=== PATIENT | male | born 1945 | race Caucasian/White ===

== ENCOUNTER 2016-09-28 06:58 | Day surgery (SDC) | payer OTHER ==
[2016-09-28] MEDS ORDERED: BORTEZOMIB (VELCADE) 2.5 MG/ML SUB-Q INJECTION SQ ONE (08:00)
[2016-09-28] MEDS ORDERED: DEXAMETHASONE 4 MG TABLET (FP) PO ONE (08:00)
[2016-09-28 11:06] LABS: BASOPHIL 0.4 % (0-2.0); EOSINOPHIL 1.8 % (0-4.5); MCH 31.6 pg (25.7-33.7); MCHC 33.6 g/dl (32.0-35.9); MEAN CELL VOLUME 93.8 fl (80-96); MEAN PLT VOLUME 7.8 fl (7.5-11.1); NEUTROPHILS 74.1 % (42.8-82.8); PLATELET COUNT 208 K/MM3 (134-434); RDW 14.3 % (11.9-15.9); WHITE BLOOD COUNT 7.1 K/mm3 (4.0-10.0)
[2016-09-28 11:25] LABS: ALBUMIN 3.8 g/dl (3.4-5.0); BILIRUBIN,TOTAL 0.4 mg/dL (0.2-1.0); CALCIUM 8.9 mg/dL (8.5-10.1); TOT PROT 6.3 g/dl (6.4-8.2)
[2016-09-28 13:12] VITALS: BP 118/74; PULSE 70; TEMP 98.2; BMI 29.2
== END 2016-09-28 14:05 | disposition home or self-care (01) ==
LOC: J7W 06:58 → JONCCHEMO 06:58
PROVIDERS: ATTEND Internal Medicine Hematology & Oncology
DX: Z51.11 Encounter for antineoplastic chemotherapy (principal); C90.00 Multiple myeloma not having achieved remission
CPT/HCPCS: 96401; J9041; 36415; 80053; 85025

== ENCOUNTER 2016-10-05 06:15 | Day surgery (SDC) | payer OTHER ==
[2016-10-05] MEDS ORDERED: DEXAMETHASONE 4 MG TABLET (FP) PO ONE (08:00)
[2016-10-05] MEDS ORDERED: BORTEZOMIB (VELCADE) 2.5 MG/ML SUB-Q INJECTION SQ ONE (08:00)
[2016-10-05 10:32] LABS: BASOPHIL 1.5 % (0-2.0); EOSINOPHIL 1.5 % (0-4.5); MCH 31.8 pg (25.7-33.7); MCHC 33.6 g/dl (32.0-35.9); MEAN CELL VOLUME 94.6 fl (80-96); MEAN PLT VOLUME 8.8 fl (7.5-11.1); NEUTROPHILS 69.6 % (42.8-82.8); PLATELET COUNT 157 K/MM3 (134-434); RDW 13.9 % (11.9-15.9); WHITE BLOOD COUNT 6.9 K/mm3 (4.0-10.0)
[2016-10-05 10:52] LABS: ALBUMIN 3.8 g/dl (3.4-5.0); BILIRUBIN,TOTAL 0.6 mg/dL (0.2-1.0); CALCIUM 8.7 mg/dL (8.5-10.1); TOT PROT 6.3 g/dl (6.4-8.2)
[2016-10-05 13:47] VITALS: BP 110/71; PULSE 81; TEMP 98.4; BMI 29.2
== END 2016-10-05 12:00 | disposition home or self-care (01) ==
LOC: JONCCHEMO 06:15 → J7W 11:08 → JONCCHEMO 12:00
PROVIDERS: ATTEND Internal Medicine Hematology & Oncology
DX: Z51.11 Encounter for antineoplastic chemotherapy (principal); C90.00 Multiple myeloma not having achieved remission
CPT/HCPCS: 96401; J9041; 36415; 80053; 85025

== ENCOUNTER 2016-10-19 07:01 | Day surgery (SDC) | payer OTHER ==
[2016-10-19] MEDS ORDERED: DEXAMETHASONE 4 MG TABLET (FP) PO ONE (08:00)
[2016-10-19] MEDS ORDERED: BORTEZOMIB (VELCADE) 2.5 MG/ML SUB-Q INJECTION SQ ONE (08:30)
[2016-10-19 10:23] LABS: MCH 31.9 pg (25.7-33.7); MCHC 33.5 g/dl (32.0-35.9); MEAN CELL VOLUME 95.2 fl (80-96); MEAN PLT VOLUME 8.7 fl (7.5-11.1); PLATELET COUNT 142 K/MM3 (134-434); RDW 14.3 % (11.9-15.9); WHITE BLOOD COUNT 7.2 K/mm3 (4.0-10.0)
[2016-10-19 10:32] LABS: ALBUMIN 3.7 g/dl (3.4-5.0); BILIRUBIN,TOTAL 0.7 mg/dL (0.2-1.0); CALCIUM 8.7 mg/dL (8.5-10.1); CREATININE 2.3 mg/dL (0.7-1.3); MAGNESIUM 1.8 mg/dL (1.8-2.4); TOT PROT 6.2 g/dl (6.4-8.2)
[2016-10-19 12:48] VITALS: BP 124/78; PULSE 68; TEMP 98.1
[2016-10-19 15:15] LABS: METAMYELOCYTE 1 % (0-2)
[2016-10-19 15:16] LABS: PLATELET ESTIMATE SLT DECREASED (NORMAL)
== END 2016-10-19 14:44 | disposition home or self-care (01) ==
LOC: JONCCHEMO 07:01 → J7W 10:53 → JONCCHEMO 14:44
PROVIDERS: ATTEND Internal Medicine Hematology & Oncology
DX: Z51.11 Encounter for antineoplastic chemotherapy (principal); C90.00 Multiple myeloma not having achieved remission
CPT/HCPCS: 96401; J9041; 36415; 80053; 83735; 85025

== ENCOUNTER 2016-11-02 06:59 | Day surgery (SDC) | payer OTHER ==
[2016-11-02] MEDS ORDERED: DEXAMETHASONE 4 MG TABLET (FP) PO ONE (08:00)
[2016-11-02] MEDS ORDERED: BORTEZOMIB (VELCADE) 2.5 MG/ML SUB-Q INJECTION SQ ONE (08:00)
[2016-11-02 10:18] LABS: MCH 32.2 pg (25.7-33.7); MCHC 33.9 g/dl (32.0-35.9); MEAN PLT VOLUME 7.9 fl (7.5-11.1); PLATELET COUNT 212 K/MM3 (134-434); RDW 14.3 % (11.9-15.9); WHITE BLOOD COUNT 7.4 K/mm3 (4.0-10.0)
[2016-11-02 10:50] LABS: ALBUMIN 3.6 g/dl (3.4-5.0); ANION GAP 11 (8-16); BILIRUBIN,TOTAL 0.4 mg/dL (0.2-1.0); CALCIUM 8.9 mg/dL (8.5-10.1); CO2 24 mmol/L (21-32); CREATININE 2.4 mg/dL (0.7-1.3); GLUCOSE,RANDOM 99 mg/dL (74-106); MAGNESIUM 1.9 mg/dL (1.8-2.4); SGOT/AST 18 U/L (15-37); SGPT/ALT 20 U/L (12-78); TOT PROT 5.9 g/dl (6.4-8.2)
[2016-11-02 10:51] LABS: ALK PHOS 97 U/L (45-117)
[2016-11-02 10:55] LABS: BILIRUBIN,DIRECT < 0.1 mg/dL (0.0-0.2)
[2016-11-02 11:56] LABS: PLATELET ESTIMATE ADEQUATE (NORMAL)
[2016-11-02 14:31] VITALS: BP 132/72; PULSE 78; TEMP 98.7
== END 2016-11-02 11:06 | disposition home or self-care (01) ==
LOC: JONCCHEMO 06:59 → J7W 10:54 → JONCCHEMO 11:06
PROVIDERS: ATTEND Internal Medicine Hematology & Oncology
DX: Z51.11 Encounter for antineoplastic chemotherapy (principal); C90.00 Multiple myeloma not having achieved remission; D64.81 Anemia due to antineoplastic chemotherapy
CPT/HCPCS: 36415; 80053; 80076; 83735; 85025; 96401; J9041

== ENCOUNTER 2016-11-09 07:03 | Day surgery (SDC) | payer OTHER ==
[2016-11-09] MEDS ORDERED: BORTEZOMIB (VELCADE) 2.5 MG/ML SUB-Q INJECTION SQ ONE (08:00)
[2016-11-09] MEDS ORDERED: DEXAMETHASONE 4 MG TABLET (FP) PO ONE (08:00)
[2016-11-09 10:39] LABS: ALBUMIN 3.5 g/dl (3.4-5.0); ALK PHOS 103 U/L (45-117); ANION GAP 12 (8-16); BILIRUBIN,TOTAL 0.3 mg/dL (0.2-1.0); CALCIUM 8.3 mg/dL (8.5-10.1); CO2 22 mmol/L (21-32); CREATININE 2.3 mg/dL (0.7-1.3); GLUCOSE,RANDOM 86 mg/dL (74-106); MAGNESIUM 2.1 mg/dL (1.8-2.4); SGOT/AST 17 U/L (15-37); SGPT/ALT 20 U/L (12-78); TOT PROT 5.9 g/dl (6.4-8.2)
[2016-11-09 10:40] LABS: BILIRUBIN,DIRECT < 0.1 mg/dL (0.0-0.2)
[2016-11-09 11:38] LABS: MCH 32.3 pg (25.7-33.7); MCHC 34.2 g/dl (32.0-35.9); MEAN CELL VOLUME 94.5 fl (80-96); MEAN PLT VOLUME 8.6 fl (7.5-11.1); PLATELET COUNT 129 K/MM3 (134-434); RDW 13.9 % (11.9-15.9); WHITE BLOOD COUNT 7.9 K/mm3 (4.0-10.0)
[2016-11-09 12:12] LABS: PLATELET ESTIMATE DECREASED (NORMAL)
[2016-11-09 14:47] VITALS: BP 106/73; PULSE 68; TEMP 97.5
[2016-11-11 00:06] LABS: A/G RATIO 1.5 (0.7-1.7); ALBUMIN 3.4 g/dL (2.9-4.4); ALPHA-1-GLOBULIN 0.2 g/dL (0.0-0.4); BETA GLOBULIN 0.8 g/dL (0.7-1.3); GAMMA GLOBULIN 0.5 g/dL (0.4-1.8); GLOBULIN, TOTAL 2.4 g/dL (2.2-3.9); M-SPIKE 0.4 g/dL (Not Observed); TOTAL PROTEIN 5.8 g/dL (6.0-8.5)
== END 2016-11-09 11:55 | disposition home or self-care (01) ==
LOC: JONCCHEMO 07:03 → J7W 11:15 → JONCCHEMO 11:55
PROVIDERS: ATTEND Internal Medicine Hematology & Oncology
DX: Z51.11 Encounter for antineoplastic chemotherapy (principal); C90.00 Multiple myeloma not having achieved remission; D64.81 Anemia due to antineoplastic chemotherapy
CPT/HCPCS: 36415; 80053; 80076; 82784; 83735; 83883; 84155; 84165; 85025; 86334; 96401; J9041

== ENCOUNTER 2016-11-16 06:55 | Day surgery (SDC) | payer OTHER ==
[2016-11-16] MEDS ORDERED: DEXAMETHASONE 4 MG TABLET (FP) PO ONE (08:00)
[2016-11-16] MEDS ORDERED: BORTEZOMIB (VELCADE) 2.5 MG/ML SUB-Q INJECTION SQ ONE (08:30)
[2016-11-16 10:10] LABS: EOSINOPHIL 4.5 % (0-4.5); MCHC 33.4 g/dl (32.0-35.9); MEAN CELL VOLUME 95.9 fl (80-96); MEAN PLT VOLUME 8.7 fl (7.5-11.1); PLATELET COUNT 126 K/MM3 (134-434)
[2016-11-16 10:34] LABS: ALBUMIN 3.7 g/dl (3.4-5.0); BILIRUBIN,TOTAL 0.4 mg/dL (0.2-1.0); CALCIUM 8.5 mg/dL (8.5-10.1); CREATININE 2.9 mg/dL (0.7-1.3); MAGNESIUM 2.1 mg/dL (1.8-2.4); TOT PROT 6.2 g/dl (6.4-8.2)
[2016-11-16 10:56] VITALS: BP 129/74; PULSE 79; TEMP 98.2
== END 2016-11-16 10:30 | disposition home or self-care (01) ==
LOC: JONCCHEMO 06:55 → J7W 10:52
PROVIDERS: ATTEND Internal Medicine Hematology & Oncology
DX: Z51.11 Encounter for antineoplastic chemotherapy (principal); C90.00 Multiple myeloma not having achieved remission
CPT/HCPCS: 96401; J9041; 36415; 80053; 83735; 85025

== ENCOUNTER 2016-11-30 07:12 | Day surgery (SDC) | payer OTHER ==
[2016-11-30] MEDS ORDERED: DEXAMETHASONE 4 MG TABLET (FP) PO ONE (08:00)
[2016-11-30] MEDS ORDERED: BORTEZOMIB (VELCADE) 2.5 MG/ML SUB-Q INJECTION SQ ONE (08:30)
[2016-11-30 10:22] LABS: EOSINOPHIL 3.8 % (0-4.5); MCH 32.4 pg (25.7-33.7); MCHC 33.8 g/dl (32.0-35.9); MEAN CELL VOLUME 95.7 fl (80-96); MEAN PLT VOLUME 6.9 fl (7.5-11.1); NEUTROPHILS 75.4 % (42.8-82.8); PLATELET COUNT 207 K/MM3 (134-434); RDW 14.3 % (11.9-15.9); WHITE BLOOD COUNT 8.9 K/mm3 (4.0-10.0)
[2016-11-30 10:53] LABS: ALBUMIN 3.5 g/dl (3.4-5.0); BILIRUBIN,TOTAL 0.3 mg/dL (0.2-1.0); CALCIUM 8.5 mg/dL (8.5-10.1); CREATININE 2.4 mg/dL (0.7-1.3); MAGNESIUM 1.9 mg/dL (1.8-2.4); TOT PROT 5.9 g/dl (6.4-8.2)
--- NOTE | 2016-11-30 12:42 | PN ---
Progress Note, Physician - Objective Vital Signs: Vital Signs Temperature 99.4 F 11/30/16 09:52 Pulse Rate 73 11/30/16 09:52 Respiratory Rate 22 11/30/16 09:52 Blood Pressure 128/70 11/30/16 09:52 O2 Sat by Pulse Oximetry (%) Labs: CBC, BMP 11/30/16 10:13 11/30/16 10:13 Assessment/Plan 1. Acute kidney injury related to Multiple Myeloma post renal biopsy 2. Paroxysmal atrial fibrillation [id number] score of 3 3. HTN 4. Anemia post transfusion 5. Hyponatremia,improved 6. History of noncompliance with medical F/U 7. Enterococcus UTI PLAN: 1. Continue Toprol XL 50 qd and Amlodipine 5 qd 2. Continue Amiodarone 200 qd and Lipitor 10 qd 3. Anticoagulation would be recommended once not planned for further intervention. 4. F/u bone marrow biopsy results, continue dex/velcade course and hydration 5. Abx course
--- NOTE | 2016-11-30 12:44 | CON.CARD ---
Consult Consult Specialty:: Cardiology Referred by:: Heme-Onc Dr. Lira Reason for Consultation:: Anticoagulation recommendations - History of Present Illness Chief Complaint: Multiple Myeloma History of Present Illness: The patient is a 71-year-old male with past medical history of hypertension, paroxysmal atrial fibrillation, multiple myeloma with kidney involvement on coumadin per stable INR presents for Velcade injection. He denies exertional chest tightness, dyspnea, near or true syncope, palpitations, orthopnea, PND, LE edema or change in exercise capacity, planned for stem cell transplant at [facility]. - History Source History Provided By: Patient Limitations to Obtaining History: No Limitations - Past Medical History Cardio/Vascular: Yes: AFIB, HTN Renal/: Yes: Renal Inusuff - Alcohol/Substance Use Hx Alcohol Use: No - Smoking History Smoking history: Never smoked Have you smoked in the past 12 months: No Aproximately how many cigarettes per day: 0 Home Medications - Allergies Allergies/Adverse Reactions: Allergies Allergy/AdvReac Type Severity Reaction Status Date / Time No Known Allergies Allergy Verified 04/13/16 19:21 - Home Medications Home Medications: Ambulatory Orders Amiodarone HCl [Cordarone -] 200 mg PO HS 03/13/16 Metoprolol Succinate [Toprol Xl] 50 mg PO BID 03/13/16 Simvastatin [Zocor -] 20 mg PO HS 03/13/16 Allopurinol [Zyloprim -] 100 mg PO DAILY #30 tablet 03/24/16 Amlodipine Besylate [Norvasc -] 5 mg PO DAILY #30 tablet 03/24/16 Sodium Bicarbonate - 1,300 mg PO BID #28 tablet 03/24/16 Valacyclovir HCl [Valtrex -] 500 mg PO DAILY #30 tablet 03/24/16 Warfarin Sodium [Coumadin] 7.5 mg PO HS 03/30/16 Review of Systems - Review of Systems Cardiovascular: reports: No Symptoms Vital Signs: Vital Signs Temperature 99.4 F 11/30/16 09:52 Pulse Rate 73 11/30/16 09:52 Respiratory Rate 22 11/30/16 09:52 Blood Pressure 128/70 11/30/16 09:52 O2 Sat by Pulse Oximetry (%) Constitutional: Yes: No Distress, Calm Neck: Yes: Supple Respiratory: Yes: Regular, CTA Bilaterally Gastrointestinal: Yes: Normal Bowel Sounds, Soft Cardiovascular: Yes: Regular Rate and Rhythm JVD: No Carotid Bruit: No Heart Sounds: Yes: S1, S2 Murmur: Yes: Systolic Murmur, Grade 1 Edema: No - Other Data Labs, Other Data: CBC, BMP 11/30/16 10:13 11/30/16 10:13 Problem List - Problems (1) Anemia Code(s): D64.9 - ANEMIA, UNSPECIFIED Qualifiers: Anemia type: bone marrow failure Bone marrow failure anemia type: unspecified bone marrow failure Qualified Code(s): D61.9 - Aplastic anemia, unspecified (2) Multiple myeloma Code(s): C90.00 - MULTIPLE MYELOMA NOT HAVING ACHIEVED REMISSION Qualifiers: Multiple myeloma remission status: not in remission Qualified Code(s ): C90.00 - Multiple myeloma not having achieved remission (3) Hyperlipidemia Code(s): E78.5 - HYPERLIPIDEMIA, UNSPECIFIED Qualifiers: Hyperlipidemia type: pure hypercholesterolemia Qualified Code(s): E78.00 - Pure hypercholesterolemia, unspecified; E78.0 - Pure hypercholesterolemia (4) Hypertensive cardiovascular disease Code(s): I11.9 - HYPERTENSIVE HEART DISEASE WITHOUT HEART FAILURE Qualifiers: Heart failure presence: without heart failure Qualified Code(s): I11.9 - Hypertensive heart disease without heart failure (5) Paroxysmal atrial fibrillation Code(s): I48.0 - PAROXYSMAL ATRIAL FIBRILLATION (6) Chronic kidney disease (CKD) Code(s): N18.9 - CHRONIC KIDNEY DISEASE, UNSPECIFIED Qualifiers: Chronic kidney disease stage: stage 3 (moderate) Qualified Code(s): N18.3 - Chronic kidney disease, stage 3 (moderate) Assessment/Plan 1. CKD with Multiple Myeloma 2. Paroxysmal atrial fibrillation [id number] score of 3 3. HTN 4. Anemia 5. Hyperlipidemia PLAN: 1. Continue Toprol XL 50 bid and Amlodipine 5 qd 2. Continue Amiodarone 200 qd and Lipitor 10 qd 3. Continue coumadin per INR with holding marnie-procedure and resume once hemostasis achieved, d/c ASA 4. Continue dex/velcade course and hydration 5. Stem cell transplant eval at [facility], case d/w Drs. Lira and Kathy at [facility] 6. F/u in office with mt for cardiovascular f/u 7. Thank you for consultative opportunity
[2016-11-30 13:51] LABS: INR 1.09 (0.82-1.09)
[2016-11-30 13:54] LABS: ACTIVATED PTT 35.5 SECONDS (26.9-34.4)
[2016-11-30 18:26] VITALS: BP 115/71; PULSE 93; TEMP 99.3
== END 2016-11-30 18:38 | disposition home or self-care (01) ==
LOC: JONCCHEMO 07:12 → J7W 11:32 → JONCCHEMO 18:38
PROVIDERS: ATTEND Internal Medicine Hematology & Oncology
DX: Z51.11 Encounter for antineoplastic chemotherapy (principal); C90.00 Multiple myeloma not having achieved remission
CPT/HCPCS: 36415; 80053; 83735; 85025; 85610; 85730; 96401; J9041

== ENCOUNTER 2016-12-07 07:06 | Day surgery (SDC) | payer OTHER ==
[2016-12-07] MEDS ORDERED: DEXAMETHASONE 4 MG TABLET (FP) PO ONE (08:00)
[2016-12-07] MEDS ORDERED: BORTEZOMIB (VELCADE) 2.5 MG/ML SUB-Q INJECTION SQ ONE (08:30)
[2016-12-07 11:21] LABS: MCH 31.6 pg (25.7-33.7); MCHC 33.6 g/dl (32.0-35.9); MEAN CELL VOLUME 93.9 fl (80-96); PLATELET COUNT 156 K/MM3 (134-434); WHITE BLOOD COUNT 9.2 K/mm3 (4.0-10.0)
[2016-12-07 11:51] LABS: ALBUMIN 3.5 g/dl (3.4-5.0); BILIRUBIN,TOTAL 0.3 mg/dL (0.2-1.0); CALCIUM 8.9 mg/dL (8.5-10.1); CREATININE 2.4 mg/dL (0.7-1.3); TOT PROT 6.1 g/dl (6.4-8.2)
[2016-12-07 12:43] VITALS: BP 104/62; PULSE 79; TEMP 98.3
[2016-12-07 14:14] LABS: INR 1.14 (0.82-1.09); PROTHROMBIN TIME (PATIENT) 12.6 SEC (9.98-11.88)
[2016-12-07 14:21] LABS: PLATELET ESTIMATE ADEQUATE (NORMAL)
== END 2016-12-07 13:06 | disposition home or self-care (01) ==
LOC: JONCCHEMO 07:06 → J7W 11:52 → JONCCHEMO 13:06
PROVIDERS: ATTEND Internal Medicine Hematology & Oncology
DX: Z51.11 Encounter for antineoplastic chemotherapy (principal); C90.00 Multiple myeloma not having achieved remission
CPT/HCPCS: 36415; 80053; 83735; 85025; 85610; 85730; 96401; J9041

== ENCOUNTER 2016-12-14 07:38 | Day surgery (SDC) | payer OTHER ==
[2016-12-14] MEDS ORDERED: DEXAMETHASONE 4 MG TABLET (FP) PO ONE (08:00)
[2016-12-14] MEDS ORDERED: BORTEZOMIB (VELCADE) 2.5 MG/ML SUB-Q INJECTION SQ ONE (08:00)
[2016-12-14 10:23] LABS: MCH 31.9 pg (25.7-33.7); MCHC 34.2 g/dl (32.0-35.9); MEAN CELL VOLUME 93.5 fl (80-96); MEAN PLT VOLUME 8.7 fl (7.5-11.1); PLATELET COUNT 156 K/MM3 (134-434); RDW 14.8 % (11.9-15.9); WHITE BLOOD COUNT 9.2 K/mm3 (4.0-10.0)
[2016-12-14 11:09] LABS: ALBUMIN 3.8 g/dl (3.4-5.0); BILIRUBIN,TOTAL 0.4 mg/dL (0.2-1.0); CALCIUM 8.4 mg/dL (8.5-10.1); CREATININE 2.4 mg/dL (0.7-1.3); MAGNESIUM 2.2 mg/dL (1.8-2.4)
[2016-12-14 11:14] LABS: TOT PROT 6.3 g/dl (6.4-8.2)
[2016-12-14 13:08] LABS: METAMYELOCYTE 1 % (0-2); PLATELET ESTIMATE ADEQUATE (NORMAL)
[2016-12-14 15:53] VITALS: BP 105/72; PULSE 68; TEMP 98.6
--- NOTE | 2016-12-14 17:23 | EKG ---
Test Reason : Blood Pressure : / mmHG Vent. Rate : 065 BPM Atrial Rate : 065 BPM P-R Int : 146 ms QRS Dur : 138 ms QT Int : 468 ms P-R-T Axes : 010 034 041 degrees QTc Int : 486 ms NORMAL SINUS RHYTHM RIGHT BUNDLE BRANCH BLOCK ABNORMAL ECG WHEN COMPARED WITH ECG OF 13-MAR-2016 10:25, T WAVE INVERSION NO LONGER EVIDENT IN INFERIOR LEADS T WAVE INVERSION NO LONGER EVIDENT IN ANTERIOR LEADS Confirmed by CORNELIO LUNA, DEONTE ([id number]) on 12/14/2016 5:22:51 PM Referred By: POONAM PEÑA Confirmed By:DEONTE GRIMES MD
== END 2016-12-14 15:53 | disposition home or self-care (01) ==
LOC: JONCCHEMO 07:38 → J7W 11:24 → JONCCHEMO 15:53
PROVIDERS: ATTEND Internal Medicine Hematology & Oncology
DX: Z51.11 Encounter for antineoplastic chemotherapy (principal); C90.00 Multiple myeloma not having achieved remission; D64.81 Anemia due to antineoplastic chemotherapy
CPT/HCPCS: 96401; J9041; 36415; 71020-TC; 80053; 83735; 85025; 85730; 93005; 93010

== ENCOUNTER 2017-06-14 07:06 | Day surgery (SDC) | payer OTHER ==
[2017-06-14] MEDS ORDERED: BORTEZOMIB (VELCADE) 2.5 MG/ML SUB-Q INJECTION SQ ONE (10:00)
[2017-06-14 11:57] LABS: EOSINOPHIL 2.8 % (0-4.5); MCHC 32.3 g/dl (32.0-35.9); MEAN CELL VOLUME 92.8 fl (80-96); MEAN PLT VOLUME 7.2 fl (7.5-11.1); NEUTROPHILS 70.1 % (42.8-82.8); PLATELET COUNT 174 K/MM3 (134-434); RDW 13.7 % (11.9-15.9); WHITE BLOOD COUNT 8.3 K/mm3 (4.0-10.0)
[2017-06-14 12:19] VITALS: TEMP 97.2
[2017-06-14 12:22] LABS: ALBUMIN 3.9 g/dl (3.4-5.0); ALK PHOS 163 U/L (45-117); ANION GAP 6 (8-16); BILIRUBIN,DIRECT < 0.2 mg/dL (0.0-0.2); BILIRUBIN,TOTAL 0.3 mg/dL (0.2-1.0); CALCIUM 8.5 mg/dL (8.5-10.1); CO2 26 mmol/L (21-32); CREATININE 2.7 mg/dL (0.7-1.3); GLUCOSE,RANDOM 95 mg/dL (74-106); MAGNESIUM 2.3 mg/dL (1.8-2.4); SGOT/AST 11 U/L (15-37); SGPT/ALT 21 U/L (12-78); TOT PROT 6.6 g/dl (6.4-8.2)
[2017-06-14 13:41] VITALS: BP 121/82
[2017-06-14 13:47] VITALS: PULSE 62
== END 2017-06-14 12:50 | disposition home or self-care (01) ==
LOC: JONCCHEMO 07:06 → J7W 12:15 → JONCCHEMO 12:50
PROVIDERS: ATTEND Internal Medicine Hematology & Oncology
DX: Z51.11 Encounter for antineoplastic chemotherapy (principal); C90.00 Multiple myeloma not having achieved remission
CPT/HCPCS: 36415; 80053; 80076; 83735; 85025; 96401; J9041

== ENCOUNTER 2017-06-28 07:17 | Day surgery (SDC) | payer OTHER ==
[2017-06-28] MEDS ORDERED: BORTEZOMIB (VELCADE) 2.5 MG/ML SUB-Q INJECTION SQ ONE (08:00)
[2017-06-28 09:52] LABS: BASOPHIL 1.2 % (0-2.0); EOSINOPHIL 2.3 % (0-4.5); MCHC 32.7 g/dl (32.0-35.9); MEAN CELL VOLUME 91.7 fl (80-96); MEAN PLT VOLUME 7.9 fl (7.5-11.1); NEUTROPHILS 70.5 % (42.8-82.8); PLATELET COUNT 161 K/MM3 (134-434); RDW 13.9 % (11.9-15.9); WHITE BLOOD COUNT 6.9 K/mm3 (4.0-10.0)
[2017-06-28 10:18] LABS: ALBUMIN 3.6 g/dl (3.4-5.0); ANION GAP 6 (8-16); BILIRUBIN,DIRECT < 0.2 mg/dL (0.0-0.2); CALCIUM 8.3 mg/dL (8.5-10.1); CO2 26 mmol/L (21-32); GLUCOSE,RANDOM 114 mg/dL (74-106); MAGNESIUM 2.1 mg/dL (1.8-2.4); SGPT/ALT 21 U/L (12-78)
[2017-06-28 10:21] LABS: ALK PHOS 152 U/L (45-117); BILIRUBIN,TOTAL 0.4 mg/dL (0.2-1.0); CREATININE 2.6 mg/dL (0.7-1.3); SGOT/AST 12 U/L (15-37); TOT PROT 6.2 g/dl (6.4-8.2)
[2017-06-28 16:24] VITALS: BP 114/69; PULSE 72; TEMP 98.1
== END 2017-06-28 10:25 | disposition home or self-care (01) ==
LOC: JONCCHEMO 07:17 → J7W 10:11 → JONCCHEMO 10:25
PROVIDERS: ATTEND Internal Medicine Hematology & Oncology
DX: Z51.11 Encounter for antineoplastic chemotherapy (principal); C90.00 Multiple myeloma not having achieved remission
CPT/HCPCS: 36415; 80053; 80076; 83735; 85025; 96401; J9041

== ENCOUNTER 2017-07-10 07:50 | Day surgery (SDC) | payer OTHER ==
[2017-07-10] MEDS ORDERED: BORTEZOMIB (VELCADE) 2.5 MG/ML SUB-Q INJECTION SQ ONE (08:00)
[2017-07-10 10:29] LABS: BASOPHIL 1.4 % (0-2.0); EOSINOPHIL 2.7 % (0-4.5); MCH 29.7 pg (25.7-33.7); MCHC 32.7 g/dl (32.0-35.9); MEAN CELL VOLUME 90.8 fl (80-96); MEAN PLT VOLUME 8.1 fl (7.5-11.1); NEUTROPHILS 72.2 % (42.8-82.8); PLATELET COUNT 183 K/MM3 (134-434); RDW 13.8 % (11.9-15.9); WHITE BLOOD COUNT 7.7 K/mm3 (4.0-10.0)
[2017-07-10 10:56] LABS: ALBUMIN 3.9 g/dl (3.4-5.0); ANION GAP 5 (8-16); BILIRUBIN,DIRECT < 0.2 mg/dL (0.0-0.2); BILIRUBIN,TOTAL 0.3 mg/dL (0.2-1.0); CALCIUM 8.6 mg/dL (8.5-10.1); CO2 28 mmol/L (21-32); CREATININE 2.6 mg/dL (0.7-1.3); GLUCOSE,RANDOM 79 mg/dL (74-106); MAGNESIUM 2.3 mg/dL (1.8-2.4); SGOT/AST 11 U/L (15-37); SGPT/ALT 21 U/L (12-78); TOT PROT 6.7 g/dl (6.4-8.2)
[2017-07-10 10:57] LABS: ALK PHOS 166 U/L (45-117)
[2017-07-10 15:59] VITALS: BP 120/76; PULSE 62; TEMP 97.8
== END 2017-07-10 11:40 | disposition home or self-care (01) ==
LOC: JONCCHEMO 07:50 → J7W 11:25 → JONCCHEMO 11:40
PROVIDERS: ATTEND Internal Medicine Hematology & Oncology
DX: Z51.11 Encounter for antineoplastic chemotherapy (principal); C90.00 Multiple myeloma not having achieved remission
CPT/HCPCS: 36415; 80053; 80076; 83735; 85025; 96401; J9041

== ENCOUNTER 2017-07-24 07:21 | Day surgery (SDC) | payer OTHER ==
[2017-07-24] MEDS ORDERED: BORTEZOMIB (VELCADE) 2.5 MG/ML SUB-Q INJECTION SQ ONE (08:00)
[2017-07-24 09:06] LABS: BASOPHIL 0.9 % (0-2.0); EOSINOPHIL 2.9 % (0-4.5); MCH 29.1 pg (25.7-33.7); MCHC 31.8 g/dl (32.0-35.9); MEAN CELL VOLUME 91.3 fl (80-96); MEAN PLT VOLUME 7.9 fl (7.5-11.1); NEUTROPHILS 70.2 % (42.8-82.8); PLATELET COUNT 181 K/MM3 (134-434); WHITE BLOOD COUNT 8.2 K/mm3 (4.0-10.0)
[2017-07-24 09:25] LABS: ALBUMIN 3.7 g/dl (3.4-5.0); ALK PHOS 176 U/L (45-117); ANION GAP 6 (8-16); BILIRUBIN,DIRECT < 0.2 mg/dL (0.0-0.2); BILIRUBIN,TOTAL 0.5 mg/dL (0.2-1.0); CALCIUM 8.6 mg/dL (8.5-10.1); CO2 26 mmol/L (21-32); CREATININE 3.2 mg/dL (0.7-1.3); GLUCOSE,RANDOM 103 mg/dL (74-106); MAGNESIUM 2.3 mg/dL (1.8-2.4); SGOT/AST 11 U/L (15-37); SGPT/ALT 22 U/L (12-78); TOT PROT 6.6 g/dl (6.4-8.2)
[2017-07-24 10:44] VITALS: BP 114/68; PULSE 70; TEMP 97.6
== END 2017-07-24 10:30 | disposition home or self-care (01) ==
LOC: JONCCHEMO 07:21 → J7W 10:08 → JONCCHEMO 10:30
PROVIDERS: ATTEND Internal Medicine Hematology & Oncology
DX: Z51.11 Encounter for antineoplastic chemotherapy (principal); C90.00 Multiple myeloma not having achieved remission
CPT/HCPCS: 36415; 80053; 80076; 83735; 85025; 96401; J9041

== ENCOUNTER 2017-08-09 07:32 | Day surgery (SDC) | payer OTHER ==
[2017-08-09 09:04] VITALS: TEMP 98.3
[2017-08-09 09:24] LABS: BASO # 0.1 #; BASO % 0.8 % (0-2.0); EOS # 0.1 #; EOS % 1.6 % (0-4.5); LYMPH # 1.5; MCH 28.9 pg (25.7-33.7); MCHC 31.6 g/dl (32.0-35.9); MEAN CELL VOLUME 91.6 fl (80-96); MEAN PLT VOLUME 7.9 fl (7.5-11.1); MONO # 0.8 #; NEUT # 6.6 #; NEUT % 72.5 % (42.8-82.8); PLATELET COUNT 180 K/MM3 (134-434); RDW 14.3 % (11.9-15.9); WHITE BLOOD COUNT 9.1 K/mm3 (4.0-10.0)
[2017-08-09 09:54] LABS: ALBUMIN 3.9 g/dl (3.4-5.0); ALK PHOS 173 U/L (45-117); ANION GAP 10 (8-16); BILIRUBIN,DIRECT < 0.2 mg/dL (0.0-0.2); BILIRUBIN,TOTAL 0.4 mg/dL (0.2-1.0); CALCIUM 8.4 mg/dL (8.5-10.1); CO2 23 mmol/L (21-32); CREATININE 3.7 mg/dL (0.7-1.3); GLUCOSE,RANDOM 115 mg/dL (74-106); MAGNESIUM 2.2 mg/dL (1.8-2.4); SGOT/AST 21 U/L (15-37); SGPT/ALT 21 U/L (12-78); TOT PROT 6.6 g/dl (6.4-8.2)
[2017-08-09] MEDS ORDERED: BORTEZOMIB (VELCADE) 2.5 MG/ML SUB-Q INJECTION SQ ONE (10:00)
[2017-08-09 10:33] VITALS: BP 114/68; PULSE 69
== END 2017-08-09 10:15 | disposition home or self-care (01) ==
LOC: JONCCHEMO 07:32 → J7W 09:48 → JONCCHEMO 10:15
PROVIDERS: ATTEND Internal Medicine Hematology & Oncology
DX: Z51.11 Encounter for antineoplastic chemotherapy (principal); C90.00 Multiple myeloma not having achieved remission
CPT/HCPCS: 36415; 80053; 80076; 83735; 85025; 96401; J9041

== ENCOUNTER 2017-08-23 07:49 | Day surgery (SDC) | payer OTHER ==
[2017-08-23] MEDS ORDERED: BORTEZOMIB (VELCADE) 2.5 MG/ML SUB-Q INJECTION SQ ONE (10:00)
[2017-08-23 14:42] VITALS: BP 104/58; PULSE 56; TEMP 98.2
[2017-08-23 15:15] LABS: EOS % 2.1 % (0-4.5); HEMATOCRIT 34.4 % (35.4-49); HEMOGLOBIN 11.2 GM/dL (11.7-16.9); LYMPH % 14.9 % (8-40); MCH 29.8 pg (25.7-33.7); MCHC 32.6 g/dl (32.0-35.9); MEAN CELL VOLUME 91.4 fl (80-96); MEAN PLT VOLUME 8.7 fl (7.5-11.1); MONO % 7.7 % (3.8-10.2); NEUT % 74.3 % (42.8-82.8); PLATELET COUNT 167 K/MM3 (134-434); RBC 3.76 M/mm3 (4.00-5.60); RDW 14.7 % (11.9-15.9); WHITE BLOOD COUNT 6.7 K/mm3 (4.0-10.0)
[2017-08-23 16:01] LABS: ALBUMIN 3.7 g/dl (3.4-5.0); ANION GAP 10 (8-16); BILIRUBIN,TOTAL 0.4 mg/dL (0.2-1.0); BLOOD UREA NITROGEN 40 mg/dL (7-18); CALCIUM 8.8 mg/dL (8.5-10.1); CHLORIDE 106 mmol/L (98-107); CO2 27 mmol/L (21-32); GLUCOSE,RANDOM 86 mg/dL (74-106); POTASSIUM 4.4 mmol/L (3.5-5.1); SGOT/AST 18 U/L (15-37); SGPT/ALT 23 U/L (12-78); SODIUM 143 mmol/L (136-145); TOT PROT 6.3 g/dl (6.4-8.2)
[2017-08-23 16:02] LABS: ALK PHOS 173 U/L (45-117)
[2017-08-25 00:06] LABS: FREE KAPPA,SERUM 21.6 mg/L (3.3-19.4)
== END 2017-08-23 14:43 | disposition home or self-care (01) ==
LOC: JONCCHEMO 07:49 → J7W 13:32 → JONCCHEMO 14:43
PROVIDERS: ATTEND Internal Medicine Hematology & Oncology
DX: Z51.11 Encounter for antineoplastic chemotherapy (principal); C90.00 Multiple myeloma not having achieved remission
CPT/HCPCS: 36415; 80053; 83883; 85025; 96401; J9041

== ENCOUNTER 2017-09-06 07:36 | Day surgery (SDC) | payer OTHER ==
[2017-09-06] MEDS ORDERED: BORTEZOMIB (VELCADE) 2.5 MG/ML SUB-Q INJECTION SQ ONE (08:00)
[2017-09-06 11:56] LABS: BASO % 0.8 % (0-2.0); HEMATOCRIT 35.8 % (35.4-49); HEMOGLOBIN 11.4 GM/dL (11.7-16.9); LYMPH % 16.3 % (8-40); MCH 29.4 pg (25.7-33.7); MEAN CELL VOLUME 91.9 fl (80-96); MEAN PLT VOLUME 7.3 fl (7.5-11.1); NEUT % 70.9 % (42.8-82.8); PLATELET COUNT 171 K/MM3 (134-434); RDW 14.8 % (11.9-15.9); WHITE BLOOD COUNT 6.8 K/mm3 (4.0-10.0)
[2017-09-06 12:28] LABS: ALBUMIN 3.7 g/dl (3.4-5.0); ALK PHOS 182 U/L (45-117); ANION GAP 12 (8-16); BILIRUBIN,DIRECT < 0.2 mg/dL (0.0-0.2); BILIRUBIN,TOTAL 0.4 mg/dL (0.2-1.0); BLOOD UREA NITROGEN 33 mg/dL (7-18); CALCIUM 8.5 mg/dL (8.5-10.1); CHLORIDE 105 mmol/L (98-107); CO2 25 mmol/L (21-32); CREATININE 2.9 mg/dL (0.7-1.3); GLUCOSE,RANDOM 93 mg/dL (74-106); MAGNESIUM 2.2 mg/dL (1.8-2.4); POTASSIUM 4.4 mmol/L (3.5-5.1); SGOT/AST 15 U/L (15-37); SGPT/ALT 24 U/L (12-78); SODIUM 142 mmol/L (136-145); TOT PROT 6.4 g/dl (6.4-8.2)
[2017-09-06 16:10] VITALS: BP 105/81; PULSE 86; TEMP 97.7
== END 2017-09-06 13:10 | disposition home or self-care (01) ==
LOC: JONCCHEMO 07:36 → J7W 12:54 → JONCCHEMO 13:10
PROVIDERS: ATTEND Internal Medicine Hematology & Oncology
DX: Z51.11 Encounter for antineoplastic chemotherapy (principal); C90.00 Multiple myeloma not having achieved remission
CPT/HCPCS: 36415; 80053; 80076; 83735; 85025; 96401; J9041

== ENCOUNTER 2017-09-20 07:25 | Day surgery (SDC) | payer OTHER ==
[2017-09-20] MEDS ORDERED: BORTEZOMIB (VELCADE) 2.5 MG/ML SUB-Q INJECTION SQ ONE (08:00)
[2017-09-20 11:59] LABS: EOS % 2.2 % (0-4.5); HEMATOCRIT 36.5 % (35.4-49); HEMOGLOBIN 11.7 GM/dL (11.7-16.9); MCH 29.4 pg (25.7-33.7); MCHC 32.1 g/dl (32.0-35.9); MEAN CELL VOLUME 91.5 fl (80-96); MEAN PLT VOLUME 7.6 fl (7.5-11.1); MONO % 8.4 % (3.8-10.2); NEUT % 72.4 % (42.8-82.8); PLATELET COUNT 173 K/MM3 (134-434); RBC 3.99 M/mm3 (4.00-5.60); RDW 14.8 % (11.9-15.9); WHITE BLOOD COUNT 7.3 K/mm3 (4.0-10.0)
[2017-09-20 12:32] LABS: ALBUMIN 3.9 g/dl (3.4-5.0); ALK PHOS 194 U/L (45-117); ANION GAP 8 (8-16); BILIRUBIN,DIRECT < 0.2 mg/dL (0.0-0.2); BILIRUBIN,TOTAL 0.3 mg/dL (0.2-1.0); BLOOD UREA NITROGEN 36 mg/dL (7-18); CALCIUM 8.2 mg/dL (8.5-10.1); CHLORIDE 108 mmol/L (98-107); CO2 25 mmol/L (21-32); CREATININE 2.8 mg/dL (0.7-1.3); GLUCOSE,RANDOM 90 mg/dL (74-106); MAGNESIUM 2.1 mg/dL (1.8-2.4); POTASSIUM 4.4 mmol/L (3.5-5.1); SGOT/AST 13 U/L (15-37); SGPT/ALT 23 U/L (12-78); SODIUM 141 mmol/L (136-145); TOT PROT 6.5 g/dl (6.4-8.2)
[2017-09-20 14:21] VITALS: BP 108/69; PULSE 62; TEMP 98
== END 2017-09-20 14:00 | disposition home or self-care (01) ==
LOC: JONCCHEMO 07:25 → J7W 13:07 → JONCCHEMO 14:00
PROVIDERS: ATTEND Internal Medicine Hematology & Oncology
DX: Z51.11 Encounter for antineoplastic chemotherapy (principal); C90.00 Multiple myeloma not having achieved remission
CPT/HCPCS: 36415; 80053; 80076; 83735; 85025; 96401; J9041

== ENCOUNTER 2017-10-04 07:36 | Day surgery (SDC) | payer OTHER ==
[2017-10-04] MEDS ORDERED: BORTEZOMIB (VELCADE) 2.5 MG/ML SUB-Q INJECTION SQ ONE (10:00)
[2017-10-04 11:25] VITALS: TEMP 98.2
[2017-10-04 11:37] LABS: BASO % 0.8 % (0-2.0); EOS % 2.4 % (0-4.5); HEMATOCRIT 36.6 % (35.4-49); HEMOGLOBIN 11.6 GM/dL (11.7-16.9); LYMPH % 17.5 % (8-40); MCH 29.5 pg (25.7-33.7); MCHC 31.8 g/dl (32.0-35.9); MEAN CELL VOLUME 92.8 fl (80-96); MEAN PLT VOLUME 7.4 fl (7.5-11.1); NEUT % 70.3 % (42.8-82.8); PLATELET COUNT 158 K/MM3 (134-434); RBC 3.94 M/mm3 (4.00-5.60); RDW 15.2 % (11.9-15.9); WHITE BLOOD COUNT 7.8 K/mm3 (4.0-10.0)
[2017-10-04 12:12] LABS: ALBUMIN 3.9 g/dl (3.4-5.0); ANION GAP 9 (8-16); BILIRUBIN,DIRECT < 0.2 mg/dL (0.0-0.2); BILIRUBIN,TOTAL 0.4 mg/dL (0.2-1.0); BLOOD UREA NITROGEN 36 mg/dL (7-18); CALCIUM 8.1 mg/dL (8.5-10.1); CHLORIDE 110 mmol/L (98-107); CO2 23 mmol/L (21-32); CREATININE 2.7 mg/dL (0.7-1.3); GLUCOSE,RANDOM 98 mg/dL (74-106); MAGNESIUM 2.1 mg/dL (1.8-2.4); POTASSIUM 4.2 mmol/L (3.5-5.1); SGOT/AST 16 U/L (15-37); SGPT/ALT 21 U/L (12-78); SODIUM 142 mmol/L (136-145); TOT PROT 6.5 g/dl (6.4-8.2)
[2017-10-04 12:13] LABS: ALK PHOS 179 U/L (45-117)
[2017-10-04 15:17] VITALS: BP 106/62; PULSE 68
== END 2017-10-04 12:35 | disposition home or self-care (01) ==
LOC: JONCCHEMO 07:36 → J7W 12:17 → JONCCHEMO 12:35
PROVIDERS: ATTEND Internal Medicine Hematology & Oncology
DX: Z51.11 Encounter for antineoplastic chemotherapy (principal); C90.00 Multiple myeloma not having achieved remission
CPT/HCPCS: 36415; 80053; 80076; 83735; 85025; 96401; J9041

== ENCOUNTER 2017-10-25 07:20 | Day surgery (SDC) | payer OTHER ==
[~2017-10-25 07:20] MED LIST: BORTEZOMIB (VELCADE) 2.5 MG/ML SUB-Q INJECTION SQ ONE
[2017-10-25 09:57] VITALS: BP 142/77; PULSE 71; TEMP 98.3
[2017-10-25] MEDS ORDERED: BORTEZOMIB (VELCADE) 2.5 MG/ML SUB-Q INJECTION SQ ONE (10:00)
[2017-10-25 10:22] LABS: BASO % 1.1 % (0-2.0); EOS % 2.3 % (0-4.5); HEMATOCRIT 34.3 % (35.4-49); HEMOGLOBIN 11.4 GM/dL (11.7-16.9); LYMPH % 15.1 % (8-40); MCH 30.8 pg (25.7-33.7); MCHC 33.3 g/dl (32.0-35.9); MEAN CELL VOLUME 92.6 fl (80-96); MONO % 8.7 % (3.8-10.2); NEUT % 72.8 % (42.8-82.8); PLATELET COUNT 152 K/MM3 (134-434); RDW 15.1 % (11.9-15.9); WHITE BLOOD COUNT 6.7 K/mm3 (4.0-10.0)
[2017-10-25 10:50] LABS: ALBUMIN 3.8 g/dl (3.4-5.0); ANION GAP 10 (8-16); BLOOD UREA NITROGEN 34 mg/dL (7-18); CHLORIDE 111 mmol/L (98-107); CO2 22 mmol/L (21-32); CREATININE 2.3 mg/dL (0.7-1.3); GLUCOSE,RANDOM 96 mg/dL (74-106); POTASSIUM 4.1 mmol/L (3.5-5.1); SGOT/AST 13 U/L (15-37); SGPT/ALT 20 U/L (12-78); SODIUM 143 mmol/L (136-145)
[2017-10-25 10:53] LABS: ALK PHOS 186 U/L (45-117); BILIRUBIN,TOTAL 0.4 mg/dL (0.2-1.0); TOT PROT 6.2 g/dl (6.4-8.2)
[2017-10-25 10:58] LABS: BILIRUBIN,DIRECT < 0.2 mg/dL (0.0-0.2); MAGNESIUM 2.2 mg/dL (1.8-2.4)
== END 2017-10-25 12:00 | disposition home or self-care (01) ==
LOC: JONCCHEMO 07:20 → J7W 11:05 → JONCCHEMO 12:00
PROVIDERS: ATTEND Internal Medicine Hematology & Oncology
DX: Z51.11 Encounter for antineoplastic chemotherapy (principal); C90.00 Multiple myeloma not having achieved remission
CPT/HCPCS: 36415; 80053; 80076; 83735; 85025; 96401; J9041

== ENCOUNTER 2017-11-08 07:24 | Day surgery (SDC) | payer OTHER ==
[2017-11-08] MEDS ORDERED: BORTEZOMIB (VELCADE) 2.5 MG/ML SUB-Q INJECTION SQ ONE (08:00)
[2017-11-08 10:40] LABS: BASO % 1.4 % (0-2.0); EOS % 2.6 % (0-4.5); HEMATOCRIT 36.1 % (35.4-49); HEMOGLOBIN 12.2 GM/dL (11.7-16.9); LYMPH % 20.1 % (8-40); MCH 30.9 pg (25.7-33.7); MCHC 33.7 g/dl (32.0-35.9); MEAN CELL VOLUME 91.9 fl (80-96); MEAN PLT VOLUME 7.6 fl (7.5-11.1); MONO % 8.9 % (3.8-10.2); PLATELET COUNT 189 K/MM3 (134-434); RBC 3.93 M/mm3 (4.00-5.60); RDW 15.1 % (11.9-15.9)
[2017-11-08 12:49] LABS: ALBUMIN 4.1 g/dl (3.4-5.0); ANION GAP 14 (8-16); BLOOD UREA NITROGEN 39 mg/dL (7-18); CALCIUM 8.8 mg/dL (8.5-10.1); CHLORIDE 108 mmol/L (98-107); CO2 20 mmol/L (21-32); GLUCOSE,RANDOM 105 mg/dL (74-106); POTASSIUM 4.1 mmol/L (3.5-5.1); SGOT/AST 15 U/L (15-37); SGPT/ALT 21 U/L (12-78); SODIUM 142 mmol/L (136-145)
[2017-11-08 12:52] LABS: ALK PHOS 206 U/L (45-117); BILIRUBIN,TOTAL 0.5 mg/dL (0.2-1.0); CREATININE 2.7 mg/dL (0.7-1.3); TOT PROT 6.7 g/dl (6.4-8.2)
[2017-11-08 16:13] LABS: ALK PHOS 202 U/L (45-117); BILIRUBIN,DIRECT < 0.2 mg/dL (0.0-0.2); BILIRUBIN,TOTAL 0.4 mg/dL (0.2-1.0); MAGNESIUM 2.1 mg/dL (1.8-2.4); SGOT/AST 15 U/L (15-37); SGPT/ALT 20 U/L (12-78); TOT PROT 6.7 g/dl (6.4-8.2)
[2017-11-08 16:38] VITALS: BP 107/68; PULSE 64; TEMP 97.9
== END 2017-11-08 11:45 | disposition home or self-care (01) ==
LOC: JONCCHEMO 07:24 → J7W 11:24 → JONCCHEMO 11:45
PROVIDERS: ATTEND Internal Medicine Hematology & Oncology
DX: Z51.11 Encounter for antineoplastic chemotherapy (principal); C90.00 Multiple myeloma not having achieved remission
CPT/HCPCS: 36415; 80053; 80076; 83735; 85025; 96401; J9041

== ENCOUNTER 2017-11-22 07:24 | Day surgery (SDC) | payer OTHER ==
[2017-11-22] MEDS ORDERED: BORTEZOMIB (VELCADE) 2.5 MG/ML SUB-Q INJECTION SQ ONE (09:00)
[2017-11-22 11:50] LABS: EOS % 1.7 % (0-4.5); HEMATOCRIT 37.7 % (35.4-49); HEMOGLOBIN 12.5 GM/dL (11.7-16.9); MCH 30.5 pg (25.7-33.7); MCHC 33.1 g/dl (32.0-35.9); MEAN CELL VOLUME 92.3 fl (80-96); MEAN PLT VOLUME 7.7 fl (7.5-11.1); MONO % 6.9 % (3.8-10.2); NEUT % 75.4 % (42.8-82.8); PLATELET COUNT 202 K/MM3 (134-434); RBC 4.09 M/mm3 (4.00-5.60); RDW 14.4 % (11.9-15.9); WHITE BLOOD COUNT 7.5 K/mm3 (4.0-10.0)
[2017-11-22 12:21] LABS: ALK PHOS 189 U/L (45-117); ANION GAP 9 (8-16); BILIRUBIN,DIRECT < 0.2 mg/dL (0.0-0.2); BILIRUBIN,TOTAL 0.3 mg/dL (0.2-1.0); BLOOD UREA NITROGEN 50 mg/dL (7-18); CALCIUM 8.7 mg/dL (8.5-10.1); CHLORIDE 108 mmol/L (98-107); CO2 23 mmol/L (21-32); GLUCOSE,RANDOM 98 mg/dL (74-106); MAGNESIUM 2.2 mg/dL (1.8-2.4); POTASSIUM 4.4 mmol/L (3.5-5.1); SGOT/AST 16 U/L (15-37); SGOT/AST 17 U/L (15-37); SGPT/ALT 27 U/L (12-78); SODIUM 140 mmol/L (136-145); TOT PROT 6.8 g/dl (6.4-8.2)
[2017-11-22 12:22] LABS: ALK PHOS 190 U/L (45-117); BILIRUBIN,TOTAL 0.3 mg/dL (0.2-1.0); TOT PROT 6.8 g/dl (6.4-8.2)
[2017-11-22 18:44] VITALS: BP 114/67; PULSE 58; TEMP 97.8
== END 2017-11-22 13:20 | disposition home or self-care (01) ==
LOC: JONCCHEMO 07:24 → J7W 12:55 → JONCCHEMO 13:20
PROVIDERS: ATTEND Internal Medicine Hematology & Oncology
DX: Z51.11 Encounter for antineoplastic chemotherapy (principal); C90.00 Multiple myeloma not having achieved remission
CPT/HCPCS: 36415; 80053; 80076; 83735; 85025; 96401; J9041

== ENCOUNTER 2017-12-06 07:19 | Day surgery (SDC) | payer OTHER ==
[2017-12-06] MEDS ORDERED: BORTEZOMIB (VELCADE) 2.5 MG/ML SUB-Q INJECTION SQ ONE (10:00)
[2017-12-06 11:38] LABS: BASO % 1.1 % (0-2.0); EOS % 1.8 % (0-4.5); HEMATOCRIT 37.1 % (35.4-49); HEMOGLOBIN 12.4 GM/dL (11.7-16.9); LYMPH % 18.1 % (8-40); MCHC 33.3 g/dl (32.0-35.9); MEAN PLT VOLUME 7.5 fl (7.5-11.1); MONO % 7.6 % (3.8-10.2); NEUT % 71.4 % (42.8-82.8); PLATELET COUNT 176 K/MM3 (134-434); RBC 3.99 M/mm3 (4.00-5.60); RDW 13.7 % (11.9-15.9); WHITE BLOOD COUNT 7.7 K/mm3 (4.0-10.0)
[2017-12-06 12:12] LABS: ALK PHOS 187 U/L (45-117); ANION GAP 11 (8-16); BILIRUBIN,TOTAL 0.4 mg/dL (0.2-1.0); BLOOD UREA NITROGEN 31 mg/dL (7-18); CALCIUM 8.4 mg/dL (8.5-10.1); CHLORIDE 104 mmol/L (98-107); CO2 24 mmol/L (21-32); CREATININE 2.9 mg/dL (0.7-1.3); GLUCOSE,RANDOM 110 mg/dL (74-106); POTASSIUM 4.3 mmol/L (3.5-5.1); SGOT/AST 20 U/L (15-37); SGPT/ALT 26 U/L (12-78); SODIUM 139 mmol/L (136-145); TOT PROT 6.6 g/dl (6.4-8.2)
[2017-12-06 12:18] LABS: BILIRUBIN,DIRECT < 0.2 mg/dL (0.0-0.2); MAGNESIUM 2.3 mg/dL (1.8-2.4)
[2017-12-06 13:00] VITALS: BP 119/74; PULSE 68; TEMP 97.1
== END 2017-12-06 12:40 | disposition home or self-care (01) ==
LOC: JONCCHEMO 07:19 → J7W 12:27 → JONCCHEMO 12:40
PROVIDERS: ATTEND Internal Medicine Hematology & Oncology
DX: Z51.11 Encounter for antineoplastic chemotherapy (principal); C90.00 Multiple myeloma not having achieved remission
CPT/HCPCS: 36415; 80053; 80076; 83735; 85025; 96401; J9041

== ENCOUNTER 2017-12-20 07:19 | Day surgery (SDC) | payer OTHER ==
[2017-12-20] MEDS ORDERED: BORTEZOMIB (VELCADE) 2.5 MG/ML SUB-Q INJECTION SQ ONE (10:00)
[2017-12-20 11:59] LABS: BASO % 1.1 % (0-2.0); EOS % 1.7 % (0-4.5); HEMATOCRIT 36.4 % (35.4-49); HEMOGLOBIN 12.6 GM/dL (11.7-16.9); LYMPH % 12.4 % (8-40); MCH 31.9 pg (25.7-33.7); MCHC 34.5 g/dl (32.0-35.9); MEAN CELL VOLUME 92.2 fl (80-96); MEAN PLT VOLUME 7.2 fl (7.5-11.1); MONO % 6.9 % (3.8-10.2); NEUT % 77.9 % (42.8-82.8); PLATELET COUNT 187 K/MM3 (134-434); RBC 3.95 M/mm3 (4.00-5.60); RDW 14.1 % (11.9-15.9); WHITE BLOOD COUNT 7.4 K/mm3 (4.0-10.0)
[2017-12-20 12:25] LABS: ANION GAP 9 (8-16); BILIRUBIN,DIRECT < 0.2 mg/dL (0.0-0.2); BLOOD UREA NITROGEN 48 mg/dL (7-18); CALCIUM 8.2 mg/dL (8.5-10.1); CHLORIDE 108 mmol/L (98-107); CO2 24 mmol/L (21-32); CREATININE 3.1 mg/dL (0.7-1.3); GLUCOSE,RANDOM 102 mg/dL (74-106); MAGNESIUM 2.5 mg/dL (1.8-2.4); POTASSIUM 4.5 mmol/L (3.5-5.1); SGOT/AST 20 U/L (15-37); SGPT/ALT 21 U/L (12-78); SODIUM 141 mmol/L (136-145)
[2017-12-20 12:27] LABS: ALK PHOS 172 U/L (45-117); BILIRUBIN,TOTAL 0.4 mg/dL (0.2-1.0); TOT PROT 6.5 g/dl (6.4-8.2)
[2017-12-20 16:06] VITALS: BP 117/66; PULSE 59; TEMP 97.8
== END 2017-12-20 13:30 | disposition home or self-care (01) ==
LOC: JONCCHEMO 07:19 → J7W 13:12 → JONCCHEMO 13:30
PROVIDERS: ATTEND Internal Medicine Hematology & Oncology
DX: Z51.11 Encounter for antineoplastic chemotherapy (principal); C90.00 Multiple myeloma not having achieved remission
CPT/HCPCS: 36415; 80053; 80076; 83735; 85025; 96401; J9041

== ENCOUNTER 2018-01-03 06:39 | Day surgery (SDC) | payer OTHER ==
[2018-01-03] MEDS ORDERED: BORTEZOMIB (VELCADE) 2.5 MG/ML SUB-Q INJECTION SQ ONE (08:00)
[2018-01-03 11:59] LABS: BASO % 1.1 % (0-2.0); EOS % 2.7 % (0-4.5); HEMATOCRIT 36.9 % (35.4-49); HEMOGLOBIN 12.1 GM/dL (11.7-16.9); LYMPH % 14.1 % (8-40); MCH 30.7 pg (25.7-33.7); MCHC 32.8 g/dl (32.0-35.9); MEAN CELL VOLUME 93.6 fl (80-96); MEAN PLT VOLUME 7.6 fl (7.5-11.1); MONO % 8.1 % (3.8-10.2); PLATELET COUNT 177 K/MM3 (134-434); RBC 3.95 M/mm3 (4.00-5.60); RDW 14.3 % (11.9-15.9); WHITE BLOOD COUNT 8.1 K/mm3 (4.0-10.0)
[2018-01-03 12:33] LABS: ALBUMIN 3.8 g/dl (3.4-5.0); ALK PHOS 161 U/L (45-117); BILIRUBIN,DIRECT < 0.2 mg/dL (0.0-0.2); BILIRUBIN,TOTAL 0.4 mg/dL (0.2-1.0); MAGNESIUM 2.1 mg/dL (1.8-2.4); SGOT/AST 19 U/L (15-37); TOT PROT 6.4 g/dl (6.4-8.2)
[2018-01-03 12:45] LABS: ALBUMIN 3.7 g/dl (3.4-5.0); ANION GAP 10 (8-16); BLOOD UREA NITROGEN 39 mg/dL (7-18); CALCIUM 8.4 mg/dL (8.5-10.1); CHLORIDE 110 mmol/L (98-107); CO2 23 mmol/L (21-32); GLUCOSE,RANDOM 101 mg/dL (74-106); POTASSIUM 4.1 mmol/L (3.5-5.1); SODIUM 143 mmol/L (136-145)
[2018-01-03 12:54] LABS: ANION GAP 8 (8-16); BLOOD UREA NITROGEN 40 mg/dL (7-18); CALCIUM 8.4 mg/dL (8.5-10.1); CHLORIDE 111 mmol/L (98-107); CO2 24 mmol/L (21-32); CREATININE 2.7 mg/dL (0.7-1.3); GLUCOSE,RANDOM 99 mg/dL (74-106); POTASSIUM 4.2 mmol/L (3.5-5.1); SODIUM 143 mmol/L (136-145)
[2018-01-03 13:05] LABS: ALK PHOS 159 U/L (45-117); BILIRUBIN,TOTAL 0.4 mg/dL (0.2-1.0); CREATININE 2.7 mg/dL (0.7-1.3); SGOT/AST 17 U/L (15-37); TOT PROT 6.4 g/dl (6.4-8.2)
[2018-01-03 13:10] LABS: SGPT/ALT 29 U/L (12-78)
[2018-01-03 13:11] LABS: SGPT/ALT 29 U/L (12-78)
[2018-01-03 15:43] VITALS: BP 129/70; PULSE 74
[2018-01-03 15:44] VITALS: TEMP 98.1
== END 2018-01-03 13:00 | disposition home or self-care (01) ==
LOC: JONCCHEMO 06:39 → J7W 12:28 → JONCCHEMO 13:00
PROVIDERS: ATTEND Internal Medicine Hematology & Oncology
DX: Z51.11 Encounter for antineoplastic chemotherapy (principal); C90.00 Multiple myeloma not having achieved remission
CPT/HCPCS: 36415; 80053; 80076; 82784; 83735; 83883; 84155; 84156; 84165; 85025; 86334; 96401; J9041

== ENCOUNTER 2018-01-17 07:14 | Day surgery (SDC) | payer OTHER ==
[2018-01-17] MEDS ORDERED: BORTEZOMIB (VELCADE) 2.5 MG/ML SUB-Q INJECTION SQ ONE (09:00)
[2018-01-17 12:07] LABS: BASO % 0.8 % (0-2.0); EOS % 1.6 % (0-4.5); HEMATOCRIT 37.5 % (35.4-49); HEMOGLOBIN 12.4 GM/dL (11.7-16.9); MCH 30.8 pg (25.7-33.7); MCHC 33.1 g/dl (32.0-35.9); MEAN CELL VOLUME 93.1 fl (80-96); MEAN PLT VOLUME 7.7 fl (7.5-11.1); NEUT % 75.6 % (42.8-82.8); PLATELET COUNT 214 K/MM3 (134-434); RBC 4.03 M/mm3 (4.00-5.60); WHITE BLOOD COUNT 7.8 K/mm3 (4.0-10.0)
[2018-01-17 12:39] LABS: ALBUMIN 3.9 g/dl (3.4-5.0); ALK PHOS 165 U/L (45-117); ANION GAP 8 (8-16); BILIRUBIN,DIRECT < 0.2 mg/dL (0.0-0.2); BILIRUBIN,TOTAL 0.5 mg/dL (0.2-1.0); BLOOD UREA NITROGEN 38 mg/dL (7-18); CALCIUM 8.8 mg/dL (8.5-10.1); CHLORIDE 109 mmol/L (98-107); CO2 23 mmol/L (21-32); CREATININE 2.8 mg/dL (0.7-1.3); GLUCOSE,RANDOM 103 mg/dL (74-106); MAGNESIUM 2.3 mg/dL (1.8-2.4); POTASSIUM 4.2 mmol/L (3.5-5.1); SGOT/AST 16 U/L (15-37); SGPT/ALT 25 U/L (12-78); SODIUM 140 mmol/L (136-145); TOT PROT 6.6 g/dl (6.4-8.2)
[2018-01-17 16:50] VITALS: BP 120/67; PULSE 62; TEMP 97.5
== END 2018-01-17 13:15 | disposition home or self-care (01) ==
LOC: JONCCHEMO 07:14 → J7W 12:59 → JONCCHEMO 13:15
PROVIDERS: ATTEND Internal Medicine Hematology & Oncology
DX: Z51.11 Encounter for antineoplastic chemotherapy (principal); C90.00 Multiple myeloma not having achieved remission
CPT/HCPCS: 36415; 80048; 80076; 83735; 85025; 96401; J9041

== ENCOUNTER 2018-01-31 07:32 | Day surgery (SDC) | payer OTHER ==
[2018-01-31] MEDS ORDERED: BORTEZOMIB (VELCADE) 2.5 MG/ML SUB-Q INJECTION SQ ONE (10:00)
[2018-01-31 12:23] LABS: BASO % 1.3 % (0-2.0); EOS % 1.9 % (0-4.5); HEMATOCRIT 36.9 % (35.4-49); HEMOGLOBIN 12.2 GM/dL (11.7-16.9); LYMPH % 11.3 % (8-40); MCH 30.9 pg (25.7-33.7); MEAN CELL VOLUME 93.5 fl (80-96); MEAN PLT VOLUME 7.6 fl (7.5-11.1); MONO % 6.6 % (3.8-10.2); NEUT % 78.9 % (42.8-82.8); PLATELET COUNT 178 K/MM3 (134-434); RBC 3.95 M/mm3 (4.00-5.60); WHITE BLOOD COUNT 8.3 K/mm3 (4.0-10.0)
[2018-01-31 12:49] LABS: ALBUMIN 3.7 g/dl (3.4-5.0); ANION GAP 10 (8-16); BILIRUBIN,DIRECT 0.2 mg/dL (0.0-0.2); BILIRUBIN,TOTAL 0.4 mg/dL (0.2-1.0); BLOOD UREA NITROGEN 41 mg/dL (7-18); CALCIUM 8.4 mg/dL (8.5-10.1); CHLORIDE 108 mmol/L (98-107); CO2 25 mmol/L (21-32); CREATININE 2.5 mg/dL (0.7-1.3); GLUCOSE,RANDOM 99 mg/dL (74-106); POTASSIUM 4.2 mmol/L (3.5-5.1); SGOT/AST 14 U/L (15-37); SGPT/ALT 23 U/L (12-78); SODIUM 143 mmol/L (136-145); TOT PROT 6.4 g/dl (6.4-8.2)
[2018-01-31 12:50] LABS: ALK PHOS 154 U/L (45-117)
[2018-01-31 17:48] VITALS: BP 112/70; PULSE 59; TEMP 97.9
== END 2018-01-31 14:15 | disposition home or self-care (01) ==
LOC: JONCCHEMO 07:32 → J7W 13:55 → JONCCHEMO 14:15
PROVIDERS: ATTEND Internal Medicine Hematology & Oncology
DX: Z51.11 Encounter for antineoplastic chemotherapy (principal); C90.00 Multiple myeloma not having achieved remission
CPT/HCPCS: 36415; 80053; 80076; 85025; 96401; J9041

== ENCOUNTER 2018-02-14 07:48 | Day surgery (SDC) | payer OTHER ==
[2018-02-14] MEDS ORDERED: BORTEZOMIB (VELCADE) 2.5 MG/ML SUB-Q INJECTION SQ ONE (10:00)
[2018-02-14 12:07] LABS: BASO % 0.6 % (0-2.0); EOS % 2.4 % (0-4.5); HEMATOCRIT 37.1 % (35.4-49); HEMOGLOBIN 12.2 GM/dL (11.7-16.9); LYMPH % 14.8 % (8-40); MCH 31.1 pg (25.7-33.7); MCHC 32.9 g/dl (32.0-35.9); MEAN CELL VOLUME 94.5 fl (80-96); MEAN PLT VOLUME 8.1 fl (7.5-11.1); NEUT % 75.2 % (42.8-82.8); PLATELET COUNT 179 K/MM3 (134-434); RBC 3.92 M/mm3 (4.00-5.60); RDW 14.2 % (11.9-15.9); WHITE BLOOD COUNT 6.9 K/mm3 (4.0-10.0)
[2018-02-14 13:05] LABS: ALBUMIN 3.7 g/dl (3.4-5.0); ANION GAP 10 (8-16); BILIRUBIN,DIRECT 0.2 mg/dL (0.0-0.2); BILIRUBIN,TOTAL 0.4 mg/dL (0.2-1.0); BLOOD UREA NITROGEN 36 mg/dL (7-18); CALCIUM 7.8 mg/dL (8.5-10.1); CHLORIDE 110 mmol/L (98-107); CO2 25 mmol/L (21-32); CREATININE 2.5 mg/dL (0.7-1.3); GLUCOSE,RANDOM 92 mg/dL (74-106); MAGNESIUM 2.1 mg/dL (1.8-2.4); POTASSIUM 4.1 mmol/L (3.5-5.1); SGOT/AST 17 U/L (15-37); SGPT/ALT 23 U/L (12-78); SODIUM 145 mmol/L (136-145); TOT PROT 6.4 g/dl (6.4-8.2)
[2018-02-14 13:06] LABS: ALK PHOS 146 U/L (45-117)
[2018-02-14 16:19] VITALS: BP 114/69; PULSE 63; TEMP 98
== END 2018-02-14 13:30 | disposition home or self-care (01) ==
LOC: JONCCHEMO 07:48 → J7W 12:26 → JONCCHEMO 13:30
PROVIDERS: ATTEND Internal Medicine Hematology & Oncology
DX: Z51.11 Encounter for antineoplastic chemotherapy (principal); C90.00 Multiple myeloma not having achieved remission
CPT/HCPCS: 36415; 80053; 80076; 83735; 85025; 96401; J9041

== ENCOUNTER 2018-02-28 07:40 | Day surgery (SDC) | payer OTHER ==
[2018-02-28] MEDS ORDERED: BORTEZOMIB (VELCADE) 2.5 MG/ML SUB-Q INJECTION SQ ONE (08:00)
[2018-02-28 13:01] LABS: BASO % 0.8 % (0-2.0); EOS % 1.9 % (0-4.5); HEMOGLOBIN 11.8 GM/dL (11.7-16.9); LYMPH % 13.2 % (8-40); MCH 31.6 pg (25.7-33.7); MCHC 33.8 g/dl (32.0-35.9); MEAN CELL VOLUME 93.7 fl (80-96); MEAN PLT VOLUME 8.3 fl (7.5-11.1); MONO % 6.8 % (3.8-10.2); NEUT % 77.3 % (42.8-82.8); PLATELET COUNT 183 K/MM3 (134-434); RBC 3.73 M/mm3 (4.00-5.60); RDW 14.1 % (11.9-15.9); WHITE BLOOD COUNT 7.3 K/mm3 (4.0-10.0)
[2018-02-28 13:53] LABS: ALBUMIN 3.9 g/dl (3.4-5.0); ANION GAP 9 (8-16); BLOOD UREA NITROGEN 38 mg/dL (7-18); CALCIUM 8.6 mg/dL (8.5-10.1); CHLORIDE 108 mmol/L (98-107); CO2 24 mmol/L (21-32); GLUCOSE,RANDOM 93 mg/dL (74-106); MAGNESIUM 2.3 mg/dL (1.8-2.4); SODIUM 141 mmol/L (136-145)
[2018-02-28 13:59] LABS: ALK PHOS 165 U/L (45-117); BILIRUBIN,DIRECT 0.2 mg/dL (0.0-0.2); BILIRUBIN,TOTAL 0.4 mg/dL (0.2-1.0); CREATININE 2.7 mg/dL (0.7-1.3); SGOT/AST 14 U/L (15-37); SGPT/ALT 21 U/L (12-78); TOT PROT 6.5 g/dl (6.4-8.2)
[2018-02-28 14:31] VITALS: BP 117/78; PULSE 61; TEMP 97.9
[2018-03-01 06:25] LABS: IGA IMMUNOGLOBULIN 69 mg/dL (61-437); IGG IMMUNOGLOBULIN 489 mg/dL (700-1600); IGM IMMUNOGLOBULIN 20 mg/dL (15-143)
[2018-03-03 00:06] LABS: FREE KAPPA,SERUM 20.1 mg/L (3.3-19.4)
== END 2018-02-28 14:15 | disposition home or self-care (01) ==
LOC: JONCCHEMO 07:40 → J7W 13:33 → JONCCHEMO 14:15
PROVIDERS: ATTEND Internal Medicine Hematology & Oncology
DX: Z51.11 Encounter for antineoplastic chemotherapy (principal); C90.00 Multiple myeloma not having achieved remission
CPT/HCPCS: 36415; 80053; 80076; 82784; 83735; 83883; 84155; 84165; 85025; 96401; J9041

== ENCOUNTER 2018-03-14 07:32 | Day surgery (SDC) | payer OTHER ==
[2018-03-14] MEDS ORDERED: BORTEZOMIB (VELCADE) 2.5 MG/ML SUB-Q INJECTION SQ ONE (08:00)
[2018-03-14 09:56] LABS: BASO % 1.1 % (0-2.0); EOS % 2.3 % (0-4.5); HEMATOCRIT 36.3 % (35.4-49); HEMOGLOBIN 12.2 GM/dL (11.7-16.9); LYMPH % 13.9 % (8-40); MCH 31.8 pg (25.7-33.7); MCHC 33.7 g/dl (32.0-35.9); MEAN CELL VOLUME 94.4 fl (80-96); MEAN PLT VOLUME 7.5 fl (7.5-11.1); MONO % 7.5 % (3.8-10.2); NEUT % 75.2 % (42.8-82.8); PLATELET COUNT 192 K/MM3 (134-434); RBC 3.85 M/mm3 (4.00-5.60); RDW 13.8 % (11.9-15.9); WHITE BLOOD COUNT 7.9 K/mm3 (4.0-10.0)
[2018-03-14 10:45] LABS: ALK PHOS 155 U/L (45-117); ANION GAP 11 (8-16); BILIRUBIN,DIRECT < 0.2 mg/dL (0.0-0.2); BILIRUBIN,TOTAL 0.4 mg/dL (0.2-1.0); BILIRUBIN,TOTAL 0.5 mg/dL (0.2-1.0); BLOOD UREA NITROGEN 40 mg/dL (7-18); CALCIUM 8.6 mg/dL (8.5-10.1); CHLORIDE 110 mmol/L (98-107); CO2 24 mmol/L (21-32); CREATININE 2.9 mg/dL (0.7-1.3); GLUCOSE,RANDOM 93 mg/dL (74-106); MAGNESIUM 2.4 mg/dL (1.8-2.4); SGOT/AST 13 U/L (15-37); SGPT/ALT 21 U/L (12-78); SODIUM 145 mmol/L (136-145); TOT PROT 6.5 g/dl (6.4-8.2)
[2018-03-14 11:11] LABS: ALK PHOS 159 U/L (45-117)
[2018-03-14 12:08] VITALS: BP 103/63; PULSE 61; TEMP 97.5
[2018-03-15 08:10] LABS: SERUM IRON SATURATION 27 % (15-55); TOTAL IRON BINDING CAPACITY 275 ug/dL (250-450); UIBC 202 ug/dL (111-343)
== END 2018-03-14 12:12 | disposition home or self-care (01) ==
LOC: JONCCHEMO 07:32 → J7W 11:10 → JONCCHEMO 12:12
PROVIDERS: ATTEND Internal Medicine Hematology & Oncology
DX: Z51.11 Encounter for antineoplastic chemotherapy (principal); C90.00 Multiple myeloma not having achieved remission
CPT/HCPCS: 36415; 80053; 80076; 82607; 83540; 83550; 83735; 85025; 96401; J9041

== ENCOUNTER 2018-04-11 07:25 | Day surgery (SDC) | payer OTHER ==
[2018-04-11 09:19] LABS: BASO % 1.1 % (0-2.0); EOS % 2.4 % (0-4.5); HEMATOCRIT 35.5 % (35.4-49); LYMPH % 18.6 % (8-40); MCH 32.1 pg (25.7-33.7); MCHC 33.7 g/dl (32.0-35.9); MEAN CELL VOLUME 95.4 fl (80-96); MEAN PLT VOLUME 7.4 fl (7.5-11.1); MONO % 9.9 % (3.8-10.2); PLATELET COUNT 160 K/MM3 (134-434); RBC 3.72 M/mm3 (4.00-5.60); RDW 13.6 % (11.9-15.9); WHITE BLOOD COUNT 7.6 K/mm3 (4.0-10.0)
[2018-04-11 09:50] LABS: ALBUMIN 3.8 g/dl (3.4-5.0); ALK PHOS 148 U/L (45-117); BILIRUBIN,DIRECT < 0.2 mg/dL (0.0-0.2); BILIRUBIN,TOTAL 0.4 mg/dL (0.2-1.0); MAGNESIUM 2.2 mg/dL (1.8-2.4); SGOT/AST 18 U/L (15-37); SGPT/ALT 19 U/L (12-78); TOT PROT 6.4 g/dl (6.4-8.2)
[2018-04-11] MEDS ORDERED: BORTEZOMIB (VELCADE) 2.5 MG/ML SUB-Q INJECTION SQ ONE (10:00)
[2018-04-11 10:37] LABS: ANION GAP 6 MMOL/L (8-16); BLOOD UREA NITROGEN 33 mg/dL (7-18); CALCIUM 8.6 mg/dL (8.5-10.1); CHLORIDE 110 mmol/L (98-107); CO2 26 mmol/L (21-32); CREATININE 2.4 mg/dL (0.7-1.3); GLUCOSE,RANDOM 77 mg/dL (74-106); POTASSIUM 4.1 mmol/L (3.5-5.1); SODIUM 142 mmol/L (136-145)
[2018-04-11 15:40] VITALS: BP 101/64; PULSE 63; TEMP 98.2
== END 2018-04-11 11:00 | disposition home or self-care (01) ==
LOC: JONCCHEMO 07:25 → J7W 10:08 → JONCCHEMO 11:00
PROVIDERS: ATTEND Internal Medicine Hematology & Oncology
DX: Z51.11 Encounter for antineoplastic chemotherapy (principal); C90.00 Multiple myeloma not having achieved remission
CPT/HCPCS: 36415; 80053; 80076; 83735; 85025; 96401; J9041

== ENCOUNTER 2018-04-25 07:31 | Day surgery (SDC) | payer OTHER ==
[2018-04-25] MEDS ORDERED: BORTEZOMIB (VELCADE) 2.5 MG/ML SUB-Q INJECTION SQ ONE (09:00)
[2018-04-25 10:34] LABS: BASO % 0.7 % (0-2.0); EOS % 2.8 % (0-4.5); HEMATOCRIT 35.9 % (35.4-49); LYMPH % 19.3 % (8-40); MCH 31.9 pg (25.7-33.7); MCHC 33.4 g/dl (32.0-35.9); MEAN CELL VOLUME 95.6 fl (80-96); MEAN PLT VOLUME 7.8 fl (7.5-11.1); MONO % 9.4 % (3.8-10.2); NEUT % 67.8 % (42.8-82.8); PLATELET COUNT 183 K/MM3 (134-434); RBC 3.76 M/mm3 (4.00-5.60); RDW 13.2 % (11.9-15.9); WHITE BLOOD COUNT 7.8 K/mm3 (4.0-10.0)
[2018-04-25 11:04] LABS: ALBUMIN 3.8 g/dl (3.4-5.0); ANION GAP 11 MMOL/L (8-16); BILIRUBIN,TOTAL 0.3 mg/dL (0.2-1.0); BLOOD UREA NITROGEN 34 mg/dL (7-18); CHLORIDE 109 mmol/L (98-107); CO2 25 mmol/L (21-32); CREATININE 2.6 mg/dL (0.7-1.3); GLUCOSE,RANDOM 97 mg/dL (74-106); POTASSIUM 4.9 mmol/L (3.5-5.1); SGOT/AST 16 U/L (15-37); SGPT/ALT 24 U/L (13-61); SODIUM 145 mmol/L (136-145); TOT PROT 6.5 g/dl (6.4-8.2)
[2018-04-25 11:05] LABS: ALK PHOS 150 U/L (45-117)
[2018-04-25 11:10] LABS: ALBUMIN 3.8 g/dl (3.4-5.0); ALK PHOS 154 U/L (45-117); BILIRUBIN,DIRECT < 0.2 mg/dL (0.0-0.2); BILIRUBIN,TOTAL 0.3 mg/dL (0.2-1.0); MAGNESIUM 2.4 mg/dL (1.8-2.4); SGOT/AST 17 U/L (15-37); SGPT/ALT 24 U/L (13-61); TOT PROT 6.5 g/dl (6.4-8.2)
[2018-04-25 13:32] VITALS: BP 127/67; PULSE 66; TEMP 97.9
== END 2018-04-25 11:45 | disposition home or self-care (01) ==
LOC: JONCCHEMO 07:31 → J7W 11:27 → JONCCHEMO 11:45
PROVIDERS: ATTEND Internal Medicine Hematology & Oncology
DX: Z51.11 Encounter for antineoplastic chemotherapy (principal); C90.00 Multiple myeloma not having achieved remission
CPT/HCPCS: 36415; 80053; 80076; 83735; 85025; 96401; J9041

== ENCOUNTER 2018-05-09 07:26 | Day surgery (SDC) | payer OTHER ==
[2018-05-09] MEDS ORDERED: BORTEZOMIB (VELCADE) 2.5 MG/ML SUB-Q INJECTION SQ ONE (09:00)
[2018-05-09 09:27] LABS: BASO % 1.1 % (0-2.0); EOS % 2.3 % (0-4.5); HEMATOCRIT 36.9 % (35.4-49); HEMOGLOBIN 12.6 GM/dL (11.7-16.9); LYMPH % 15.3 % (8-40); MCH 32.4 pg (25.7-33.7); MEAN CELL VOLUME 95.1 fl (80-96); MEAN PLT VOLUME 7.8 fl (7.5-11.1); MONO % 8.2 % (3.8-10.2); NEUT % 73.1 % (42.8-82.8); PLATELET COUNT 168 K/MM3 (134-434); RBC 3.88 M/mm3 (4.00-5.60); RDW 13.2 % (11.9-15.9); WHITE BLOOD COUNT 7.7 K/mm3 (4.0-10.0)
[2018-05-09 10:03] LABS: ALBUMIN 3.7 g/dl (3.4-5.0); ALK PHOS 148 U/L (45-117); ANION GAP 10 MMOL/L (8-16); BILIRUBIN,TOTAL 0.4 mg/dL (0.2-1); BLOOD UREA NITROGEN 30 mg/dL (7-18); CALCIUM 8.9 mg/dL (8.5-10.1); CHLORIDE 109 mmol/L (98-107); CO2 26 mmol/L (21-32); CREATININE 2.4 mg/dL (0.55-1.3); GLUCOSE,RANDOM 75 mg/dL (74-106); POTASSIUM 4.8 mmol/L (3.5-5.1); SGOT/AST 17 U/L (15-37); SGPT/ALT 24 U/L (13-61); SODIUM 145 mmol/L (136-145); TOT PROT 6.6 g/dl (6.4-8.2)
[2018-05-09 10:07] LABS: ALBUMIN 3.8 g/dl (3.4-5.0); ALK PHOS 148 U/L (45-117); BILIRUBIN,DIRECT < 0.2 mg/dL (0.0-0.2); BILIRUBIN,TOTAL 0.4 mg/dL (0.2-1); MAGNESIUM 2.3 mg/dL (1.8-2.4); SGOT/AST 14 U/L (15-37); SGPT/ALT 23 U/L (13-61); TOT PROT 6.5 g/dl (6.4-8.2)
[2018-05-09 17:00] VITALS: BP 124/62; PULSE 62; TEMP 97.7
== END 2018-05-09 10:40 | disposition home or self-care (01) ==
LOC: JONCCHEMO 07:26 → J7W 10:17 → JONCCHEMO 10:40
PROVIDERS: ATTEND Internal Medicine Hematology & Oncology
DX: Z51.11 Encounter for antineoplastic chemotherapy (principal); C90.00 Multiple myeloma not having achieved remission
CPT/HCPCS: 36415; 80053; 80076; 83735; 85025; 96401; J9041

== ENCOUNTER 2018-05-23 07:41 | Day surgery (SDC) | payer OTHER ==
[2018-05-23] MEDS ORDERED: BORTEZOMIB (VELCADE) 2.5 MG/ML SUB-Q INJECTION SQ ONE (10:00)
[2018-05-23 10:08] LABS: BASO % 1.1 % (0-2.0); EOS % 4.4 % (0-4.5); HEMATOCRIT 35.5 % (35.4-49); HEMOGLOBIN 11.6 GM/dL (11.7-16.9); LYMPH % 15.7 % (8-40); MCH 31.4 pg (25.7-33.7); MCHC 32.7 g/dl (32.0-35.9); MEAN CELL VOLUME 95.9 fl (80-96); MEAN PLT VOLUME 7.8 fl (7.5-11.1); MONO % 8.3 % (3.8-10.2); NEUT % 70.5 % (42.8-82.8); PLATELET COUNT 173 K/MM3 (134-434); RDW 13.2 % (11.9-15.9); WHITE BLOOD COUNT 6.4 K/mm3 (4.0-10.0)
[2018-05-23 10:43] LABS: ALBUMIN 3.7 g/dl (3.4-5.0); BILIRUBIN,DIRECT 0.2 mg/dL (0.0-0.2); BILIRUBIN,TOTAL 0.5 mg/dL (0.2-1); MAGNESIUM 2.4 mg/dL (1.8-2.4); TOT PROT 6.4 g/dl (6.4-8.2)
[2018-05-23 10:45] LABS: ALBUMIN 3.8 g/dl (3.4-5.0); ALK PHOS 137 U/L (45-117); ANION GAP 8 MMOL/L (8-16); BILIRUBIN,TOTAL 0.5 mg/dL (0.2-1); BLOOD UREA NITROGEN 35 mg/dL (7-18); CALCIUM 8.9 mg/dL (8.5-10.1); CHLORIDE 110 mmol/L (98-107); CO2 26 mmol/L (21-32); CREATININE 2.5 mg/dL (0.55-1.3); GLUCOSE,RANDOM 89 mg/dL (74-106); POTASSIUM 4.4 mmol/L (3.5-5.1); SGOT/AST 21 U/L (15-37); SGPT/ALT 32 U/L (13-61); SODIUM 144 mmol/L (136-145); TOT PROT 6.5 g/dl (6.4-8.2)
[2018-05-23 11:55] VITALS: BP 126/61; PULSE 63; TEMP 97.6
== END 2018-05-23 11:40 | disposition home or self-care (01) ==
LOC: JONCCHEMO 07:41 → J7W 11:26 → JONCCHEMO 11:40
PROVIDERS: ATTEND Internal Medicine Hematology & Oncology
DX: Z51.11 Encounter for antineoplastic chemotherapy (principal); C90.00 Multiple myeloma not having achieved remission
CPT/HCPCS: 36415; 80053; 80076; 83735; 85025; 96401; J9041

== ENCOUNTER 2018-06-06 07:12 | Day surgery (SDC) | payer OTHER ==
[2018-06-06 09:59] LABS: HEMATOCRIT 36.7 % (35.4-49); HEMOGLOBIN 12.2 GM/dL (11.7-16.9); LYMPH % 17.7 % (8-40); MCH 31.7 pg (25.7-33.7); MCHC 33.2 g/dl (32.0-35.9); MEAN CELL VOLUME 95.6 fl (80-96); MEAN PLT VOLUME 8.3 fl (7.5-11.1); MONO % 7.6 % (3.8-10.2); NEUT % 70.7 % (42.8-82.8); PLATELET COUNT 170 K/MM3 (134-434); RBC 3.84 M/mm3 (4.00-5.60); RDW 13.4 % (11.9-15.9); WHITE BLOOD COUNT 7.2 K/mm3 (4.0-10.0)
[2018-06-06] MEDS ORDERED: BORTEZOMIB (VELCADE) 2.5 MG/ML SUB-Q INJECTION SQ ONE (10:00)
[2018-06-06 10:28] LABS: ALBUMIN 3.9 g/dl (3.4-5.0); ALK PHOS 144 U/L (45-117); ANION GAP 8 MMOL/L (8-16); BILIRUBIN,DIRECT 0.2 mg/dL (0.0-0.2); BILIRUBIN,TOTAL 0.4 mg/dL (0.2-1); BLOOD UREA NITROGEN 29 mg/dL (7-18); CALCIUM 8.4 mg/dL (8.5-10.1); CHLORIDE 111 mmol/L (98-107); CO2 27 mmol/L (21-32); CREATININE 2.3 mg/dL (0.55-1.3); GLUCOSE,RANDOM 109 mg/dL (74-106); MAGNESIUM 2.2 mg/dL (1.8-2.4); POTASSIUM 4.4 mmol/L (3.5-5.1); SGOT/AST 20 U/L (15-37); SGPT/ALT 34 U/L (13-61); SODIUM 146 mmol/L (136-145); TOT PROT 6.6 g/dl (6.4-8.2)
[2018-06-06 12:21] VITALS: BP 143/80; PULSE 77; TEMP 98.7
== END 2018-06-06 11:45 | disposition home or self-care (01) ==
LOC: JONCCHEMO 07:12 → J7W 11:29 → JONCCHEMO 11:45
PROVIDERS: ATTEND Internal Medicine Hematology & Oncology
DX: Z51.11 Encounter for antineoplastic chemotherapy (principal); C90.00 Multiple myeloma not having achieved remission
CPT/HCPCS: 36415; 80053; 80076; 83735; 85025; 96401; J9041

== ENCOUNTER 2018-06-20 07:26 | Day surgery (SDC) | payer OTHER ==
[2018-06-20] MEDS ORDERED: BORTEZOMIB (VELCADE) 2.5 MG/ML SUB-Q INJECTION SQ ONE (09:00)
[2018-06-20 10:31] LABS: EOS % 2.3 % (0-4.5); HEMATOCRIT 36.6 % (35.4-49); HEMOGLOBIN 11.9 GM/dL (11.7-16.9); LYMPH % 14.2 % (8-40); MCH 31.1 pg (25.7-33.7); MCHC 32.4 g/dl (32.0-35.9); MEAN CELL VOLUME 95.9 fl (80-96); MEAN PLT VOLUME 8.2 fl (7.5-11.1); MONO % 7.5 % (3.8-10.2); PLATELET COUNT 153 K/MM3 (134-434); RBC 3.81 M/mm3 (4.00-5.60); RDW 13.4 % (11.9-15.9); WHITE BLOOD COUNT 7.3 K/mm3 (4.0-10.0)
[2018-06-20 10:47] LABS: ALBUMIN 3.8 g/dl (3.4-5.0); ALK PHOS 145 U/L (45-117); ANION GAP 8 MMOL/L (8-16); BILIRUBIN,DIRECT 0.1 mg/dL (0.0-0.2); BILIRUBIN,TOTAL 0.4 mg/dL (0.2-1); BLOOD UREA NITROGEN 32 mg/dL (7-18); CALCIUM 8.7 mg/dL (8.5-10.1); CHLORIDE 108 mmol/L (98-107); CO2 26 mmol/L (21-32); CREATININE 2.2 mg/dL (0.55-1.3); GLUCOSE,RANDOM 83 mg/dL (74-106); MAGNESIUM 2.3 mg/dL (1.8-2.4); POTASSIUM 4.4 mmol/L (3.5-5.1); SGOT/AST 17 U/L (15-37); SGPT/ALT 30 U/L (13-61); SODIUM 142 mmol/L (136-145); TOT PROT 6.6 g/dl (6.4-8.2)
[2018-06-20 13:12] VITALS: BP 128/65; PULSE 62; TEMP 98.4
[2018-06-21 08:06] LABS: IGA IMMUNOGLOBULIN 75 mg/dL (61-437); IGM IMMUNOGLOBULIN 33 mg/dL (15-143)
[2018-06-22 00:07] LABS: FREE KAPPA,SERUM 18.7 mg/L (3.3-19.4)
[2018-06-25 08:17] LABS: IGG ANTIBODY 577 mg/dL (700-1600); IGG SUBCLASS 1 321 mg/dL (248-810); IGG SUBCLASS 2 241 mg/dL (130-555); IGG SUBCLASS 3 36 mg/dL (15-102); IGG SUBCLASS 4 6 mg/dL (2-96)
== END 2018-06-20 11:15 | disposition home or self-care (01) ==
LOC: JONCCHEMO 07:26 → J7W 10:05 → JONCCHEMO 11:15
PROVIDERS: ATTEND Internal Medicine Hematology & Oncology
DX: Z51.11 Encounter for antineoplastic chemotherapy (principal); C90.00 Multiple myeloma not having achieved remission
CPT/HCPCS: 36415; 80053; 80076; 82784; 82785; 82787; 83735; 83883; 85025; 96401; J9041

== ENCOUNTER 2018-07-11 07:09 | Day surgery (SDC) | payer OTHER ==
[2018-07-11] MEDS ORDERED: BORTEZOMIB (VELCADE) 2.5 MG/ML SUB-Q INJECTION SQ ONE (10:00)
[2018-07-11 10:58] LABS: BASO % 0.9 % (0-2.0); EOS % 2.1 % (0-4.5); HEMATOCRIT 39.6 % (35.4-49); HEMOGLOBIN 13.6 GM/dL (11.7-16.9); LYMPH % 17.5 % (8-40); MCH 32.6 pg (25.7-33.7); MCHC 34.3 g/dl (32.0-35.9); MEAN PLT VOLUME 8.1 fl (7.5-11.1); MONO % 8.1 % (3.8-10.2); NEUT % 71.4 % (42.8-82.8); PLATELET COUNT 180 K/MM3 (134-434); RBC 4.16 M/mm3 (4.00-5.60); RDW 13.7 % (11.9-15.9); WHITE BLOOD COUNT 7.6 K/mm3 (4.0-10.0)
[2018-07-11 11:38] LABS: ALBUMIN 4.2 g/dl (3.4-5.0); ALK PHOS 145 U/L (45-117); ANION GAP 11 MMOL/L (8-16); BILIRUBIN,DIRECT 0.1 mg/dL (0.0-0.2); BILIRUBIN,TOTAL 0.4 mg/dL (0.2-1); BLOOD UREA NITROGEN 34 mg/dL (7-18); CALCIUM 8.8 mg/dL (8.5-10.1); CHLORIDE 106 mmol/L (98-107); CO2 24 mmol/L (21-32); CREATININE 2.7 mg/dL (0.55-1.3); GLUCOSE,RANDOM 92 mg/dL (74-106); MAGNESIUM 2.6 mg/dL (1.8-2.4); POTASSIUM 4.2 mmol/L (3.5-5.1); SGOT/AST 18 U/L (15-37); SGPT/ALT 32 U/L (13-61); SODIUM 141 mmol/L (136-145); TOT PROT 7.2 g/dl (6.4-8.2)
[2018-07-11 16:06] VITALS: BP 109/64; PULSE 57; TEMP 97.4
== END 2018-07-11 12:45 | disposition home or self-care (01) ==
LOC: JONCCHEMO 07:09 → J7W 12:30 → JONCCHEMO 12:45
PROVIDERS: ATTEND Internal Medicine Hematology & Oncology
DX: Z51.11 Encounter for antineoplastic chemotherapy (principal); C90.00 Multiple myeloma not having achieved remission
CPT/HCPCS: 36415; 80053; 80076; 83735; 85025; 96401; J9041

== ENCOUNTER 2018-07-25 05:46 | Day surgery (SDC) | payer OTHER ==
[2018-07-25] MEDS ORDERED: BORTEZOMIB (VELCADE) 2.5 MG/ML SUB-Q INJECTION SQ ONE (10:00)
[2018-07-25 17:18] VITALS: BP 102/45; PULSE 59; TEMP 98.5
== END 2018-07-25 11:30 | disposition home or self-care (01) ==
LOC: JONCCHEMO 05:46 → J7W 10:59 → JONCCHEMO 11:30
PROVIDERS: ATTEND Internal Medicine Hematology & Oncology
DX: Z51.11 Encounter for antineoplastic chemotherapy (principal); C90.00 Multiple myeloma not having achieved remission
CPT/HCPCS: 96401; J9041

== ENCOUNTER 2018-08-09 05:20 | Day surgery (SDC) | payer OTHER ==
[2018-08-09] MEDS ORDERED: BORTEZOMIB (VELCADE) 2.5 MG/ML SUB-Q INJECTION SQ ONE (09:00)
[2018-08-09 09:12] LABS: BASO % 1.1 % (0-2.0); EOS % 4.3 % (0-4.5); HEMATOCRIT 37.9 % (35.4-49); HEMOGLOBIN 13.2 GM/dL (11.7-16.9); LYMPH % 22.1 % (8-40); MCH 32.7 pg (25.7-33.7); MCHC 34.9 g/dl (32.0-35.9); MEAN CELL VOLUME 93.5 fl (80-96); MEAN PLT VOLUME 7.3 fl (7.5-11.1); NEUT % 64.5 % (42.8-82.8); PLATELET COUNT 186 K/MM3 (134-434); RBC 4.05 M/mm3 (4.00-5.60); RDW 13.4 % (11.9-15.9); WHITE BLOOD COUNT 6.8 K/mm3 (4.0-10.0)
[2018-08-09 09:46] LABS: ALK PHOS 126 U/L (45-117); ANION GAP 9 MMOL/L (8-16); BILIRUBIN,TOTAL 0.3 mg/dL (0.2-1); BLOOD UREA NITROGEN 39 mg/dL (7-18); CALCIUM 8.5 mg/dL (8.5-10.1); CHLORIDE 106 mmol/L (98-107); CO2 25 mmol/L (21-32); CREATININE 2.9 mg/dL (0.55-1.3); GLUCOSE,RANDOM 93 mg/dL (74-106); SGOT/AST 22 U/L (15-37); SGPT/ALT 27 U/L (13-61); SODIUM 140 mmol/L (136-145); TOT PROT 6.9 g/dl (6.4-8.2)
[2018-08-09 10:57] VITALS: BP 128/68; PULSE 65; TEMP 97.9
[2018-08-10 18:11] LABS: FREE KAPPA,SERUM 23.8 mg/L (3.3-19.4)
== END 2018-08-09 10:59 | disposition home or self-care (01) ==
LOC: JONCCHEMO 05:20 → J7W 10:51 → JONCCHEMO 10:59
PROVIDERS: ATTEND Internal Medicine Hematology & Oncology
DX: Z51.11 Encounter for antineoplastic chemotherapy (principal); C90.00 Multiple myeloma not having achieved remission
CPT/HCPCS: 36415; 80053; 83883; 85025; 96401; J9041

== ENCOUNTER 2018-08-22 05:11 | Day surgery (SDC) | payer OTHER ==
[2018-08-22] MEDS ORDERED: BORTEZOMIB (VELCADE) 2.5 MG/ML SUB-Q INJECTION SQ ONE (08:00)
[2018-08-22 09:56] LABS: BASO % 0.7 % (0-2.0); EOS % 3.1 % (0-4.5); HEMATOCRIT 38.6 % (35.4-49); HEMOGLOBIN 12.4 GM/dL (11.7-16.9); LYMPH % 13.8 % (8-40); MCH 30.8 pg (25.7-33.7); MEAN CELL VOLUME 96.2 fl (80-96); MEAN PLT VOLUME 7.8 fl (7.5-11.1); MONO % 8.1 % (3.8-10.2); NEUT % 74.3 % (42.8-82.8); PLATELET COUNT 158 K/MM3 (134-434); RBC 4.02 M/mm3 (4.00-5.60); RDW 13.5 % (11.9-15.9); WHITE BLOOD COUNT 7.1 K/mm3 (4.0-10.0)
[2018-08-22 10:29] LABS: ALBUMIN 3.8 g/dl (3.4-5.0); ALK PHOS 114 U/L (45-117); ANION GAP 8 MMOL/L (8-16); BILIRUBIN,DIRECT 0.1 mg/dL (0.0-0.2); BILIRUBIN,TOTAL 0.4 mg/dL (0.2-1); BLOOD UREA NITROGEN 31 mg/dL (7-18); CALCIUM 8.8 mg/dL (8.5-10.1); CHLORIDE 110 mmol/L (98-107); CO2 24 mmol/L (21-32); CREATININE 2.3 mg/dL (0.55-1.3); GLUCOSE,RANDOM 92 mg/dL (74-106); MAGNESIUM 2.2 mg/dL (1.8-2.4); POTASSIUM 4.3 mmol/L (3.5-5.1); SGOT/AST 16 U/L (15-37); SGPT/ALT 29 U/L (13-61); SODIUM 143 mmol/L (136-145); TOT PROT 6.3 g/dl (6.4-8.2); URIC ACID 7.5 mg/dL (2.6-7.2)
[2018-08-22 10:55] LABS: LDH 176 U/L (87-246)
[2018-08-22 16:15] VITALS: BP 128/71; PULSE 61; TEMP 97.9
== END 2018-08-22 11:00 | disposition home or self-care (01) ==
LOC: JONCCHEMO 05:11 → J7W 10:43 → JONCCHEMO 11:00
PROVIDERS: ATTEND Internal Medicine Hematology & Oncology
DX: Z51.11 Encounter for antineoplastic chemotherapy (principal); C90.00 Multiple myeloma not having achieved remission
CPT/HCPCS: 36415; 80048; 80076; 83615; 83735; 84550; 85025; 96401; J9041

== ENCOUNTER 2018-09-05 07:02 | Day surgery (SDC) | payer OTHER ==
[2018-09-05] MEDS ORDERED: BORTEZOMIB (VELCADE) 2.5 MG/ML SUB-Q INJECTION SQ ONE (10:00)
[2018-09-05 10:38] LABS: BASO % 1.2 % (0-2.0); EOS % 3.4 % (0-4.5); HEMATOCRIT 36.6 % (35.4-49); HEMOGLOBIN 12.3 GM/dL (11.7-16.9); LYMPH % 15.7 % (8-40); MCH 32.4 pg (25.7-33.7); MCHC 33.5 g/dl (32.0-35.9); MEAN CELL VOLUME 96.8 fl (80-96); MEAN PLT VOLUME 7.6 fl (7.5-11.1); MONO % 8.9 % (3.8-10.2); NEUT % 70.8 % (42.8-82.8); PLATELET COUNT 166 K/MM3 (134-434); RBC 3.78 M/mm3 (4.00-5.60); RDW 13.8 % (11.9-15.9); WHITE BLOOD COUNT 6.8 K/mm3 (4.0-10.0)
[2018-09-05 11:06] LABS: ALBUMIN 3.9 g/dl (3.4-5.0); ALK PHOS 122 U/L (45-117); ANION GAP 6 MMOL/L (8-16); BILIRUBIN,DIRECT 0.1 mg/dL (0.0-0.2); BILIRUBIN,TOTAL 0.3 mg/dL (0.2-1); BLOOD UREA NITROGEN 39 mg/dL (7-18); CALCIUM 8.8 mg/dL (8.5-10.1); CHLORIDE 108 mmol/L (98-107); CO2 28 mmol/L (21-32); CREATININE 2.4 mg/dL (0.55-1.3); GLUCOSE,RANDOM 96 mg/dL (74-106); LDH 167 U/L (87-246); MAGNESIUM 2.4 mg/dL (1.8-2.4); POTASSIUM 4.4 mmol/L (3.5-5.1); SGOT/AST 17 U/L (15-37); SGPT/ALT 33 U/L (13-61); SODIUM 142 mmol/L (136-145); TOT PROT 6.4 g/dl (6.4-8.2); URIC ACID 7.8 mg/dL (2.6-7.2)
[2018-09-05 13:28] VITALS: BP 113/54; PULSE 59; TEMP 98
== END 2018-09-05 12:00 | disposition home or self-care (01) ==
LOC: JONCCHEMO 07:02 → J7W 11:28 → JONCCHEMO 12:00
PROVIDERS: ATTEND Internal Medicine Hematology & Oncology
DX: Z51.11 Encounter for antineoplastic chemotherapy (principal); I10 Essential (primary) hypertension; I48.91 Unspecified atrial fibrillation
CPT/HCPCS: 36415; 80048; 80076; 83615; 83735; 84550; 85025; 96401; J9041

== ENCOUNTER 2018-09-19 07:01 | Day surgery (SDC) | payer OTHER ==
[2018-09-19] MEDS ORDERED: BORTEZOMIB (VELCADE) 2.5 MG/ML SUB-Q INJECTION SQ ONE (10:00)
[2018-09-19 10:47] LABS: BASO % 1.1 % (0-2.0); HEMATOCRIT 37.9 % (35.4-49); HEMOGLOBIN 13.1 GM/dL (11.7-16.9); LYMPH % 19.6 % (8-40); MCH 33.4 pg (25.7-33.7); MCHC 34.5 g/dl (32.0-35.9); MEAN CELL VOLUME 96.7 fl (80-96); MEAN PLT VOLUME 8.3 fl (7.5-11.1); MONO % 9.7 % (3.8-10.2); NEUT % 66.6 % (42.8-82.8); PLATELET COUNT 169 K/MM3 (134-434); RBC 3.92 M/mm3 (4.00-5.60); RDW 13.6 % (11.9-15.9); WHITE BLOOD COUNT 7.3 K/mm3 (4.0-10.0)
[2018-09-19 11:34] LABS: ALBUMIN 3.9 g/dl (3.4-5.0); ALK PHOS 119 U/L (45-117); ANION GAP 6 MMOL/L (8-16); BILIRUBIN,DIRECT 0.1 mg/dL (0.0-0.2); BILIRUBIN,TOTAL 0.3 mg/dL (0.2-1); BLOOD UREA NITROGEN 36 mg/dL (7-18); CALCIUM 8.9 mg/dL (8.5-10.1); CHLORIDE 108 mmol/L (98-107); CO2 28 mmol/L (21-32); CREATININE 2.4 mg/dL (0.55-1.3); GLUCOSE,RANDOM 90 mg/dL (74-106); MAGNESIUM 2.5 mg/dL (1.8-2.4); POTASSIUM 4.4 mmol/L (3.5-5.1); SGOT/AST 18 U/L (15-37); SGPT/ALT 30 U/L (13-61); SODIUM 142 mmol/L (136-145); TOT PROT 6.7 g/dl (6.4-8.2)
[2018-09-19 16:01] VITALS: BP 113/68; PULSE 72; TEMP 98
== END 2018-09-19 11:50 | disposition home or self-care (01) ==
LOC: JONCCHEMO 07:01 → J7W 10:28 → JONCCHEMO 11:50
PROVIDERS: ATTEND Internal Medicine Hematology & Oncology
DX: Z51.11 Encounter for antineoplastic chemotherapy (principal); C90.00 Multiple myeloma not having achieved remission
CPT/HCPCS: 36415; 80048; 80076; 83735; 85025; 96401; J9041

== ENCOUNTER 2018-10-03 05:34 | Day surgery (SDC) | payer OTHER ==
[2018-10-03] MEDS ORDERED: BORTEZOMIB (VELCADE) 2.5 MG/ML SUB-Q INJECTION SQ ONE (08:00)
[2018-10-03 09:26] LABS: BASO % 1.2 % (0-2.0); EOS % 3.6 % (0-4.5); HEMATOCRIT 35.9 % (35.4-49); HEMOGLOBIN 12.1 GM/dL (11.7-16.9); LYMPH % 15.2 % (8-40); MCH 32.7 pg (25.7-33.7); MCHC 33.8 g/dl (32.0-35.9); MEAN CELL VOLUME 96.7 fl (80-96); MEAN PLT VOLUME 7.6 fl (7.5-11.1); MONO % 9.5 % (3.8-10.2); NEUT % 70.5 % (42.8-82.8); PLATELET COUNT 161 K/MM3 (134-434); RBC 3.71 M/mm3 (4.00-5.60); RDW 13.5 % (11.9-15.9); WHITE BLOOD COUNT 6.9 K/mm3 (4.0-10.0)
[2018-10-03 10:05] LABS: ALBUMIN 3.7 g/dl (3.4-5.0); ALK PHOS 118 U/L (45-117); ANION GAP 7 MMOL/L (8-16); BILIRUBIN,TOTAL 0.3 mg/dL (0.2-1); BLOOD UREA NITROGEN 36 mg/dL (7-18); CALCIUM 8.5 mg/dL (8.5-10.1); CHLORIDE 110 mmol/L (98-107); CO2 26 mmol/L (21-32); CREATININE 2.5 mg/dL (0.55-1.3); GLUCOSE,RANDOM 127 mg/dL (74-106); POTASSIUM 4.2 mmol/L (3.5-5.1); SGOT/AST 19 U/L (15-37); SGPT/ALT 30 U/L (13-61); SODIUM 142 mmol/L (136-145); TOT PROT 6.2 g/dl (6.4-8.2)
[2018-10-03 10:06] LABS: ALBUMIN 3.6 g/dl (3.4-5.0); BILIRUBIN,DIRECT 0.1 mg/dL (0.0-0.2); BILIRUBIN,TOTAL 0.4 mg/dL (0.2-1); MAGNESIUM 2.1 mg/dL (1.8-2.4); TOT PROT 6.2 g/dl (6.4-8.2)
[2018-10-03 15:39] VITALS: BP 116/63; PULSE 61; TEMP 97.9
[2018-10-04 15:21] LABS: BETA-2-MICROGLOBULIN 4.1 mg/L (0.6-2.4)
== END 2018-10-03 11:00 | disposition home or self-care (01) ==
LOC: JONCCHEMO 05:34 → J7W 10:19 → JONCCHEMO 11:00
PROVIDERS: ATTEND Internal Medicine Hematology & Oncology
DX: Z51.11 Encounter for antineoplastic chemotherapy (principal); C90.00 Multiple myeloma not having achieved remission
CPT/HCPCS: 36415; 80053; 80076; 82232; 83735; 83883; 84155; 84165; 85025; 96401; J9041

== ENCOUNTER 2018-10-17 07:03 | Day surgery (SDC) | payer OTHER ==
[2018-10-17] MEDS ORDERED: BORTEZOMIB (VELCADE) 2.5 MG/ML SUB-Q INJECTION SQ ONE (09:00)
[2018-10-17 10:10] LABS: EOS % 3.2 % (0-4.5); HEMATOCRIT 37.3 % (35.4-49); HEMOGLOBIN 12.6 GM/dL (11.7-16.9); LYMPH % 14.1 % (8-40); MCH 32.5 pg (25.7-33.7); MCHC 33.8 g/dl (32.0-35.9); MEAN CELL VOLUME 96.1 fl (80-96); MEAN PLT VOLUME 7.8 fl (7.5-11.1); NEUT % 71.7 % (42.8-82.8); PLATELET COUNT 156 K/MM3 (134-434); RBC 3.88 M/mm3 (4.00-5.60); RDW 13.4 % (11.9-15.9); WHITE BLOOD COUNT 7.6 K/mm3 (4.0-10.0)
[2018-10-17 10:47] LABS: ALBUMIN 3.9 g/dl (3.4-5.0); ALK PHOS 124 U/L (45-117); ANION GAP 8 MMOL/L (8-16); BILIRUBIN,TOTAL 0.7 mg/dL (0.2-1); BLOOD UREA NITROGEN 35 mg/dL (7-18); CALCIUM 8.7 mg/dL (8.5-10.1); CHLORIDE 110 mmol/L (98-107); CO2 25 mmol/L (21-32); CREATININE 2.3 mg/dL (0.55-1.3); GLUCOSE,RANDOM 83 mg/dL (74-106); POTASSIUM 4.5 mmol/L (3.5-5.1); SGOT/AST 17 U/L (15-37); SGPT/ALT 30 U/L (13-61); SODIUM 143 mmol/L (136-145); TOT PROT 6.6 g/dl (6.4-8.2)
[2018-10-17 10:49] LABS: ALBUMIN 3.9 g/dl (3.4-5.0); BILIRUBIN,DIRECT 0.1 mg/dL (0.0-0.2); BILIRUBIN,TOTAL 0.4 mg/dL (0.2-1); MAGNESIUM 2.3 mg/dL (1.8-2.4); TOT PROT 6.6 g/dl (6.4-8.2); URIC ACID 7.5 mg/dL (2.6-7.2)
[2018-10-17 16:07] VITALS: BP 128/69; PULSE 61; TEMP 97.8
== END 2018-10-17 11:00 | disposition home or self-care (01) ==
LOC: JONCCHEMO 07:03 → J7W 10:41 → JONCCHEMO 11:00
PROVIDERS: ATTEND Internal Medicine Hematology & Oncology
DX: Z51.11 Encounter for antineoplastic chemotherapy (principal); C90.00 Multiple myeloma not having achieved remission
CPT/HCPCS: 36415; 80053; 80076; 83615; 83735; 84550; 85025; 96401; J9041

== ENCOUNTER 2018-10-31 06:11 | Day surgery (SDC) | payer OTHER ==
[2018-10-31 09:41] VITALS: PULSE 62
[2018-10-31] MEDS ORDERED: BORTEZOMIB (VELCADE) 2.5 MG/ML SUB-Q INJECTION SQ ONE (10:00)
[2018-10-31 10:19] LABS: BASO % 1.1 % (0-2.0); EOS % 3.7 % (0-4.5); HEMATOCRIT 37.2 % (35.4-49); HEMOGLOBIN 12.9 GM/dL (11.7-16.9); LYMPH % 15.3 % (8-40); MCH 33.3 pg (25.7-33.7); MCHC 34.5 g/dl (32.0-35.9); MEAN CELL VOLUME 96.3 fl (80-96); MEAN PLT VOLUME 8.1 fl (7.5-11.1); MONO % 9.4 % (3.8-10.2); NEUT % 70.5 % (42.8-82.8); PLATELET COUNT 160 K/MM3 (134-434); RBC 3.87 M/mm3 (4.00-5.60); RDW 13.4 % (11.9-15.9); WHITE BLOOD COUNT 7.8 K/mm3 (4.0-10.0)
[2018-10-31 10:49] LABS: ALBUMIN 3.7 g/dl (3.4-5.0); BILIRUBIN,DIRECT 0.2 mg/dL (0.0-0.2); BILIRUBIN,TOTAL 0.4 mg/dL (0.2-1); MAGNESIUM 2.3 mg/dL (1.8-2.4); TOT PROT 6.5 g/dl (6.4-8.2)
[2018-10-31 10:50] LABS: ALBUMIN 3.7 g/dl (3.4-5.0); ALK PHOS 116 U/L (45-117); ANION GAP 6 MMOL/L (8-16); BILIRUBIN,TOTAL 0.4 mg/dL (0.2-1); BLOOD UREA NITROGEN 36 mg/dL (7-18); CALCIUM 8.7 mg/dL (8.5-10.1); CHLORIDE 109 mmol/L (98-107); CO2 24 mmol/L (21-32); CREATININE 2.4 mg/dL (0.55-1.3); GLUCOSE,RANDOM 89 mg/dL (74-106); POTASSIUM 3.9 mmol/L (3.5-5.1); SGOT/AST 15 U/L (15-37); SGPT/ALT 26 U/L (13-61); SODIUM 139 mmol/L (136-145); TOT PROT 6.4 g/dl (6.4-8.2)
[2018-10-31 15:52] VITALS: BP 114/64; TEMP 97.8
== END 2018-10-31 11:10 | disposition home or self-care (01) ==
LOC: JONCCHEMO 06:11 → J7W 10:35 → JONCCHEMO 11:10
PROVIDERS: ATTEND Internal Medicine Hematology & Oncology
DX: Z51.11 Encounter for antineoplastic chemotherapy (principal); C90.00 Multiple myeloma not having achieved remission; I48.91 Unspecified atrial fibrillation; I12.9 Hypertensive chronic kidney disease with stage 1 through stage 4 chronic kidney disease, or unspecified chronic kidney disease; N18.9 Chronic kidney disease, unspecified; E78.00 Pure hypercholesterolemia, unspecified
CPT/HCPCS: 36415; 80053; 80076; 83735; 85025; 96401; J9041

== ENCOUNTER 2018-11-14 06:58 | Day surgery (SDC) | payer OTHER ==
[2018-11-14 09:03] VITALS: TEMP 98.1
[2018-11-14 09:17] LABS: BASO % 1.1 % (0-2.0); EOS % 4.7 % (0-4.5); HEMATOCRIT 36.7 % (35.4-49); HEMOGLOBIN 12.3 GM/dL (11.7-16.9); LYMPH % 14.2 % (8-40); MCH 32.5 pg (25.7-33.7); MCHC 33.6 g/dl (32.0-35.9); MEAN CELL VOLUME 96.6 fl (80-96); MEAN PLT VOLUME 7.2 fl (7.5-11.1); MONO % 11.1 % (3.8-10.2); NEUT % 68.9 % (42.8-82.8); PLATELET COUNT 168 K/MM3 (134-434); RDW 13.5 % (11.9-15.9); WHITE BLOOD COUNT 6.4 K/mm3 (4.0-10.0)
[2018-11-14 09:44] LABS: ALBUMIN 3.8 g/dl (3.4-5.0); ALK PHOS 113 U/L (45-117); ANION GAP 10 MMOL/L (8-16); BILIRUBIN,TOTAL 0.4 mg/dL (0.2-1); BLOOD UREA NITROGEN 38 mg/dL (7-18); CALCIUM 8.6 mg/dL (8.5-10.1); CHLORIDE 109 mmol/L (98-107); CO2 23 mmol/L (21-32); CREATININE 2.7 mg/dL (0.55-1.3); GLUCOSE,RANDOM 115 mg/dL (74-106); SGOT/AST 22 U/L (15-37); SGPT/ALT 28 U/L (13-61); SODIUM 142 mmol/L (136-145); TOT PROT 6.3 g/dl (6.4-8.2)
[2018-11-14 09:46] LABS: ALBUMIN 3.7 g/dl (3.4-5.0); BILIRUBIN,DIRECT 0.2 mg/dL (0.0-0.2); BILIRUBIN,TOTAL 0.5 mg/dL (0.2-1); MAGNESIUM 2.4 mg/dL (1.8-2.4); TOT PROT 6.4 g/dl (6.4-8.2)
[2018-11-14] MEDS ORDERED: BORTEZOMIB (VELCADE) 2.5 MG/ML SUB-Q INJECTION SQ ONE (10:00)
[2018-11-14 11:26] VITALS: BP 99/65; PULSE 60
== END 2018-11-14 10:35 | disposition home or self-care (01) ==
LOC: JONCCHEMO 06:58 → J7W 10:21 → JONCCHEMO 10:35
PROVIDERS: ATTEND Internal Medicine Hematology & Oncology
DX: Z51.11 Encounter for antineoplastic chemotherapy (principal); C90.00 Multiple myeloma not having achieved remission
CPT/HCPCS: 36415; 80053; 80076; 83735; 85025; 96401; J9041

== ENCOUNTER 2018-11-28 07:05 | Day surgery (SDC) | payer OTHER ==
[2018-11-28] MEDS ORDERED: BORTEZOMIB (VELCADE) 2.5 MG/ML SUB-Q INJECTION SQ ONE (08:00)
[2018-11-28 09:36] LABS: BASO % 1.2 % (0-2.0); EOS % 4.6 % (0-4.5); HEMATOCRIT 36.5 % (35.4-49); HEMOGLOBIN 12.5 GM/dL (11.7-16.9); LYMPH % 13.4 % (8-40); MCH 33.2 pg (25.7-33.7); MCHC 34.2 g/dl (32.0-35.9); MEAN CELL VOLUME 97.3 fl (80-96); MEAN PLT VOLUME 7.7 fl (7.5-11.1); MONO % 9.5 % (3.8-10.2); NEUT % 71.3 % (42.8-82.8); PLATELET COUNT 158 K/MM3 (134-434); RBC 3.75 M/mm3 (4.00-5.60); RDW 13.4 % (11.9-15.9); WHITE BLOOD COUNT 7.3 K/mm3 (4.0-10.0)
[2018-11-28 10:01] LABS: ALBUMIN 3.7 g/dl (3.4-5.0); ALK PHOS 111 U/L (45-117); ANION GAP 5 MMOL/L (8-16); BILIRUBIN,TOTAL 0.3 mg/dL (0.2-1); BLOOD UREA NITROGEN 35 mg/dL (7-18); CHLORIDE 109 mmol/L (98-107); CO2 25 mmol/L (21-32); CREATININE 2.4 mg/dL (0.55-1.3); GLUCOSE,RANDOM 103 mg/dL (74-106); POTASSIUM 4.5 mmol/L (3.5-5.1); SGOT/AST 18 U/L (15-37); SGPT/ALT 27 U/L (13-61); SODIUM 138 mmol/L (136-145); TOT PROT 6.4 g/dl (6.4-8.2)
[2018-11-28 12:17] VITALS: BP 115/64; PULSE 59; TEMP 98
[2018-11-29 19:09] LABS: FREE KAPPA,SERUM 28.5 mg/L (3.3-19.4)
== END 2018-11-28 10:25 | disposition home or self-care (01) ==
LOC: JONCCHEMO 07:05 → J7W 09:42 → JONCCHEMO 10:25
PROVIDERS: ATTEND Internal Medicine Hematology & Oncology
DX: Z51.11 Encounter for antineoplastic chemotherapy (principal); C90.00 Multiple myeloma not having achieved remission
CPT/HCPCS: 36415; 80053; 83883; 85025; 96401; J9041

== ENCOUNTER 2018-12-12 07:15 | Day surgery (SDC) | payer OTHER ==
[2018-12-12] MEDS ORDERED: BORTEZOMIB (VELCADE) 2.5 MG/ML SUB-Q INJECTION SQ ONE (09:00)
[2018-12-12 10:20] LABS: HEMATOCRIT 38.2 % (35.4-49); HEMOGLOBIN 12.7 GM/dL (11.7-16.9); MCH 32.4 pg (25.7-33.7); MCHC 33.3 g/dl (32.0-35.9); MEAN CELL VOLUME 97.3 fl (80-96); MEAN PLT VOLUME 8.2 fl (7.5-11.1); PLATELET COUNT 185 K/MM3 (134-434); RBC 3.93 M/mm3 (4.00-5.60); RDW 13.4 % (11.9-15.9); WHITE BLOOD COUNT 7.3 K/mm3 (4.0-10.0)
[2018-12-12 10:51] LABS: ALBUMIN 3.8 g/dl (3.4-5.0); ALK PHOS 106 U/L (45-117); ANION GAP 7 MMOL/L (8-16); BILIRUBIN,DIRECT 0.1 mg/dL (0.0-0.2); BILIRUBIN,TOTAL 0.4 mg/dL (0.2-1); BLOOD UREA NITROGEN 54 mg/dL (7-18); CALCIUM 8.7 mg/dL (8.5-10.1); CHLORIDE 107 mmol/L (98-107); CO2 25 mmol/L (21-32); CREATININE 2.6 mg/dL (0.55-1.3); GLUCOSE,RANDOM 132 mg/dL (74-106); LDH 187 U/L (87-246); MAGNESIUM 2.6 mg/dL (1.8-2.4); POTASSIUM 4.4 mmol/L (3.5-5.1); SGOT/AST 16 U/L (15-37); SGPT/ALT 31 U/L (13-61); SODIUM 139 mmol/L (136-145); TOT PROT 6.7 g/dl (6.4-8.2); URIC ACID 9.5 mg/dL (2.6-7.2)
[2018-12-12 16:23] VITALS: BP 106/62; PULSE 62; TEMP 98.1
== END 2018-12-12 11:45 | disposition home or self-care (01) ==
LOC: JONCCHEMO 07:15 → J7W 10:29 → JONCCHEMO 11:45
PROVIDERS: ATTEND Internal Medicine Hematology & Oncology
DX: Z51.11 Encounter for antineoplastic chemotherapy (principal); C90.00 Multiple myeloma not having achieved remission
CPT/HCPCS: 36415; 80048; 80076; 83615; 83735; 84550; 85027; 96401; J9041

== ENCOUNTER 2018-12-26 07:09 | Day surgery (SDC) | payer OTHER ==
[2018-12-26 09:50] LABS: BASO % 1.2 % (0-2.0); EOS % 3.5 % (0-4.5); HEMATOCRIT 38.8 % (35.4-49); HEMOGLOBIN 12.7 GM/dL (11.7-16.9); LYMPH % 16.4 % (8-40); MCHC 32.6 g/dl (32.0-35.9); MEAN CELL VOLUME 98.1 fl (80-96); MEAN PLT VOLUME 7.6 fl (7.5-11.1); MONO % 8.4 % (3.8-10.2); NEUT % 70.5 % (42.8-82.8); PLATELET COUNT 161 K/MM3 (134-434); RBC 3.96 M/mm3 (4.00-5.60); RDW 13.6 % (11.9-15.9); WHITE BLOOD COUNT 7.4 K/mm3 (4.0-10.0)
[2018-12-26] MEDS ORDERED: BORTEZOMIB (VELCADE) 2.5 MG/ML SUB-Q INJECTION SQ ONE (10:00)
[2018-12-26 10:26] LABS: ALBUMIN 3.7 g/dl (3.4-5.0); BILIRUBIN,TOTAL 0.4 mg/dL (0.2-1); CREATININE 2.6 mg/dL (0.55-1.3); TOT PROT 6.3 g/dl (6.4-8.2)
[2018-12-26 13:24] VITALS: BP 110/60; PULSE 63; TEMP 98.4
== END 2018-12-26 11:15 | disposition home or self-care (01) ==
LOC: JONCCHEMO 07:09 → J7W 10:06 → JONCCHEMO 11:15
PROVIDERS: ATTEND Internal Medicine Hematology & Oncology
DX: Z51.11 Encounter for antineoplastic chemotherapy (principal); C90.00 Multiple myeloma not having achieved remission
CPT/HCPCS: 36415; 80053; 85025; 96401; J9041

== ENCOUNTER 2019-01-09 06:10 | Day surgery (SDC) | payer OTHER ==
[2019-01-09] MEDS ORDERED: BORTEZOMIB (VELCADE) 2.5 MG/ML SUB-Q INJECTION SQ ONE (10:00)
[2019-01-09 10:16] LABS: BASO % 0.9 % (0-2.0); EOS % 6.7 % (0-4.5); HEMATOCRIT 37.7 % (35.4-49); HEMOGLOBIN 12.5 GM/dL (11.7-16.9); LYMPH % 17.4 % (8-40); MCH 32.5 pg (25.7-33.7); MCHC 33.2 g/dl (32.0-35.9); MEAN CELL VOLUME 97.8 fl (80-96); MEAN PLT VOLUME 7.8 fl (7.5-11.1); MONO % 8.4 % (3.8-10.2); NEUT % 66.6 % (42.8-82.8); PLATELET COUNT 168 K/MM3 (134-434); RBC 3.85 M/mm3 (4.00-5.60); RDW 13.3 % (11.9-15.9); WHITE BLOOD COUNT 7.5 K/mm3 (4.0-10.0)
[2019-01-09 11:20] LABS: ALBUMIN 3.6 g/dl (3.4-5.0); BILIRUBIN,DIRECT 0.1 mg/dL (0.0-0.2); BILIRUBIN,TOTAL 0.3 mg/dL (0.2-1); CALCIUM 8.7 mg/dL (8.5-10.1); CREATININE 2.6 mg/dL (0.55-1.3); MAGNESIUM 2.5 mg/dL (1.8-2.4); POTASSIUM 4.4 mmol/L (3.5-5.1); TOT PROT 6.3 g/dl (6.4-8.2)
[2019-01-09 16:22] VITALS: BP 107/62; PULSE 61; TEMP 98.2
== END 2019-01-09 11:40 | disposition home or self-care (01) ==
LOC: JONCCHEMO 06:10 → J7W 10:09 → JONCCHEMO 11:40
PROVIDERS: ATTEND Internal Medicine Hematology & Oncology
DX: Z51.11 Encounter for antineoplastic chemotherapy (principal); C90.00 Multiple myeloma not having achieved remission
CPT/HCPCS: 36415; 80048; 80076; 83615; 83735; 84550; 85025; J9041

== ENCOUNTER 2019-01-23 05:41 | Day surgery (SDC) | payer OTHER | END 2019-01-23 11:35 | disposition home or self-care (01) | LOC: JONCCHEMO 05:41 → J7W 10:09 → JONCCHEMO 11:35 ==

== ENCOUNTER 2019-02-06 07:07 | Day surgery (SDC) | payer OTHER ==
[2019-02-06] MEDS ORDERED: BORTEZOMIB (VELCADE) 2.5 MG/ML SUB-Q INJECTION SQ ONE (09:00)
[2019-02-06 09:40] LABS: BASO % 0.7 % (0-2.0); EOS % 3.6 % (0-4.5); HEMATOCRIT 37.1 % (35.4-49); HEMOGLOBIN 12.4 GM/dL (11.7-16.9); LYMPH % 14.5 % (8-40); MCH 32.4 pg (25.7-33.7); MCHC 33.4 g/dl (32.0-35.9); MEAN CELL VOLUME 96.9 fl (80-96); MEAN PLT VOLUME 7.7 fl (7.5-11.1); MONO % 9.5 % (3.8-10.2); NEUT % 71.7 % (42.8-82.8); PLATELET COUNT 171 K/MM3 (134-434); RBC 3.83 M/mm3 (4.00-5.60); RDW 13.4 % (11.9-15.9); WHITE BLOOD COUNT 8.8 K/mm3 (4.0-10.0)
[2019-02-06 10:03] LABS: ALBUMIN 3.9 g/dl (3.4-5.0); BILIRUBIN,DIRECT 0.2 mg/dL (0.0-0.2); BILIRUBIN,TOTAL 0.4 mg/dL (0.2-1); TOT PROT 6.6 g/dl (6.4-8.2)
[2019-02-06 10:09] LABS: BLOOD UREA NITROGEN 39.3 mg/dL (7-18); CALCIUM 8.9 mg/dL (8.5-10.1); CREATININE 2.7 mg/dL (0.55-1.3); MAGNESIUM 2.5 mg/dL (1.8-2.4); POTASSIUM 3.9 mmol/L (3.5-5.1); URIC ACID 9.4 mg/dL (2.6-7.2)
[2019-02-06 13:45] VITALS: BP 117/69; PULSE 66; TEMP 98
== END 2019-02-06 10:40 | disposition home or self-care (01) ==
LOC: JONCCHEMO 07:07 → J7W 09:47 → JONCCHEMO 10:40
PROVIDERS: ATTEND Internal Medicine Hematology & Oncology
DX: Z51.11 Encounter for antineoplastic chemotherapy (principal); C90.00 Multiple myeloma not having achieved remission
CPT/HCPCS: 36415; 80048; 80076; 83615; 83735; 83883; 84550; 85025; 96401; J9041

== ENCOUNTER 2019-02-20 05:36 | Day surgery (SDC) | payer OTHER ==
[2019-02-20] MEDS ORDERED: BORTEZOMIB (VELCADE) 2.5 MG/ML SUB-Q INJECTION SQ ONE (10:00)
[2019-02-20 10:37] LABS: BASO % 0.7 % (0-2.0); EOS % 2.8 % (0-4.5); HEMATOCRIT 37.6 % (35.4-49); HEMOGLOBIN 12.5 GM/dL (11.7-16.9); LYMPH % 14.3 % (8-40); MCH 32.1 pg (25.7-33.7); MCHC 33.1 g/dl (32.0-35.9); MEAN CELL VOLUME 97.1 fl (80-96); MEAN PLT VOLUME 7.8 fl (7.5-11.1); MONO % 8.4 % (3.8-10.2); NEUT % 73.8 % (42.8-82.8); RBC 3.87 M/mm3 (4.00-5.60); RDW 13.3 % (11.9-15.9)
[2019-02-20 10:53] LABS: PLATELET COUNT 165 K/MM3 (134-434)
[2019-02-20 11:13] LABS: ALBUMIN 3.8 g/dl (3.4-5.0); BILIRUBIN,TOTAL 0.5 mg/dL (0.2-1); BLOOD UREA NITROGEN 33.6 mg/dL (7-18); CALCIUM 8.7 mg/dL (8.5-10.1); CREATININE 2.3 mg/dL (0.55-1.3); MAGNESIUM 2.5 mg/dL (1.8-2.4); TOT PROT 6.4 g/dl (6.4-8.2)
[2019-02-20 17:01] VITALS: BP 114/63; PULSE 68; TEMP 98.2
== END 2019-02-20 12:00 | disposition home or self-care (01) ==
LOC: JONCCHEMO 05:36 → J7W 11:13 → JONCCHEMO 12:00
PROVIDERS: ATTEND Internal Medicine Hematology & Oncology
DX: Z51.11 Encounter for antineoplastic chemotherapy (principal); C90.00 Multiple myeloma not having achieved remission
CPT/HCPCS: 36415; 80053; 83735; 85025; J9041

== ENCOUNTER 2019-03-06 07:04 | Day surgery (SDC) | payer OTHER | END 2019-03-06 11:25 | disposition home or self-care (01) | LOC: JONCCHEMO 07:04 → J7W 10:46 → JONCCHEMO 11:25 ==

== ENCOUNTER 2019-03-20 06:44 | Day surgery (SDC) | payer OTHER | END 2019-03-20 13:30 | disposition home or self-care (01) | LOC: JONCCHEMO 06:44 → J7W 12:30 → JONCCHEMO 13:30 ==

== ENCOUNTER 2019-04-03 06:13 | Day surgery (SDC) | payer OTHER ==
[2019-04-03] MEDS ORDERED: BORTEZOMIB (VELCADE) 2.5 MG/ML SUB-Q INJECTION SQ ONE (10:00)
[2019-04-03 12:03] LABS: BASO % 1.1 % (0-2.0); EOS % 2.4 % (0-4.5); HEMATOCRIT 36.4 % (35.4-49); HEMOGLOBIN 12.3 GM/dL (11.7-16.9); LYMPH % 14.5 % (8-40); MCH 32.7 pg (25.7-33.7); MCHC 33.7 g/dl (32.0-35.9); MEAN PLT VOLUME 7.5 fl (7.5-11.1); MONO % 7.1 % (3.8-10.2); NEUT % 74.9 % (42.8-82.8); PLATELET COUNT 159 K/MM3 (134-434); RBC 3.75 M/mm3 (4.00-5.60); RDW 13.2 % (11.9-15.9); WHITE BLOOD COUNT 6.8 K/mm3 (4.0-10.0)
[2019-04-03 12:19] LABS: ALBUMIN 3.6 g/dl (3.4-5.0); BILIRUBIN,DIRECT 0.2 mg/dL (0.0-0.2); BILIRUBIN,TOTAL 0.4 mg/dL (0.2-1); BLOOD UREA NITROGEN 31.7 mg/dL (7-18); CALCIUM 8.8 mg/dL (8.5-10.1); CREATININE 2.4 mg/dL (0.55-1.3); MAGNESIUM 2.3 mg/dL (1.8-2.4); POTASSIUM 4.2 mmol/L (3.5-5.1); TOT PROT 6.2 g/dl (6.4-8.2); URIC ACID 8.2 mg/dL (2.6-7.2)
[2019-04-03 14:13] VITALS: BP 125/69; PULSE 95; TEMP 98
== END 2019-04-03 13:45 | disposition home or self-care (01) ==
LOC: JONCCHEMO 06:13 → J7W 12:30 → JONCCHEMO 13:45
PROVIDERS: ATTEND Internal Medicine Hematology & Oncology
DX: Z51.11 Encounter for antineoplastic chemotherapy (principal); C90.00 Multiple myeloma not having achieved remission
CPT/HCPCS: 36415; 80048; 80076; 83615; 83735; 84550; 85025; 96401; J9041

== ENCOUNTER 2019-04-17 05:36 | Day surgery (SDC) | payer OTHER ==
[2019-04-17] MEDS ORDERED: BORTEZOMIB (VELCADE) 2.5 MG/ML SUB-Q INJECTION SQ ONE (10:00)
[2019-04-17 11:59] LABS: EOS % 2.1 % (0-4.5); HEMATOCRIT 40.3 % (35.4-49); HEMOGLOBIN 13.4 GM/dL (11.7-16.9); LYMPH % 16.4 % (8-40); MCH 32.3 pg (25.7-33.7); MCHC 33.2 g/dl (32.0-35.9); MEAN CELL VOLUME 97.1 fl (80-96); MEAN PLT VOLUME 7.8 fl (7.5-11.1); MONO % 8.3 % (3.8-10.2); NEUT % 72.2 % (42.8-82.8); PLATELET COUNT 174 K/MM3 (134-434); RBC 4.15 M/mm3 (4.00-5.60); WHITE BLOOD COUNT 7.6 K/mm3 (4.0-10.0)
[2019-04-17 12:28] LABS: ALBUMIN 3.9 g/dl (3.4-5.0); BILIRUBIN,DIRECT 0.1 mg/dL (0.0-0.2); BILIRUBIN,TOTAL 0.4 mg/dL (0.2-1); BLOOD UREA NITROGEN 37.9 mg/dL (7-18); CALCIUM 9.2 mg/dL (8.5-10.1); CREATININE 2.5 mg/dL (0.55-1.3); MAGNESIUM 2.8 mg/dL (1.8-2.4); POTASSIUM 4.2 mmol/L (3.5-5.1); TOT PROT 6.7 g/dl (6.4-8.2)
[2019-04-17 16:50] VITALS: BP 122/77; PULSE 77; TEMP 97.9
[2019-04-18 17:06] LABS: FREE KAPPA,SERUM 26.9 mg/L (3.3-19.4)
== END 2019-04-17 13:35 | disposition home or self-care (01) ==
LOC: JONCCHEMO 05:36 → J7W 11:40 → JONCCHEMO 13:35
PROVIDERS: ATTEND Internal Medicine Hematology & Oncology
DX: Z51.11 Encounter for antineoplastic chemotherapy (principal); C90.00 Multiple myeloma not having achieved remission
CPT/HCPCS: 36415; 80048; 80076; 82784; 83735; 83883; 85025; 96401; J9041

== ENCOUNTER 2019-05-01 05:17 | Day surgery (SDC) | payer OTHER ==
[2019-05-01] MEDS ORDERED: BORTEZOMIB (VELCADE) 2.5 MG/ML SUB-Q INJECTION SQ ONE (10:00)
[2019-05-01 10:39] LABS: BASO % 0.8 % (0-2.0); HEMATOCRIT 38.4 % (35.4-49); HEMOGLOBIN 12.9 GM/dL (11.7-16.9); LYMPH % 14.2 % (8-40); MCH 32.7 pg (25.7-33.7); MCHC 33.6 g/dl (32.0-35.9); MEAN CELL VOLUME 97.4 fl (80-96); MEAN PLT VOLUME 7.6 fl (7.5-11.1); MONO % 8.2 % (3.8-10.2); NEUT % 73.8 % (42.8-82.8); PLATELET COUNT 179 K/MM3 (134-434); RBC 3.95 M/mm3 (4.00-5.60); RDW 13.3 % (11.9-15.9); WHITE BLOOD COUNT 7.7 K/mm3 (4.0-10.0)
[2019-05-01 11:06] LABS: BILIRUBIN,TOTAL 0.5 mg/dL (0.2-1); BLOOD UREA NITROGEN 37.6 mg/dL (7-18); CALCIUM 9.6 mg/dL (8.5-10.1); CREATININE 2.4 mg/dL (0.55-1.3); MAGNESIUM 2.6 mg/dL (1.8-2.4); POTASSIUM 4.6 mmol/L (3.5-5.1); TOT PROT 6.6 g/dl (6.4-8.2)
[2019-05-01 15:57] VITALS: BP 109/58; PULSE 58; TEMP 98
== END 2019-05-01 12:25 | disposition home or self-care (01) ==
LOC: JONCCHEMO 05:17 → J7W 11:10 → JONCCHEMO 12:25
PROVIDERS: ATTEND Internal Medicine Hematology & Oncology
DX: Z51.11 Encounter for antineoplastic chemotherapy (principal); C90.00 Multiple myeloma not having achieved remission
CPT/HCPCS: 36415; 80053; 83735; 85025; 96401; J9041

== ENCOUNTER 2019-05-15 05:29 | Day surgery (SDC) | payer OTHER ==
[2019-05-15] MEDS ORDERED: BORTEZOMIB (VELCADE) 2.5 MG/ML SUB-Q INJECTION SQ ONE (10:00)
[2019-05-15 11:09] LABS: BASO % 0.9 % (0-2.0); EOS % 2.5 % (0-4.5); HEMATOCRIT 38.3 % (35.4-49); HEMOGLOBIN 12.8 GM/dL (11.7-16.9); LYMPH % 14.8 % (8-40); MCH 32.7 pg (25.7-33.7); MCHC 33.6 g/dl (32.0-35.9); MEAN CELL VOLUME 97.4 fl (80-96); MEAN PLT VOLUME 7.5 fl (7.5-11.1); MONO % 7.4 % (3.8-10.2); NEUT % 74.4 % (42.8-82.8); PLATELET COUNT 185 K/MM3 (134-434); RBC 3.93 M/mm3 (4.00-5.60); RDW 13.2 % (11.9-15.9); WHITE BLOOD COUNT 7.1 K/mm3 (4.0-10.0)
[2019-05-15 11:44] LABS: ALBUMIN 3.9 g/dl (3.4-5.0); BILIRUBIN,TOTAL 0.4 mg/dL (0.2-1); BLOOD UREA NITROGEN 39.5 mg/dL (7-18); CREATININE 2.6 mg/dL (0.55-1.3); MAGNESIUM 2.4 mg/dL (1.8-2.4); POTASSIUM 4.2 mmol/L (3.5-5.1); TOT PROT 6.7 g/dl (6.4-8.2)
[2019-05-15 15:23] VITALS: BP 138/72; PULSE 67; TEMP 98.2
== END 2019-05-15 12:40 | disposition home or self-care (01) ==
LOC: JONCCHEMO 05:29 → J7W 12:11 → JONCCHEMO 12:40
PROVIDERS: ATTEND Internal Medicine Hematology & Oncology
DX: Z51.11 Encounter for antineoplastic chemotherapy (principal); C90.00 Multiple myeloma not having achieved remission
CPT/HCPCS: 36415; 80053; 83735; 85025; 96401; J9041

== ENCOUNTER 2019-05-29 07:04 | Day surgery (SDC) | payer OTHER ==
[2019-05-29] MEDS ORDERED: BORTEZOMIB (VELCADE) 2.5 MG/ML SUB-Q INJECTION SQ ONE (10:00)
[2019-05-29 11:17] LABS: BILIRUBIN,TOTAL 0.5 mg/dL (0.2-1); CALCIUM 8.8 mg/dL (8.5-10.1); CREATININE 2.5 mg/dL (0.55-1.3); MAGNESIUM 2.5 mg/dL (1.8-2.4); POTASSIUM 4.2 mmol/L (3.5-5.1); TOT PROT 6.9 g/dl (6.4-8.2)
[2019-05-29 11:18] LABS: BASO % 1.1 % (0-2.0); EOS % 4.3 % (0-4.5); HEMATOCRIT 40.7 % (35.4-49); HEMOGLOBIN 13.5 GM/dL (11.7-16.9); LYMPH % 15.9 % (8-40); MCH 32.3 pg (25.7-33.7); MCHC 33.2 g/dl (32.0-35.9); MEAN CELL VOLUME 97.1 fl (80-96); MEAN PLT VOLUME 7.6 fl (7.5-11.1); MONO % 6.7 % (3.8-10.2); PLATELET COUNT 189 K/MM3 (134-434); RBC 4.19 M/mm3 (4.00-5.60); RDW 13.2 % (11.9-15.9); WHITE BLOOD COUNT 7.2 K/mm3 (4.0-10.0)
[2019-05-29 14:04] VITALS: BP 111/71; PULSE 66; TEMP 98.1
== END 2019-05-29 12:00 | disposition home or self-care (01) ==
LOC: JONCCHEMO 07:04 → J7W 11:37 → JONCCHEMO 12:00
PROVIDERS: ATTEND Internal Medicine Hematology & Oncology
DX: Z51.11 Encounter for antineoplastic chemotherapy (principal); C90.00 Multiple myeloma not having achieved remission
CPT/HCPCS: 36415; 80053; 83735; 85025; 96401; J9041

== ENCOUNTER 2019-06-12 05:24 | Day surgery (SDC) | payer OTHER ==
[2019-06-12] MEDS ORDERED: BORTEZOMIB (VELCADE) 2.5 MG/ML SUB-Q INJECTION SQ ONE (10:00)
[2019-06-12 10:15] LABS: BASO % 0.9 % (0-2.0); EOS % 3.4 % (0-4.5); HEMATOCRIT 38.6 % (35.4-49); HEMOGLOBIN 12.9 GM/dL (11.7-16.9); LYMPH % 16.4 % (8-40); MCH 32.5 pg (25.7-33.7); MCHC 33.3 g/dl (32.0-35.9); MEAN CELL VOLUME 97.6 fl (80-96); MEAN PLT VOLUME 7.4 fl (7.5-11.1); MONO % 14.5 % (3.8-10.2); NEUT % 64.8 % (42.8-82.8); PLATELET COUNT 157 K/MM3 (134-434); RBC 3.96 M/mm3 (4.00-5.60); RDW 13.4 % (11.9-15.9); WHITE BLOOD COUNT 5.9 K/mm3 (4.0-10.0)
[2019-06-12 10:45] LABS: ALBUMIN 3.7 g/dl (3.4-5.0); BILIRUBIN,TOTAL 0.4 mg/dL (0.2-1); BLOOD UREA NITROGEN 28.9 mg/dL (7-18); CALCIUM 9.2 mg/dL (8.5-10.1); CREATININE 2.5 mg/dL (0.55-1.3); MAGNESIUM 2.5 mg/dL (1.8-2.4); POTASSIUM 4.2 mmol/L (3.5-5.1); TOT PROT 6.5 g/dl (6.4-8.2); URIC ACID 8.6 mg/dL (2.6-7.2)
[2019-06-12 15:37] VITALS: BP 122/68; TEMP 98.1
[2019-06-12 15:38] VITALS: PULSE 69
== END 2019-06-12 11:35 | disposition home or self-care (01) ==
LOC: JONCCHEMO 05:24 → J7W 11:08 → JONCCHEMO 11:35
PROVIDERS: ATTEND Internal Medicine Hematology & Oncology
DX: Z51.11 Encounter for antineoplastic chemotherapy (principal); C90.00 Multiple myeloma not having achieved remission
CPT/HCPCS: 36415; 80053; 83615; 83735; 84550; 85025; 96401; J9041

== ENCOUNTER 2019-06-26 07:18 | Day surgery (SDC) | payer OTHER ==
[2019-06-26 09:59] LABS: BASO % 0.8 % (0-2.0); EOS % 2.7 % (0-4.5); HEMATOCRIT 38.7 % (35.4-49); LYMPH % 17.4 % (8-40); MCH 32.6 pg (25.7-33.7); MCHC 33.6 g/dl (32.0-35.9); MEAN CELL VOLUME 97.1 fl (80-96); MEAN PLT VOLUME 7.3 fl (7.5-11.1); MONO % 8.4 % (3.8-10.2); NEUT % 70.7 % (42.8-82.8); PLATELET COUNT 204 K/MM3 (134-434); RBC 3.99 M/mm3 (4.00-5.60); RDW 13.2 % (11.9-15.9)
[2019-06-26] MEDS ORDERED: BORTEZOMIB (VELCADE) 2.5 MG/ML SUB-Q INJECTION SQ ONE (10:00)
[2019-06-26 10:33] LABS: ALBUMIN 3.8 g/dl (3.4-5.0); BILIRUBIN,TOTAL 0.3 mg/dL (0.2-1); BLOOD UREA NITROGEN 38.3 mg/dL (7-18); CALCIUM 9.1 mg/dL (8.5-10.1); CREATININE 2.3 mg/dL (0.55-1.3); MAGNESIUM 2.6 mg/dL (1.8-2.4); POTASSIUM 3.8 mmol/L (3.5-5.1); TOT PROT 6.7 g/dl (6.4-8.2); URIC ACID 8.8 mg/dL (2.6-7.2)
[2019-06-26 15:30] VITALS: BP 125/72; PULSE 61; TEMP 97.5
[2019-06-27 17:09] LABS: FREE KAPPA,SERUM 30.3 mg/L (3.3-19.4)
== END 2019-06-26 15:00 | disposition home or self-care (01) ==
LOC: JONCCHEMO 07:18 → J7W 11:21 → JONCCHEMO 15:00
PROVIDERS: ATTEND Internal Medicine Hematology & Oncology
DX: Z51.11 Encounter for antineoplastic chemotherapy (principal); C90.00 Multiple myeloma not having achieved remission
CPT/HCPCS: 36415; 80053; 82784; 83615; 83735; 83883; 84550; 85025; 96401; J9041

== ENCOUNTER 2019-07-17 05:35 | Day surgery (SDC) | payer OTHER ==
[2019-07-17] MEDS ORDERED: BORTEZOMIB (VELCADE) 2.5 MG/ML SUB-Q INJECTION SQ ONE (10:00)
[2019-07-17 10:41] LABS: EOS % 2.6 % (0-4.5); HEMATOCRIT 38.2 % (35.4-49); HEMOGLOBIN 12.5 GM/dL (11.7-16.9); LYMPH % 21.9 % (8-40); MCH 31.7 pg (25.7-33.7); MCHC 32.8 g/dl (32.0-35.9); MEAN CELL VOLUME 96.8 fl (80-96); MEAN PLT VOLUME 7.6 fl (7.5-11.1); MONO % 8.9 % (3.8-10.2); NEUT % 65.6 % (42.8-82.8); PLATELET COUNT 143 K/MM3 (134-434); RBC 3.94 M/mm3 (4.00-5.60); RDW 13.6 % (11.9-15.9); WHITE BLOOD COUNT 6.7 K/mm3 (4.0-10.0)
[2019-07-17 11:04] LABS: URIC ACID 7.6 mg/dL (2.6-7.2)
[2019-07-17 11:05] LABS: ALBUMIN 3.7 g/dl (3.4-5.0); BILIRUBIN,TOTAL 0.3 mg/dL (0.2-1); BLOOD UREA NITROGEN 27.8 mg/dL (7-18); CALCIUM 8.8 mg/dL (8.5-10.1); CREATININE 2.1 mg/dL (0.55-1.3); POTASSIUM 4.3 mmol/L (3.5-5.1); TOT PROT 6.4 g/dl (6.4-8.2)
[2019-07-17 16:35] VITALS: BP 136/82; PULSE 72; TEMP 98.2
== END 2019-07-17 12:15 | disposition home or self-care (01) ==
LOC: JONCCHEMO 05:35 → J7W 11:21 → JONCCHEMO 12:15
PROVIDERS: ATTEND Internal Medicine Hematology & Oncology
DX: Z51.11 Encounter for antineoplastic chemotherapy (principal); C90.00 Multiple myeloma not having achieved remission
CPT/HCPCS: 36415; 80053; 83615; 83735; 84550; 85025; 96401; J9041

== ENCOUNTER 2019-07-31 07:11 | Day surgery (SDC) | payer OTHER ==
[2019-07-31 09:37] LABS: BASO % 0.8 % (0-2.0); EOS % 3.3 % (0-4.5); HEMATOCRIT 39.2 % (35.4-49); HEMOGLOBIN 13.2 GM/dL (11.7-16.9); LYMPH % 21.6 % (8-40); MCH 32.9 pg (25.7-33.7); MCHC 33.8 g/dl (32.0-35.9); MEAN CELL VOLUME 97.3 fl (80-96); MEAN PLT VOLUME 7.6 fl (7.5-11.1); MONO % 9.5 % (3.8-10.2); NEUT % 64.8 % (42.8-82.8); PLATELET COUNT 180 K/MM3 (134-434); RBC 4.02 M/mm3 (4.00-5.60); RDW 13.5 % (11.9-15.9)
[2019-07-31 09:57] LABS: ALBUMIN 3.8 g/dl (3.4-5.0); BILIRUBIN,TOTAL 0.6 mg/dL (0.2-1); BLOOD UREA NITROGEN 40.7 mg/dL (7-18); CALCIUM 9.1 mg/dL (8.5-10.1); CREATININE 2.5 mg/dL (0.55-1.3); MAGNESIUM 2.6 mg/dL (1.8-2.4); POTASSIUM 4.7 mmol/L (3.5-5.1); TOT PROT 6.7 g/dl (6.4-8.2); URIC ACID 9.3 mg/dL (2.6-7.2)
[2019-07-31] MEDS ORDERED: BORTEZOMIB (VELCADE) 2.5 MG/ML SUB-Q INJECTION SQ ONE (10:00)
[2019-07-31 10:43] VITALS: BP 125/68; PULSE 64
[2019-07-31 10:45] VITALS: TEMP 18
== END 2019-07-31 10:46 | disposition home or self-care (01) ==
LOC: JONCCHEMO 07:11 → J7W 10:14 → JONCCHEMO 10:46
PROVIDERS: ATTEND Internal Medicine Hematology & Oncology
DX: Z51.11 Encounter for antineoplastic chemotherapy (principal); C90.01 Multiple myeloma in remission; I12.9 Hypertensive chronic kidney disease with stage 1 through stage 4 chronic kidney disease, or unspecified chronic kidney disease; N18.9 Chronic kidney disease, unspecified; I48.91 Unspecified atrial fibrillation; E78.00 Pure hypercholesterolemia, unspecified
CPT/HCPCS: 36415; 80053; 83615; 83735; 84550; 85025; 96401; J9041

== ENCOUNTER 2019-08-21 05:43 | Day surgery (SDC) | payer OTHER ==
[2019-08-21 09:59] LABS: BASO % 0.9 % (0-2.0); EOS % 1.1 % (0-4.5); HEMATOCRIT 38.4 % (35.4-49); HEMOGLOBIN 12.6 GM/dL (11.7-16.9); LYMPH % 12.1 % (8-40); MCH 31.2 pg (25.7-33.7); MCHC 32.7 g/dl (32.0-35.9); MEAN CELL VOLUME 95.5 fl (80-96); MEAN PLT VOLUME 7.6 fl (7.5-11.1); MONO % 9.6 % (3.8-10.2); NEUT % 76.3 % (42.8-82.8); PLATELET COUNT 315 K/MM3 (134-434); RBC 4.02 M/mm3 (4.00-5.60); WHITE BLOOD COUNT 12.3 K/mm3 (4.0-10.0)
[2019-08-21] MEDS ORDERED: BORTEZOMIB (VELCADE) 2.5 MG/ML SUB-Q INJECTION SQ ONE (10:00)
[2019-08-21 10:36] LABS: ALBUMIN 3.4 g/dl (3.4-5.0); BILIRUBIN,TOTAL 0.5 mg/dL (0.2-1); BLOOD UREA NITROGEN 32.4 mg/dL (7-18); CALCIUM 9.2 mg/dL (8.5-10.1); CREATININE 2.7 mg/dL (0.55-1.3); MAGNESIUM 2.5 mg/dL (1.8-2.4); POTASSIUM 4.3 mmol/L (3.5-5.1)
[2019-08-21 15:44] VITALS: BP 127/69; PULSE 89; TEMP 98
== END 2019-08-21 11:25 | disposition home or self-care (01) ==
LOC: JONCCHEMO 05:43 → J7W 10:29 → JONCCHEMO 11:25
PROVIDERS: ATTEND Internal Medicine Hematology & Oncology
DX: Z51.11 Encounter for antineoplastic chemotherapy (principal); C90.00 Multiple myeloma not having achieved remission; I12.9 Hypertensive chronic kidney disease with stage 1 through stage 4 chronic kidney disease, or unspecified chronic kidney disease; N18.9 Chronic kidney disease, unspecified; I48.91 Unspecified atrial fibrillation
CPT/HCPCS: 36415; 80053; 83735; 85025; 96401; J9041

== ENCOUNTER 2019-09-04 06:58 | Day surgery (SDC) | payer OTHER ==
[2019-09-04] MEDS ORDERED: BORTEZOMIB (VELCADE) 2.5 MG/ML SUB-Q INJECTION SQ ONE (10:00)
[2019-09-04 10:40] LABS: BASO % 1.1 % (0-2.0); EOS % 3.1 % (0-4.5); HEMATOCRIT 37.5 % (35.4-49); HEMOGLOBIN 12.5 GM/dL (11.7-16.9); LYMPH % 18.2 % (8-40); MCH 32.1 pg (25.7-33.7); MCHC 33.3 g/dl (32.0-35.9); MEAN CELL VOLUME 96.5 fl (80-96); MEAN PLT VOLUME 7.3 fl (7.5-11.1); MONO % 9.3 % (3.8-10.2); NEUT % 68.3 % (42.8-82.8); PLATELET COUNT 238 K/MM3 (134-434); RBC 3.88 M/mm3 (4.00-5.60); RDW 13.6 % (11.9-15.9); WHITE BLOOD COUNT 6.9 K/mm3 (4.0-10.0)
[2019-09-04 11:05] LABS: BLOOD UREA NITROGEN 34.7 mg/dL (7-18); CALCIUM 9.2 mg/dL (8.5-10.1); CREATININE 2.6 mg/dL (0.55-1.3); POTASSIUM 4.2 mmol/L (3.5-5.1)
[2019-09-04 11:07] LABS: ALBUMIN 3.6 g/dl (3.4-5.0); BILIRUBIN,DIRECT 0.1 mg/dL (0.0-0.2); BILIRUBIN,TOTAL 0.4 mg/dL (0.2-1); MAGNESIUM 2.6 mg/dL (1.8-2.4); TOT PROT 6.5 g/dl (6.4-8.2)
[2019-09-04 12:19] VITALS: BP 112/64; PULSE 67; TEMP 98.4
== END 2019-09-04 11:50 | disposition home or self-care (01) ==
LOC: JONCCHEMO 06:58 → J7W 11:07 → JONCCHEMO 11:50
PROVIDERS: ATTEND Internal Medicine Hematology & Oncology
DX: Z51.11 Encounter for antineoplastic chemotherapy (principal); C90.00 Multiple myeloma not having achieved remission
CPT/HCPCS: 36415; 80048; 80076; 83735; 85025; 96401; J9041

== ENCOUNTER 2019-09-18 05:33 | Day surgery (SDC) | payer OTHER ==
[2019-09-18] MEDS ORDERED: BORTEZOMIB (VELCADE) 2.5 MG/ML SUB-Q INJECTION SQ ONE (10:00)
[2019-09-18 10:24] LABS: BASO % 1.1 % (0-2.0); EOS % 4.4 % (0-4.5); HEMATOCRIT 36.4 % (35.4-49); HEMOGLOBIN 12.3 GM/dL (11.7-16.9); LYMPH % 17.5 % (8-40); MCH 32.5 pg (25.7-33.7); MCHC 33.8 g/dl (32.0-35.9); MEAN CELL VOLUME 96.3 fl (80-96); MEAN PLT VOLUME 7.3 fl (7.5-11.1); MONO % 11.2 % (3.8-10.2); NEUT % 65.8 % (42.8-82.8); PLATELET COUNT 176 K/MM3 (134-434); RBC 3.78 M/mm3 (4.00-5.60); RDW 14.1 % (11.9-15.9); WHITE BLOOD COUNT 6.3 K/mm3 (4.0-10.0)
[2019-09-18 10:50] LABS: ALBUMIN 3.6 g/dl (3.4-5.0); BILIRUBIN,TOTAL 0.3 mg/dL (0.2-1); BLOOD UREA NITROGEN 35.5 mg/dL (7-18); CREATININE 2.3 mg/dL (0.55-1.3); MAGNESIUM 2.6 mg/dL (1.8-2.4); POTASSIUM 4.6 mmol/L (3.5-5.1); TOT PROT 6.4 g/dl (6.4-8.2)
[2019-09-18 16:48] VITALS: BP 116/63; PULSE 62; TEMP 98.7
== END 2019-09-18 11:30 | disposition home or self-care (01) ==
LOC: JONCCHEMO 05:33 → J7W 11:16 → JONCCHEMO 11:30
PROVIDERS: ATTEND Internal Medicine Hematology & Oncology
DX: Z51.11 Encounter for antineoplastic chemotherapy (principal); C90.00 Multiple myeloma not having achieved remission
CPT/HCPCS: 36415; 80053; 82784; 83540; 83735; 83883; 85025; 96401; J9041

== ENCOUNTER 2019-10-02 05:35 | Day surgery (SDC) | payer OTHER ==
[2019-10-02] MEDS ORDERED: BORTEZOMIB (VELCADE) 2.5 MG/ML SUB-Q INJECTION SQ ONE (10:00)
[2019-10-02 12:36] LABS: BASO % 1.3 % (0-2.0); EOS % 4.2 % (0-4.5); HEMATOCRIT 37.9 % (35.4-49); HEMOGLOBIN 12.6 GM/dL (11.7-16.9); MCH 32.2 pg (25.7-33.7); MCHC 33.1 g/dl (32.0-35.9); MEAN CELL VOLUME 97.1 fl (80-96); MEAN PLT VOLUME 7.8 fl (7.5-11.1); MONO % 8.7 % (3.8-10.2); NEUT % 69.8 % (42.8-82.8); PLATELET COUNT 174 K/MM3 (134-434); RBC 3.91 M/mm3 (4.00-5.60); RDW 13.7 % (11.9-15.9); WHITE BLOOD COUNT 6.5 K/mm3 (4.0-10.0)
[2019-10-02 13:00] LABS: ALBUMIN 3.7 g/dl (3.4-5.0); BILIRUBIN,TOTAL 0.4 mg/dL (0.2-1); BLOOD UREA NITROGEN 27.1 mg/dL (7-18); CALCIUM 8.8 mg/dL (8.5-10.1); CREATININE 2.4 mg/dL (0.55-1.3); MAGNESIUM 2.4 mg/dL (1.8-2.4); POTASSIUM 4.4 mmol/L (3.5-5.1); TOT PROT 6.6 g/dl (6.4-8.2)
[2019-10-02 16:22] VITALS: BP 112/73; PULSE 64; TEMP 98.4
[2019-10-03 18:07] LABS: FREE KAPPA,SERUM 38.1 mg/L (3.3-19.4)
== END 2019-10-02 13:45 | disposition home or self-care (01) ==
LOC: JONCCHEMO 05:35 → J7W 12:58 → JONCCHEMO 13:45
PROVIDERS: ATTEND Internal Medicine Hematology & Oncology
DX: C90.01 Multiple myeloma in remission (principal); D64.81 Anemia due to antineoplastic chemotherapy
CPT/HCPCS: 36415; 80053; 82784; 83735; 83883; 85025; 96401; J9041

== ENCOUNTER 2019-10-16 07:13 | Day surgery (SDC) | payer OTHER ==
[2019-10-16] MEDS ORDERED: BORTEZOMIB (VELCADE) 2.5 MG/ML SUB-Q INJECTION SQ ONE (10:00)
[2019-10-16 12:43] LABS: BASO % 1.3 % (0-2.0); EOS % 3.9 % (0-4.5); HEMATOCRIT 38.7 % (35.4-49); HEMOGLOBIN 12.9 GM/dL (11.7-16.9); LYMPH % 18.9 % (8-40); MCH 32.5 pg (25.7-33.7); MCHC 33.4 g/dl (32.0-35.9); MEAN CELL VOLUME 97.4 fl (80-96); MEAN PLT VOLUME 7.7 fl (7.5-11.1); MONO % 10.6 % (3.8-10.2); NEUT % 65.3 % (42.8-82.8); PLATELET COUNT 171 K/MM3 (134-434); RBC 3.97 M/mm3 (4.00-5.60); RDW 13.7 % (11.9-15.9)
[2019-10-16 13:08] LABS: ALBUMIN 3.6 g/dl (3.4-5.0); BILIRUBIN,TOTAL 0.4 mg/dL (0.2-1); BLOOD UREA NITROGEN 33.5 mg/dL (7-18); CALCIUM 9.3 mg/dL (8.5-10.1); CREATININE 2.2 mg/dL (0.55-1.3); POTASSIUM 4.7 mmol/L (3.5-5.1); TOT PROT 6.7 g/dl (6.4-8.2)
[2019-10-16 16:47] VITALS: BP 119/67; PULSE 61; TEMP 98
[2019-10-17 18:06] LABS: FREE KAPPA,SERUM 35.6 mg/L (3.3-19.4)
== END 2019-10-16 14:45 | disposition home or self-care (01) ==
LOC: JONCCHEMO 07:13 → J7W 13:39 → JONCCHEMO 14:45
PROVIDERS: ATTEND Internal Medicine Hematology & Oncology
DX: Z51.11 Encounter for antineoplastic chemotherapy (principal); C90.01 Multiple myeloma in remission; D64.81 Anemia due to antineoplastic chemotherapy
CPT/HCPCS: 36415; 80053; 82784; 83883; 85025; 96401; J9041

== ENCOUNTER 2020-02-12 06:57 | Day surgery (SDC) | payer OTHER ==
[2020-02-12] MEDS ORDERED: BORTEZOMIB (VELCADE) 2.5 MG/ML SUB-Q INJECTION SQ ONE (10:00)
[2020-02-12 10:06] LABS: BASO % 0.8 % (0-2.0); EOS % 3.5 % (0-4.5); HEMATOCRIT 40.7 % (35.4-49); HEMOGLOBIN 13.5 GM/dL (11.7-16.9); LYMPH % 17.8 % (8-40); MCH 31.9 pg (25.7-33.7); MCHC 33.1 g/dl (32.0-35.9); MEAN CELL VOLUME 96.3 fl (80-96); MONO % 7.9 % (3.8-10.2); PLATELET COUNT 182 K/MM3 (134-434); RBC 4.22 M/mm3 (4.00-5.60); RDW 13.2 % (11.9-15.9); WHITE BLOOD COUNT 7.3 K/mm3 (4.0-10.0)
[2020-02-12 10:34] LABS: POTASSIUM 3.6 mmol/L (3.5-5.1)
[2020-02-12 10:38] LABS: BILIRUBIN,DIRECT 0.2 mg/dL (0.0-0.2); BLOOD UREA NITROGEN 44.5 mg/dL (7-18); MAGNESIUM 2.6 mg/dL (1.8-2.4)
[2020-02-12 10:41] LABS: BILIRUBIN,TOTAL 0.6 mg/dL (0.2-1); CREATININE 2.9 mg/dL (0.55-1.3); TOT PROT 7.1 g/dl (6.4-8.2)
[2020-02-12 13:59] VITALS: BP 113/61; PULSE 66; TEMP 98.6
== END 2020-02-12 11:00 | disposition home or self-care (01) ==
LOC: JONCCHEMO 06:57
PROVIDERS: ATTEND Internal Medicine Hematology & Oncology
DX: Z51.11 Encounter for antineoplastic chemotherapy (principal); C90.00 Multiple myeloma not having achieved remission; I10 Essential (primary) hypertension; I48.91 Unspecified atrial fibrillation; E78.00 Pure hypercholesterolemia, unspecified
CPT/HCPCS: 36415; 80048; 80076; 83735; 85025; 96401; J9041

== ENCOUNTER 2020-02-27 07:11 | Day surgery (SDC) | payer OTHER ==
[2020-02-27 09:11] LABS: EOS % 2.1 % (0-4.5); HEMATOCRIT 41.8 % (35.4-49); HEMOGLOBIN 13.8 GM/dL (11.7-16.9); MCH 31.6 pg (25.7-33.7); MEAN CELL VOLUME 95.6 fl (80-96); MEAN PLT VOLUME 7.8 fl (7.5-11.1); MONO % 8.4 % (3.8-10.2); NEUT % 73.5 % (42.8-82.8); PLATELET COUNT 191 K/MM3 (134-434); RBC 4.38 M/mm3 (4.00-5.60); RDW 13.4 % (11.9-15.9); WHITE BLOOD COUNT 8.4 K/mm3 (4.0-10.0)
[2020-02-27 09:33] LABS: BILIRUBIN,TOTAL 0.6 mg/dL (0.2-1); CALCIUM 9.2 mg/dL (8.5-10.1); CREATININE 2.8 mg/dL (0.55-1.3); POTASSIUM 3.9 mmol/L (3.5-5.1); TOT PROT 7.3 g/dl (6.4-8.2)
[2020-02-27] MEDS ORDERED: BORTEZOMIB (VELCADE) 2.5 MG/ML SUB-Q INJECTION SQ ONE (10:00)
[2020-02-27 14:18] VITALS: BP 125/76; PULSE 71; TEMP 98.1
[2020-02-28 17:07] LABS: FREE KAPPA,SERUM 56.3 mg/L (3.3-19.4)
== END 2020-02-27 10:45 | disposition home or self-care (01) ==
LOC: JONCCHEMO 07:11
PROVIDERS: ATTEND Internal Medicine Hematology & Oncology
DX: Z51.11 Encounter for antineoplastic chemotherapy (principal); C90.00 Multiple myeloma not having achieved remission
CPT/HCPCS: 36415; 80053; 83883; 85025; 96401; J9041

== ENCOUNTER 2020-03-12 07:23 | Day surgery (SDC) | payer OTHER ==
[2020-03-12] MEDS ORDERED: BORTEZOMIB (VELCADE) 2.5 MG/ML SUB-Q INJECTION SQ ONE (10:00)
[2020-03-12 11:15] LABS: BASO % 0.8 % (0-2.0); EOS % 2.3 % (0-4.5); HEMOGLOBIN 13.3 GM/dL (11.7-16.9); LYMPH % 14.7 % (8-40); MCH 32.2 pg (25.7-33.7); MCHC 33.2 g/dl (32.0-35.9); MEAN CELL VOLUME 97.2 fl (80-96); MEAN PLT VOLUME 7.6 fl (7.5-11.1); MONO % 8.4 % (3.8-10.2); NEUT % 73.8 % (42.8-82.8); PLATELET COUNT 187 K/MM3 (134-434); RBC 4.11 M/mm3 (4.00-5.60); RDW 13.2 % (11.9-15.9); WHITE BLOOD COUNT 6.9 K/mm3 (4.0-10.0)
[2020-03-12 11:52] LABS: BILIRUBIN,TOTAL 0.4 mg/dL (0.2-1); BLOOD UREA NITROGEN 42.9 mg/dL (7-18); CALCIUM 9.2 mg/dL (8.5-10.1); CREATININE 2.7 mg/dL (0.55-1.3); POTASSIUM 3.9 mmol/L (3.5-5.1); TOT PROT 7.2 g/dl (6.4-8.2)
[2020-03-12 16:11] VITALS: BP 107/68; PULSE 67; TEMP 98.2
== END 2020-03-12 12:45 | disposition home or self-care (01) ==
LOC: JONCCHEMO 07:23
PROVIDERS: ATTEND Internal Medicine Hematology & Oncology
DX: Z51.11 Encounter for antineoplastic chemotherapy (principal); C90.00 Multiple myeloma not having achieved remission
CPT/HCPCS: 36415; 80053; 85025; 96401; J9041

== ENCOUNTER 2020-04-09 07:06 | Day surgery (SDC) | payer OTHER ==
[2020-04-09 10:00] LABS: EOS % 3.1 % (0-4.5); HEMOGLOBIN 13.2 GM/dL (11.7-16.9); LYMPH % 21.5 % (8-40); MCH 31.8 pg (25.7-33.7); MCHC 33.1 g/dl (32.0-35.9); MEAN CELL VOLUME 96.1 fl (80-96); MEAN PLT VOLUME 7.7 fl (7.5-11.1); MONO % 8.3 % (3.8-10.2); NEUT % 66.1 % (42.8-82.8); PLATELET COUNT 178 K/MM3 (134-434); RBC 4.16 M/mm3 (4.00-5.60); RDW 13.4 % (11.9-15.9); WHITE BLOOD COUNT 7.2 K/mm3 (4.0-10.0)
[2020-04-09] MEDS ORDERED: BORTEZOMIB (VELCADE) 2.5 MG/ML SUB-Q INJECTION SQ ONE (10:00)
[2020-04-09 10:30] LABS: ALBUMIN 3.8 g/dl (3.4-5.0); BILIRUBIN,TOTAL 0.6 mg/dL (0.2-1); BLOOD UREA NITROGEN 45.3 mg/dL (7-18); CALCIUM 8.6 mg/dL (8.5-10.1); CREATININE 2.8 mg/dL (0.55-1.3); POTASSIUM 3.7 mmol/L (3.5-5.1)
[2020-04-09 14:48] VITALS: BP 112/59; PULSE 66; TEMP 98.3
[2020-04-10 18:08] LABS: FREE KAPPA,SERUM 69.5 mg/L (3.3-19.4)
== END 2020-04-09 11:30 | disposition home or self-care (01) ==
LOC: JONCCHEMO 07:06
PROVIDERS: ATTEND Internal Medicine Hematology & Oncology
DX: Z51.11 Encounter for antineoplastic chemotherapy (principal); C90.00 Multiple myeloma not having achieved remission
CPT/HCPCS: 36415; 80053; 83883; 85025; 96401; J9041

== ENCOUNTER 2020-04-23 07:15 | Day surgery (SDC) | payer OTHER ==
[2020-04-23] MEDS ORDERED: BORTEZOMIB (VELCADE) 2.5 MG/ML SUB-Q INJECTION SQ ONE ×2 (09:00→10:00)
[2020-04-23 09:15] LABS: BASO % 0.9 % (0-2.0); EOS % 2.8 % (0-4.5); HEMATOCRIT 39.4 % (35.4-49); HEMOGLOBIN 13.3 GM/dL (11.7-16.9); LYMPH % 19.2 % (8-40); MCH 33.1 pg (25.7-33.7); MCHC 33.8 g/dl (32.0-35.9); MEAN PLT VOLUME 7.5 fl (7.5-11.1); MONO % 7.9 % (3.8-10.2); NEUT % 69.2 % (42.8-82.8); PLATELET COUNT 178 K/MM3 (134-434); RBC 4.03 M/mm3 (4.00-5.60); RDW 13.8 % (11.9-15.9)
[2020-04-23 09:47] LABS: BILIRUBIN,TOTAL 0.5 mg/dL (0.2-1); BLOOD UREA NITROGEN 41.9 mg/dL (7-18); CREATININE 2.6 mg/dL (0.55-1.3); POTASSIUM 3.7 mmol/L (3.5-5.1)
[2020-04-23 09:48] LABS: ALBUMIN 3.8 g/dl (3.4-5.0); TOT PROT 7.2 g/dl (6.4-8.2)
[2020-04-23 14:14] VITALS: BP 115/55; PULSE 65; TEMP 98
[2020-04-24 17:06] LABS: FREE KAPPA,SERUM 82.5 mg/L (3.3-19.4)
== END 2020-04-23 11:00 | disposition home or self-care (01) ==
LOC: JONCCHEMO 07:15
PROVIDERS: ATTEND Internal Medicine Hematology & Oncology
DX: Z51.11 Encounter for antineoplastic chemotherapy (principal); C90.00 Multiple myeloma not having achieved remission
CPT/HCPCS: 36415; 80053; 83883; 85025; 96401; J9041

== ENCOUNTER 2020-05-07 06:39 | Day surgery (SDC) | payer OTHER ==
--- OUTSIDE RECORDS SUMMARY | 2020-05-07 06:43 | XMS ---
:1945 Author Organization [facility] Support Name Relationship Address Phone RE, RETIRED Unavailable Unavailable Unavailable RE Unavailable Unavailable Unavailable DIVYA IGNACIO [address] [place] [address] Re-disclosure Warning The records that you are about to access may contain information from federally- assisted alcohol or drug abuse programs. If such information is present, then the following federally mandated warning applies: This information has been disclosed to you from records protected by federal confidentiality rules (42 CFR part 2). The federal rules prohibit you from making any further disclosure of this information unless further disclosure is expressly permitted by the written consent of the person to whom it pertains or as otherwise permitted by 42 CFR part 2. A general authorization for the release of medical or other information is NOT sufficient for this purpose. The Federal rules restrict any use of the information to criminally investigate or prosecute any alcohol or drug abuse patient.The records that you are about to access may contain highly sensitive health information, the redisclosure of which is protected by Article 27-F of the [facility] Public Health law. If you continue you may haveaccess to information: Regarding HIV / AIDS; Provided by facilities licensed or operated by the [facility] Office of Mental Health; or Provided by the [facility] Office for People With Developmental Disabilities. If such information is present, then the following [facility] mandated warning applies: This information has been disclosed to you from confidential records which are protected by state law. State law prohibits you from making any further disclosure of this information without the specific written consent of the person to whom it pertains, or as otherwise permitted by law. Any unauthorized further disclosure in violation of state law may result in a fine or care home sentence or both. A general authorization for the release of medical or other information is NOT sufficient authorization for further disclosure. Insurance Providers Payer name Policy type Policy ID Covered Covered green party's Policy P ramin / Coverage green party ID relationship to [employer] ormation type mccracken HEALTH [id number] SP [id number] [employer] [place] [id number] SP [id number] [facility] (MEDICARE) [facility] [id number] SP [id number] [employer] [facility] [id number] SP [id number] [facility] [id number] SP [id number] [place] AARP MEDICARE [id number] 1 [id number] [place] [id number] PART B [facility] [id number] S [id number] [facility] COMPLETE O
[2020-05-07 09:27] LABS: BASO % 1.1 % (0-2.0); EOS % 3.4 % (0-4.5); HEMATOCRIT 40.1 % (35.4-49); HEMOGLOBIN 13.4 GM/dL (11.7-16.9); LYMPH % 21.4 % (8-40); MCH 32.9 pg (25.7-33.7); MCHC 33.5 g/dl (32.0-35.9); MEAN CELL VOLUME 98.2 fl (80-96); MEAN PLT VOLUME 7.8 fl (7.5-11.1); MONO % 8.8 % (3.8-10.2); NEUT % 65.3 % (42.8-82.8); PLATELET COUNT 152 K/MM3 (134-434); RBC 4.08 M/mm3 (4.00-5.60); WHITE BLOOD COUNT 7.7 K/mm3 (4.0-10.0)
[2020-05-07 09:48] LABS: ALBUMIN 3.8 g/dl (3.4-5.0); BILIRUBIN,TOTAL 0.4 mg/dL (0.2-1); BLOOD UREA NITROGEN 39.6 mg/dL (7-18); CREATININE 2.6 mg/dL (0.55-1.3); MAGNESIUM 2.4 mg/dL (1.8-2.4); POTASSIUM 4.3 mmol/L (3.5-5.1); TOT PROT 7.2 g/dl (6.4-8.2)
[2020-05-07] MEDS ORDERED: BORTEZOMIB (VELCADE) 2.5 MG/ML SUB-Q INJECTION SQ ONE (11:00)
[2020-05-07 14:20] VITALS: BP 122/65; PULSE 72; TEMP 98.1
== END 2020-05-07 11:00 | disposition home or self-care (01) ==
LOC: JONCCHEMO 06:39
PROVIDERS: ATTEND Internal Medicine Hematology & Oncology
DX: Z51.11 Encounter for antineoplastic chemotherapy (principal); C90.00 Multiple myeloma not having achieved remission
CPT/HCPCS: 36415; 80053; 83735; 85025; 96401; J9041

== ENCOUNTER 2020-05-21 06:12 | Day surgery (SDC) | payer OTHER ==
--- OUTSIDE RECORDS SUMMARY | 2020-05-21 06:16 | XMS ---
:1945 Author Organization [facility] Support Name Relationship Address Phone RE, RETIRED Unavailable Unavailable Unavailable RE Unavailable Unavailable Unavailable DIVYA IGNACIO [address] [place] [address] Re-disclosure Warning The records that you are [...] is protected by Article 27-F of the [facility] Public Health law. If you continue you may haveaccess to information: Regarding HIV / AIDS; Provided by facilities licensed or operated by the [facility] Office of Mental Health; or Provided by the [facility] Office for People With Developmental Disabilities. If such information is present, then the following [facility] mandated warning applies: This information has [...] law may result in a fine or mcfp sentence or both. A general authorization for the release of medical or other information is NOT sufficient authorization for further disclosure. Insurance Providers Payer name Policy type Policy ID Covered Covered republican's Policy P ramin / Coverage republican ID relationship to [employer] Inf ormation type m[employer]racken HEALTH [id number] SP [id number] [employer] [place] [id number] SP [id number] [facility] (MEDICARE) [facility] [id number] SP [id number] [employer] [facility] [id number] SP [id number] [facility] [id number] SP [id number] [employer] AARP MEDICARE [id number] 1 [id number] [place] [id number] PART B DOWNSTATE [facility] [id number] S [id number] [facility] COMPLETE O
[2020-05-21 09:40] LABS: BASO % 1.1 % (0-2.0); EOS % 2.7 % (0-4.5); HEMATOCRIT 40.3 % (35.4-49); HEMOGLOBIN 13.6 GM/dL (11.7-16.9); MCH 32.7 pg (25.7-33.7); MCHC 33.8 g/dl (32.0-35.9); MEAN CELL VOLUME 96.7 fl (80-96); MEAN PLT VOLUME 7.2 fl (7.5-11.1); MONO % 7.9 % (3.8-10.2); NEUT % 68.3 % (42.8-82.8); PLATELET COUNT 161 K/MM3 (134-434); RBC 4.17 M/mm3 (4.00-5.60); RDW 13.5 % (11.9-15.9)
[2020-05-21] MEDS ORDERED: BORTEZOMIB (VELCADE) 2.5 MG/ML SUB-Q INJECTION SQ ONE (10:00)
[2020-05-21 10:09] LABS: ALBUMIN 3.7 g/dl (3.4-5.0); BILIRUBIN,TOTAL 0.5 mg/dL (0.2-1); BLOOD UREA NITROGEN 45.3 mg/dL (7-18); CALCIUM 8.8 mg/dL (8.5-10.1); CREATININE 2.6 mg/dL (0.55-1.3); MAGNESIUM 2.4 mg/dL (1.8-2.4); POTASSIUM 3.8 mmol/L (3.5-5.1); TOT PROT 7.1 g/dl (6.4-8.2)
[2020-05-21 12:51] VITALS: BP 130/58; PULSE 73; TEMP 97.9
== END 2020-05-21 11:00 | disposition home or self-care (01) ==
LOC: JONCCHEMO 06:12
PROVIDERS: ATTEND Internal Medicine Hematology & Oncology
DX: Z51.11 Encounter for antineoplastic chemotherapy (principal); C90.00 Multiple myeloma not having achieved remission
CPT/HCPCS: 36415; 80053; 83735; 85025; 96401; J9041

== ENCOUNTER 2020-07-02 07:10 | Day surgery (SDC) | payer OTHER ==
[2020-07-02] MEDS ORDERED: BORTEZOMIB (VELCADE) 2.5 MG/ML SUB-Q INJECTION SQ ONE (10:00)
[2020-07-02 10:35] LABS: BASO % 0.7 % (0-2.0); EOS % 3.1 % (0-4.5); HEMATOCRIT 41.3 % (35.4-49); HEMOGLOBIN 13.8 GM/dL (11.7-16.9); LYMPH % 16.2 % (8-40); MCH 32.6 pg (25.7-33.7); MCHC 33.3 g/dl (32.0-35.9); MEAN CELL VOLUME 97.8 fl (80-96); MONO % 7.1 % (3.8-10.2); NEUT % 72.9 % (42.8-82.8); PLATELET COUNT 168 K/MM3 (134-434); RBC 4.22 M/mm3 (4.00-5.60); RDW 13.5 % (11.9-15.9)
[2020-07-02 10:44] LABS: POTASSIUM 3.9 mmol/L (3.5-5.1)
[2020-07-02 10:47] LABS: ALBUMIN 3.8 g/dl (3.4-5.0); CALCIUM 9.2 mg/dL (8.5-10.1)
[2020-07-02 10:50] LABS: CREATININE 2.7 mg/dL (0.55-1.3)
[2020-07-02 10:52] LABS: BILIRUBIN,TOTAL 0.4 mg/dL (0.2-1); TOT PROT 6.9 g/dl (6.4-8.2)
[2020-07-02 11:09] VITALS: BP 116/51; PULSE 65; TEMP 98.1
== END 2020-07-02 11:00 | disposition home or self-care (01) ==
LOC: JONCCHEMO 07:10
PROVIDERS: ATTEND Internal Medicine Hematology & Oncology
DX: Z51.11 Encounter for antineoplastic chemotherapy (principal); C90.00 Multiple myeloma not having achieved remission
CPT/HCPCS: 36415; 80053; 85025; 96401; J9041

== ENCOUNTER 2020-07-16 06:23 | Day surgery (SDC) | payer OTHER ==
[2020-07-16 09:45] LABS: BASO % 0.8 % (0-2.0); EOS % 2.7 % (0-4.5); HEMATOCRIT 42.2 % (35.4-49); HEMOGLOBIN 13.9 GM/dL (11.7-16.9); LYMPH % 21.2 % (8-40); MCH 32.4 pg (25.7-33.7); MEAN CELL VOLUME 98.4 fl (80-96); MEAN PLT VOLUME 7.7 fl (7.5-11.1); MONO % 9.7 % (3.8-10.2); NEUT % 65.6 % (42.8-82.8); PLATELET COUNT 163 K/MM3 (134-434); RBC 4.29 M/mm3 (4.00-5.60); RDW 13.4 % (11.9-15.9); WHITE BLOOD COUNT 7.4 K/mm3 (4.0-10.0)
[2020-07-16] MEDS ORDERED: BORTEZOMIB (VELCADE) 2.5 MG/ML SUB-Q INJECTION SQ ONE (10:00)
[2020-07-16 10:07] LABS: ALBUMIN 3.9 g/dl (3.4-5.0); CALCIUM 9.1 mg/dL (8.5-10.1)
[2020-07-16 10:08] LABS: BLOOD UREA NITROGEN 35.7 mg/dL (7-18)
[2020-07-16 10:11] LABS: CREATININE 2.5 mg/dL (0.55-1.3)
[2020-07-16 10:12] LABS: BILIRUBIN,TOTAL 0.4 mg/dL (0.2-1); TOT PROT 7.3 g/dl (6.4-8.2)
[2020-07-16 15:21] VITALS: BP 116/70; PULSE 64; TEMP 98.1
[2020-07-17 18:06] LABS: FREE KAPPA,SERUM 102.8 mg/L (3.3-19.4)
== END 2020-07-16 11:00 | disposition home or self-care (01) ==
LOC: JONCCHEMO 06:23
PROVIDERS: ATTEND Internal Medicine Hematology & Oncology
DX: Z51.11 Encounter for antineoplastic chemotherapy (principal); C90.00 Multiple myeloma not having achieved remission
CPT/HCPCS: 36415; 80053; 83883; 85025; 96401; J9041

== ENCOUNTER 2020-07-30 10:11 | Day surgery (SDC) | payer OTHER ==
[2020-07-30 09:16] LABS: BASO % 1.3 % (0-2.0); EOS % 2.8 % (0-4.5); HEMATOCRIT 42.3 % (35.4-49); HEMOGLOBIN 14.1 GM/dL (11.7-16.9); LYMPH % 18.9 % (8-40); MCH 32.2 pg (25.7-33.7); MCHC 33.3 g/dl (32.0-35.9); MEAN CELL VOLUME 96.8 fl (80-96); MEAN PLT VOLUME 7.7 fl (7.5-11.1); PLATELET COUNT 182 K/MM3 (134-434); RBC 4.37 M/mm3 (4.00-5.60); RDW 13.2 % (11.9-15.9); WHITE BLOOD COUNT 8.2 K/mm3 (4.0-10.0)
[2020-07-30 09:46] LABS: ALBUMIN 4.2 g/dl (3.4-5.0)
[2020-07-30 09:49] LABS: CREATININE 2.8 mg/dL (0.55-1.3)
[2020-07-30 09:51] LABS: BILIRUBIN,TOTAL 0.5 mg/dL (0.2-1); TOT PROT 7.6 g/dl (6.4-8.2)
[2020-07-30 10:11] LABS: POTASSIUM 3.7 mmol/L (3.5-5.1)
[2020-07-30 16:17] VITALS: BP 114/69; PULSE 75
[2020-07-30 16:19] VITALS: TEMP 97.7
[2020-07-31 18:06] LABS: FREE KAPPA,SERUM 117.3 mg/L (3.3-19.4)
== END 2020-07-30 11:00 | disposition home or self-care (01) ==
LOC: JONCCHEMO 10:11
PROVIDERS: ATTEND Internal Medicine Hematology & Oncology
DX: Z51.11 Encounter for antineoplastic chemotherapy (principal); C90.00 Multiple myeloma not having achieved remission
CPT/HCPCS: 36415; 80053; 83883; 85025; 96401; J9041

== ENCOUNTER 2020-08-12 08:07 | Day surgery (SDC) | payer OTHER ==
[2020-08-12] MEDS ORDERED: BORTEZOMIB (VELCADE) 2.5 MG/ML SUB-Q INJECTION SQ ONE (10:00)
[2020-08-12 10:12] LABS: EOS % 2.2 % (0-4.5); HEMATOCRIT 40.6 % (35.4-49); HEMOGLOBIN 13.4 GM/dL (11.7-16.9); LYMPH % 19.4 % (8-40); MCH 32.5 pg (25.7-33.7); MCHC 33.1 g/dl (32.0-35.9); MEAN CELL VOLUME 98.3 fl (80-96); MEAN PLT VOLUME 7.7 fl (7.5-11.1); MONO % 9.9 % (3.8-10.2); NEUT % 67.5 % (42.8-82.8); PLATELET COUNT 185 K/MM3 (134-434); RBC 4.13 M/mm3 (4.00-5.60); RDW 13.3 % (11.9-15.9); WHITE BLOOD COUNT 7.7 K/mm3 (4.0-10.0)
[2020-08-12 10:30] LABS: BLOOD UREA NITROGEN 39.1 mg/dL (7-18); CALCIUM 9.1 mg/dL (8.5-10.1)
[2020-08-12 10:33] LABS: CREATININE 2.7 mg/dL (0.55-1.3)
[2020-08-12 10:35] LABS: BILIRUBIN,TOTAL 0.4 mg/dL (0.2-1); TOT PROT 7.4 g/dl (6.4-8.2)
[2020-08-12 13:28] VITALS: BP 122/70; PULSE 66; TEMP 97.6
== END 2020-08-12 11:40 | disposition home or self-care (01) ==
LOC: JONCCHEMO 08:07
PROVIDERS: ATTEND Internal Medicine Hematology & Oncology
DX: Z51.11 Encounter for antineoplastic chemotherapy (principal); C90.00 Multiple myeloma not having achieved remission
CPT/HCPCS: 36415; 80053; 85025; 96401; J9041

== ENCOUNTER 2020-09-10 08:09 | Day surgery (SDC) | payer OTHER ==
[2020-09-10] MEDS ORDERED: BORTEZOMIB (VELCADE) 2.5 MG/ML SUB-Q INJECTION SQ ONE (10:00)
[2020-09-10 11:30] LABS: BASO % 1.1 % (0-2.0); EOS % 2.4 % (0-4.5); HEMATOCRIT 39.6 % (35.4-49); HEMOGLOBIN 13.4 GM/dL (11.7-16.9); LYMPH % 20.5 % (8-40); MCHC 33.9 g/dl (32.0-35.9); MEAN CELL VOLUME 97.4 fl (80-96); MEAN PLT VOLUME 7.5 fl (7.5-11.1); MONO % 8.3 % (3.8-10.2); NEUT % 67.7 % (42.8-82.8); PLATELET COUNT 186 K/MM3 (134-434); RBC 4.07 M/mm3 (4.00-5.60); RDW 13.4 % (11.9-15.9); WHITE BLOOD COUNT 6.5 K/mm3 (4.0-10.0)
[2020-09-10 11:56] LABS: ALBUMIN 3.9 g/dl (3.4-5.0); BLOOD UREA NITROGEN 34.5 mg/dL (7-18); CALCIUM 8.9 mg/dL (8.5-10.1)
[2020-09-10 11:59] LABS: CREATININE 2.9 mg/dL (0.55-1.3)
[2020-09-10 12:01] LABS: BILIRUBIN,TOTAL 0.4 mg/dL (0.2-1); TOT PROT 7.6 g/dl (6.4-8.2)
[2020-09-10 18:20] VITALS: BP 121/71; PULSE 72; TEMP 97.7
[2020-09-11 18:07] LABS: FREE KAPPA,SERUM 146.9 mg/L (3.3-19.4)
== END 2020-09-10 14:00 | disposition home or self-care (01) ==
LOC: JONCCHEMO 08:09
PROVIDERS: ATTEND Internal Medicine Hematology & Oncology
DX: Z51.11 Encounter for antineoplastic chemotherapy (principal); C90.00 Multiple myeloma not having achieved remission
CPT/HCPCS: 36415; 80053; 83883; 85025; 96401; J9041

== ENCOUNTER 2020-09-24 06:14 | Day surgery (SDC) | payer OTHER ==
[2020-09-24 09:58] LABS: BASO % 1.4 % (0-2.0); EOS % 1.9 % (0-4.5); HEMATOCRIT 37.8 % (35.4-49); HEMOGLOBIN 12.7 GM/dL (11.7-16.9); LYMPH % 16.5 % (8-40); MCH 33.1 pg (25.7-33.7); MCHC 33.7 g/dl (32.0-35.9); MEAN CELL VOLUME 98.2 fl (80-96); MEAN PLT VOLUME 7.3 fl (7.5-11.1); MONO % 21.1 % (3.8-10.2); NEUT % 59.1 % (42.8-82.8); PLATELET COUNT 139 K/MM3 (134-434); RBC 3.85 M/mm3 (4.00-5.60); RDW 13.2 % (11.9-15.9); WHITE BLOOD COUNT 4.4 K/mm3 (4.0-10.0)
[2020-09-24] MEDS ORDERED: BORTEZOMIB (VELCADE) 2.5 MG/ML SUB-Q INJECTION SQ ONE (10:00)
[2020-09-24 10:24] LABS: POTASSIUM 3.9 mmol/L (3.5-5.1)
[2020-09-24 10:26] LABS: CALCIUM 8.7 mg/dL (8.5-10.1)
[2020-09-24 10:27] LABS: BLOOD UREA NITROGEN 34.3 mg/dL (7-18)
[2020-09-24 10:30] LABS: CREATININE 2.5 mg/dL (0.55-1.3)
[2020-09-24 10:31] LABS: BILIRUBIN,TOTAL 0.6 mg/dL (0.2-1)
[2020-09-24 10:32] LABS: TOT PROT 7.2 g/dl (6.4-8.2)
[2020-09-24 11:57] LABS: ANISOCYTOSIS 0; MACROCYTOSIS 1+; PLATELET ESTIMATE DECREASED
[2020-09-24 15:47] VITALS: BP 130/71; PULSE 82; TEMP 98.4
[2020-09-30 08:47] LABS: FREE KAPPA,SERUM 190.1
== END 2020-09-24 11:15 | disposition home or self-care (01) ==
LOC: JONCCHEMO 06:14
PROVIDERS: ATTEND Internal Medicine Hematology & Oncology
DX: Z51.11 Encounter for antineoplastic chemotherapy (principal); C90.00 Multiple myeloma not having achieved remission
CPT/HCPCS: 36415; 80053; 83883; 85025; 96401; J9041

== ENCOUNTER 2020-10-08 07:50 | Day surgery (SDC) | payer OTHER ==
[2020-10-08] MEDS ORDERED: BORTEZOMIB (VELCADE) 2.5 MG/ML SUB-Q INJECTION SQ ONE (10:00)
[2020-10-08 10:32] LABS: BASO % 1.5 % (0-2.0); EOS % 4.8 % (0-4.5); HEMATOCRIT 36.6 % (35.4-49); HEMOGLOBIN 12.3 GM/dL (11.7-16.9); LYMPH % 17.4 % (8-40); MCH 32.8 pg (25.7-33.7); MCHC 33.7 g/dl (32.0-35.9); MEAN CELL VOLUME 97.4 fl (80-96); MEAN PLT VOLUME 7.8 fl (7.5-11.1); MONO % 11.3 % (3.8-10.2); PLATELET COUNT 168 K/MM3 (134-434); RBC 3.76 M/mm3 (4.00-5.60); RDW 13.2 % (11.9-15.9); WHITE BLOOD COUNT 5.5 K/mm3 (4.0-10.0)
[2020-10-08 10:59] LABS: POTASSIUM 3.9 mmol/L (3.5-5.1)
[2020-10-08 11:02] LABS: ALBUMIN 3.8 g/dl (3.4-5.0)
[2020-10-08 11:03] LABS: BLOOD UREA NITROGEN 28.7 mg/dL (7-18); CALCIUM 8.6 mg/dL (8.5-10.1); MAGNESIUM 2.3 mg/dL (1.8-2.4)
[2020-10-08 11:05] LABS: CREATININE 2.4 mg/dL (0.55-1.3)
[2020-10-08 12:11] LABS: BILIRUBIN,TOTAL 0.6 mg/dL (0.2-1); TOT PROT 7.1 g/dl (6.4-8.2)
[2020-10-08 14:47] VITALS: PULSE 81; TEMP 98.2
[2020-10-08 14:48] VITALS: BP 111/69
== END 2020-10-08 12:45 | disposition home or self-care (01) ==
LOC: JONCCHEMO 07:50
PROVIDERS: ATTEND Internal Medicine Hematology & Oncology
DX: Z51.11 Encounter for antineoplastic chemotherapy (principal); C90.00 Multiple myeloma not having achieved remission
CPT/HCPCS: 36415; 80053; 83735; 85025; 96401; J9041

== ENCOUNTER 2020-10-22 06:43 | Day surgery (SDC) | payer OTHER ==
[2020-10-22 09:57] LABS: BASO % 1.1 % (0-2.0); HEMATOCRIT 35.8 % (35.4-49); HEMOGLOBIN 11.9 GM/dL (11.7-16.9); LYMPH % 19.9 % (8-40); MCH 33.1 pg (25.7-33.7); MCHC 33.2 g/dl (32.0-35.9); MEAN CELL VOLUME 99.7 fl (80-96); MEAN PLT VOLUME 7.6 fl (7.5-11.1); MONO % 9.7 % (3.8-10.2); NEUT % 62.3 % (42.8-82.8); PLATELET COUNT 169 K/MM3 (134-434); RBC 3.59 M/mm3 (4.00-5.60); WHITE BLOOD COUNT 5.3 K/mm3 (4.0-10.0)
[2020-10-22] MEDS ORDERED: BORTEZOMIB (VELCADE) 2.5 MG/ML SUB-Q INJECTION SQ ONE (10:00)
[2020-10-22 10:19] LABS: POTASSIUM 4.3 mmol/L (3.5-5.1)
[2020-10-22 10:22] LABS: ALBUMIN 3.7 g/dl (3.4-5.0); BLOOD UREA NITROGEN 31.9 mg/dL (7-18); CALCIUM 9.3 mg/dL (8.5-10.1)
[2020-10-22 10:26] LABS: CREATININE 2.5 mg/dL (0.55-1.3)
[2020-10-22 10:27] LABS: TOT PROT 7.1 g/dl (6.4-8.2)
[2020-10-22 12:07] VITALS: BP 115/65; PULSE 64; TEMP 98.3
== END 2020-10-22 12:00 | disposition home or self-care (01) ==
LOC: JONCCHEMO 06:43
PROVIDERS: ATTEND Internal Medicine Hematology & Oncology
DX: Z51.11 Encounter for antineoplastic chemotherapy (principal); C90.00 Multiple myeloma not having achieved remission
CPT/HCPCS: 36415; 80053; 85025; 96401; J9041

== ENCOUNTER 2020-11-05 06:27 | Day surgery (SDC) | payer OTHER ==
[2020-11-05 09:25] LABS: BASO % 1.2 % (0-2.0); EOS % 2.5 % (0-4.5); HEMATOCRIT 37.7 % (35.4-49); HEMOGLOBIN 12.7 GM/dL (11.7-16.9); LYMPH % 18.2 % (8-40); MCH 33.4 pg (25.7-33.7); MCHC 33.7 g/dl (32.0-35.9); MEAN PLT VOLUME 8.3 fl (7.5-11.1); NEUT % 69.1 % (42.8-82.8); PLATELET COUNT 197 K/MM3 (134-434); RBC 3.81 M/mm3 (4.00-5.60); RDW 13.3 % (11.9-15.9); WHITE BLOOD COUNT 7.6 K/mm3 (4.0-10.0)
[2020-11-05 09:43] LABS: POTASSIUM 4.5 mmol/L (3.5-5.1)
[2020-11-05 09:51] LABS: BILIRUBIN,TOTAL 0.6 mg/dL (0.2-1); TOT PROT 7.5 g/dl (6.4-8.2)
[2020-11-05 09:53] LABS: BLOOD UREA NITROGEN 34.9 mg/dL (7-18); CALCIUM 9.3 mg/dL (8.5-10.1)
[2020-11-05 09:56] LABS: CREATININE 2.3 mg/dL (0.55-1.3)
[2020-11-05] MEDS ORDERED: BORTEZOMIB (VELCADE) 2.5 MG/ML SUB-Q INJECTION SQ ONE (10:00)
[2020-11-05 10:44] VITALS: BP 129/73; PULSE 70; TEMP 97.9
== END 2020-11-05 10:48 | disposition home or self-care (01) ==
LOC: JONCCHEMO 06:27
PROVIDERS: ATTEND Internal Medicine Hematology & Oncology
DX: Z51.11 Encounter for antineoplastic chemotherapy (principal); C90.00 Multiple myeloma not having achieved remission
CPT/HCPCS: 36415; 80053; 83883; 85025; 96401; J9041

== ENCOUNTER 2020-11-19 07:05 | Day surgery (SDC) | payer OTHER ==
[2020-11-19 09:12] LABS: EOS % 3.7 % (0-4.5); HEMATOCRIT 37.1 % (35.4-49); HEMOGLOBIN 12.5 GM/dL (11.7-16.9); LYMPH % 18.8 % (8-40); MCH 33.2 pg (25.7-33.7); MCHC 33.7 g/dl (32.0-35.9); MEAN CELL VOLUME 98.6 fl (80-96); MEAN PLT VOLUME 7.4 fl (7.5-11.1); MONO % 8.9 % (3.8-10.2); NEUT % 67.6 % (42.8-82.8); PLATELET COUNT 177 K/MM3 (134-434); RBC 3.76 M/mm3 (4.00-5.60); RDW 12.8 % (11.9-15.9); WHITE BLOOD COUNT 6.5 K/mm3 (4.0-10.0)
[2020-11-19 09:39] LABS: ALBUMIN 3.9 g/dl (3.4-5.0); BLOOD UREA NITROGEN 36.5 mg/dL (7-18)
[2020-11-19 09:42] LABS: CREATININE 2.5 mg/dL (0.55-1.3)
[2020-11-19 09:43] LABS: BILIRUBIN,TOTAL 0.7 mg/dL (0.2-1); TOT PROT 7.4 g/dl (6.4-8.2)
[2020-11-19] MEDS ORDERED: BORTEZOMIB (VELCADE) 2.5 MG/ML SUB-Q INJECTION SQ ONE (10:00)
[2020-11-19 12:26] VITALS: BP 128/69; PULSE 70; TEMP 98
[2020-11-20 18:07] LABS: FREE KAPPA,SERUM 174.5 mg/L (3.3-19.4)
== END 2020-11-19 10:25 | disposition home or self-care (01) ==
LOC: JONCCHEMO 07:05
PROVIDERS: ATTEND Internal Medicine Hematology & Oncology
DX: Z51.11 Encounter for antineoplastic chemotherapy (principal); C90.00 Multiple myeloma not having achieved remission
CPT/HCPCS: 36415; 80053; 83883; 85025; 96401; J9041

== ENCOUNTER 2020-12-03 07:18 | Day surgery (SDC) | payer OTHER ==
[2020-12-03 09:52] LABS: BASO % 1.1 % (0-2.0); EOS % 4.5 % (0-4.5); HEMATOCRIT 38.2 % (35.4-49); LYMPH % 18.5 % (8-40); MCH 33.2 pg (25.7-33.7); MCHC 33.9 g/dl (32.0-35.9); MEAN CELL VOLUME 97.8 fl (80-96); MEAN PLT VOLUME 7.6 fl (7.5-11.1); MONO % 8.7 % (3.8-10.2); NEUT % 67.2 % (42.8-82.8); PLATELET COUNT 191 K/MM3 (134-434); RBC 3.91 M/mm3 (4.00-5.60); RDW 12.8 % (11.9-15.9); WHITE BLOOD COUNT 6.6 K/mm3 (4.0-10.0)
[2020-12-03] MEDS ORDERED: BORTEZOMIB (VELCADE) 2.5 MG/ML SUB-Q INJECTION SQ ONE (10:00)
[2020-12-03 10:12] LABS: BLOOD UREA NITROGEN 32.1 mg/dL (7-18); CALCIUM 9.3 mg/dL (8.5-10.1)
[2020-12-03 10:13] LABS: ALBUMIN 3.8 g/dl (3.4-5.0)
[2020-12-03 10:16] LABS: CREATININE 2.4 mg/dL (0.55-1.3)
[2020-12-03 10:17] LABS: BILIRUBIN,TOTAL 0.4 mg/dL (0.2-1); TOT PROT 7.5 g/dl (6.4-8.2)
[2020-12-03 11:01] VITALS: BP 111/60; PULSE 68; TEMP 98
[2020-12-04 18:06] LABS: FREE KAPPA,SERUM 260.5 mg/L (3.3-19.4)
[2020-12-10 09:14] LABS: FREE KAP CHN UR 122.64; KAPPA LAMBDA RATIO URIN 20.58
== END 2020-12-03 10:25 | disposition home or self-care (01) ==
LOC: JONCCHEMO 07:18
PROVIDERS: ATTEND Internal Medicine Hematology & Oncology
DX: Z51.11 Encounter for antineoplastic chemotherapy (principal); C90.00 Multiple myeloma not having achieved remission
CPT/HCPCS: 36415; 80053; 83883; 85025; 96401; J9041

== ENCOUNTER 2020-12-17 07:31 | Day surgery (SDC) | payer OTHER ==
[2020-12-17] MEDS ORDERED: BORTEZOMIB (VELCADE) 2.5 MG/ML SUB-Q INJECTION SQ ONE (10:00)
[2020-12-17 10:55] LABS: BASO % 0.9 % (0-2.0); EOS % 3.2 % (0-4.5); HEMATOCRIT 37.5 % (35.4-49); HEMOGLOBIN 12.9 GM/dL (11.7-16.9); LYMPH % 18.5 % (8-40); MCH 33.2 pg (25.7-33.7); MCHC 34.3 g/dl (32.0-35.9); MEAN CELL VOLUME 97.1 fl (80-96); MEAN PLT VOLUME 7.6 fl (7.5-11.1); MONO % 8.2 % (3.8-10.2); NEUT % 69.2 % (42.8-82.8); PLATELET COUNT 183 K/MM3 (134-434); RBC 3.87 M/mm3 (4.00-5.60); RDW 12.8 % (11.9-15.9); WHITE BLOOD COUNT 6.9 K/mm3 (4.0-10.0)
[2020-12-17 11:18] LABS: CALCIUM 8.8 mg/dL (8.5-10.1)
[2020-12-17 11:19] LABS: ALBUMIN 3.9 g/dl (3.4-5.0); BLOOD UREA NITROGEN 32.5 mg/dL (7-18)
[2020-12-17 11:22] LABS: CREATININE 2.5 mg/dL (0.55-1.3)
[2020-12-17 11:23] LABS: BILIRUBIN,TOTAL 0.5 mg/dL (0.2-1); TOT PROT 7.4 g/dl (6.4-8.2)
[2020-12-17 17:06] VITALS: BP 107/63; PULSE 62; TEMP 98.2
[2020-12-18 18:06] LABS: FREE KAPPA,SERUM 151.8 mg/L (3.3-19.4)
== END 2020-12-17 12:40 | disposition home or self-care (01) ==
LOC: JONCCHEMO 07:31
PROVIDERS: ATTEND Internal Medicine Hematology & Oncology
DX: Z51.11 Encounter for antineoplastic chemotherapy (principal); C90.00 Multiple myeloma not having achieved remission
CPT/HCPCS: 36415; 80053; 83883; 85025; 96401; J9041

== ENCOUNTER 2020-12-31 07:40 | Day surgery (SDC) | payer OTHER ==
[2020-12-31] MEDS ORDERED: BORTEZOMIB (VELCADE) 2.5 MG/ML SUB-Q INJECTION SQ ONE (10:00)
[2020-12-31 10:27] LABS: BASO % 0.5 % (0-2.0); EOS % 2.4 % (0-4.5); HEMATOCRIT 37.6 % (35.4-49); HEMOGLOBIN 12.6 GM/dL (11.7-16.9); LYMPH % 14.1 % (8-40); MCH 33.4 pg (25.7-33.7); MCHC 33.6 g/dl (32.0-35.9); MEAN CELL VOLUME 99.4 fl (80-96); MEAN PLT VOLUME 7.8 fl (7.5-11.1); MONO % 8.5 % (3.8-10.2); NEUT % 74.5 % (42.8-82.8); PLATELET COUNT 181 K/MM3 (134-434); RBC 3.78 M/mm3 (4.00-5.60); RDW 12.9 % (11.9-15.9); WHITE BLOOD COUNT 9.3 K/mm3 (4.0-10.0)
[2020-12-31 10:53] LABS: CALCIUM 9.3 mg/dL (8.5-10.1)
[2020-12-31 10:54] LABS: BLOOD UREA NITROGEN 44.5 mg/dL (7-18)
[2020-12-31 10:57] LABS: CREATININE 2.6 mg/dL (0.55-1.3)
[2020-12-31 10:59] LABS: BILIRUBIN,TOTAL 0.5 mg/dL (0.2-1); TOT PROT 7.5 g/dl (6.4-8.2)
[2020-12-31 16:52] VITALS: BP 120/64; PULSE 70; TEMP 97.8
== END 2020-12-31 12:00 | disposition home or self-care (01) ==
LOC: JONCCHEMO 07:40
PROVIDERS: ATTEND Internal Medicine Hematology & Oncology
DX: Z51.11 Encounter for antineoplastic chemotherapy (principal); C90.00 Multiple myeloma not having achieved remission
CPT/HCPCS: 36415; 80053; 85025; 96401; J9041

== ENCOUNTER 2021-01-14 07:23 | Day surgery (SDC) | payer OTHER ==
[2021-01-14] MEDS ORDERED: BORTEZOMIB (VELCADE) 2.5 MG/ML SUB-Q INJECTION SQ ONE (10:00)
[2021-01-14 10:11] LABS: BASO % 0.9 % (0-2.0); EOS % 2.3 % (0-4.5); HEMATOCRIT 38.6 % (35.4-49); HEMOGLOBIN 12.7 GM/dL (11.7-16.9); LYMPH % 20.4 % (8-40); MCH 32.6 pg (25.7-33.7); MCHC 32.9 g/dl (32.0-35.9); MEAN CELL VOLUME 99.1 fl (80-96); MEAN PLT VOLUME 7.7 fl (7.5-11.1); MONO % 9.5 % (3.8-10.2); NEUT % 66.9 % (42.8-82.8); PLATELET COUNT 165 K/MM3 (134-434); RBC 3.89 M/mm3 (4.00-5.60); RDW 13.3 % (11.9-15.9); WHITE BLOOD COUNT 7.8 K/mm3 (4.0-10.0)
[2021-01-14 10:25] LABS: CALCIUM 9.1 mg/dL (8.5-10.1)
[2021-01-14 10:26] LABS: ALBUMIN 3.7 g/dl (3.4-5.0); BLOOD UREA NITROGEN 36.2 mg/dL (7-18)
[2021-01-14 10:29] LABS: CREATININE 2.7 mg/dL (0.55-1.3)
[2021-01-14 10:31] LABS: BILIRUBIN,TOTAL 0.4 mg/dL (0.2-1); TOT PROT 7.4 g/dl (6.4-8.2)
[2021-01-14 16:11] VITALS: BP 141/65; PULSE 68; TEMP 97.9
== END 2021-01-14 11:20 | disposition home or self-care (01) ==
LOC: JONCCHEMO 07:23
PROVIDERS: ATTEND Internal Medicine Hematology & Oncology
DX: Z51.11 Encounter for antineoplastic chemotherapy (principal); C90.00 Multiple myeloma not having achieved remission
CPT/HCPCS: 36415; 80053; 85025; 96401; J9041

== ENCOUNTER 2021-01-28 07:18 | Day surgery (SDC) | payer OTHER ==
[2021-01-28] MEDS ORDERED: BORTEZOMIB (VELCADE) 2.5 MG/ML SUB-Q INJECTION SQ ONE (10:00)
[2021-01-28 11:18] LABS: BASO % 1.2 % (0-2.0); HEMATOCRIT 40.9 % (35.4-49); HEMOGLOBIN 13.4 GM/dL (11.7-16.9); LYMPH % 19.5 % (8-40); MCH 32.1 pg (25.7-33.7); MCHC 32.8 g/dl (32.0-35.9); MEAN CELL VOLUME 97.8 fl (80-96); MEAN PLT VOLUME 7.7 fl (7.5-11.1); MONO % 7.3 % (3.8-10.2); PLATELET COUNT 199 10^3/uL (134-434); RBC 4.18 M/mm3 (4.00-5.60); RDW 12.7 % (11.9-15.9); WHITE BLOOD COUNT 6.8 K/mm3 (4.0-10.0)
[2021-01-28 11:43] LABS: BLOOD UREA NITROGEN 36.9 mg/dL (7-18); CALCIUM 9.4 mg/dL (8.5-10.1)
[2021-01-28 11:44] LABS: ALBUMIN 3.9 g/dl (3.4-5.0)
[2021-01-28 11:46] LABS: CREATININE 2.7 mg/dL (0.55-1.3)
[2021-01-28 11:48] LABS: BILIRUBIN,TOTAL 0.6 mg/dL (0.2-1); TOT PROT 7.7 g/dl (6.4-8.2)
[2021-01-28 15:59] VITALS: BP 106/59; PULSE 57; TEMP 98.1
[2021-01-29 17:08] LABS: FREE KAPPA,SERUM 361.2 mg/L (3.3-19.4)
== END 2021-01-28 13:05 | disposition home or self-care (01) ==
LOC: JONCCHEMO 07:18
PROVIDERS: ATTEND Internal Medicine Hematology & Oncology
DX: Z51.11 Encounter for antineoplastic chemotherapy (principal); C90.00 Multiple myeloma not having achieved remission
CPT/HCPCS: 36415; 80053; 83883; 85025; 96401; J9041

== ENCOUNTER 2021-02-11 07:26 | Day surgery (SDC) | payer OTHER ==
[2021-02-11 10:33] LABS: BASO % 0.8 % (0-2.0); EOS % 3.7 % (0-4.5); HEMATOCRIT 40.7 % (35.4-49); HEMOGLOBIN 13.3 GM/dL (11.7-16.9); LYMPH % 17.4 % (8-40); MCHC 32.8 g/dl (32.0-35.9); MEAN CELL VOLUME 97.7 fl (80-96); MEAN PLT VOLUME 7.5 fl (7.5-11.1); MONO % 8.7 % (3.8-10.2); NEUT % 69.4 % (42.8-82.8); PLATELET COUNT 176 10^3/uL (134-434); RBC 4.17 M/mm3 (4.00-5.60); WHITE BLOOD COUNT 6.8 K/mm3 (4.0-10.0)
[2021-02-11 10:59] LABS: ALBUMIN 3.9 g/dl (3.4-5.0); CALCIUM 9.3 mg/dL (8.5-10.1)
[2021-02-11 11:03] LABS: CREATININE 2.5 mg/dL (0.55-1.3)
[2021-02-11 11:04] LABS: BILIRUBIN,TOTAL 0.5 mg/dL (0.2-1)
[2021-02-11] MEDS ORDERED: BORTEZOMIB (VELCADE) 2.5 MG/ML SUB-Q INJECTION SQ ONE (12:00)
[2021-02-11 13:32] VITALS: BP 102/61; PULSE 59; TEMP 98.2
== END 2021-02-11 12:00 | disposition home or self-care (01) ==
LOC: JONCCHEMO 07:26
PROVIDERS: ATTEND Internal Medicine Hematology & Oncology
DX: Z51.11 Encounter for antineoplastic chemotherapy (principal); C90.00 Multiple myeloma not having achieved remission
CPT/HCPCS: 36415; 80053; 85025; 96401; J9041

== ENCOUNTER 2021-02-25 05:11 | Day surgery (SDC) | payer OTHER ==
[2021-02-25 10:58] LABS: BASO % 1.1 % (0-2.0); EOS % 2.9 % (0-4.5); HEMATOCRIT 39.3 % (35.4-49); HEMOGLOBIN 13.1 GM/dL (11.7-16.9); LYMPH % 18.6 % (8-40); MCH 31.9 pg (25.7-33.7); MCHC 33.2 g/dl (32.0-35.9); MEAN CELL VOLUME 96.1 fl (80-96); MEAN PLT VOLUME 7.1 fl (7.5-11.1); MONO % 10.9 % (3.8-10.2); NEUT % 66.5 % (42.8-82.8); PLATELET COUNT 174 10^3/uL (134-434); RBC 4.09 M/mm3 (4.00-5.60); RDW 13.1 % (11.9-15.9); WHITE BLOOD COUNT 6.7 K/mm3 (4.0-10.0)
[2021-02-25 11:22] LABS: ALBUMIN 3.6 g/dl (3.4-5.0); BLOOD UREA NITROGEN 33.7 mg/dL (7-18); CALCIUM 8.8 mg/dL (8.5-10.1)
[2021-02-25 11:26] LABS: CREATININE 2.7 mg/dL (0.55-1.3)
[2021-02-25 11:27] LABS: BILIRUBIN,TOTAL 0.3 mg/dL (0.2-1); TOT PROT 7.5 g/dl (6.4-8.2)
[2021-02-25] MEDS ORDERED: BORTEZOMIB (VELCADE) 2.5 MG/ML SUB-Q INJECTION SQ ONE (12:00)
[2021-02-25 15:24] VITALS: BP 125/71; PULSE 63; TEMP 98.3
== END 2021-02-25 12:00 | disposition home or self-care (01) ==
LOC: JONCCHEMO 05:11
PROVIDERS: ATTEND Internal Medicine Hematology & Oncology
DX: Z51.11 Encounter for antineoplastic chemotherapy (principal); C90.00 Multiple myeloma not having achieved remission
CPT/HCPCS: 36415; 80053; 85025; 96401; J9041

== ENCOUNTER 2021-03-11 07:23 | Day surgery (SDC) | payer OTHER ==
[2021-03-11] MEDS ORDERED: BORTEZOMIB (VELCADE) 2.5 MG/ML SUB-Q INJECTION SQ ONE (10:00)
[2021-03-11 10:25] LABS: BASO % 0.8 % (0-2.0); EOS % 3.1 % (0-4.5); HEMATOCRIT 39.1 % (35.4-49); HEMOGLOBIN 13.3 GM/dL (11.7-16.9); LYMPH % 15.3 % (8-40); MCH 32.5 pg (25.7-33.7); MCHC 34.1 g/dl (32.0-35.9); MEAN CELL VOLUME 95.5 fl (80-96); MEAN PLT VOLUME 7.3 fl (7.5-11.1); MONO % 8.4 % (3.8-10.2); NEUT % 72.4 % (42.8-82.8); PLATELET COUNT 169 10^3/uL (134-434); RDW 13.5 % (11.9-15.9)
[2021-03-11 10:45] LABS: CALCIUM 8.8 mg/dL (8.5-10.1)
[2021-03-11 10:46] LABS: ALBUMIN 3.8 g/dl (3.4-5.0); BLOOD UREA NITROGEN 37.5 mg/dL (7-18)
[2021-03-11 10:49] LABS: CREATININE 2.5 mg/dL (0.55-1.3)
[2021-03-11 10:50] LABS: BILIRUBIN,TOTAL 0.4 mg/dL (0.2-1)
[2021-03-11 10:51] LABS: TOT PROT 7.7 g/dl (6.4-8.2)
[2021-03-11 15:23] VITALS: BP 124/70; PULSE 65; TEMP 98
== END 2021-03-11 12:44 | disposition home or self-care (01) ==
LOC: JONCCHEMO 07:23
PROVIDERS: ATTEND Internal Medicine Hematology & Oncology
DX: Z51.11 Encounter for antineoplastic chemotherapy (principal); C90.00 Multiple myeloma not having achieved remission
CPT/HCPCS: 36415; 80053; 85025; 96401; J9041

== ENCOUNTER 2021-03-25 06:48 | Day surgery (SDC) | payer OTHER ==
[2021-03-25] MEDS ORDERED: BORTEZOMIB (VELCADE) 2.5 MG/ML SUB-Q INJECTION SQ ONE (10:00)
[2021-03-25 11:15] LABS: BASO % 1.1 % (0-2.0); EOS % 3.1 % (0-4.5); HEMATOCRIT 38.2 % (35.4-49); HEMOGLOBIN 12.9 GM/dL (11.7-16.9); MCH 32.7 pg (25.7-33.7); MCHC 33.8 g/dl (32.0-35.9); MEAN CELL VOLUME 96.7 fl (80-96); MEAN PLT VOLUME 7.6 fl (7.5-11.1); MONO % 8.6 % (3.8-10.2); NEUT % 70.2 % (42.8-82.8); PLATELET COUNT 190 10^3/uL (134-434); RBC 3.95 M/mm3 (4.00-5.60); RDW 13.4 % (11.9-15.9); WHITE BLOOD COUNT 6.3 K/mm3 (4.0-10.0)
[2021-03-25 11:18] LABS: CALCIUM 8.4 mg/dL (8.5-10.1)
[2021-03-25 11:19] LABS: ALBUMIN 3.4 g/dl (3.4-5.0); BLOOD UREA NITROGEN 39.5 mg/dL (7-18)
[2021-03-25 11:22] LABS: CREATININE 2.5 mg/dL (0.55-1.3)
[2021-03-25 11:23] LABS: BILIRUBIN,TOTAL 0.5 mg/dL (0.2-1); TOT PROT 7.4 g/dl (6.4-8.2)
[2021-03-25 16:24] VITALS: BP 111/63; PULSE 58; TEMP 98.2
[2021-03-26 16:08] LABS: FREE KAPPA,SERUM 533.6 mg/L (3.3-19.4)
== END 2021-03-25 12:13 | disposition home or self-care (01) ==
LOC: JONCCHEMO 06:48
PROVIDERS: ATTEND Internal Medicine Hematology & Oncology
DX: Z51.11 Encounter for antineoplastic chemotherapy (principal); C90.00 Multiple myeloma not having achieved remission
CPT/HCPCS: 36415; 80053; 82784; 83883; 85025; 96401; J9041

== ENCOUNTER 2021-04-08 06:40 | Day surgery (SDC) | payer OTHER ==
[2021-04-08] MEDS ORDERED: LIDOCAINE 1% P/F 10 MG/ML VIAL ID ONE (09:00)
[2021-04-08] MEDS ORDERED: BORTEZOMIB (VELCADE) 2.5 MG/ML SUB-Q INJECTION SQ ONE (10:00)
[2021-04-08 10:15] LABS: BASO % 0.8 % (0-2.0); EOS % 2.3 % (0-4.5); HEMATOCRIT 37.9 % (35.4-49); HEMOGLOBIN 12.9 GM/dL (11.7-16.9); LYMPH % 15.5 % (8-40); MCHC 34.1 g/dl (32.0-35.9); MEAN CELL VOLUME 96.8 fl (80-96); MEAN PLT VOLUME 7.2 fl (7.5-11.1); MONO % 7.7 % (3.8-10.2); NEUT % 73.7 % (42.8-82.8); PLATELET COUNT 179 10^3/uL (134-434); RBC 3.92 M/mm3 (4.00-5.60); RDW 13.2 % (11.9-15.9); WHITE BLOOD COUNT 7.3 K/mm3 (4.0-10.0)
[2021-04-08 10:36] LABS: ALBUMIN 3.7 g/dl (3.4-5.0); CALCIUM 8.7 mg/dL (8.5-10.1)
[2021-04-08 10:38] LABS: BLOOD UREA NITROGEN 39.2 mg/dL (7-18)
[2021-04-08 10:41] LABS: CREATININE 2.5 mg/dL (0.55-1.3)
[2021-04-08 10:42] LABS: BILIRUBIN,TOTAL 0.5 mg/dL (0.2-1); TOT PROT 7.7 g/dl (6.4-8.2)
[2021-04-08 14:29] VITALS: BP 118/72; PULSE 62; TEMP 98.8
== END 2021-04-08 12:05 | disposition home or self-care (01) ==
LOC: JONCCHEMO 06:40
PROVIDERS: ATTEND Internal Medicine Hematology & Oncology
DX: Z51.11 Encounter for antineoplastic chemotherapy (principal); C90.00 Multiple myeloma not having achieved remission
CPT/HCPCS: 36415; 80053; 85025; 96401; J9041

== ENCOUNTER 2021-04-22 06:42 | Day surgery (SDC) | payer OTHER ==
[2021-04-22 08:42] LABS: BASO % 0.9 % (0-2.0); EOS % 2.9 % (0-4.5); HEMATOCRIT 37.8 % (35.4-49); LYMPH % 20.5 % (8-40); MCH 33.6 pg (25.7-33.7); MCHC 34.4 g/dl (32.0-35.9); MEAN CELL VOLUME 97.5 fl (80-96); MEAN PLT VOLUME 7.4 fl (7.5-11.1); MONO % 8.2 % (3.8-10.2); NEUT % 67.5 % (42.8-82.8); PLATELET COUNT 176 10^3/uL (134-434); RBC 3.88 M/mm3 (4.00-5.60); RDW 13.4 % (11.9-15.9); WHITE BLOOD COUNT 7.3 K/mm3 (4.0-10.0)
[2021-04-22 09:05] LABS: CALCIUM 8.8 mg/dL (8.5-10.1)
[2021-04-22 09:06] LABS: ALBUMIN 3.8 g/dl (3.4-5.0)
[2021-04-22 09:08] LABS: CREATININE 2.8 mg/dL (0.55-1.3)
[2021-04-22 09:10] LABS: BILIRUBIN,TOTAL 0.5 mg/dL (0.2-1)
[2021-04-22] MEDS ORDERED: BORTEZOMIB (VELCADE) 2.5 MG/ML SUB-Q INJECTION SQ ONE (10:00)
[2021-04-22 15:29] VITALS: BP 120/65; PULSE 60; TEMP 98
== END 2021-04-22 10:45 | disposition home or self-care (01) ==
LOC: JONCCHEMO 06:42
PROVIDERS: ATTEND Internal Medicine Hematology & Oncology
DX: Z51.11 Encounter for antineoplastic chemotherapy (principal); C90.00 Multiple myeloma not having achieved remission
CPT/HCPCS: 36415; 80053; 85025; 96401; J9041

== ENCOUNTER 2021-05-06 07:03 | Day surgery (SDC) | payer OTHER ==
[2021-05-06] MEDS ORDERED: BORTEZOMIB (VELCADE) 2.5 MG/ML SUB-Q INJECTION SQ ONE (10:00)
[2021-05-06 11:25] LABS: EOS % 2.5 % (0-4.5); HEMOGLOBIN 12.9 GM/dL (11.7-16.9); LYMPH % 16.6 % (8-40); MCH 33.3 pg (25.7-33.7); MCHC 33.9 g/dl (32.0-35.9); MEAN PLT VOLUME 7.2 fl (7.5-11.1); MONO % 9.5 % (3.8-10.2); NEUT % 70.4 % (42.8-82.8); PLATELET COUNT 192 10^3/uL (134-434); RBC 3.88 M/mm3 (4.00-5.60); RDW 13.5 % (11.9-15.9); WHITE BLOOD COUNT 6.5 K/mm3 (4.0-10.0)
[2021-05-06 11:49] LABS: CALCIUM 8.6 mg/dL (8.5-10.1)
[2021-05-06 11:50] LABS: ALBUMIN 3.6 g/dl (3.4-5.0); BLOOD UREA NITROGEN 37.7 mg/dL (7-18)
[2021-05-06 11:53] LABS: CREATININE 2.7 mg/dL (0.55-1.3)
[2021-05-06 11:55] LABS: BILIRUBIN,TOTAL 0.5 mg/dL (0.2-1); TOT PROT 7.9 g/dl (6.4-8.2)
[2021-05-06 15:12] VITALS: BP 129/69; PULSE 63; TEMP 97.7
== END 2021-05-06 12:30 | disposition home or self-care (01) ==
LOC: JONCCHEMO 07:03
PROVIDERS: ATTEND Internal Medicine Hematology & Oncology
DX: Z51.11 Encounter for antineoplastic chemotherapy (principal); C90.00 Multiple myeloma not having achieved remission
CPT/HCPCS: 36415; 80053; 85025; 96401; J9041

== ENCOUNTER 2021-05-20 06:56 | Day surgery (SDC) | payer OTHER ==
[2021-05-20] MEDS ORDERED: MONTELUKAST NA 10 MG TABLET PO ONE (10:00)
[2021-05-20] MEDS ORDERED: ACETAMINOPHEN 325 MG TABLET (FP) PO ONE (10:00)
[2021-05-20] MEDS ORDERED: BORTEZOMIB (VELCADE) 2.5 MG/ML SUB-Q INJECTION SQ ONE (10:00)
[2021-05-20] MEDS ORDERED: DARATUMUMAB-HYALURONIDASE-FIHJ (FASPRO) 15 ML VIAL SQ ONE (10:30)
[2021-05-20] MEDS ORDERED: DEXAMETHASONE INJECTION 20 MG, DIPHENHYDRAMINE 50 MG in SODIUM CHLORIDE 100 ML IVPB ONE (10:30)
[2021-05-20 11:02] LABS: BASO % 0.8 % (0-2.0); EOS % 2.5 % (0-4.5); HEMATOCRIT 38.1 % (35.4-49); HEMOGLOBIN 12.8 GM/dL (11.7-16.9); LYMPH % 15.4 % (8-40); MCHC 33.7 g/dl (32.0-35.9); MEAN PLT VOLUME 7.6 fl (7.5-11.1); MONO % 8.3 % (3.8-10.2); PLATELET COUNT 192 10^3/uL (134-434); RBC 3.89 M/mm3 (4.00-5.60); RDW 13.6 % (11.9-15.9); WHITE BLOOD COUNT 6.7 K/mm3 (4.0-10.0)
[2021-05-20 11:33] LABS: ALBUMIN 3.7 g/dl (3.4-5.0); BLOOD UREA NITROGEN 37.9 mg/dL (7-18); CALCIUM 8.9 mg/dL (8.5-10.1); MAGNESIUM 2.5 mg/dL (1.8-2.4)
[2021-05-20 11:36] LABS: CREATININE 2.7 mg/dL (0.55-1.3)
[2021-05-20 11:38] LABS: BILIRUBIN,TOTAL 0.6 mg/dL (0.2-1)
[2021-05-20] MEDS ORDERED: ALBUTEROL SO4 HFA INHALER IH ONE (11:39)
[2021-05-20 17:15] VITALS: BP 127/76; PULSE 67; TEMP 98.1
[2021-05-24 17:09] LABS: FREE KAPPA,SERUM 1081.7 mg/L (3.3-19.4)
[2021-05-24 17:09] LABS: FREE KAPPA,SERUM 992.5 mg/L (3.3-19.4)
== END 2021-05-20 18:30 | disposition home or self-care (01) ==
LOC: JONCCHEMO 06:56
PROVIDERS: ATTEND Internal Medicine Hematology & Oncology
PROC: 3E01305 Introduction of Other Antineoplastic into Subcutaneous Tissue, Percutaneous Approach (ICD-10-PCS; principal; 2021-05-20)
PROC: 3E033GC Introduction of Other Therapeutic Substance into Peripheral Vein, Percutaneous Approach (ICD-10-PCS; 2021-05-20)
DX: Z51.11 Encounter for antineoplastic chemotherapy (principal); C90.00 Multiple myeloma not having achieved remission
CPT/HCPCS: 36415; 80053; 83735; 83883; 85025; 86704; 86850; 86900; 86901; 87340; 96365; 96401; J9144

== ENCOUNTER 2021-05-27 07:41 | Day surgery (SDC) | payer OTHER ==
[2021-05-27 09:27] LABS: BASO % 0.3 % (0-2.0); EOS % 3.7 % (0-4.5); HEMATOCRIT 38.7 % (35.4-49); LYMPH % 14.8 % (8-40); MCH 33.2 pg (25.7-33.7); MCHC 33.7 g/dl (32.0-35.9); MEAN CELL VOLUME 98.5 fl (80-96); MONO % 9.8 % (3.8-10.2); NEUT % 71.4 % (42.8-82.8); PLATELET COUNT 179 10^3/uL (134-434); RBC 3.92 M/mm3 (4.00-5.60); RDW 13.7 % (11.9-15.9)
[2021-05-27 09:45] LABS: CALCIUM 8.3 mg/dL (8.5-10.1)
[2021-05-27 09:46] LABS: ALBUMIN 3.3 g/dl (3.4-5.0)
[2021-05-27 09:49] LABS: CREATININE 2.5 mg/dL (0.55-1.3)
[2021-05-27 09:51] LABS: BILIRUBIN,TOTAL 0.6 mg/dL (0.2-1); TOT PROT 7.6 g/dl (6.4-8.2)
[2021-05-27] MEDS ORDERED: ACETAMINOPHEN 325 MG TABLET (FP) PO ONE (10:00)
[2021-05-27] MEDS ORDERED: DEXAMETHASONE INJECTION 20 MG, DIPHENHYDRAMINE 50 MG in SODIUM CHLORIDE 100 ML IVPB ONE (10:00)
[2021-05-27] MEDS ORDERED: DARATUMUMAB-HYALURONIDASE-FIHJ (FASPRO) 15 ML VIAL SQ ONE (10:30)
[2021-05-27 16:57] VITALS: TEMP 98.3
[2021-05-27 17:06] VITALS: BP 113/68; PULSE 71
== END 2021-05-27 14:00 | disposition home or self-care (01) ==
LOC: JONCCHEMO 07:41
PROVIDERS: ATTEND Internal Medicine Hematology & Oncology
DX: Z51.11 Encounter for antineoplastic chemotherapy (principal); C90.00 Multiple myeloma not having achieved remission
CPT/HCPCS: 36415; 80053; 85025; 96401; J9144

== ENCOUNTER 2021-06-03 08:38 | Day surgery (SDC) | payer OTHER ==
[2021-06-03] MEDS ORDERED: DEXAMETHASONE INJECTION 20 MG, DIPHENHYDRAMINE 50 MG in SODIUM CHLORIDE 100 ML IVPB ONE (09:30)
[2021-06-03] MEDS ORDERED: ACETAMINOPHEN 325 MG TABLET (FP) PO ONE (09:30)
[2021-06-03] MEDS ORDERED: DARATUMUMAB-HYALURONIDASE-FIHJ (FASPRO) 15 ML VIAL SQ ONE (10:00)
[2021-06-03 10:26] LABS: BASO % 0.4 % (0-2.0); EOS % 1.1 % (0-4.5); HEMATOCRIT 39.6 % (35.4-49); HEMOGLOBIN 13.3 GM/dL (11.7-16.9); LYMPH % 13.1 % (8-40); MCH 33.3 pg (25.7-33.7); MCHC 33.6 g/dl (32.0-35.9); MONO % 6.7 % (3.8-10.2); NEUT % 78.7 % (42.8-82.8); PLATELET COUNT 159 10^3/uL (134-434); RDW 13.7 % (11.9-15.9); WHITE BLOOD COUNT 6.7 K/mm3 (4.0-10.0)
[2021-06-03 10:47] LABS: CALCIUM 8.9 mg/dL (8.5-10.1)
[2021-06-03 10:48] LABS: ALBUMIN 3.2 g/dl (3.4-5.0); BLOOD UREA NITROGEN 33.2 mg/dL (7-18)
[2021-06-03 10:51] LABS: CREATININE 2.4 mg/dL (0.55-1.3)
[2021-06-03 10:53] LABS: BILIRUBIN,TOTAL 0.6 mg/dL (0.2-1); TOT PROT 7.4 g/dl (6.4-8.2)
[2021-06-03 16:54] VITALS: TEMP 98.2
[2021-06-03 16:56] VITALS: BP 121/63; PULSE 64
== END 2021-06-03 15:00 | disposition home or self-care (01) ==
LOC: JONCCHEMO 08:38
PROVIDERS: ATTEND Internal Medicine Hematology & Oncology
PROC: 3E01305 Introduction of Other Antineoplastic into Subcutaneous Tissue, Percutaneous Approach (ICD-10-PCS; principal; 2021-06-03)
PROC: 3E033GC Introduction of Other Therapeutic Substance into Peripheral Vein, Percutaneous Approach (ICD-10-PCS; 2021-06-03)
DX: Z51.11 Encounter for antineoplastic chemotherapy (principal); C90.00 Multiple myeloma not having achieved remission
CPT/HCPCS: 36415; 80053; 85025; 96365; 96401; J9144

== ENCOUNTER 2021-06-10 08:02 | Day surgery (SDC) | payer OTHER ==
[2021-06-10 09:49] LABS: BASO % 0.4 % (0-2.0); EOS % 0.6 % (0-4.5); HEMATOCRIT 39.1 % (35.4-49); HEMOGLOBIN 13.3 GM/dL (11.7-16.9); LYMPH % 13.5 % (8-40); MCH 33.5 pg (25.7-33.7); MEAN CELL VOLUME 98.4 fl (80-96); MEAN PLT VOLUME 7.3 fl (7.5-11.1); MONO % 6.8 % (3.8-10.2); NEUT % 78.7 % (42.8-82.8); PLATELET COUNT 167 10^3/uL (134-434); RBC 3.98 M/mm3 (4.00-5.60); RDW 14.1 % (11.9-15.9); WHITE BLOOD COUNT 5.9 K/mm3 (4.0-10.0)
[2021-06-10] MEDS ORDERED: ACETAMINOPHEN 325 MG TABLET (FP) PO ONE (10:00)
[2021-06-10 10:09] LABS: CALCIUM 8.4 mg/dL (8.5-10.1)
[2021-06-10 10:10] LABS: ALBUMIN 3.1 g/dl (3.4-5.0)
[2021-06-10 10:13] LABS: CREATININE 2.5 mg/dL (0.55-1.3)
[2021-06-10 10:14] LABS: BILIRUBIN,TOTAL 0.5 mg/dL (0.2-1)
[2021-06-10 10:15] LABS: TOT PROT 7.2 g/dl (6.4-8.2)
[2021-06-10] MEDS ORDERED: DARATUMUMAB-HYALURONIDASE-FIHJ (FASPRO) 15 ML VIAL SQ ONE (10:30)
[2021-06-10] MEDS: DEXAMETHASONE SODIUM PHOSPHATE 20 MG, DIPHENHYDRAMINE 50 MG in SODIUM CHLORIDE 100 ML IVPB ONE ×2 (11:18→11:25)
[2021-06-10] MEDS ORDERED: DEXAMETHASONE SODIUM PHOSPHATE 20 MG, DIPHENHYDRAMINE 50 MG in SODIUM CHLORIDE 100 ML IVPB ONE (11:30)
[2021-06-10 15:20] VITALS: BP 105/57; PULSE 72; TEMP 98.8
[2021-06-11 17:07] LABS: FREE KAPPA,SERUM 563.5 mg/L (3.3-19.4)
== END 2021-06-10 13:18 | disposition home or self-care (01) ==
LOC: JONCCHEMO 08:02
PROVIDERS: ATTEND Internal Medicine Hematology & Oncology
PROC: 3E01305 Introduction of Other Antineoplastic into Subcutaneous Tissue, Percutaneous Approach (ICD-10-PCS; principal; 2021-06-10)
PROC: 3E033GC Introduction of Other Therapeutic Substance into Peripheral Vein, Percutaneous Approach (ICD-10-PCS; 2021-06-10)
DX: Z51.11 Encounter for antineoplastic chemotherapy (principal); C90.00 Multiple myeloma not having achieved remission; D64.81 Anemia due to antineoplastic chemotherapy
CPT/HCPCS: 36415; 80053; 83883; 85025; 96365; 96401; J9144

== ENCOUNTER 2021-06-16 08:07 | Day surgery (SDC) | payer OTHER ==
[2021-06-16 09:06] LABS: BASO % 0.9 % (0-2.0); EOS % 0.4 % (0-4.5); HEMATOCRIT 39.3 % (35.4-49); HEMOGLOBIN 13.3 GM/dL (11.7-16.9); LYMPH % 14.5 % (8-40); MCH 33.1 pg (25.7-33.7); MCHC 33.9 g/dl (32.0-35.9); MEAN CELL VOLUME 97.6 fl (80-96); MEAN PLT VOLUME 6.7 fl (7.5-11.1); NEUT % 75.2 % (42.8-82.8); PLATELET COUNT 169 10^3/uL (134-434); RBC 4.03 M/mm3 (4.00-5.60); RDW 13.9 % (11.9-15.9); WHITE BLOOD COUNT 7.2 K/mm3 (4.0-10.0)
[2021-06-16] MEDS ORDERED: DEXAMETHASONE SODIUM PHOSPHATE 20 MG, DIPHENHYDRAMINE 50 MG in SODIUM CHLORIDE 100 ML IVPB ONE (09:30)
[2021-06-16] MEDS ORDERED: ACETAMINOPHEN 325 MG TABLET (FP) PO ONE (09:30)
[2021-06-16 09:42] LABS: ALBUMIN 3.2 g/dl (3.4-5.0); BLOOD UREA NITROGEN 36.4 mg/dL (7-18); CALCIUM 8.7 mg/dL (8.5-10.1)
[2021-06-16 09:46] LABS: CREATININE 2.4 mg/dL (0.55-1.3)
[2021-06-16 09:47] LABS: BILIRUBIN,TOTAL 0.4 mg/dL (0.2-1); TOT PROT 7.3 g/dl (6.4-8.2)
[2021-06-16] MEDS ORDERED: DARATUMUMAB-HYALURONIDASE-FIHJ (FASPRO) 15 ML VIAL SQ ONE (10:00)
[2021-06-16 15:40] VITALS: TEMP 97.9
[2021-06-16 15:42] VITALS: BP 110/63; PULSE 80
== END 2021-06-16 13:00 | disposition home or self-care (01) ==
LOC: JONCCHEMO 08:07
PROVIDERS: ATTEND Internal Medicine Hematology & Oncology
PROC: 3E01305 Introduction of Other Antineoplastic into Subcutaneous Tissue, Percutaneous Approach (ICD-10-PCS; principal; 2021-06-16)
PROC: 3E033GC Introduction of Other Therapeutic Substance into Peripheral Vein, Percutaneous Approach (ICD-10-PCS; 2021-06-16)
DX: Z51.11 Encounter for antineoplastic chemotherapy (principal)
CPT/HCPCS: 36415; 80053; 85025; 96365; 96401; J9144

== ENCOUNTER 2021-06-23 07:16 | Day surgery (SDC) | payer OTHER ==
[2021-06-23] MEDS ORDERED: ACETAMINOPHEN 325 MG TABLET (FP) PO ONE (10:30)
[2021-06-23] MEDS ORDERED: DEXAMETHASONE SODIUM PHOSPHATE 20 MG, DIPHENHYDRAMINE 50 MG in SODIUM CHLORIDE 100 ML IVPB ONE (10:30)
[2021-06-23 10:41] LABS: CALCIUM 8.6 mg/dL (8.5-10.1)
[2021-06-23 10:42] LABS: ALBUMIN 3.3 g/dl (3.4-5.0); BLOOD UREA NITROGEN 29.1 mg/dL (7-18)
[2021-06-23 10:44] LABS: BASO % 0.3 % (0-2.0); EOS % 0.3 % (0-4.5); HEMATOCRIT 38.9 % (35.4-49); HEMOGLOBIN 13.3 GM/dL (11.7-16.9); LYMPH % 15.2 % (8-40); MCH 33.1 pg (25.7-33.7); MCHC 34.2 g/dl (32.0-35.9); MEAN CELL VOLUME 96.9 fl (80-96); MEAN PLT VOLUME 6.9 fl (7.5-11.1); NEUT % 73.2 % (42.8-82.8); PLATELET COUNT 169 10^3/uL (134-434); RBC 4.01 M/mm3 (4.00-5.60); RDW 13.9 % (11.9-15.9); WHITE BLOOD COUNT 6.1 K/mm3 (4.0-10.0)
[2021-06-23 10:45] LABS: CREATININE 2.4 mg/dL (0.55-1.3)
[2021-06-23 10:47] LABS: BILIRUBIN,TOTAL 0.4 mg/dL (0.2-1); TOT PROT 7.4 g/dl (6.4-8.2)
[2021-06-23] MEDS ORDERED: DARATUMUMAB-HYALURONIDASE-FIHJ (FASPRO) 15 ML VIAL SQ ONE (11:00)
[2021-06-23 16:41] VITALS: BP 123/71; PULSE 80; TEMP 98.7
== END 2021-06-23 14:10 | disposition home or self-care (01) ==
LOC: JONCCHEMO 07:16
PROVIDERS: ATTEND Internal Medicine Hematology & Oncology
PROC: 3E01305 Introduction of Other Antineoplastic into Subcutaneous Tissue, Percutaneous Approach (ICD-10-PCS; principal; 2021-06-23)
PROC: 3E033GC Introduction of Other Therapeutic Substance into Peripheral Vein, Percutaneous Approach (ICD-10-PCS; 2021-06-23)
DX: Z51.11 Encounter for antineoplastic chemotherapy (principal); C90.00 Multiple myeloma not having achieved remission
CPT/HCPCS: 36415; 80053; 85025; 96365; 96401; J9144

== ENCOUNTER 2021-06-30 07:11 | Day surgery (SDC) | payer OTHER ==
[2021-06-30 09:11] LABS: BASO % 0.7 % (0-2.0); EOS % 0.9 % (0-4.5); HEMOGLOBIN 13.4 GM/dL (11.7-16.9); LYMPH % 15.2 % (8-40); MCH 33.2 pg (25.7-33.7); MCHC 33.5 g/dl (32.0-35.9); MEAN CELL VOLUME 98.9 fl (80-96); MEAN PLT VOLUME 6.7 fl (7.5-11.1); MONO % 12.2 % (3.8-10.2); PLATELET COUNT 182 10^3/uL (134-434); RBC 4.04 M/mm3 (4.00-5.60); RDW 13.7 % (11.9-15.9); WHITE BLOOD COUNT 5.9 K/mm3 (4.0-10.0)
[2021-06-30 09:21] LABS: CALCIUM 8.8 mg/dL (8.5-10.1)
[2021-06-30 09:22] LABS: ALBUMIN 3.3 g/dl (3.4-5.0); BLOOD UREA NITROGEN 27.1 mg/dL (7-18)
[2021-06-30 09:25] LABS: CREATININE 2.4 mg/dL (0.55-1.3)
[2021-06-30 09:26] LABS: BILIRUBIN,TOTAL 0.4 mg/dL (0.2-1)
[2021-06-30 09:27] LABS: TOT PROT 7.4 g/dl (6.4-8.2)
[2021-06-30] MEDS ORDERED: DEXAMETHASONE SODIUM PHOSPHATE 20 MG, DIPHENHYDRAMINE 50 MG in SODIUM CHLORIDE 100 ML IVPB ONE (10:00)
[2021-06-30] MEDS ORDERED: ACETAMINOPHEN 325 MG TABLET (FP) PO ONE (10:00)
[2021-06-30] MEDS ORDERED: DARATUMUMAB-HYALURONIDASE-FIHJ (FASPRO) 15 ML VIAL SQ ONE (10:30)
[2021-06-30 16:32] VITALS: BP 120/69; PULSE 76; TEMP 98.1
== END 2021-06-30 11:50 | disposition home or self-care (01) ==
LOC: JONCCHEMO 07:11
PROVIDERS: ATTEND Internal Medicine Hematology & Oncology
PROC: 3E01305 Introduction of Other Antineoplastic into Subcutaneous Tissue, Percutaneous Approach (ICD-10-PCS; principal; 2021-06-30)
PROC: 3E033GC Introduction of Other Therapeutic Substance into Peripheral Vein, Percutaneous Approach (ICD-10-PCS; 2021-06-30)
DX: Z51.11 Encounter for antineoplastic chemotherapy (principal); C90.00 Multiple myeloma not having achieved remission
CPT/HCPCS: 36415; 80053; 85025; 96365; 96401; J9144

== ENCOUNTER 2021-07-14 07:27 | Day surgery (SDC) | payer OTHER ==
[~2021-07-14 07:27] MED LIST changes: -BORTEZOMIB (VELCADE) 2.5 MG/ML SUB-Q INJECTION SQ ONE; +DEXAMETHASONE SODIUM PHOSPHATE 20 MG, DIPHENHYDRAMINE 50 MG in SODIUM CHLORIDE 100 ML IVPB ONE
[2021-07-14 09:50] LABS: EOS % 4.4 % (0-4.5); HEMATOCRIT 37.5 % (35.4-49); HEMOGLOBIN 12.6 GM/dL (11.7-16.9); LYMPH % 13.3 % (8-40); MCH 32.8 pg (25.7-33.7); MCHC 33.5 g/dl (32.0-35.9); MEAN CELL VOLUME 97.9 fl (80-96); MEAN PLT VOLUME 6.9 fl (7.5-11.1); MONO % 11.4 % (3.8-10.2); NEUT % 69.9 % (42.8-82.8); PLATELET COUNT 207 10^3/uL (134-434); RBC 3.82 M/mm3 (4.00-5.60); RDW 13.4 % (11.9-15.9); WHITE BLOOD COUNT 6.4 K/mm3 (4.0-10.0)
[2021-07-14 10:30] LABS: CALCIUM 8.8 mg/dL (8.5-10.1)
[2021-07-14] MEDS ORDERED: ACETAMINOPHEN 325 MG TABLET (FP) PO ONE (10:30)
[2021-07-14] MEDS ORDERED: DEXAMETHASONE SODIUM PHOSPHATE 20 MG, DIPHENHYDRAMINE 50 MG in SODIUM CHLORIDE 100 ML IVPB ONE (10:30)
[2021-07-14 10:31] LABS: ALBUMIN 2.9 g/dl (3.4-5.0); BLOOD UREA NITROGEN 23.3 mg/dL (7-18)
[2021-07-14 10:34] LABS: CREATININE 2.2 mg/dL (0.55-1.3)
[2021-07-14 10:36] LABS: BILIRUBIN,TOTAL 0.4 mg/dL (0.2-1); TOT PROT 7.2 g/dl (6.4-8.2)
[2021-07-14] MEDS ORDERED: DARATUMUMAB-HYALURONIDASE-FIHJ (FASPRO) 15 ML VIAL SQ ONE (11:00)
[2021-07-14 15:29] VITALS: TEMP 98.5
[2021-07-14 15:30] VITALS: BP 108/69; PULSE 81
[2021-07-15 18:07] LABS: FREE KAPPA,SERUM 628.3 mg/L (3.3-19.4)
== END 2021-07-14 13:25 | disposition home or self-care (01) ==
LOC: JONCCHEMO 07:27
PROVIDERS: ATTEND Internal Medicine Hematology & Oncology
PROC: 3E01305 Introduction of Other Antineoplastic into Subcutaneous Tissue, Percutaneous Approach (ICD-10-PCS; principal; 2021-07-14)
PROC: 3E033GC Introduction of Other Therapeutic Substance into Peripheral Vein, Percutaneous Approach (ICD-10-PCS; 2021-07-14)
DX: Z51.11 Encounter for antineoplastic chemotherapy (principal); C90.00 Multiple myeloma not having achieved remission
CPT/HCPCS: 36415; 80053; 82784; 83883; 84155; 84165; 85025; 86704; 86708; 87340; 87517; 96374; 96401; J9144

== ENCOUNTER 2021-07-21 07:31 | Day surgery (SDC) | payer OTHER ==
[2021-07-21 10:06] LABS: BASO % 0.8 % (0-2.0); EOS % 8.8 % (0-4.5); HEMATOCRIT 38.2 % (35.4-49); HEMOGLOBIN 12.9 GM/dL (11.7-16.9); LYMPH % 11.8 % (8-40); MCH 33.3 pg (25.7-33.7); MCHC 33.8 g/dl (32.0-35.9); MEAN CELL VOLUME 98.5 fl (80-96); MEAN PLT VOLUME 6.9 fl (7.5-11.1); MONO % 15.1 % (3.8-10.2); NEUT % 63.5 % (42.8-82.8); PLATELET COUNT 217 10^3/uL (134-434); RBC 3.88 M/mm3 (4.00-5.60); WHITE BLOOD COUNT 6.7 K/mm3 (4.0-10.0)
[2021-07-21 10:25] LABS: CALCIUM 8.7 mg/dL (8.5-10.1)
[2021-07-21 10:26] LABS: BLOOD UREA NITROGEN 27.6 mg/dL (7-18); MAGNESIUM 2.6 mg/dL (1.8-2.4)
[2021-07-21 10:29] LABS: CREATININE 2.2 mg/dL (0.55-1.3)
[2021-07-21] MEDS ORDERED: ACETAMINOPHEN 325 MG TABLET (FP) PO ONE (10:30)
[2021-07-21] MEDS ORDERED: DEXAMETHASONE SODIUM PHOSPHATE 20 MG, DIPHENHYDRAMINE 50 MG in SODIUM CHLORIDE 100 ML IVPB ONE (10:30)
[2021-07-21 10:31] LABS: BILIRUBIN,TOTAL 0.4 mg/dL (0.2-1); TOT PROT 7.4 g/dl (6.4-8.2)
[2021-07-21] MEDS ORDERED: DARATUMUMAB-HYALURONIDASE-FIHJ (FASPRO) 15 ML VIAL SQ ONE (11:00)
[2021-07-21 14:38] VITALS: TEMP 97.9
[2021-07-21 14:39] VITALS: BP 136/76; PULSE 88
== END 2021-07-21 13:06 | disposition home or self-care (01) ==
LOC: JONCCHEMO 07:31
PROVIDERS: ATTEND Internal Medicine Hematology & Oncology
PROC: 3E01305 Introduction of Other Antineoplastic into Subcutaneous Tissue, Percutaneous Approach (ICD-10-PCS; principal; 2021-07-21)
PROC: 3E033GC Introduction of Other Therapeutic Substance into Peripheral Vein, Percutaneous Approach (ICD-10-PCS; 2021-07-21)
DX: Z51.11 Encounter for antineoplastic chemotherapy (principal); C90.00 Multiple myeloma not having achieved remission
CPT/HCPCS: 36415; 80053; 83735; 85025; 96365; 96401; J9144

== ENCOUNTER 2021-08-04 07:43 | Day surgery (SDC) | payer OTHER ==
[2021-08-04 09:06] LABS: BASO % 0.7 % (0-2.0); EOS % 12.4 % (0-4.5); HEMATOCRIT 36.4 % (35.4-49); HEMOGLOBIN 12.4 GM/dL (11.7-16.9); LYMPH % 13.4 % (8-40); MCH 33.3 pg (25.7-33.7); MEAN CELL VOLUME 97.8 fl (80-96); MEAN PLT VOLUME 6.6 fl (7.5-11.1); MONO % 12.6 % (3.8-10.2); NEUT % 60.9 % (42.8-82.8); PLATELET COUNT 193 10^3/uL (134-434); RBC 3.72 M/mm3 (4.00-5.60); RDW 13.7 % (11.9-15.9); WHITE BLOOD COUNT 5.2 K/mm3 (4.0-10.0)
[2021-08-04 09:26] LABS: ALBUMIN 3.1 g/dl (3.4-5.0); CALCIUM 8.8 mg/dL (8.5-10.1)
[2021-08-04 09:30] LABS: CREATININE 2.1 mg/dL (0.55-1.3)
[2021-08-04 09:31] LABS: BILIRUBIN,TOTAL 0.4 mg/dL (0.2-1); TOT PROT 7.1 g/dl (6.4-8.2)
[2021-08-04] MEDS ORDERED: ACETAMINOPHEN 325 MG TABLET (FP) PO ONE (10:00)
[2021-08-04] MEDS ORDERED: DEXAMETHASONE SODIUM PHOSPHATE 20 MG, DIPHENHYDRAMINE 50 MG in SODIUM CHLORIDE 100 ML IVPB ONE (10:00)
[2021-08-04] MEDS ORDERED: DARATUMUMAB-HYALURONIDASE-FIHJ (FASPRO) 15 ML VIAL SQ ONE (10:30)
[2021-08-04 16:21] VITALS: BP 118/72; PULSE 71; TEMP 97.6
== END 2021-08-04 13:15 | disposition home or self-care (01) ==
LOC: JONCCHEMO 07:43
PROVIDERS: ATTEND Internal Medicine Hematology & Oncology
PROC: 3E01305 Introduction of Other Antineoplastic into Subcutaneous Tissue, Percutaneous Approach (ICD-10-PCS; principal; 2021-08-04)
PROC: 3E033GC Introduction of Other Therapeutic Substance into Peripheral Vein, Percutaneous Approach (ICD-10-PCS; 2021-08-04)
DX: Z51.11 Encounter for antineoplastic chemotherapy (principal); C90.00 Multiple myeloma not having achieved remission
CPT/HCPCS: 36415; 80053; 85025; 96365; 96401; J9144

== ENCOUNTER 2021-08-18 07:20 | Day surgery (SDC) | payer OTHER ==
[2021-08-18 09:44] LABS: BASO % 0.9 % (0-2.0); EOS % 3.8 % (0-4.5); HEMATOCRIT 37.3 % (35.4-49); HEMOGLOBIN 12.2 GM/dL (11.7-16.9); LYMPH % 15.5 % (8-40); MCH 32.2 pg (25.7-33.7); MCHC 32.6 g/dl (32.0-35.9); MEAN CELL VOLUME 98.8 fl (80-96); MEAN PLT VOLUME 7.7 fl (7.5-11.1); MONO % 11.2 % (3.8-10.2); NEUT % 68.6 % (42.8-82.8); PLATELET COUNT 193 10^3/uL (134-434); RBC 3.77 M/mm3 (4.00-5.60); WHITE BLOOD COUNT 6.9 K/mm3 (4.0-10.0)
[2021-08-18] MEDS ORDERED: DEXAMETHASONE SODIUM PHOSPHATE 20 MG, DIPHENHYDRAMINE 50 MG in SODIUM CHLORIDE 100 ML IVPB ONE (10:00)
[2021-08-18] MEDS ORDERED: ACETAMINOPHEN 325 MG TABLET (FP) PO ONE (10:00)
[2021-08-18 10:08] LABS: BLOOD UREA NITROGEN 30.6 mg/dL (7-18); CALCIUM 8.6 mg/dL (8.5-10.1)
[2021-08-18 10:09] LABS: ALBUMIN 3.2 g/dl (3.4-5.0)
[2021-08-18 10:11] LABS: CREATININE 2.4 mg/dL (0.55-1.3)
[2021-08-18 10:13] LABS: BILIRUBIN,TOTAL 0.4 mg/dL (0.2-1); TOT PROT 7.2 g/dl (6.4-8.2)
[2021-08-18] MEDS ORDERED: DARATUMUMAB-HYALURONIDASE-FIHJ (FASPRO) 15 ML VIAL SQ ONE (10:30)
[2021-08-18 15:29] VITALS: BP 106/67; PULSE 72; TEMP 98.3
== END 2021-08-18 11:45 | disposition home or self-care (01) ==
LOC: JONCCHEMO 07:20
PROVIDERS: ATTEND Internal Medicine Hematology & Oncology
PROC: 3E01305 Introduction of Other Antineoplastic into Subcutaneous Tissue, Percutaneous Approach (ICD-10-PCS; principal; 2021-08-18)
PROC: 3E043GC Introduction of Other Therapeutic Substance into Central Vein, Percutaneous Approach (ICD-10-PCS; 2021-08-18)
DX: Z51.11 Encounter for antineoplastic chemotherapy (principal); C90.00 Multiple myeloma not having achieved remission
CPT/HCPCS: 36415; 80053; 85025; 96365; 96401; J9144

== ENCOUNTER 2021-09-01 07:53 | Day surgery (SDC) | payer OTHER ==
[2021-09-01 09:59] LABS: BASO % 0.7 % (0-2.0); EOS % 2.8 % (0-4.5); HEMATOCRIT 37.4 % (35.4-49); HEMOGLOBIN 12.2 GM/dL (11.7-16.9); LYMPH % 20.6 % (8-40); MCH 32.4 pg (25.7-33.7); MCHC 32.5 g/dl (32.0-35.9); MEAN CELL VOLUME 99.6 fl (80-96); MEAN PLT VOLUME 7.7 fl (7.5-11.1); MONO % 9.7 % (3.8-10.2); NEUT % 66.2 % (42.8-82.8); PLATELET COUNT 207 10^3/uL (134-434); RBC 3.76 M/mm3 (4.00-5.60); RDW 14.2 % (11.9-15.9)
[2021-09-01 10:06] LABS: ALBUMIN 3.3 g/dl (3.4-5.0); BLOOD UREA NITROGEN 33.7 mg/dL (7-18); CALCIUM 9.2 mg/dL (8.5-10.1)
[2021-09-01 10:09] LABS: CREATININE 2.1 mg/dL (0.55-1.3)
[2021-09-01 10:11] LABS: BILIRUBIN,TOTAL 0.4 mg/dL (0.2-1); TOT PROT 7.2 g/dl (6.4-8.2)
[2021-09-01] MEDS ORDERED: ACETAMINOPHEN 325 MG TABLET (FP) PO ONE (10:30)
[2021-09-01] MEDS ORDERED: DEXAMETHASONE SODIUM PHOSPHATE 20 MG, DIPHENHYDRAMINE 50 MG in SODIUM CHLORIDE 100 ML IVPB ONE (11:00)
[2021-09-01] MEDS ORDERED: DARATUMUMAB-HYALURONIDASE-FIHJ (FASPRO) 15 ML VIAL SQ ONE (11:00)
[2021-09-01 15:57] VITALS: TEMP 97.9
[2021-09-01 15:59] VITALS: BP 116/63; PULSE 69
== END 2021-09-01 12:30 | disposition home or self-care (01) ==
LOC: JONCCHEMO 07:53
PROVIDERS: ATTEND Internal Medicine Hematology & Oncology
PROC: 3E01305 Introduction of Other Antineoplastic into Subcutaneous Tissue, Percutaneous Approach (ICD-10-PCS; principal; 2021-09-01)
PROC: 3E033GC Introduction of Other Therapeutic Substance into Peripheral Vein, Percutaneous Approach (ICD-10-PCS; 2021-09-01)
DX: Z51.11 Encounter for antineoplastic chemotherapy (principal); C90.00 Multiple myeloma not having achieved remission
CPT/HCPCS: 36415; 80053; 82784; 83883; 85025; 96365; 96372; 96401; J9144

== ENCOUNTER 2021-09-15 07:47 | Day surgery (SDC) | payer OTHER ==
[2021-09-15 09:27] LABS: BASO % 0.6 % (0-2.0); EOS % 1.7 % (0-4.5); HEMOGLOBIN 12.2 GM/dL (11.7-16.9); LYMPH % 17.9 % (8-40); MCH 32.8 pg (25.7-33.7); MCHC 32.9 g/dl (32.0-35.9); MEAN CELL VOLUME 99.7 fl (80-96); MEAN PLT VOLUME 8.4 fl (7.5-11.1); MONO % 9.3 % (3.8-10.2); NEUT % 70.5 % (42.8-82.8); PLATELET COUNT 182 10^3/uL (134-434); RBC 3.71 M/mm3 (4.00-5.60); RDW 14.6 % (11.9-15.9); WHITE BLOOD COUNT 6.9 K/mm3 (4.0-10.0)
[2021-09-15 09:49] LABS: CALCIUM 9.3 mg/dL (8.5-10.1)
[2021-09-15 09:50] LABS: ALBUMIN 3.3 g/dl (3.4-5.0); BLOOD UREA NITROGEN 24.2 mg/dL (7-18)
[2021-09-15 09:53] LABS: CREATININE 2.2 mg/dL (0.55-1.3)
[2021-09-15 09:55] LABS: BILIRUBIN,TOTAL 0.5 mg/dL (0.2-1); TOT PROT 7.4 g/dl (6.4-8.2)
[2021-09-15] MEDS ORDERED: ACETAMINOPHEN 325 MG TABLET (FP) PO ONE (10:30)
[2021-09-15] MEDS ORDERED: DEXAMETHASONE SODIUM PHOSPHATE 20 MG, DIPHENHYDRAMINE 50 MG in SODIUM CHLORIDE 100 ML IVPB ONE (10:30)
[2021-09-15] MEDS ORDERED: DARATUMUMAB-HYALURONIDASE-FIHJ (FASPRO) 15 ML VIAL SQ ONE (11:00)
[2021-09-15 15:22] VITALS: BP 105/54; PULSE 90; TEMP 98.5
== END 2021-09-15 13:00 | disposition home or self-care (01) ==
LOC: JONCCHEMO 07:47
PROVIDERS: ATTEND Internal Medicine Hematology & Oncology
PROC: 3E033GC Introduction of Other Therapeutic Substance into Peripheral Vein, Percutaneous Approach (ICD-10-PCS; principal; 2021-09-15)
PROC: 3E01305 Introduction of Other Antineoplastic into Subcutaneous Tissue, Percutaneous Approach (ICD-10-PCS; 2021-09-15)
DX: Z51.11 Encounter for antineoplastic chemotherapy (principal); C90.00 Multiple myeloma not having achieved remission
CPT/HCPCS: 36415; 80053; 85025; 96365; 96401; J9144

== ENCOUNTER 2021-09-29 07:36 | Day surgery (SDC) | payer OTHER ==
[2021-09-29 09:14] LABS: BASO % 1.2 % (0-2.0); EOS % 2.3 % (0-4.5); HEMOGLOBIN 11.9 GM/dL (11.7-16.9); LYMPH % 37.1 % (8-40); MCH 32.4 pg (25.7-33.7); MCHC 32.2 g/dl (32.0-35.9); MEAN CELL VOLUME 100.6 fl (80-96); MEAN PLT VOLUME 8.3 fl (7.5-11.1); NEUT % 49.4 % (42.8-82.8); PLATELET COUNT 253 10^3/uL (134-434); RBC 3.68 M/mm3 (4.00-5.60); RDW 14.1 % (11.9-15.9); WHITE BLOOD COUNT 5.2 K/mm3 (4.0-10.0)
[2021-09-29 09:43] LABS: ALBUMIN 3.3 g/dl (3.4-5.0); BLOOD UREA NITROGEN 24.7 mg/dL (7-18)
[2021-09-29 09:46] LABS: CREATININE 2.1 mg/dL (0.55-1.3)
[2021-09-29 09:48] LABS: BILIRUBIN,TOTAL 0.3 mg/dL (0.2-1); TOT PROT 7.2 g/dl (6.4-8.2)
[2021-09-29] MEDS ORDERED: SODIUM CHLORIDE IVPB ONE (10:00)
[2021-09-29] MEDS ORDERED: ACETAMINOPHEN 325 MG TABLET (FP) PO ONE (10:00)
[2021-09-29] MEDS ORDERED: DEXAMETHASONE SODIUM PHOSPHATE IVPB ONE (10:00)
[2021-09-29] MEDS ORDERED: DIPHENHYDRAMINE IVPB ONE (10:00)
[2021-09-29] MEDS ORDERED: DARATUMUMAB-HYALURONIDASE-FIHJ (FASPRO) 15 ML VIAL SQ ONE (10:30)
[2021-09-29 16:49] VITALS: BP 100/60; PULSE 63; TEMP 97.7
[2021-09-30 18:07] LABS: FREE KAPPA,SERUM 1210.7 mg/L (3.3-19.4)
== END 2021-09-29 13:20 | disposition home or self-care (01) ==
LOC: JONCCHEMO 07:36
PROVIDERS: ATTEND Internal Medicine Hematology & Oncology
PROC: 3E01305 Introduction of Other Antineoplastic into Subcutaneous Tissue, Percutaneous Approach (ICD-10-PCS; principal; 2021-09-29)
PROC: 3E033GC Introduction of Other Therapeutic Substance into Peripheral Vein, Percutaneous Approach (ICD-10-PCS; 2021-09-29)
DX: Z51.11 Encounter for antineoplastic chemotherapy (principal); C90.00 Multiple myeloma not having achieved remission
CPT/HCPCS: 36415; 80053; 82784; 83883; 84155; 84165; 85025; 96365; 96401; J9144

== ENCOUNTER 2021-10-13 06:45 | Day surgery (SDC) | payer OTHER ==
[2021-10-13 09:24] LABS: EOS % 6.3 % (0-4.5); HEMATOCRIT 37.1 % (35.4-49); HEMOGLOBIN 12.4 GM/dL (11.7-16.9); LYMPH % 19.9 % (8-40); MCH 33.5 pg (25.7-33.7); MCHC 33.3 g/dl (32.0-35.9); MEAN CELL VOLUME 100.6 fl (80-96); MEAN PLT VOLUME 8.9 fl (7.5-11.1); NEUT % 60.8 % (42.8-82.8); PLATELET COUNT 145 10^3/uL (134-434); RBC 3.69 M/mm3 (4.00-5.60); RDW 14.5 % (11.9-15.9); WHITE BLOOD COUNT 8.1 K/mm3 (4.0-10.0)
[2021-10-13 09:44] LABS: ALBUMIN 3.4 g/dl (3.4-5.0); BLOOD UREA NITROGEN 24.6 mg/dL (7-18); CALCIUM 9.1 mg/dL (8.5-10.1)
[2021-10-13 09:48] LABS: CREATININE 2.5 mg/dL (0.55-1.3)
[2021-10-13 09:49] LABS: BILIRUBIN,TOTAL 0.3 mg/dL (0.2-1); TOT PROT 7.2 g/dl (6.4-8.2)
[2021-10-13 09:54] VITALS: PULSE 72; TEMP 97.7
[2021-10-13] MEDS ORDERED: ACETAMINOPHEN 325 MG TABLET (FP) PO ONE (10:00)
[2021-10-13] MEDS ORDERED: DEXAMETHASONE SODIUM PHOSPHATE 20 MG, DIPHENHYDRAMINE 50 MG in SODIUM CHLORIDE 100 ML IVPB ONE (10:00)
[2021-10-13] MEDS ORDERED: DARATUMUMAB-HYALURONIDASE-FIHJ (FASPRO) 15 ML VIAL SQ ONE (10:30)
[2021-10-13 14:53] VITALS: BP 104/57
== END 2021-10-13 12:25 | disposition home or self-care (01) ==
LOC: JONCCHEMO 06:45
PROVIDERS: ATTEND Internal Medicine Hematology & Oncology
PROC: 3E01305 Introduction of Other Antineoplastic into Subcutaneous Tissue, Percutaneous Approach (ICD-10-PCS; principal; 2021-10-13)
PROC: 3E033GC Introduction of Other Therapeutic Substance into Peripheral Vein, Percutaneous Approach (ICD-10-PCS; 2021-10-13)
DX: Z51.11 Encounter for antineoplastic chemotherapy (principal); C90.00 Multiple myeloma not having achieved remission
CPT/HCPCS: 36415; 80053; 85025; 96365; J9144

== ENCOUNTER 2021-10-27 07:55 | Day surgery (SDC) | payer OTHER ==
[2021-10-27 09:00] LABS: BASO % 1.5 % (0-2.0); HEMATOCRIT 37.7 % (35.4-49); HEMOGLOBIN 12.6 GM/dL (11.7-16.9); LYMPH % 35.5 % (8-40); MCH 33.5 pg (25.7-33.7); MCHC 33.4 g/dl (32.0-35.9); MEAN CELL VOLUME 100.3 fl (80-96); MEAN PLT VOLUME 8.6 fl (7.5-11.1); MONO % 12.4 % (3.8-10.2); NEUT % 43.6 % (42.8-82.8); PLATELET COUNT 185 10^3/uL (134-434); RBC 3.76 M/mm3 (4.00-5.60); RDW 14.7 % (11.9-15.9); WHITE BLOOD COUNT 4.3 K/mm3 (4.0-10.0)
[2021-10-27 09:22] LABS: ALBUMIN 3.5 g/dl (3.4-5.0); BLOOD UREA NITROGEN 21.8 mg/dL (7-18)
[2021-10-27 09:25] LABS: CREATININE 2.4 mg/dL (0.55-1.3)
[2021-10-27 09:27] LABS: BILIRUBIN,TOTAL 0.5 mg/dL (0.2-1); TOT PROT 7.4 g/dl (6.4-8.2)
[2021-10-27] MEDS ORDERED: DEXAMETHASONE SODIUM PHOSPHATE 20 MG, DIPHENHYDRAMINE 50 MG in SODIUM CHLORIDE 100 ML IVPB ONE (10:30)
[2021-10-27] MEDS ORDERED: ACETAMINOPHEN 325 MG TABLET (FP) PO ONE (10:30)
[2021-10-27] MEDS ORDERED: DARATUMUMAB-HYALURONIDASE-FIHJ (FASPRO) 15 ML VIAL SQ ONE (11:00)
[2021-10-27 16:48] VITALS: BP 117/72; PULSE 65; TEMP 97.9
== END 2021-10-27 15:15 | disposition home or self-care (01) ==
LOC: JONCCHEMO 07:55
PROVIDERS: ATTEND Internal Medicine Hematology & Oncology
PROC: 3E01305 Introduction of Other Antineoplastic into Subcutaneous Tissue, Percutaneous Approach (ICD-10-PCS; principal; 2021-10-27)
PROC: 3E033GC Introduction of Other Therapeutic Substance into Peripheral Vein, Percutaneous Approach (ICD-10-PCS; 2021-10-27)
DX: Z51.11 Encounter for antineoplastic chemotherapy (principal); C90.00 Multiple myeloma not having achieved remission
CPT/HCPCS: 36415; 80053; 85025; 96365; 96401; J9144

== ENCOUNTER 2021-11-10 07:31 | Day surgery (SDC) | payer OTHER ==
[2021-11-10 09:01] LABS: BASO % 2.4 % (0-2.0); EOS % 5.6 % (0-4.5); HEMATOCRIT 38.5 % (35.4-49); HEMOGLOBIN 12.6 GM/dL (11.7-16.9); LYMPH % 18.2 % (8-40); MCH 33.1 pg (25.7-33.7); MCHC 32.7 g/dl (32.0-35.9); MEAN CELL VOLUME 101.1 fl (80-96); MEAN PLT VOLUME 8.7 fl (7.5-11.1); MONO % 11.6 % (3.8-10.2); NEUT % 62.2 % (42.8-82.8); PLATELET COUNT 143 10^3/uL (134-434); RBC 3.81 M/mm3 (4.00-5.60); RDW 14.8 % (11.9-15.9); WHITE BLOOD COUNT 6.6 K/mm3 (4.0-10.0)
[2021-11-10 09:27] LABS: CALCIUM 8.9 mg/dL (8.5-10.1)
[2021-11-10 09:28] LABS: ALBUMIN 3.4 g/dl (3.4-5.0)
[2021-11-10 09:31] LABS: CREATININE 2.1 mg/dL (0.55-1.3)
[2021-11-10 09:32] LABS: TOT PROT 7.4 g/dl (6.4-8.2)
[2021-11-10 09:33] LABS: BILIRUBIN,TOTAL 0.3 mg/dL (0.2-1)
[2021-11-10] MEDS ORDERED: DEXAMETHASONE SODIUM PHOSPHATE 20 MG, DIPHENHYDRAMINE 50 MG in SODIUM CHLORIDE 100 ML IVPB ONE (10:30)
[2021-11-10] MEDS ORDERED: ACETAMINOPHEN 325 MG TABLET (FP) PO ONE (10:30)
[2021-11-10] MEDS ORDERED: DARATUMUMAB-HYALURONIDASE-FIHJ (FASPRO) 15 ML VIAL SQ ONE (11:00)
[2021-11-10 17:02] VITALS: TEMP 98.3
[2021-11-10 17:14] VITALS: BP 138/78; PULSE 76
== END 2021-11-10 13:30 | disposition home or self-care (01) ==
LOC: JONCCHEMO 07:31
PROVIDERS: ATTEND Internal Medicine Hematology & Oncology
PROC: 3E01305 Introduction of Other Antineoplastic into Subcutaneous Tissue, Percutaneous Approach (ICD-10-PCS; principal; 2021-11-10)
PROC: 3E033GC Introduction of Other Therapeutic Substance into Peripheral Vein, Percutaneous Approach (ICD-10-PCS; 2021-11-10)
DX: Z51.11 Encounter for antineoplastic chemotherapy (principal)
CPT/HCPCS: 36415; 80053; 85025; 96365; 96401; J9144

== ENCOUNTER → 2021-11-24 | Day surgery (SDC) | payer OTHER ==
[~2021-11-24] MED LIST changes: +ACETAMINOPHEN 325 MG TABLET (FP) PO ONE; +DARATUMUMAB-HYALURONIDASE-FIHJ (FASPRO) 15 ML VIAL SQ ONE
[2021-11-24 09:27] LABS: BASO % 1.6 % (0-2.0); EOS % 6.1 % (0-4.5); HEMATOCRIT 37.4 % (35.4-49); HEMOGLOBIN 12.4 GM/dL (11.7-16.9); LYMPH % 24.3 % (8-40); MCH 33.4 pg (25.7-33.7); MCHC 33.1 g/dl (32.0-35.9); MEAN CELL VOLUME 100.9 fl (80-96); MEAN PLT VOLUME 8.6 fl (7.5-11.1); MONO % 14.5 % (3.8-10.2); NEUT % 53.5 % (42.8-82.8); PLATELET COUNT 190 10^3/uL (134-434); RBC 3.71 M/mm3 (4.00-5.60); RDW 15.2 % (11.9-15.9); WHITE BLOOD COUNT 4.6 K/mm3 (4.0-10.0)
[2021-11-24 09:51] LABS: CALCIUM 8.9 mg/dL (8.5-10.1)
[2021-11-24 09:52] LABS: ALBUMIN 3.2 g/dl (3.4-5.0); BLOOD UREA NITROGEN 21.5 mg/dL (7-18); MAGNESIUM 2.2 mg/dL (1.8-2.4)
[2021-11-24 09:54] LABS: BILIRUBIN,DIRECT 0.1 mg/dL (0.0-0.2)
[2021-11-24 09:55] LABS: CREATININE 2.3 mg/dL (0.55-1.3)
[2021-11-24 09:56] LABS: BILIRUBIN,TOTAL 0.3 mg/dL (0.2-1); TOT PROT 7.5 g/dl (6.4-8.2)
[2021-11-25 17:10] LABS: FREE KAPPA,SERUM 1208.2 mg/L (3.3-19.4)
== END | disposition home or self-care (01) ==
LOC: JONCCHEMO 06:21
PROVIDERS: ATTEND Internal Medicine Hematology & Oncology
DX: Z53.8 Procedure and treatment not carried out for other reasons (principal)
CPT/HCPCS: 36415; 80048; 80076; 82232; 82784; 83615; 83735; 83883; 84155; 84165; 84550; 85025; 96365

== ENCOUNTER 2021-12-08 07:10 | Day surgery (SDC) | payer OTHER ==
[2021-12-08 09:06] LABS: BASO % 3.2 % (0-2.0); EOS % 7.4 % (0-4.5); HEMATOCRIT 37.3 % (35.4-49); HEMOGLOBIN 12.5 GM/dL (11.7-16.9); LYMPH % 20.4 % (8-40); MCHC 33.6 g/dl (32.0-35.9); MEAN CELL VOLUME 101.2 fl (80-96); MEAN PLT VOLUME 8.8 fl (7.5-11.1); PLATELET COUNT 171 10^3/uL (134-434); RBC 3.69 M/mm3 (4.00-5.60); RDW 15.2 % (11.9-15.9); WHITE BLOOD COUNT 6.6 K/mm3 (4.0-10.0)
[2021-12-08 09:30] LABS: CALCIUM 8.9 mg/dL (8.5-10.1)
[2021-12-08] MEDS ORDERED: DEXAMETHASONE SODIUM PHOSPHATE 20 MG, DIPHENHYDRAMINE 50 MG in SODIUM CHLORIDE 100 ML IVPB ONE (09:30)
[2021-12-08] MEDS ORDERED: ACETAMINOPHEN 325 MG TABLET (FP) PO ONE (09:30)
[2021-12-08 09:31] LABS: ALBUMIN 3.3 g/dl (3.4-5.0); BLOOD UREA NITROGEN 22.8 mg/dL (7-18)
[2021-12-08 09:34] LABS: CREATININE 2.4 mg/dL (0.55-1.3)
[2021-12-08 09:36] LABS: BILIRUBIN,TOTAL 0.5 mg/dL (0.2-1); TOT PROT 7.7 g/dl (6.4-8.2)
[2021-12-08] MEDS ORDERED: DARATUMUMAB-HYALURONIDASE-FIHJ (FASPRO) 15 ML VIAL SQ ONE (10:00)
[2021-12-08 18:22] VITALS: TEMP 97.8
[2021-12-08 18:28] VITALS: BP 110/61; PULSE 73
== END 2021-12-08 12:15 | disposition home or self-care (01) ==
LOC: JONCCHEMO 07:10
PROVIDERS: ATTEND Internal Medicine Hematology & Oncology
PROC: 3E01305 Introduction of Other Antineoplastic into Subcutaneous Tissue, Percutaneous Approach (ICD-10-PCS; principal; 2021-12-08)
PROC: 3E033GC Introduction of Other Therapeutic Substance into Peripheral Vein, Percutaneous Approach (ICD-10-PCS; 2021-12-08)
DX: Z51.11 Encounter for antineoplastic chemotherapy (principal); C90.00 Multiple myeloma not having achieved remission
CPT/HCPCS: 36415; 80053; 83883; 85025; 96365; 96401; J9144

== ENCOUNTER 2022-01-05 06:57 | Day surgery (SDC) | payer OTHER ==
[2022-01-05 09:06] LABS: BASO % 2.3 % (0-2.0); EOS % 7.8 % (0-4.5); HEMATOCRIT 34.9 % (35.4-49); LYMPH % 19.5 % (8-40); MCH 34.5 pg (25.7-33.7); MCHC 34.2 g/dl (32.0-35.9); MEAN CELL VOLUME 100.8 fl (80-96); MONO % 13.7 % (3.8-10.2); NEUT % 56.7 % (42.8-82.8); PLATELET COUNT 124 10^3/uL (134-434); RBC 3.47 M/mm3 (4.00-5.60); RDW 15.1 % (11.9-15.9); WHITE BLOOD COUNT 5.7 K/mm3 (4.0-10.0)
[2022-01-05 09:22] LABS: ALBUMIN 3.4 g/dl (3.4-5.0); CALCIUM 8.8 mg/dL (8.5-10.1)
[2022-01-05 09:23] LABS: BLOOD UREA NITROGEN 34.7 mg/dL (7-18)
[2022-01-05 09:25] LABS: CREATININE 2.7 mg/dL (0.55-1.3)
[2022-01-05 09:27] LABS: BILIRUBIN,TOTAL 0.4 mg/dL (0.2-1); TOT PROT 7.4 g/dl (6.4-8.2)
[2022-01-05] MEDS ORDERED: ACETAMINOPHEN 325 MG TABLET (FP) PO ONE (09:30)
[2022-01-05] MEDS ORDERED: DEXAMETHASONE SODIUM PHOSPHATE 20 MG, DIPHENHYDRAMINE 50 MG in SODIUM CHLORIDE 100 ML IVPB ONE (09:30)
[2022-01-05] MEDS ORDERED: DARATUMUMAB-HYALURONIDASE-FIHJ (FASPRO) 15 ML VIAL SQ ONE (10:00)
[2022-01-05 17:16] VITALS: TEMP 97.9
[2022-01-05 17:25] VITALS: BP 107/56; PULSE 69
[2022-01-06 15:07] LABS: FREE KAPPA,SERUM 1464.6 mg/L (3.3-19.4)
== END 2022-01-05 12:35 | disposition home or self-care (01) ==
LOC: JONCCHEMO 06:57
PROVIDERS: ATTEND Internal Medicine Hematology & Oncology
PROC: 3E01305 Introduction of Other Antineoplastic into Subcutaneous Tissue, Percutaneous Approach (ICD-10-PCS; principal; 2022-01-05)
PROC: 3E033GC Introduction of Other Therapeutic Substance into Peripheral Vein, Percutaneous Approach (ICD-10-PCS; 2022-01-05)
DX: Z51.11 Encounter for antineoplastic chemotherapy (principal); C90.00 Multiple myeloma not having achieved remission
CPT/HCPCS: 36415; 80053; 82784; 83883; 84155; 84165; 85025; 96365; 96401; J9144

== ENCOUNTER 2022-02-02 07:17 | Day surgery (SDC) | payer OTHER ==
[2022-02-02 08:59] LABS: EOS % 8.2 % (0-4.5); HEMATOCRIT 34.4 % (35.4-49); HEMOGLOBIN 11.6 GM/dL (11.7-16.9); LYMPH % 21.1 % (8-40); MCH 34.7 pg (25.7-33.7); MCHC 33.7 g/dl (32.0-35.9); MEAN PLT VOLUME 9.1 fl (7.5-11.1); MONO % 13.6 % (3.8-10.2); NEUT % 53.1 % (42.8-82.8); PLATELET COUNT 134 10^3/uL (134-434); RBC 3.34 M/mm3 (4.00-5.60); RDW 15.5 % (11.9-15.9)
[2022-02-02 09:24] LABS: CALCIUM 8.7 mg/dL (8.5-10.1)
[2022-02-02 09:26] LABS: ALBUMIN 3.3 g/dl (3.4-5.0); BLOOD UREA NITROGEN 33.2 mg/dL (7-18)
[2022-02-02 09:28] LABS: CREATININE 2.8 mg/dL (0.55-1.3)
[2022-02-02 09:30] LABS: TOT PROT 7.4 g/dl (6.4-8.2)
[2022-02-02 09:49] VITALS: BP 108/49; PULSE 65; TEMP 98
[2022-02-02] MEDS ORDERED: ACETAMINOPHEN 325 MG TABLET (FP) PO ONE (10:00)
[2022-02-02] MEDS ORDERED: DEXAMETHASONE SODIUM PHOSPHATE 20 MG, DIPHENHYDRAMINE 50 MG in SODIUM CHLORIDE 100 ML IVPB ONE (10:00)
[2022-02-02] MEDS ORDERED: DARATUMUMAB-HYALURONIDASE-FIHJ (FASPRO) 15 ML VIAL SQ ONE (10:00)
== END 2022-02-02 11:00 | disposition home or self-care (01) ==
LOC: JONCCHEMO 07:17
PROVIDERS: ATTEND Internal Medicine Hematology & Oncology
PROC: 3E01305 Introduction of Other Antineoplastic into Subcutaneous Tissue, Percutaneous Approach (ICD-10-PCS; principal; 2022-02-02)
PROC: 3E033GC Introduction of Other Therapeutic Substance into Peripheral Vein, Percutaneous Approach (ICD-10-PCS; 2022-02-02)
DX: Z51.11 Encounter for antineoplastic chemotherapy (principal); C90.00 Multiple myeloma not having achieved remission
CPT/HCPCS: 36415; 80053; 85025; 96365; 96401; J9144

== ENCOUNTER → 2022-03-02 | Day surgery (SDC) | payer OTHER ==
[~2022-03-02] MED LIST changes: -DARATUMUMAB-HYALURONIDASE-FIHJ (FASPRO) 15 ML VIAL SQ ONE; -DEXAMETHASONE SODIUM PHOSPHATE 20 MG, DIPHENHYDRAMINE 50 MG in SODIUM CHLORIDE 100 ML IVPB ONE; +DEXAMETHASONE SODIUM PHOSPHATE 8 MG, DIPHENHYDRAMINE 25 MG in SODIUM CHLORIDE 100 ML IVPB ONE; +ELOTUZUMAB IVPB ONE; +FAMOTIDINE 20 MG/50 ML IVPB 20 MG/50 ML MG IVPB ONE; +SODIUM CHLORIDE 250 ML IV ONE; +SODIUM CHLORIDE IVPB ONE
[2022-03-02 09:54] LABS: BASO % 2.1 % (0-2.0); EOS % 7.5 % (0-4.5); HEMATOCRIT 32.5 % (35.4-49); LYMPH % 16.8 % (8-40); MCH 35.4 pg (25.7-33.7); MCHC 33.9 g/dl (32.0-35.9); MEAN CELL VOLUME 104.5 fl (80-96); MEAN PLT VOLUME 9.4 fl (7.5-11.1); MONO % 12.3 % (3.8-10.2); NEUT % 61.3 % (42.8-82.8); PLATELET COUNT 136 10^3/uL (134-434); RBC 3.11 M/mm3 (4.00-5.60); RDW 16.1 % (11.9-15.9); WHITE BLOOD COUNT 4.6 K/mm3 (4.0-10.0)
[2022-03-02 10:13] LABS: CALCIUM 9.3 mg/dL (8.5-10.1)
[2022-03-02 10:14] LABS: ALBUMIN 3.2 g/dl (3.4-5.0); BLOOD UREA NITROGEN 25.3 mg/dL (7-18)
[2022-03-02 10:17] LABS: CREATININE 2.7 mg/dL (0.55-1.3)
[2022-03-02 10:18] LABS: BILIRUBIN,TOTAL 0.4 mg/dL (0.2-1); TOT PROT 7.4 g/dl (6.4-8.2)
[2022-03-03 18:09] LABS: FREE KAPPA,SERUM 1560.9 mg/L (3.3-19.4)
== END | disposition home or self-care (01) ==
LOC: JONCCHEMO 07:17
PROVIDERS: ATTEND Internal Medicine Hematology & Oncology
DX: Z53.8 Procedure and treatment not carried out for other reasons (principal)
CPT/HCPCS: 36415; 80053; 82784; 83883; 84155; 84165; 85025; 86334

== ENCOUNTER 2022-03-09 07:10 | Day surgery (SDC) | payer OTHER ==
[2022-03-09] MEDS ORDERED: SODIUM CHLORIDE 250 ML IV ONE (09:00)
[2022-03-09] MEDS ORDERED: DEXAMETHASONE 4 MG TABLET (FP) PO ONE (09:00)
[2022-03-09 09:03] LABS: BASO % 1.7 % (0-2.0); HEMATOCRIT 32.1 % (35.4-49); HEMOGLOBIN 10.7 GM/dL (11.7-16.9); LYMPH % 19.9 % (8-40); MCH 35.2 pg (25.7-33.7); MCHC 33.4 g/dl (32.0-35.9); MEAN CELL VOLUME 105.4 fl (80-96); MONO % 15.3 % (3.8-10.2); NEUT % 51.1 % (42.8-82.8); PLATELET COUNT 95 10^3/uL (134-434); RBC 3.04 M/mm3 (4.00-5.60); RDW 16.4 % (11.9-15.9); WHITE BLOOD COUNT 3.6 K/mm3 (4.0-10.0)
[2022-03-09] MEDS ORDERED: DEXAMETHASONE SOD PHOSPHATE 20 MG/5 ML VIAL IVPB ONE ×2 (09:09→09:10)
[2022-03-09] MEDS ORDERED: FAMOTIDINE 20 MG/50 ML IVPB 20 MG/50 ML MG IVPB ONE (09:30)
[2022-03-09] MEDS ORDERED: DIPHENHYDRAMINE 25 MG in SODIUM CHLORIDE 50 ML IVPB ONE (09:30)
[2022-03-09] MEDS ORDERED: DEXAMETHASONE SODIUM PHOSPHATE 20 MG in SODIUM CHLORIDE 50 ML IVPB ONE (09:30)
[2022-03-09] MEDS ORDERED: DEXAMETHASONE SODIUM PHOSPHATE 8 MG, DIPHENHYDRAMINE 25 MG in SODIUM CHLORIDE 100 ML IVPB ONE (09:30)
[2022-03-09] MEDS ORDERED: ACETAMINOPHEN 325 MG TABLET (FP) PO ONE (09:30)
[2022-03-09 09:35] LABS: ALBUMIN 3.4 g/dl (3.4-5.0); BILIRUBIN,TOTAL 0.4 mg/dL (0.2-1); BLOOD UREA NITROGEN 23.2 mg/dL (7-18); CREATININE 2.5 mg/dL (0.55-1.3); TOT PROT 7.7 g/dl (6.4-8.2)
[2022-03-09] MEDS ORDERED: ELOTUZUMAB IVPB ONE (10:00)
[2022-03-09] MEDS ORDERED: SODIUM CHLORIDE IVPB ONE (10:00)
[2022-03-09 12:29] LABS: ANISOCYTOSIS 1+; MACROCYTOSIS 0; OVALOCYTE 2+; TEAR DROP CELLS 1+
[2022-03-09] MEDS ORDERED: DEXAMETHASONE SODIUM PHOSPHATE 12 MG in SODIUM CHLORIDE 50 ML IVPB ONE (13:00)
[2022-03-09 15:54] VITALS: RESP 18; TEMP 97.7
[2022-03-09 17:46] VITALS: BP 117/65; PULSE 66
[2022-03-10 17:11] LABS: FREE KAPPA,SERUM 1590.6 mg/L (3.3-19.4)
== END 2022-03-09 17:15 | disposition home or self-care (01) ==
LOC: JONCCHEMO 07:10
PROVIDERS: ATTEND Internal Medicine Hematology & Oncology
DX: Z51.11 Encounter for antineoplastic chemotherapy (principal); C90.00 Multiple myeloma not having achieved remission
CPT/HCPCS: 36415; 80053; 83883; 85025; 96367; 96375; 96413; 96415; J9176

== ENCOUNTER 2022-03-16 06:38 | Day surgery (SDC) | payer OTHER ==
[2022-03-16 09:10] LABS: BASO % 0.9 % (0-2.0); EOS % 6.3 % (0-4.5); HEMATOCRIT 31.8 % (35.4-49); HEMOGLOBIN 10.8 GM/dL (11.7-16.9); LYMPH % 24.2 % (8-40); MCH 35.3 pg (25.7-33.7); MCHC 33.9 g/dl (32.0-35.9); MEAN CELL VOLUME 104.3 fl (80-96); MEAN PLT VOLUME 8.5 fl (7.5-11.1); MONO % 19.3 % (3.8-10.2); NEUT % 49.3 % (42.8-82.8); PLATELET COUNT 128 10^3/uL (134-434); RBC 3.05 M/mm3 (4.00-5.60); RDW 16.7 % (11.9-15.9); WHITE BLOOD COUNT 3.9 K/mm3 (4.0-10.0)
[2022-03-16 09:27] LABS: CALCIUM 8.7 mg/dL (8.5-10.1)
[2022-03-16 09:28] LABS: ALBUMIN 3.2 g/dl (3.4-5.0); BLOOD UREA NITROGEN 33.5 mg/dL (7-18)
[2022-03-16 09:31] LABS: CREATININE 2.7 mg/dL (0.55-1.3)
[2022-03-16 09:38] LABS: BILIRUBIN,TOTAL 0.5 mg/dL (0.2-1)
[2022-03-16] MEDS ORDERED: SODIUM CHLORIDE 250 ML IV ONE (10:30)
[2022-03-16] MEDS ORDERED: ACETAMINOPHEN 325 MG TABLET (FP) PO ONE (11:00)
[2022-03-16] MEDS ORDERED: DIPHENHYDRAMINE 25 MG in SODIUM CHLORIDE 50 ML IVPB ONE (11:00)
[2022-03-16] MEDS ORDERED: FAMOTIDINE 20 MG/50 ML IVPB 20 MG/50 ML MG IVPB ONE (11:00)
[2022-03-16] MEDS ORDERED: DEXAMETHASONE SODIUM PHOSPHATE 12 MG in SODIUM CHLORIDE 50 ML IVPB ONE (11:00)
[2022-03-16] MEDS ORDERED: SODIUM CHLORIDE IVPB ONE (11:30)
[2022-03-16] MEDS ORDERED: ELOTUZUMAB IVPB ONE (11:30)
[2022-03-16 14:45] VITALS: RESP 18; TEMP 98.1
[2022-03-16 16:04] VITALS: BP 107/62; PULSE 70
[2022-03-17 14:10] LABS: FREE KAPPA,SERUM 1119.1 mg/L (3.3-19.4)
== END 2022-03-16 15:45 | disposition home or self-care (01) ==
LOC: JONCCHEMO 06:38
PROVIDERS: ATTEND Internal Medicine Hematology & Oncology
DX: Z51.11 Encounter for antineoplastic chemotherapy (principal); C90.00 Multiple myeloma not having achieved remission
CPT/HCPCS: 36415; 80053; 83883; 85025; 96367; 96374; 96413; 96415; J9176

== ENCOUNTER 2022-03-23 07:02 | Day surgery (SDC) | payer OTHER ==
[2022-03-23 09:01] LABS: HEMATOCRIT 34.4 % (35.4-49); HEMOGLOBIN 11.5 GM/dL (11.7-16.9); MCH 35.6 pg (25.7-33.7); MCHC 33.4 g/dl (32.0-35.9); MEAN CELL VOLUME 106.3 fl (80-96); MEAN PLT VOLUME 8.4 fl (7.5-11.1); PLATELET COUNT 163 10^3/uL (134-434); RBC 3.24 M/mm3 (4.00-5.60); RDW 17.2 % (11.9-15.9); WHITE BLOOD COUNT 4.9 K/mm3 (4.0-10.0)
[2022-03-23 09:27] LABS: ALBUMIN 3.5 g/dl (3.4-5.0); BLOOD UREA NITROGEN 37.9 mg/dL (7-18)
[2022-03-23 09:31] LABS: BILIRUBIN,TOTAL 0.5 mg/dL (0.2-1); CREATININE 2.6 mg/dL (0.55-1.3); TOT PROT 8.1 g/dl (6.4-8.2)
[2022-03-23 09:54] LABS: ANISOCYTOSIS 0; MACROCYTOSIS 0; PLATELET ESTIMATE NORMAL
[2022-03-23] MEDS ORDERED: DEXAMETHASONE SODIUM PHOSPHATE 12 MG, DIPHENHYDRAMINE 25 MG in SODIUM CHLORIDE 100 ML IVPB ONE (10:00)
[2022-03-23] MEDS ORDERED: FAMOTIDINE 20 MG/50 ML IVPB 20 MG/50 ML MG IVPB ONE (10:00)
[2022-03-23] MEDS ORDERED: DEXAMETHASONE SODIUM PHOSPHATE 8 MG, DIPHENHYDRAMINE 25 MG in SODIUM CHLORIDE 100 ML IVPB ONE (10:00)
[2022-03-23] MEDS ORDERED: SODIUM CHLORIDE 250 ML IV ONE (10:00)
[2022-03-23] MEDS ORDERED: ACETAMINOPHEN 325 MG TABLET (FP) PO ONE (10:00)
[2022-03-23 10:23] VITALS: RESP 18; TEMP 97.6
[2022-03-23] MEDS ORDERED: SODIUM CHLORIDE IVPB ONE (10:30)
[2022-03-23] MEDS ORDERED: ELOTUZUMAB IVPB ONE (10:30)
[2022-03-23 16:35] VITALS: BP 118/63; PULSE 73
[2022-03-24 13:07] LABS: FREE KAPPA,SERUM 1258.4 mg/L (3.3-19.4)
== END 2022-03-23 13:45 | disposition home or self-care (01) ==
LOC: JONCCHEMO 07:02
PROVIDERS: ATTEND Internal Medicine Hematology & Oncology
DX: Z51.11 Encounter for antineoplastic chemotherapy (principal); C90.00 Multiple myeloma not having achieved remission
CPT/HCPCS: 36415; 80053; 83883; 85025; 96367; 96413; J9176

== ENCOUNTER 2022-03-30 04:03 | Day surgery (SDC) | payer OTHER ==
[2022-03-29 11:12] VITALS: BMI 30.5
[2022-03-30] MEDS ORDERED: HEPARIN NA (PORCINE) 5,000 UNITS/ML 1ML VIAL ONE (09:12)
[2022-03-30] MEDS ORDERED: oxyCODONE HCL 5 MG TABLET PO PRN (09:14)
[2022-03-30] MEDS ORDERED: PROMETHAZINE HCL 25 MG/1 ML VIAL IVPUSH PRN (09:14)
[2022-03-30] MEDS ORDERED: ONDANSETRON 4 MG/2 ML VIAL IVPUSH PRN (09:14)
[2022-03-30] MEDS ORDERED: LACTATED RINGERS SOLUTION 1,000 ML IV SCH (09:15)
[2022-03-30] MEDS ORDERED: MIDAZOLAM HCL 2 MG/2 ML SINGLE DOSE VIAL ONE (09:34)
[2022-03-30] MEDS ORDERED: PROPOFOL 20 ML ONE (09:34)
[2022-03-30] MEDS ORDERED: SODIUM CHLORIDE 0.9% P/F 10 ML VIAL IJ ONE (09:35)
[2022-03-30] MEDS ORDERED: ceFAZolin SODIUM 1 GM VIAL ONE (09:35)
[2022-03-30] MEDS ORDERED: LIDOCAINE HCL/PF 2% SDV 5ML VIAL ONE (09:35)
[2022-03-30] MEDS ORDERED: ceFAZolin SODIUM 1 GM VIAL IVPB ONE (09:52)
[2022-03-30] MEDS ORDERED: LIDOCAINE HCL 1%, 10 MG/ML (20ML VIAL) INF ONE ×2 (10:07)
[2022-03-30 11:46] VITALS: RESP 18
[2022-03-30 12:06] LABS: HEMATOCRIT 29.8 % (35.4-49); HEMOGLOBIN 10.2 GM/dL (11.7-16.9); MCH 36.3 pg (25.7-33.7); MCHC 34.3 g/dl (32.0-35.9); MEAN CELL VOLUME 105.8 fl (80-96); MEAN PLT VOLUME 8.4 fl (7.5-11.1); PLATELET COUNT 109 10^3/uL (134-434); RBC 2.81 M/mm3 (4.00-5.60); RDW 17.2 % (11.9-15.9); WHITE BLOOD COUNT 5.9 K/mm3 (4.0-10.0)
[2022-03-30 12:15] LABS: INR 1.18 (0.83-1.09); PROTHROMBIN TIME (PATIENT) 13.6 SEC (9.7-13.0)
[2022-03-30 12:18] LABS: ACTIVATED PTT 40.7 SECONDS (25.2-36.5)
[2022-03-30 12:32] LABS: CALCIUM 8.6 mg/dL (8.5-10.1)
[2022-03-30 12:33] LABS: BLOOD UREA NITROGEN 30.4 mg/dL (7-18); MAGNESIUM 2.3 mg/dL (1.8-2.4)
[2022-03-30 12:36] LABS: CREATININE 2.1 mg/dL (0.55-1.3)
[2022-03-30 12:59] VITALS: BP 137/78; PULSE 81; TEMP 97.7
[2022-03-30 13:10] LABS: ANISOCYTOSIS 1+; MACROCYTOSIS 1+
== END 2022-03-30 13:00 | disposition home or self-care (01) ==
LOC: JASU-SURG 04:03
PROVIDERS: ATTEND Surgery Vascular Surgery
PROC: 02HV33Z Insertion of Infusion Device into Superior Vena Cava, Percutaneous Approach (ICD-10-PCS; 2022-03-30)
PROC: B548ZZA Ultrasonography of Superior Vena Cava, Guidance (ICD-10-PCS; 2022-03-30)
PROC: 0JH63WZ Insertion of Totally Implantable Vascular Access Device into Chest Subcutaneous Tissue and Fascia, Percutaneous Approach (ICD-10-PCS; principal; 2022-03-30 10:08)
DX: C90.00 Multiple myeloma not having achieved remission (principal)
CPT/HCPCS: 36561; C1788; 36415; 71045-TC-FY; 76000-TC-FY; 80048; 83735; 85025; 85610; 85730; 94760; J1644

== ENCOUNTER 2022-03-30 06:49 | Day surgery (SDC) | payer OTHER ==
[2022-03-30] MEDS ORDERED: ACETAMINOPHEN 325 MG TABLET (FP) PO ONE (10:00)
[2022-03-30] MEDS ORDERED: DEXAMETHASONE SODIUM PHOSPHATE 8 MG, DIPHENHYDRAMINE 25 MG in SODIUM CHLORIDE 100 ML IVPB ONE (10:00)
[2022-03-30] MEDS ORDERED: FAMOTIDINE 20 MG/50 ML IVPB 20 MG/50 ML MG IVPB ONE (10:00)
[2022-03-30] MEDS ORDERED: SODIUM CHLORIDE 250 ML IV ONE (10:00)
[2022-03-30] MEDS ORDERED: SODIUM CHLORIDE IV ONE ×2 (10:30→14:45)
[2022-03-30] MEDS ORDERED: ELOTUZUMAB IV ONE ×2 (10:30→14:45)
[2022-03-30 16:04] VITALS: BP 118/64; PULSE 69; RESP 18; TEMP 98.1
[2022-03-30] MEDS ORDERED: PORTA CATH FLUSH 10 ML IVPUSH PRN (16:04)
== END 2022-03-30 16:35 | disposition home or self-care (01) ==
LOC: JONCCHEMO 06:49
PROVIDERS: ATTEND Internal Medicine Hematology & Oncology
DX: Z51.11 Encounter for antineoplastic chemotherapy (principal); C90.00 Multiple myeloma not having achieved remission
CPT/HCPCS: 96367; 96413; J9176

== ENCOUNTER 2022-04-06 07:10 | Day surgery (SDC) | payer OTHER ==
[2022-04-06 09:35] LABS: BASO % 0.6 % (0-2.0); EOS % 0.6 % (0-4.5); HEMOGLOBIN 12.1 GM/dL (11.7-16.9); LYMPH % 15.2 % (8-40); MCH 36.1 pg (25.7-33.7); MCHC 32.8 g/dl (32.0-35.9); MEAN CELL VOLUME 110.2 fl (80-96); MEAN PLT VOLUME 8.6 fl (7.5-11.1); NEUT % 79.6 % (42.8-82.8); PLATELET COUNT 97 10^3/uL (134-434); RBC 3.36 M/mm3 (4.00-5.60); RDW 16.9 % (11.9-15.9); WHITE BLOOD COUNT 3.9 K/mm3 (4.0-10.0)
[2022-04-06 09:39] VITALS: RESP 20; TEMP 97.8
[2022-04-06] MEDS ORDERED: FAMOTIDINE 20 MG/50 ML IVPB 20 MG/50 ML MG IVPB ONE (10:00)
[2022-04-06] MEDS ORDERED: DEXAMETHASONE SODIUM PHOSPHATE 8 MG, DIPHENHYDRAMINE 25 MG in SODIUM CHLORIDE 100 ML IVPB ONE (10:00)
[2022-04-06] MEDS ORDERED: SODIUM CHLORIDE 250 ML IV ONE (10:00)
[2022-04-06] MEDS ORDERED: ACETAMINOPHEN 325 MG TABLET (FP) PO ONE (10:00)
[2022-04-06 10:01] LABS: ALBUMIN 3.2 g/dl (3.4-5.0); BLOOD UREA NITROGEN 29.7 mg/dL (7-18)
[2022-04-06 10:02] LABS: MAGNESIUM 2.6 mg/dL (1.8-2.4)
[2022-04-06 10:04] LABS: CREATININE 2.7 mg/dL (0.55-1.3); URIC ACID 7.3 mg/dL (2.6-7.2)
[2022-04-06 10:05] LABS: BILIRUBIN,TOTAL 0.5 mg/dL (0.2-1); TOT PROT 8.3 g/dl (6.4-8.2)
[2022-04-06] MEDS ORDERED: INSULIN (NOVOLOG) ASPART 100 UNITS/ML 10ML VIAL SQ ONE (10:29)
[2022-04-06] MEDS ORDERED: SODIUM CHLORIDE IVPB ONE (10:30)
[2022-04-06] MEDS ORDERED: ELOTUZUMAB IVPB ONE (10:30)
[2022-04-06 10:55] LABS: ANISOCYTOSIS 2+; MACROCYTOSIS 2+
[2022-04-06] MEDS ORDERED: PORTA CATH FLUSH 10 ML IVPUSH PRN (14:00)
[2022-04-06 14:01] VITALS: BP 124/70; PULSE 71
== END 2022-04-06 13:30 | disposition home or self-care (01) ==
LOC: JONCCHEMO 07:10
PROVIDERS: ATTEND Internal Medicine Hematology & Oncology
DX: Z51.11 Encounter for antineoplastic chemotherapy (principal); C90.00 Multiple myeloma not having achieved remission
CPT/HCPCS: 36415; 80053; 83615; 83735; 84550; 85025; 96367; 96413; J9176

== ENCOUNTER 2022-04-13 07:19 | Day surgery (SDC) | payer OTHER ==
[2022-04-13] MEDS ORDERED: SODIUM CHLORIDE 250 ML IV ONE (09:00)
[2022-04-13] MEDS ORDERED: FAMOTIDINE 20 MG/50 ML IVPB 20 MG/50 ML MG IVPB ONE (09:30)
[2022-04-13] MEDS ORDERED: DEXAMETHASONE SODIUM PHOSPHATE 8 MG, DIPHENHYDRAMINE 25 MG in SODIUM CHLORIDE 100 ML IVPB ONE (09:30)
[2022-04-13] MEDS ORDERED: ACETAMINOPHEN 325 MG TABLET (FP) PO ONE (09:30)
[2022-04-13] MEDS ORDERED: ELOTUZUMAB IVPB ONE (10:00)
[2022-04-13] MEDS ORDERED: SODIUM CHLORIDE IVPB ONE (10:00)
[2022-04-13 11:08] LABS: HEMATOCRIT 35.9 % (35.4-49); HEMOGLOBIN 11.7 GM/dL (11.7-16.9); MCH 35.9 pg (25.7-33.7); MCHC 32.7 g/dl (32.0-35.9); MEAN CELL VOLUME 109.8 fl (80-96); MEAN PLT VOLUME 9.1 fl (7.5-11.1); PLATELET COUNT 78 10^3/uL (134-434); RBC 3.27 M/mm3 (4.00-5.60); RDW 16.4 % (11.9-15.9); WHITE BLOOD COUNT 2.2 K/mm3 (4.0-10.0)
[2022-04-13 11:15] LABS: BLOOD UREA NITROGEN 32.3 mg/dL (7-18); CALCIUM 9.2 mg/dL (8.5-10.1); MAGNESIUM 2.3 mg/dL (1.8-2.4)
[2022-04-13 11:16] LABS: ALBUMIN 3.3 g/dl (3.4-5.0)
[2022-04-13 11:19] LABS: BILIRUBIN,DIRECT 0.2 mg/dL (0.0-0.2); BILIRUBIN,TOTAL 0.4 mg/dL (0.2-1); CREATININE 2.5 mg/dL (0.55-1.3); TOT PROT 7.9 g/dl (6.4-8.2); URIC ACID 6.7 mg/dL (2.6-7.2)
[2022-04-13] MEDS ORDERED: INSULIN (NOVOLOG) ASPART 100 UNITS/ML 10ML VIAL SQ ONE (11:52)
[2022-04-13 12:05] LABS: ANISOCYTOSIS 2+; MACROCYTOSIS 2+
[2022-04-13 17:30] VITALS: RESP 18; TEMP 98
[2022-04-13 17:35] VITALS: BP 138/75; PULSE 77
[2022-04-13] MEDS ORDERED: PORTA CATH FLUSH 10 ML IVPUSH PRN (17:35)
== END 2022-04-13 15:00 | disposition home or self-care (01) ==
LOC: JONCCHEMO 07:19
PROVIDERS: ATTEND Internal Medicine Hematology & Oncology
DX: Z51.11 Encounter for antineoplastic chemotherapy (principal); C90.00 Multiple myeloma not having achieved remission
CPT/HCPCS: 36415; 80048; 80076; 83615; 83735; 84550; 85025; 96367; 96413; J9176

== ENCOUNTER 2022-04-20 07:43 | Day surgery (SDC) | payer OTHER ==
[2022-04-20] MEDS ORDERED: SODIUM CHLORIDE 250 ML IV ONE (09:00)
[2022-04-20] MEDS ORDERED: FAMOTIDINE 20 MG/50 ML IVPB 20 MG/50 ML MG IVPB ONE (09:30)
[2022-04-20] MEDS ORDERED: DEXAMETHASONE SODIUM PHOSPHATE 8 MG, DIPHENHYDRAMINE 25 MG in SODIUM CHLORIDE 100 ML IVPB ONE (09:30)
[2022-04-20] MEDS ORDERED: ACETAMINOPHEN 325 MG TABLET (FP) PO ONE (09:30)
[2022-04-20] MEDS ORDERED: SODIUM CHLORIDE IVPB ONE (10:00)
[2022-04-20] MEDS ORDERED: ELOTUZUMAB IVPB ONE (10:00)
[2022-04-20 10:13] LABS: BASO % 0.5 % (0-2.0); EOS % 0.1 % (0-4.5); HEMATOCRIT 35.6 % (35.4-49); HEMOGLOBIN 12.1 GM/dL (11.7-16.9); LYMPH % 15.1 % (8-40); MCH 36.7 pg (25.7-33.7); MCHC 33.9 g/dl (32.0-35.9); MEAN CELL VOLUME 108.5 fl (80-96); MONO % 2.1 % (3.8-10.2); NEUT % 82.2 % (42.8-82.8); PLATELET COUNT 139 10^3/uL (134-434); RBC 3.28 M/mm3 (4.00-5.60); RDW 16.6 % (11.9-15.9); WHITE BLOOD COUNT 3.3 K/mm3 (4.0-10.0)
[2022-04-20 10:38] VITALS: RESP 18; TEMP 97.7
[2022-04-20 10:39] LABS: ANISOCYTOSIS 1+; MACROCYTOSIS 1+
[2022-04-20 10:42] LABS: BLOOD UREA NITROGEN 33.9 mg/dL (7-18); CALCIUM 9.3 mg/dL (8.5-10.1)
[2022-04-20 10:43] LABS: ALBUMIN 3.4 g/dl (3.4-5.0); MAGNESIUM 2.4 mg/dL (1.8-2.4)
[2022-04-20 10:45] LABS: BILIRUBIN,DIRECT 0.1 mg/dL (0.0-0.2); CREATININE 2.5 mg/dL (0.55-1.3); URIC ACID 7.3 mg/dL (2.6-7.2)
[2022-04-20 10:47] LABS: BILIRUBIN,TOTAL 0.3 mg/dL (0.2-1); TOT PROT 8.4 g/dl (6.4-8.2)
[2022-04-20] MEDS ORDERED: ALTEPLASE (CATHFLO) 2 MG/2 ML VIAL NR ONE (11:00)
[2022-04-20 16:35] VITALS: BP 119/71; PULSE 72
[2022-04-20] MEDS ORDERED: PORTA CATH FLUSH 10 ML IVPUSH PRN (16:35)
== END 2022-04-20 16:10 | disposition home or self-care (01) ==
LOC: JONCCHEMO 07:43
PROVIDERS: ATTEND Internal Medicine Hematology & Oncology
DX: Z51.11 Encounter for antineoplastic chemotherapy (principal); C90.00 Multiple myeloma not having achieved remission
CPT/HCPCS: 36415; 80048; 80076; 83615; 83735; 84550; 85025; 96367; 96413; J2997; J9176

== ENCOUNTER 2022-04-27 08:12 | Day surgery (SDC) | payer OTHER ==
[2022-04-27] MEDS ORDERED: SODIUM CHLORIDE 250 ML IV ONE (09:00)
[2022-04-27 09:10] LABS: HEMATOCRIT 31.1 % (35.4-49); HEMOGLOBIN 10.7 GM/dL (11.7-16.9); MCH 37.3 pg (25.7-33.7); MCHC 34.4 g/dl (32.0-35.9); MEAN CELL VOLUME 108.4 fl (80-96); MEAN PLT VOLUME 7.6 fl (7.5-11.1); PLATELET COUNT 211 10^3/uL (134-434); RBC 2.87 M/mm3 (4.00-5.60); RDW 16.3 % (11.9-15.9); WHITE BLOOD COUNT 4.7 K/mm3 (4.0-10.0)
[2022-04-27] MEDS ORDERED: FAMOTIDINE 20 MG/50 ML IVPB 20 MG/50 ML MG IVPB ONE (09:30)
[2022-04-27] MEDS ORDERED: DEXAMETHASONE SODIUM PHOSPHATE 8 MG, DIPHENHYDRAMINE 25 MG in SODIUM CHLORIDE 100 ML IVPB ONE (09:30)
[2022-04-27] MEDS ORDERED: ACETAMINOPHEN 325 MG TABLET (FP) PO ONE (09:30)
[2022-04-27 09:32] LABS: CALCIUM 8.5 mg/dL (8.5-10.1); MAGNESIUM 1.9 mg/dL (1.8-2.4)
[2022-04-27 09:33] LABS: ALBUMIN 2.9 g/dl (3.4-5.0); BLOOD UREA NITROGEN 33.7 mg/dL (7-18)
[2022-04-27 09:35] LABS: CREATININE 2.3 mg/dL (0.55-1.3); URIC ACID 7.7 mg/dL (2.6-7.2)
[2022-04-27 09:36] LABS: BILIRUBIN,DIRECT 0.1 mg/dL (0.0-0.2)
[2022-04-27 09:37] LABS: TOT PROT 7.1 g/dl (6.4-8.2)
[2022-04-27 09:38] LABS: BILIRUBIN,TOTAL 0.3 mg/dL (0.2-1)
[2022-04-27 09:52] LABS: ANISOCYTOSIS 0; MACROCYTOSIS 1+
[2022-04-27] MEDS ORDERED: ELOTUZUMAB IVPB ONE (10:00)
[2022-04-27] MEDS ORDERED: SODIUM CHLORIDE IVPB ONE (10:00)
[2022-04-27] MEDS ORDERED: PORTA CATH FLUSH 10 ML IVPUSH PRN (14:19)
[2022-04-27 14:41] VITALS: RESP 18; TEMP 97.9
[2022-04-27 14:51] VITALS: BP 117/60; PULSE 70
[2022-04-28 18:07] LABS: FREE KAPPA,SERUM 1476.9 mg/L (3.3-19.4)
[2022-04-29 05:09] LABS: FREE KAP CHN UR 1080.67 mg/L (1.17-86.46); KAPPA LAMBDA RATIO URIN 89.53 (1.83-14.26)
[2022-04-29 07:08] LABS: BETA-2-MICROGLOBULIN 6.5 mg/L (0.6-2.4)
== END 2022-04-27 13:55 | disposition home or self-care (01) ==
LOC: JONCCHEMO 08:12
PROVIDERS: ATTEND Internal Medicine Hematology & Oncology
DX: Z51.11 Encounter for antineoplastic chemotherapy (principal); C90.00 Multiple myeloma not having achieved remission
CPT/HCPCS: 36415; 80048; 80076; 82232; 82784; 83615; 83735; 83883; 84155; 84165; 84550; 85025; 86335; 96367; 96417; J9176

== ENCOUNTER 2022-05-29 08:47 | Day surgery (SDC) | payer OTHER ==
[2022-05-29] MEDS ORDERED: SODIUM CHLORIDE 250 ML IV ONE (09:00)
[2022-05-29] MEDS ORDERED: FAMOTIDINE 20 MG/50 ML IVPB 20 MG/50 ML MG IVPB ONE (09:30)
[2022-05-29] MEDS ORDERED: ACETAMINOPHEN 325 MG TABLET (FP) PO ONE (09:30)
[2022-05-29] MEDS ORDERED: DEXAMETHASONE SODIUM PHOSPHATE 8 MG, DIPHENHYDRAMINE 25 MG in SODIUM CHLORIDE 100 ML IVPB ONE (09:30)
[2022-05-29] MEDS ORDERED: SODIUM CHLORIDE IVPB ONE (10:00)
[2022-05-29] MEDS ORDERED: ELOTUZUMAB IVPB ONE (10:00)
[2022-05-29 10:39] LABS: BASO % 0.9 % (0-2.0); EOS % 0.1 % (0-4.5); HEMATOCRIT 34.8 % (35.4-49); HEMOGLOBIN 11.3 GM/dL (11.7-16.9); LYMPH % 18.1 % (8-40); MCH 36.2 pg (25.7-33.7); MCHC 32.3 g/dl (32.0-35.9); MEAN CELL VOLUME 111.9 fl (80-96); MEAN PLT VOLUME 8.2 fl (7.5-11.1); MONO % 1.3 % (3.8-10.2); NEUT % 79.6 % (42.8-82.8); PLATELET COUNT 239 10^3/uL (134-434); RBC 3.11 M/mm3 (4.00-5.60); RDW 16.3 % (11.9-15.9); WHITE BLOOD COUNT 6.1 K/mm3 (4.0-10.0)
[2022-05-29 10:45] LABS: BLOOD UREA NITROGEN 29.5 mg/dL (7-18); CALCIUM 9.4 mg/dL (8.5-10.1); MAGNESIUM 2.3 mg/dL (1.8-2.4)
[2022-05-29 10:46] LABS: ALBUMIN 3.4 g/dl (3.4-5.0)
[2022-05-29 10:48] LABS: BILIRUBIN,DIRECT 0.2 mg/dL (0.0-0.2); CREATININE 2.5 mg/dL (0.55-1.3)
[2022-05-29 10:50] LABS: BILIRUBIN,TOTAL 0.5 mg/dL (0.2-1); TOT PROT 8.9 g/dl (6.4-8.2)
[2022-05-29 10:55] LABS: URIC ACID 7.9 mg/dL (2.6-7.2)
[2022-05-29 11:32] LABS: ANISOCYTOSIS 1+; MACROCYTOSIS 2+
[2022-05-29 17:27] VITALS: TEMP 97.5
[2022-05-29] MEDS ORDERED: PORTA CATH FLUSH 10 ML IVPUSH PRN (17:27)
[2022-05-30 08:42] VITALS: BP 122/69; PULSE 74; RESP 20
[2022-05-31 18:07] LABS: FREE KAPPA,SERUM 2734.3 mg/L (3.3-19.4)
[2022-06-01 05:06] LABS: FREE KAP CHN UR 4537.1 mg/L (1.17-86.46); KAPPA LAMBDA RATIO URIN 90.15 (1.83-14.26)
[2022-06-01 16:11] LABS: BETA-2-MICROGLOBULIN 6.4 mg/L (0.6-2.4)
== END 2022-05-29 14:00 | disposition home or self-care (01) ==
LOC: JONCCHEMO 08:47
PROVIDERS: ATTEND Internal Medicine Hematology & Oncology
DX: Z51.11 Encounter for antineoplastic chemotherapy (principal); C90.00 Multiple myeloma not having achieved remission
CPT/HCPCS: 36415; 80048; 80076; 82232; 82784; 83615; 83735; 83883; 84550; 85025; 86335; 96367; 96413; J9176

== ENCOUNTER 2022-06-29 07:56 | Day surgery (SDC) | payer OTHER ==
[2022-06-29] MEDS ORDERED: ELOTUZUMAB IVPB ONE (08:00)
[2022-06-29] MEDS ORDERED: SODIUM CHLORIDE IVPB ONE (08:00)
[2022-06-29 08:39] LABS: BASO % 0.7 % (0-2.0); EOS % 0.2 % (0-4.5); HEMATOCRIT 35.7 % (35.4-49); HEMOGLOBIN 11.9 GM/dL (11.7-16.9); LYMPH % 10.6 % (8-40); MCH 36.5 pg (25.7-33.7); MCHC 33.3 g/dl (32.0-35.9); MEAN CELL VOLUME 109.7 fl (80-96); MEAN PLT VOLUME 7.7 fl (7.5-11.1); MONO % 2.7 % (3.8-10.2); NEUT % 85.8 % (42.8-82.8); PLATELET COUNT 198 10^3/uL (134-434); RBC 3.26 M/mm3 (4.00-5.60); WHITE BLOOD COUNT 6.4 K/mm3 (4.0-10.0)
[2022-06-29] MEDS ORDERED: SODIUM CHLORIDE 250 ML IV ONE (08:45)
[2022-06-29 08:55] LABS: MAGNESIUM 2.4 mg/dL (1.8-2.4)
[2022-06-29 08:56] LABS: ALBUMIN 3.7 g/dl (3.4-5.0); CALCIUM 9.3 mg/dL (8.5-10.1)
[2022-06-29 08:57] LABS: BLOOD UREA NITROGEN 29.9 mg/dL (7-18)
[2022-06-29 08:59] LABS: BILIRUBIN,DIRECT 0.1 mg/dL (0.0-0.2); CREATININE 2.5 mg/dL (0.55-1.3)
[2022-06-29 09:00] LABS: TOT PROT 8.9 g/dl (6.4-8.2)
[2022-06-29 09:01] LABS: BILIRUBIN,TOTAL 0.3 mg/dL (0.2-1)
[2022-06-29 09:02] LABS: URIC ACID 7.6 mg/dL (2.6-7.2)
[2022-06-29] MEDS ORDERED: FAMOTIDINE 20 MG/50 ML IVPB 20 MG/50 ML MG IVPB ONE (10:00)
[2022-06-29] MEDS ORDERED: ACETAMINOPHEN 325 MG TABLET (FP) PO ONE (10:00)
[2022-06-29] MEDS ORDERED: DEXAMETHASONE SODIUM PHOSPHATE 8 MG, DIPHENHYDRAMINE 25 MG in SODIUM CHLORIDE 100 ML IVPB ONE (10:00)
[2022-06-29 10:29] LABS: ANISOCYTOSIS 1+; MACROCYTOSIS 2+
[2022-06-29 16:29] VITALS: TEMP 98
[2022-06-29 16:40] VITALS: BP 139/73; PULSE 84; RESP 18
[2022-06-29] MEDS ORDERED: PORTA CATH FLUSH 10 ML IVPUSH PRN (16:40)
[2022-07-01 04:07] LABS: FREE KAP CHN UR 2357.48 mg/L (1.17-86.46); KAPPA LAMBDA RATIO URIN 76.97 (1.83-14.26)
== END 2022-06-29 13:30 | disposition home or self-care (01) ==
LOC: JONCCHEMO 07:56
PROVIDERS: ATTEND Internal Medicine Hematology & Oncology
DX: Z51.11 Encounter for antineoplastic chemotherapy (principal); C90.00 Multiple myeloma not having achieved remission
CPT/HCPCS: 36415; 80048; 80076; 82232; 82784; 83615; 83735; 83883; 84550; 85025; 86335; 93970-TC; 96367; 96413; J9176

== ENCOUNTER 2022-07-27 07:28 | Day surgery (SDC) | payer OTHER ==
[2022-07-27] MEDS ORDERED: SODIUM CHLORIDE 250 ML IV ONE (09:00)
[2022-07-27] MEDS ORDERED: FAMOTIDINE 20 MG/50 ML IVPB 20 MG/50 ML MG IVPB ONE (09:30)
[2022-07-27] MEDS ORDERED: ACETAMINOPHEN 325 MG TABLET (FP) PO ONE (09:30)
[2022-07-27] MEDS ORDERED: DEXAMETHASONE SODIUM PHOSPHATE 8 MG, DIPHENHYDRAMINE 25 MG in SODIUM CHLORIDE 100 ML IVPB ONE (09:30)
[2022-07-27 09:54] LABS: BASO % 0.7 % (0-2.0); EOS % 0.2 % (0-4.5); HEMOGLOBIN 11.9 GM/dL (11.7-16.9); LYMPH % 12.8 % (8-40); MCH 35.3 pg (25.7-33.7); MCHC 32.3 g/dl (32.0-35.9); MEAN CELL VOLUME 109.3 fl (80-96); MEAN PLT VOLUME 8.2 fl (7.5-11.1); MONO % 1.4 % (3.8-10.2); NEUT % 84.9 % (42.8-82.8); PLATELET COUNT 187 10^3/uL (134-434); RBC 3.38 M/mm3 (4.00-5.60); WHITE BLOOD COUNT 4.7 K/mm3 (4.0-10.0)
[2022-07-27] MEDS ORDERED: SODIUM CHLORIDE IVPB ONE (10:00)
[2022-07-27] MEDS ORDERED: ELOTUZUMAB IVPB ONE (10:00)
[2022-07-27 10:18] LABS: BLOOD UREA NITROGEN 27.9 mg/dL (7-18); CALCIUM 9.6 mg/dL (8.5-10.1)
[2022-07-27 10:19] LABS: ALBUMIN 3.5 g/dl (3.4-5.0)
[2022-07-27 10:20] LABS: CREATININE 2.5 mg/dL (0.55-1.3)
[2022-07-27 10:21] LABS: BILIRUBIN,DIRECT 0.2 mg/dL (0.0-0.2); URIC ACID 8.1 mg/dL (2.6-7.2)
[2022-07-27 10:23] LABS: BILIRUBIN,TOTAL 0.4 mg/dL (0.2-1)
[2022-07-27 12:34] LABS: ANISOCYTOSIS 2+; MACROCYTOSIS 2+
[2022-07-27 14:45] VITALS: BP 132/69; PULSE 76; RESP 19; TEMP 98.2
[2022-07-27] MEDS ORDERED: PORTA CATH FLUSH 10 ML IVPUSH PRN (14:50)
[2022-07-31 16:08] LABS: FREE KAP CHN UR 4769.17 mg/L (1.17-86.46); KAPPA LAMBDA RATIO URIN 128.83 (1.83-14.26)
== END 2022-07-27 13:15 | disposition home or self-care (01) ==
LOC: JONCCHEMO 07:28
PROVIDERS: ATTEND Internal Medicine Hematology & Oncology
DX: Z51.11 Encounter for antineoplastic chemotherapy (principal); C90.00 Multiple myeloma not having achieved remission
CPT/HCPCS: 36415; 80048; 80076; 82232; 82784; 83540; 83550; 83615; 83735; 83883; 84155; 84165; 84550; 85025; 96367; 96413; J9176

== ENCOUNTER 2022-09-13 09:14 | Day surgery (SDC) | payer OTHER ==
[~2022-09-13 09:14] MED LIST changes: +ELOTUZUMAB IV ONE; -ELOTUZUMAB IVPB ONE; +SODIUM CHLORIDE IV ONE; -SODIUM CHLORIDE IVPB ONE
[2022-09-13] MEDS ORDERED: ACETAMINOPHEN 325 MG TABLET (FP) PO ONE (09:30)
[2022-09-13] MEDS ORDERED: DEXAMETHASONE SODIUM PHOSPHATE 8 MG, DIPHENHYDRAMINE 25 MG in SODIUM CHLORIDE 100 ML IVPB ONE (09:30)
[2022-09-13] MEDS ORDERED: FAMOTIDINE 20 MG/50 ML IVPB 20 MG/50 ML MG IVPB ONE (09:30)
[2022-09-13] MEDS ORDERED: ELOTUZUMAB IVPB ONE ×2 (10:00)
[2022-09-13] MEDS ORDERED: SODIUM CHLORIDE IVPB ONE ×2 (10:00)
[2022-09-13 10:11] LABS: BASO % 2.5 % (0-2.0); EOS % 2.7 % (0-4.5); HEMATOCRIT 30.8 % (35.4-49); HEMOGLOBIN 10.2 GM/dL (11.7-16.9); LYMPH % 17.8 % (8-40); MCH 34.6 pg (25.7-33.7); MCHC 33.1 g/dl (32.0-35.9); MEAN CELL VOLUME 104.5 fl (80-96); MEAN PLT VOLUME 8.1 fl (7.5-11.1); MONO % 5.9 % (3.8-10.2); NEUT % 71.1 % (42.8-82.8); PLATELET COUNT 135 10^3/uL (134-434); RBC 2.94 M/mm3 (4.00-5.60); RDW 15.4 % (11.9-15.9); WHITE BLOOD COUNT 5.2 K/mm3 (4.0-10.0)
[2022-09-13 10:35] LABS: ALBUMIN 3.3 g/dl (3.4-5.0); BLOOD UREA NITROGEN 64.4 mg/dL (7-18); CALCIUM 9.1 mg/dL (8.5-10.1); MAGNESIUM 2.4 mg/dL (1.8-2.4)
[2022-09-13 10:38] LABS: BILIRUBIN,DIRECT 0.1 mg/dL (0.0-0.2)
[2022-09-13 10:40] LABS: BILIRUBIN,TOTAL 0.4 mg/dL (0.2-1); TOT PROT 8.3 g/dl (6.4-8.2)
[2022-09-13 14:28] VITALS: BP 90/60; PULSE 129; RESP 20; TEMP 97.8
[2022-09-15 06:06] LABS: FREE KAP CHN UR 8726.75 mg/L (1.17-86.46); KAPPA LAMBDA RATIO URIN 135.91 (1.83-14.26)
[2022-09-15 07:07] LABS: BETA-2-MICROGLOBULIN 14.7 mg/L (0.6-2.4)
== END 2022-09-13 11:10 | disposition short-term general hospital (02) ==
LOC: JONCCHEMO 09:14
PROVIDERS: ATTEND Internal Medicine Hematology & Oncology
PROC: 3E033GC Introduction of Other Therapeutic Substance into Peripheral Vein, Percutaneous Approach (ICD-10-PCS; principal; 2022-09-13)
DX: Z53.8 Procedure and treatment not carried out for other reasons (principal)
CPT/HCPCS: 36415; 80048; 80076; 82232; 82784; 83615; 83735; 83883; 84155; 84165; 84439; 84443; 85025; 86334; 86335; 93005; 93010

== ENCOUNTER 2022-09-13 11:10 | Inpatient (IN) | payer OTHER ==
[2022-09-13 11:22] VITALS: BMI 28.5
[2022-09-13] MEDS ORDERED: METOPROLOL TARTRATE 5 MG/5 ML VIAL ONE (11:45)
[2022-09-13] MEDS ORDERED: SODIUM CHLORIDE 500 ML IV STA ×2 (11:45→12:50)
[2022-09-13] MEDS ORDERED: METOPROLOL TARTRATE 5 MG/5 ML VIAL IVPUSH ONE (11:45)
[2022-09-13] MEDS ORDERED: ONDANSETRON 8 MG TABLET (FP) PO PRN (15:07)
[2022-09-13] MEDS ORDERED: LOPERAMIDE HCL 2 MG CAPSULE PO PRN (15:07)
[2022-09-13] MEDS ORDERED: METOPROLOL TARTRATE 25 MG TABLET (FP) PO ONE (15:14)
[2022-09-13] MEDS ORDERED: LACTATED RINGERS SOLUTION 1,000 ML/1,000 ML INFUS.BAG IV SCH (15:15)
[2022-09-13] MEDS ORDERED: METOPROLOL TARTRATE 25 MG TABLET (FP) ONE (15:29)
[2022-09-13 16:00] LABS: BASO % 2.1 % (0-2.0); EOS % 3.8 % (0-4.5); HEMATOCRIT 27.1 % (35.4-49); HEMOGLOBIN 8.8 GM/dL (11.7-16.9); LYMPH % 20.8 % (8-40); MCH 34.2 pg (25.7-33.7); MCHC 32.5 g/dl (32.0-35.9); MEAN CELL VOLUME 105.2 fl (80-96); MEAN PLT VOLUME 8.1 fl (7.5-11.1); MONO % 8.7 % (3.8-10.2); NEUT % 64.6 % (42.8-82.8); PLATELET COUNT 100 10^3/uL (134-434); RBC 2.57 M/mm3 (4.00-5.60); RDW 15.1 % (11.9-15.9); WHITE BLOOD COUNT 4.7 K/mm3 (4.0-10.0)
[2022-09-13 16:28] LABS: ALBUMIN 3.1 g/dl (3.4-5.0); CALCIUM 8.5 mg/dL (8.5-10.1)
[2022-09-13 16:29] LABS: BLOOD UREA NITROGEN 58.6 mg/dL (7-18); MAGNESIUM 2.3 mg/dL (1.8-2.4)
[2022-09-13 16:31] LABS: PHOSPHOROUS 3.5 mg/dL (2.5-4.9)
[2022-09-13 16:32] LABS: CREATININE 4.6 mg/dL (0.55-1.3)
[2022-09-13 16:33] LABS: BILIRUBIN,TOTAL 0.3 mg/dL (0.2-1); TOT PROT 7.5 g/dl (6.4-8.2)
[2022-09-13 16:47] LABS: ANISOCYTOSIS 1+; MACROCYTOSIS 2+; OVALOCYTE 1+; TEAR DROP CELLS 1+
[2022-09-13 17:49] LABS: EPI CELLS 2 /uL (0-25.1); HYALINE CASTS 0 /uL (0-3.1); PH,URINE 5.5 (5.0-8.0); URINE APPEARANCE CLEAR; URINE BACTERIA 0 /uL (0-1359); URINE BILIRUBIN NEGATIVE (NEGATIVE); URINE COLOR YELLOW; URINE GLUCOSE (UA) NEGATIVE (NEGATIVE); URINE KETONE NEGATIVE (NEGATIVE); URINE LEUK ESTERASE NEGATIVE (NEGATIVE); URINE NITRITE NEGATIVE (NEGATIVE); URINE PROTEIN 1+ (NEGATIVE); URINE RBC 17 /uL (0-23.9); URINE UROBILINOGEN 0.2 mg/dL (0.2-1.0); URINE WBC 7 /uL (0-25.8)
[2022-09-13 20:26] LABS: EPI CELLS 2 /uL (0-25.1); HYALINE CASTS 0 /uL (0-3.1); URINE APPEARANCE CLEAR; URINE BACTERIA 1 /uL (0-1359); URINE BILIRUBIN NEGATIVE (NEGATIVE); URINE COLOR YELLOW; URINE GLUCOSE (UA) NEGATIVE (NEGATIVE); URINE KETONE NEGATIVE (NEGATIVE); URINE LEUK ESTERASE NEGATIVE (NEGATIVE); URINE NITRITE NEGATIVE (NEGATIVE); URINE PROTEIN 1+ (NEGATIVE); URINE RBC 2 /uL (0-23.9); URINE UROBILINOGEN 0.2 mg/dL (0.2-1.0); URINE WBC 2 /uL (0-25.8)
[2022-09-13] MEDS ORDERED: metoPROLOL SUCCINATE 25 MG TAB.SR.24H (FP) PO SCH (22:00)
[2022-09-13] MEDS ORDERED: APIXABAN 2.5 MG TABLET ONE (22:00)
[2022-09-13] MEDS ORDERED: metoPROLOL SUCCINATE 25 MG TAB.SR.24H (FP) PO ONE (22:00)
[2022-09-13] MEDS ORDERED: ATORVASTATIN CA 10 MG TABLET (FP) ONE (22:00)
[2022-09-13] MEDS: ATORVASTATIN CA 10 MG TABLET (FP) PO SCH (22:09)
[2022-09-13] MEDS: APIXABAN 2.5 MG TABLET PO SCH (22:09)
[2022-09-14 08:25] LABS: CALCIUM 8.6 mg/dL (8.5-10.1)
[2022-09-14 08:26] LABS: ALBUMIN 2.9 g/dl (3.4-5.0); BLOOD UREA NITROGEN 56.8 mg/dL (7-18)
[2022-09-14 08:29] LABS: CREATININE 4.3 mg/dL (0.55-1.3)
[2022-09-14 08:30] LABS: BILIRUBIN,TOTAL 0.4 mg/dL (0.2-1); TOT PROT 7.2 g/dl (6.4-8.2)
[2022-09-14] MEDS ORDERED: FERROUS SO4 325 MG TABLET (FP) ONE (10:21)
[2022-09-14] MEDS ORDERED: APIXABAN 2.5 MG TABLET ONE (10:21)
[2022-09-14] MEDS ORDERED: MAGNESIUM OXIDE 400 MG TABLET (FP) ONE (10:21)
[2022-09-14] MEDS: metoPROLOL SUCCINATE 25 MG TAB.SR.24H (FP) PO SCH ×2 (10:22→21:13)
[2022-09-14] MEDS: FERROUS SO4 325 MG TABLET (FP) PO SCH (10:22)
[2022-09-14] MEDS: MAGNESIUM OXIDE 400 MG TABLET (FP) PO SCH (10:22)
[2022-09-14] MEDS: APIXABAN 2.5 MG TABLET PO SCH ×2 (10:22→21:13)
[2022-09-14] MEDS: SODIUM CHLORIDE 0.45% 1,000 ML IV SCH (13:58)
[2022-09-14] MEDS ORDERED: dilTIAZem HCL 50 MG/10 ML - 10 ML VIAL IVPUSH ONE (15:41)
[2022-09-14] MEDS ORDERED: dilTIAZem HCL 50 MG/10 ML - 10 ML VIAL IVPUSH PRN (15:42)
[2022-09-14] MEDS ORDERED: dilTIAZem HCL 125 MG/25 ML - 25 ML VIAL ONE (16:03)
[2022-09-14] MEDS: ATORVASTATIN CA 10 MG TABLET (FP) PO SCH (21:12)
[2022-09-14] MEDS: AMIODARONE HCL 200 MG TABLET PO SCH (21:13)
[2022-09-15 08:48] LABS: CALCIUM 8.6 mg/dL (8.5-10.1); MAGNESIUM 2.1 mg/dL (1.8-2.4)
[2022-09-15 08:51] LABS: PHOSPHOROUS 3.5 mg/dL (2.5-4.9)
[2022-09-15 08:54] LABS: BILIRUBIN,TOTAL 0.5 mg/dL (0.2-1); TOT PROT 7.1 g/dl (6.4-8.2)
[2022-09-15] MEDS: metoPROLOL SUCCINATE 25 MG TAB.SR.24H (FP) PO SCH ×2 (09:39→21:10)
[2022-09-15] MEDS: MAGNESIUM OXIDE 400 MG TABLET (FP) PO SCH (09:40)
[2022-09-15] MEDS: APIXABAN 2.5 MG TABLET PO SCH ×2 (09:40→21:09)
[2022-09-15] MEDS: FERROUS SO4 325 MG TABLET (FP) PO SCH (09:40)
[2022-09-15] MEDS ORDERED: dilTIAZem HCL 25 MG/5 ML - 5 ML VIAL IVPUSH ONE (10:30)
[2022-09-15] MEDS: SODIUM CHLORIDE 0.45% 1,000 ML IV SCH (19:22)
[2022-09-15] MEDS: AMIODARONE HCL 200 MG TABLET PO SCH (21:09)
[2022-09-15] MEDS: ATORVASTATIN CA 10 MG TABLET (FP) PO SCH (21:09)
[2022-09-16] MEDS ORDERED: METOPROLOL TARTRATE 25 MG TABLET (FP) PO ONE (03:14)
[2022-09-16] MEDS ORDERED: AMIODARONE HCL 200 MG TABLET PO ONE (05:42)
[2022-09-16] MEDS: FERROUS SO4 325 MG TABLET (FP) PO SCH (09:36)
[2022-09-16] MEDS: MAGNESIUM OXIDE 400 MG TABLET (FP) PO SCH (09:36)
[2022-09-16] MEDS: APIXABAN 2.5 MG TABLET PO SCH ×2 (09:36→22:02)
[2022-09-16] MEDS: SODIUM CHLORIDE 0.45% 1,000 ML IV SCH (12:27)
[2022-09-16 13:14] LABS: BASO % 2.7 % (0-2.0); HEMATOCRIT 26.8 % (35.4-49); HEMOGLOBIN 9.1 GM/dL (11.7-16.9); LYMPH % 23.8 % (8-40); MCHC 33.8 g/dl (32.0-35.9); MEAN CELL VOLUME 103.4 fl (80-96); MEAN PLT VOLUME 8.1 fl (7.5-11.1); MONO % 10.8 % (3.8-10.2); NEUT % 56.7 % (42.8-82.8); PLATELET COUNT 115 10^3/uL (134-434); RBC 2.59 M/mm3 (4.00-5.60); RDW 15.4 % (11.9-15.9); WHITE BLOOD COUNT 4.2 K/mm3 (4.0-10.0)
[2022-09-16 13:54] LABS: CALCIUM 8.7 mg/dL (8.5-10.1)
[2022-09-16 13:55] LABS: ALBUMIN 3.1 g/dl (3.4-5.0); BLOOD UREA NITROGEN 45.3 mg/dL (7-18)
[2022-09-16 13:57] LABS: PHOSPHOROUS 3.2 mg/dL (2.5-4.9)
[2022-09-16 13:58] LABS: CREATININE 3.9 mg/dL (0.55-1.3)
[2022-09-16 13:59] LABS: BILIRUBIN,TOTAL 0.5 mg/dL (0.2-1)
[2022-09-16 14:00] LABS: TOT PROT 7.7 g/dl (6.4-8.2)
[2022-09-16] MEDS: ATORVASTATIN CA 10 MG TABLET (FP) PO SCH (22:01)
[2022-09-16] MEDS: AMIODARONE HCL 200 MG TABLET PO SCH (22:01)
[2022-09-17 08:24] LABS: BASO % 2.6 % (0-2.0); EOS % 6.6 % (0-4.5); HEMATOCRIT 24.8 % (35.4-49); HEMOGLOBIN 8.3 GM/dL (11.7-16.9); LYMPH % 20.2 % (8-40); MCH 34.6 pg (25.7-33.7); MCHC 33.3 g/dl (32.0-35.9); MEAN CELL VOLUME 103.9 fl (80-96); MEAN PLT VOLUME 7.9 fl (7.5-11.1); NEUT % 58.6 % (42.8-82.8); PLATELET COUNT 101 10^3/uL (134-434); RBC 2.39 M/mm3 (4.00-5.60); RDW 15.4 % (11.9-15.9); WHITE BLOOD COUNT 3.6 K/mm3 (4.0-10.0)
[2022-09-17 08:48] LABS: CALCIUM 8.8 mg/dL (8.5-10.1)
[2022-09-17 08:49] LABS: ALBUMIN 2.8 g/dl (3.4-5.0); BLOOD UREA NITROGEN 41.9 mg/dL (7-18); MAGNESIUM 2.1 mg/dL (1.8-2.4)
[2022-09-17 08:52] LABS: CREATININE 3.4 mg/dL (0.55-1.3); PHOSPHOROUS 3.3 mg/dL (2.5-4.9)
[2022-09-17 08:53] LABS: TOT PROT 7.1 g/dl (6.4-8.2)
[2022-09-17 08:54] LABS: BILIRUBIN,TOTAL 0.3 mg/dL (0.2-1)
[2022-09-17] MEDS: AMIODARONE HCL 200 MG TABLET PO SCH ×2 (09:37→21:40)
[2022-09-17] MEDS: APIXABAN 2.5 MG TABLET PO SCH ×2 (09:37→21:40)
[2022-09-17] MEDS: MAGNESIUM OXIDE 400 MG TABLET (FP) PO SCH (09:37)
[2022-09-17] MEDS: FERROUS SO4 325 MG TABLET (FP) PO SCH (09:37)
[2022-09-17] MEDS: SODIUM CHLORIDE 0.45% 1,000 ML IV SCH (12:28)
[2022-09-17] MEDS: ATORVASTATIN CA 10 MG TABLET (FP) PO SCH (21:40)
[2022-09-18 08:12] LABS: HEMATOCRIT 23.5 % (35.4-49); MCH 35.2 pg (25.7-33.7); MEAN CELL VOLUME 103.5 fl (80-96); MEAN PLT VOLUME 8.1 fl (7.5-11.1); PLATELET COUNT 107 10^3/uL (134-434); RBC 2.27 M/mm3 (4.00-5.60); RDW 15.3 % (11.9-15.9); WHITE BLOOD COUNT 3.5 K/mm3 (4.0-10.0)
[2022-09-18 08:34] LABS: BLOOD UREA NITROGEN 37.2 mg/dL (7-18); CALCIUM 8.2 mg/dL (8.5-10.1)
[2022-09-18 08:37] LABS: CREATININE 3.4 mg/dL (0.55-1.3); PHOSPHOROUS 3.3 mg/dL (2.5-4.9)
[2022-09-18] MEDS: APIXABAN 2.5 MG TABLET PO SCH ×2 (09:29→21:35)
[2022-09-18] MEDS: MAGNESIUM OXIDE 400 MG TABLET (FP) PO SCH (09:29)
[2022-09-18] MEDS: FERROUS SO4 325 MG TABLET (FP) PO SCH (09:30)
[2022-09-18] MEDS: AMIODARONE HCL 200 MG TABLET PO SCH ×2 (09:32→21:36)
[2022-09-18] MEDS ORDERED: LIDOCAINE VISCOUS 2% ORAL/TOP 15 ML UNIT-DOSE CUP ONE (11:32)
[2022-09-18] MEDS ORDERED: TETRACAINE/BENZOCAINE/BUTAMBEN 20 GM SPR TP ONE (11:38)
[2022-09-18] MEDS ORDERED: LIDOCAINE VISCOUS 2% ORAL/TOP 15 ML UNIT-DOSE CUP MM ONE (11:58)
[2022-09-18] MEDS ORDERED: BENZOCAINE/MENTH/CETYLPYRD CL 1 EACH LOZENGE MM PRN (20:31)
[2022-09-18] MEDS: ATORVASTATIN CA 10 MG TABLET (FP) PO SCH (21:36)
[2022-09-18] MEDS ORDERED: ACETAMINOPHEN 325 MG TABLET (FP) PO PRN (21:44)
[2022-09-19] MEDS: FERROUS SO4 325 MG TABLET (FP) PO SCH (09:40)
[2022-09-19] MEDS: APIXABAN 2.5 MG TABLET PO SCH (09:40)
[2022-09-19] MEDS: AMIODARONE HCL 200 MG TABLET PO SCH (09:40)
[2022-09-19] MEDS: MAGNESIUM OXIDE 400 MG TABLET (FP) PO SCH (09:42)
[2022-09-19] MEDS ORDERED: SIMETHICONE 40 MG/0.6 ML BOTTLE PO ONE (11:56)
[2022-09-19 12:14] VITALS: BP 136/64; PULSE 74; RESP 19; TEMP 98.5
== END 2022-09-19 14:31 | disposition home or self-care (01) | DRG 308 ==
LOC: JER 11:10 → JERBED 15:16 → J4S 09-14 20:56
PROVIDERS: ADMIT Internal Medicine; ATTEND Internal Medicine
PROC: 5A2204Z Restoration of Cardiac Rhythm, Single (ICD-10-PCS; 2022-09-18)
PROC: B246ZZ4 Ultrasonography of Right and Left Heart, Transesophageal (ICD-10-PCS; principal; 2022-09-18 11:15)
DX: I48.92 Unspecified atrial flutter (principal); U07.1 COVID-19; C90.00 Multiple myeloma not having achieved remission; N17.9 Acute kidney failure, unspecified; I12.0 Hypertensive chronic kidney disease with stage 5 chronic kidney disease or end stage renal disease; N18.30 Chronic kidney disease, stage 3 unspecified; I48.91 Unspecified atrial fibrillation; E78.5 Hyperlipidemia, unspecified; D63.1 Anemia in chronic kidney disease; R19.7 Diarrhea, unspecified
CPT/HCPCS: 36415; 71045-TC-FY; 76775-TC; 76856-TC; 80048; 80053; 81003; 82570; 82607; 82728; 82746; 83540; 83550; 83735; 84100; 84133; 84300; 84484; 84540; 85025; 85027; 93005; 93010; 93312; 93325; 99285-25; C9803-CS; U0003; U0005

== ENCOUNTER 2022-09-27 22:40 | Inpatient (IN) | payer OTHER ==
[2022-09-28 00:30] LABS: BASO % 0.9 % (0-2.0); EOS % 3.5 % (0-4.5); HEMATOCRIT 22.9 % (35.4-49); HEMOGLOBIN 7.7 GM/dL (11.7-16.9); LYMPH % 11.6 % (8-40); MCH 34.4 pg (25.7-33.7); MCHC 33.4 g/dl (32.0-35.9); MEAN CELL VOLUME 103.1 fl (80-96); MEAN PLT VOLUME 7.5 fl (7.5-11.1); MONO % 9.2 % (3.8-10.2); NEUT % 74.8 % (42.8-82.8); PLATELET COUNT 193 10^3/uL (134-434); RBC 2.23 M/mm3 (4.00-5.60); RDW 17.2 % (11.9-15.9)
[2022-09-28 00:39] LABS: INR 1.51 (0.83-1.09); PROTHROMBIN TIME (PATIENT) 17.5 SEC (9.7-13.0)
[2022-09-28 00:41] LABS: ACTIVATED PTT 43.6 SECONDS (25.2-36.5)
[2022-09-28 00:48] LABS: CHLORIDE 105 mmol/L (98-107); SODIUM 134 mmol/L (136-145)
[2022-09-28 00:51] LABS: ANION GAP 16 MMOL/L (8-16); CALCIUM 8.4 mg/dL (8.5-10.1); CO2 13 mmol/L (21-32); GLUCOSE,RANDOM 94 mg/dL (74-106); MAGNESIUM 2.2 mg/dL (1.8-2.4)
[2022-09-28 00:53] LABS: SGOT/AST 11 U/L (15-37); SGPT/ALT 19 U/L (13-61)
[2022-09-28 00:56] LABS: ALK PHOS 108 U/L (45-117); BILIRUBIN,TOTAL 0.4 mg/dL (0.2-1)
[2022-09-28 01:20] LABS: EPI CELLS 7 /uL (0-25.1); HYALINE CASTS 1 /uL (0-3.1); URINE APPEARANCE CLEAR; URINE BACTERIA 0 /uL (0-1359); URINE BILIRUBIN NEGATIVE (NEGATIVE); URINE COLOR ORANGE; URINE GLUCOSE (UA) NEGATIVE (NEGATIVE); URINE KETONE NEGATIVE (NEGATIVE); URINE LEUK ESTERASE 1+ (NEGATIVE); URINE NITRITE NEGATIVE (NEGATIVE); URINE PROTEIN 3+ (NEGATIVE); URINE RBC 1613 /uL (0-23.9); URINE UROBILINOGEN 0.2 mg/dL (0.2-1.0); URINE WBC 40 /uL (0-25.8)
[2022-09-28 01:42] LABS: BLOOD UREA NITROGEN 87.6 mg/dL (7-18); CREATININE 12.5 mg/dL (0.55-1.3)
[2022-09-28] MEDS ORDERED: SODIUM CHLORIDE 0.9% 1000 ML INFUS.BAG IV ONE (01:49)
[2022-09-28] MEDS ORDERED: SODIUM CHLORIDE 1,000 ML IV SCH (03:15)
[2022-09-28] MEDS ORDERED: TAMSULOSIN HCL 0.4 MG CAP PO ONE (04:02)
[2022-09-28] MEDS ORDERED: HEPARIN NA (PORCINE) 5,000 UNITS/ML 1ML VIAL SQ SCH (06:00)
[2022-09-28] MEDS: AMIODARONE HCL 200 MG TABLET PO SCH (07:40)
[2022-09-28] MEDS ORDERED: AMIODARONE HCL 200 MG TABLET ONE (07:47)
[2022-09-28 07:53] LABS: CHLORIDE 110 mmol/L (98-107); SODIUM 137 mmol/L (136-145)
[2022-09-28 07:57] LABS: ALBUMIN 2.6 g/dl (3.4-5.0); ANION GAP 12 MMOL/L (8-16); BLOOD UREA NITROGEN 85.2 mg/dL (7-18); CALCIUM 8.3 mg/dL (8.5-10.1); CO2 16 mmol/L (21-32); GLUCOSE,RANDOM 84 mg/dL (74-106); MAGNESIUM 2.2 mg/dL (1.8-2.4)
[2022-09-28 07:59] LABS: PHOSPHOROUS 6.2 mg/dL (2.5-4.9); SGOT/AST 7 U/L (15-37); SGPT/ALT 16 U/L (13-61)
[2022-09-28 08:01] LABS: BILIRUBIN,TOTAL 0.4 mg/dL (0.2-1); TOT PROT 7.1 g/dl (6.4-8.2)
[2022-09-28 08:02] LABS: ALK PHOS 96 U/L (45-117)
[2022-09-28 08:09] LABS: EOS % 5.9 % (0-4.5); HEMATOCRIT 22.3 % (35.4-49); HEMOGLOBIN 7.6 GM/dL (11.7-16.9); LYMPH % 14.8 % (8-40); MCHC 33.9 g/dl (32.0-35.9); MEAN PLT VOLUME 7.7 fl (7.5-11.1); NEUT % 69.3 % (42.8-82.8); PLATELET COUNT 167 10^3/uL (134-434); RBC 2.17 M/mm3 (4.00-5.60); RDW 16.4 % (11.9-15.9); WHITE BLOOD COUNT 4.7 K/mm3 (4.0-10.0)
[2022-09-28 08:34] LABS: CREATININE 11.9 mg/dL (0.55-1.3)
[2022-09-28] MEDS ORDERED: amLODIPine BESYLATE 5 MG TABLET (FP) ONE (09:17)
[2022-09-28] MEDS ORDERED: MAGNESIUM OXIDE 400 MG TABLET (FP) ONE (09:17)
[2022-09-28] MEDS ORDERED: PANTOPRAZOLE 40 MG TABLET PO ONE (09:17)
[2022-09-28] MEDS ORDERED: FERROUS SO4 325 MG TABLET (FP) ONE (09:17)
[2022-09-28] MEDS ORDERED: ASPIRIN 81 MG CHEWABLE TABLETS ONE (09:17)
[2022-09-28] MEDS: amLODIPine BESYLATE 5 MG TABLET (FP) PO SCH (09:32)
[2022-09-28] MEDS: MAGNESIUM OXIDE 400 MG TABLET (FP) PO SCH (09:32)
[2022-09-28] MEDS: ASPIRIN 81 MG CHEWABLE TABLETS PO SCH (09:32)
[2022-09-28] MEDS: PANTOPRAZOLE 20 MG TABLET PO SCH (09:33)
[2022-09-28] MEDS ORDERED: FERROUS SO4 325 MG TABLET (FP) PO SCH (10:00)
[2022-09-28] MEDS ORDERED: APIXABAN 2.5 MG TABLET PO SCH (10:00)
[2022-09-28 16:26] VITALS: BMI 29.1
[2022-09-28] MEDS ORDERED: TAMSULOSIN HCL 0.4 MG CAP ONE (17:43)
[2022-09-28] MEDS: TAMSULOSIN HCL 0.4 MG CAP PO SCH (17:45)
[2022-09-28] MEDS: SODIUM CHLORIDE 0.45% 1,000 ML IV SCH (20:15)
[2022-09-28] MEDS ORDERED: ATORVASTATIN CA 10 MG TABLET (FP) ONE (22:18)
[2022-09-28] MEDS: ATORVASTATIN CA 10 MG TABLET (FP) PO SCH (22:41)
[2022-09-29] MEDS: FINASTERIDE 5 MG TABLET (FP) PO SCH ×2 (01:22→10:11)
[2022-09-29] MEDS: AMIODARONE HCL 200 MG TABLET PO SCH (06:49)
[2022-09-29] MEDS ORDERED: TAMSULOSIN HCL 0.4 MG CAP PO SCH (08:30)
[2022-09-29 08:59] LABS: BASO % 0.7 % (0-2.0); EOS % 2.9 % (0-4.5); HEMATOCRIT 22.6 % (35.4-49); HEMOGLOBIN 7.7 GM/dL (11.7-16.9); LYMPH % 5.3 % (8-40); MCH 34.8 pg (25.7-33.7); MEAN CELL VOLUME 102.4 fl (80-96); MEAN PLT VOLUME 7.3 fl (7.5-11.1); MONO % 5.3 % (3.8-10.2); NEUT % 85.8 % (42.8-82.8); PLATELET COUNT 161 10^3/uL (134-434); RBC 2.21 M/mm3 (4.00-5.60); RDW 16.5 % (11.9-15.9); WHITE BLOOD COUNT 6.5 K/mm3 (4.0-10.0)
[2022-09-29 09:16] LABS: CHLORIDE 112 mmol/L (98-107); SODIUM 137 mmol/L (136-145)
[2022-09-29 09:22] LABS: CALCIUM 8.2 mg/dL (8.5-10.1)
[2022-09-29 09:24] LABS: ALBUMIN 2.6 g/dl (3.4-5.0); ANION GAP 7 MMOL/L (8-16); BLOOD UREA NITROGEN 71.5 mg/dL (7-18); CO2 18 mmol/L (21-32); GLUCOSE,RANDOM 97 mg/dL (74-106)
[2022-09-29 09:27] LABS: PHOSPHOROUS 4.9 mg/dL (2.5-4.9); SGOT/AST 11 U/L (15-37); SGPT/ALT 16 U/L (13-61); TOT PROT 7.2 g/dl (6.4-8.2)
[2022-09-29 09:28] LABS: BILIRUBIN,TOTAL 0.4 mg/dL (0.2-1)
[2022-09-29 09:30] LABS: ALK PHOS 99 U/L (45-117)
[2022-09-29 09:31] LABS: CREATININE 8.8 mg/dL (0.55-1.3)
[2022-09-29] MEDS: amLODIPine BESYLATE 5 MG TABLET (FP) PO SCH (10:11)
[2022-09-29] MEDS: PANTOPRAZOLE 20 MG TABLET PO SCH (10:11)
[2022-09-29] MEDS: ASPIRIN 81 MG CHEWABLE TABLETS PO SCH (10:11)
[2022-09-29] MEDS: MAGNESIUM OXIDE 400 MG TABLET (FP) PO SCH (10:12)
[2022-09-29] MEDS: TAMSULOSIN HCL 0.4 MG CAP PO SCH ×2 (10:19→17:20)
[2022-09-29] MEDS: POMALIDOMIDE 4 MG PO SCH (20:48)
[2022-09-29] MEDS: SODIUM CHLORIDE 0.45% 1,000 ML IV SCH (22:47)
[2022-09-29] MEDS: ATORVASTATIN CA 10 MG TABLET (FP) PO SCH (22:47)
[2022-09-30] MEDS: SODIUM CHLORIDE 0.45% 1,000 ML IV SCH ×2 (08:00→17:22)
[2022-09-30] MEDS: AMIODARONE HCL 200 MG TABLET PO SCH (08:02)
[2022-09-30 08:46] LABS: BASO % 1.5 % (0-2.0); HEMATOCRIT 22.2 % (35.4-49); HEMOGLOBIN 7.7 GM/dL (11.7-16.9); LYMPH % 15.4 % (8-40); MCH 35.2 pg (25.7-33.7); MCHC 34.7 g/dl (32.0-35.9); MEAN CELL VOLUME 101.4 fl (80-96); MEAN PLT VOLUME 7.7 fl (7.5-11.1); MONO % 8.2 % (3.8-10.2); NEUT % 68.9 % (42.8-82.8); PLATELET COUNT 170 10^3/uL (134-434); RBC 2.19 M/mm3 (4.00-5.60); RDW 16.2 % (11.9-15.9); WHITE BLOOD COUNT 4.7 K/mm3 (4.0-10.0)
[2022-09-30] MEDS: TAMSULOSIN HCL 0.4 MG CAP PO SCH ×2 (08:52→17:21)
[2022-09-30 09:06] LABS: CALCIUM 8.1 mg/dL (8.5-10.1)
[2022-09-30 09:07] LABS: BLOOD UREA NITROGEN 61.8 mg/dL (7-18); MAGNESIUM 1.7 mg/dL (1.8-2.4)
[2022-09-30 09:10] LABS: CREATININE 6.8 mg/dL (0.55-1.3); PHOSPHOROUS 4.1 mg/dL (2.5-4.9)
[2022-09-30] MEDS: ASPIRIN 81 MG CHEWABLE TABLETS PO SCH (09:44)
[2022-09-30] MEDS: MAGNESIUM OXIDE 400 MG TABLET (FP) PO SCH (09:45)
[2022-09-30] MEDS: FINASTERIDE 5 MG TABLET (FP) PO SCH (09:45)
[2022-09-30] MEDS: PANTOPRAZOLE 20 MG TABLET PO SCH (09:45)
[2022-09-30] MEDS: amLODIPine BESYLATE 5 MG TABLET (FP) PO SCH (09:45)
[2022-09-30 11:30] VITALS: RESP 20
[2022-09-30] MEDS ORDERED: MAGNESIUM 1GM/D5W 100ML - 100 ML IVPB IVPB ONE ×2 (15:37→16:00)
[2022-09-30] MEDS: ATORVASTATIN CA 10 MG TABLET (FP) PO SCH (21:24)
[2022-10-01] MEDS: SODIUM CHLORIDE 0.45% 1,000 ML IV SCH ×3 (00:05→15:11)
[2022-10-01] MEDS: AMIODARONE HCL 200 MG TABLET PO SCH (06:41)
[2022-10-01] MEDS: PANTOPRAZOLE 20 MG TABLET PO SCH (09:38)
[2022-10-01] MEDS: ASPIRIN 81 MG CHEWABLE TABLETS PO SCH (09:38)
[2022-10-01] MEDS: MAGNESIUM OXIDE 400 MG TABLET (FP) PO SCH (09:39)
[2022-10-01] MEDS: TAMSULOSIN HCL 0.4 MG CAP PO SCH ×2 (09:39→17:11)
[2022-10-01] MEDS: FINASTERIDE 5 MG TABLET (FP) PO SCH (09:39)
[2022-10-01] MEDS: amLODIPine BESYLATE 5 MG TABLET (FP) PO SCH (10:11)
[2022-10-01] MEDS ORDERED: MAGNESIUM SULF 50% (8.12 MEQ/2 ML-1 GM VIAL) IVPB ONE (11:32)
[2022-10-01 13:00] LABS: CALCIUM 8.3 mg/dL (8.5-10.1)
[2022-10-01 13:01] LABS: BLOOD UREA NITROGEN 49.3 mg/dL (7-18)
[2022-10-01 13:04] LABS: CREATININE 5.3 mg/dL (0.55-1.3)
[2022-10-01] MEDS: ATORVASTATIN CA 10 MG TABLET (FP) PO SCH (22:22)
[2022-10-02] MEDS: SODIUM CHLORIDE 0.45% 1,000 ML IV SCH (01:57)
[2022-10-02] MEDS: AMIODARONE HCL 200 MG TABLET PO SCH (06:28)
[2022-10-02 07:59] LABS: HEMOGLOBIN 7.3 GM/dL (11.7-16.9); MCH 34.1 pg (25.7-33.7); MCHC 33.2 g/dl (32.0-35.9); MEAN PLT VOLUME 8.1 fl (7.5-11.1); PLATELET COUNT 181 10^3/uL (134-434); RBC 2.14 M/mm3 (4.00-5.60); RDW 16.4 % (11.9-15.9); WHITE BLOOD COUNT 4.5 K/mm3 (4.0-10.0)
[2022-10-02] MEDS: TAMSULOSIN HCL 0.4 MG CAP PO SCH (08:30)
[2022-10-02 08:34] LABS: CALCIUM 8.4 mg/dL (8.5-10.1)
[2022-10-02 08:35] LABS: BLOOD UREA NITROGEN 43.8 mg/dL (7-18)
[2022-10-02 08:38] LABS: CREATININE 4.6 mg/dL (0.55-1.3)
[2022-10-02] MEDS: PANTOPRAZOLE 20 MG TABLET PO SCH (09:47)
[2022-10-02] MEDS: MAGNESIUM OXIDE 400 MG TABLET (FP) PO SCH (09:47)
[2022-10-02] MEDS: FINASTERIDE 5 MG TABLET (FP) PO SCH (09:48)
[2022-10-02] MEDS: ASPIRIN 81 MG CHEWABLE TABLETS PO SCH (09:48)
[2022-10-02] MEDS: amLODIPine BESYLATE 5 MG TABLET (FP) PO SCH (09:48)
[2022-10-02 15:39] VITALS: BP 120/65; PULSE 74; TEMP 97.3
== END 2022-10-02 15:58 | disposition home or self-care (01) | DRG 725 ==
LOC: JER 22:40 → JERBED 09-28 02:34 → J5S 09-29 01:14 → J8W 09-29 20:35
PROVIDERS: ADMIT Internal Medicine; ATTEND Internal Medicine
DX: N40.1 Benign prostatic hyperplasia with lower urinary tract symptoms (principal); U07.1 COVID-19; N13.8 Other obstructive and reflux uropathy; N17.9 Acute kidney failure, unspecified; C90.00 Multiple myeloma not having achieved remission; N13.30 Unspecified hydronephrosis; E87.20 Acidosis, unspecified; N32.0 Bladder-neck obstruction; N18.30 Chronic kidney disease, stage 3 unspecified; E78.5 Hyperlipidemia, unspecified; I48.0 Paroxysmal atrial fibrillation; N32.89 Other specified disorders of bladder; I10 Essential (primary) hypertension; D69.6 Thrombocytopenia, unspecified; I12.9 Hypertensive chronic kidney disease with stage 1 through stage 4 chronic kidney disease, or unspecified chronic kidney disease; E88.2 Lipomatosis, not elsewhere classified; R31.9 Hematuria, unspecified; E66.9 Obesity, unspecified; Z68.29 Body mass index [BMI] 29.0-29.9, adult
CPT/HCPCS: 36415; 74176-TC; 76775-TC; 80048; 80053; 81003; 82436; 82550; 82570; 83735; 84100; 84133; 84153; 84300; 85025; 85027; 85610; 85730; 86850; 86900; 86901; 87086; 93005; 93010; 99291; C9803-CS; U0003; U0005

== ENCOUNTER 2022-10-20 20:45 | Inpatient (IN) | payer OTHER ==
[2022-10-20] MEDS ORDERED: ACETAMINOPHEN 1000 MG/100 ML BAG IVPB ONE (20:59)
[2022-10-20] MEDS ORDERED: ACETAMINOPHEN INJECTION 100 ML IVPB ONE (21:23)
[2022-10-20] MEDS ORDERED: ONDANSETRON 4 MG/2 ML VIAL IVPB ONE (21:26)
[2022-10-20] MEDS ORDERED: ONDANSETRON 4 MG/2 ML VIAL ONE (21:51)
[2022-10-20 21:56] LABS: BASO % 0.2 % (0-2.0); EOS % 0.2 % (0-4.5); HEMATOCRIT 21.7 % (35.4-49); HEMOGLOBIN 7.4 GM/dL (11.7-16.9); LYMPH % 4.8 % (8-40); MCH 35.4 pg (25.7-33.7); MCHC 34.1 g/dl (32.0-35.9); MEAN CELL VOLUME 103.6 fl (80-96); MEAN PLT VOLUME 7.8 fl (7.5-11.1); MONO % 11.7 % (3.8-10.2); NEUT % 83.1 % (42.8-82.8); PLATELET COUNT 113 10^3/uL (134-434); RDW 16.6 % (11.9-15.9); WHITE BLOOD COUNT 4.5 K/mm3 (4.0-10.0)
[2022-10-20 22:03] LABS: INR 1.58 (0.83-1.09); PROTHROMBIN TIME (PATIENT) 18.2 SEC (9.7-13.0)
[2022-10-20 22:06] LABS: ACTIVATED PTT 34.2 SECONDS (25.2-36.5)
[2022-10-20 22:16] LABS: CALCIUM 8.2 mg/dL (8.5-10.1)
[2022-10-20 22:17] LABS: ALBUMIN 2.6 g/dl (3.4-5.0); MAGNESIUM 1.9 mg/dL (1.8-2.4)
[2022-10-20 22:20] LABS: CREATININE 5.2 mg/dL (0.55-1.3)
[2022-10-20 22:21] LABS: BILIRUBIN,TOTAL 0.5 mg/dL (0.2-1); TOT PROT 7.2 g/dl (6.4-8.2)
[2022-10-21] MEDS ORDERED: SODIUM CHLORIDE 0.9% 500 ML INFUS.BAG IV ONE (01:19)
[2022-10-21 01:29] LABS: EPI CELLS 35 /uL (0-25.1); HYALINE CASTS 62 /uL (0-3.1); PH,URINE 8.5 (5.0-8.0); URINE APPEARANCE TURBID; URINE BACTERIA 2674 /uL (0-1359); URINE BILIRUBIN NEGATIVE (NEGATIVE); URINE COLOR RED; URINE GLUCOSE (UA) NEGATIVE (NEGATIVE); URINE KETONE NEGATIVE (NEGATIVE); URINE LEUK ESTERASE 3+ (NEGATIVE); URINE NITRITE POSITIVE (NEGATIVE); URINE PROTEIN 3+ (NEGATIVE); URINE UROBILINOGEN 0.2 mg/dL (0.2-1.0); URINE WBC 24821 /uL (0-25.8)
[2022-10-21 03:07] LABS: BLOOD UREA NITROGEN 66.1 mg/dL (7-18); CALCIUM 8.2 mg/dL (8.5-10.1)
[2022-10-21 03:11] LABS: CREATININE 5.5 mg/dL (0.55-1.3)
[2022-10-21 03:15] LABS: URINE RBC 745 /uL (0-23.9)
[2022-10-21 03:16] LABS: YEAST NONE SEEN (NEGATIVE)
[2022-10-21] MEDS ORDERED: ACETAMINOPHEN 1000 MG/100 ML BAG IVPB ONE (03:28)
[2022-10-21] MEDS ORDERED: ACETAMINOPHEN INJECTION 100 ML IVPB ONE (03:30)
[2022-10-21] MEDS: SODIUM CHLORIDE 1,000 ML IV SCH (03:40)
[2022-10-21 04:05] LABS: EPI CELLS 35 /uL (0-25.1); HYALINE CASTS 16 /uL (0-3.1); PH,URINE 7.5 (5.0-8.0); URINE APPEARANCE TURBID; URINE BACTERIA 3408 /uL (0-1359); URINE BILIRUBIN NEGATIVE (NEGATIVE); URINE COLOR ORANGE; URINE GLUCOSE (UA) NEGATIVE (NEGATIVE); URINE KETONE NEGATIVE (NEGATIVE); URINE LEUK ESTERASE 3+ (NEGATIVE); URINE NITRITE NEGATIVE (NEGATIVE); URINE PROTEIN 3+ (NEGATIVE); URINE UROBILINOGEN 0.2 mg/dL (0.2-1.0); URINE WBC 7867 /uL (0-25.8)
[2022-10-21 04:18] LABS: VENOUS BASE EXCESS -6.3 mmol/L (-2-2); VENOUS O2 SATURATION 60.8 % (70-80); VENOUS PCO2 29.5 mmHg (38-52); VENOUS PH 7.397 (7.310-7.410)
[2022-10-21 04:46] LABS: URINE RBC 210.7 /uL (0-23.9)
[2022-10-21 05:05] LABS: YEAST NONE SEEN (NEGATIVE)
[2022-10-21] MEDS: AMIODARONE HCL 200 MG TABLET PO SCH (06:51)
[2022-10-21 07:41] LABS: ARTERIAL BLD GAS O2 SATURATION 97.1 % (95-98); ARTERIAL BLOOD GAS BASE EXCESS -6.7 mmol/L (-2-2); ARTERIAL BLOOD GAS pH 7.405 (7.350-7.450)
[2022-10-21 07:43] LABS: ALLENS TEST POSITIVE
[2022-10-21] MEDS: TAMSULOSIN HCL 0.4 MG CAP PO SCH ×2 (09:08→17:47)
[2022-10-21] MEDS: FINASTERIDE 5 MG TABLET (FP) PO SCH (09:08)
[2022-10-21] MEDS: CEFTRIAXONE 1 GM in DEXTROSE 5%-WATER - 50 ML IVPB SCH (09:09)
[2022-10-21] MEDS: SODIUM ZIRCONIUM CYCLOSILICATE (LOKELMA) 5 GM PACKET PO SCH (09:09)
[2022-10-21] MEDS: APIXABAN 2.5 MG TABLET PO SCH ×2 (09:09→23:33)
[2022-10-21] MEDS: FERROUS SO4 325 MG TABLET (FP) PO SCH (09:09)
[2022-10-21 09:16] LABS: BASO % 0.3 % (0-2.0); EOS % 1.3 % (0-4.5); HEMATOCRIT 20.2 % (35.4-49); LYMPH % 7.8 % (8-40); MCHC 33.5 g/dl (32.0-35.9); MEAN CELL VOLUME 104.3 fl (80-96); MEAN PLT VOLUME 8.4 fl (7.5-11.1); MONO % 9.4 % (3.8-10.2); NEUT % 81.2 % (42.8-82.8); PLATELET COUNT 101 10^3/uL (134-434); RBC 1.93 M/mm3 (4.00-5.60); RDW 16.6 % (11.9-15.9); WHITE BLOOD COUNT 4.4 K/mm3 (4.0-10.0)
[2022-10-21 09:32] LABS: HEMOGLOBIN 6.8 GM/dL (11.7-16.9)
[2022-10-21 09:57] LABS: CHOLESTEROL 99 mg/dL (50-200)
[2022-10-21 09:58] LABS: TRIGLYCERIDES 113 mg/dL (0-150)
[2022-10-21 09:59] LABS: LDL CHOLESTEROL (ONLY SJRH) 46 mg/dL (5-100)
[2022-10-21] MEDS ORDERED: POMALIDOMIDE 4 MG PO SCH (10:00)
[2022-10-21 10:04] LABS: CALCIUM 8.1 mg/dL (8.5-10.1); HDL CHOLESTEROL 22 mg/dL (40-60)
[2022-10-21 10:05] LABS: ALBUMIN 2.4 g/dl (3.4-5.0)
[2022-10-21 10:06] LABS: TOT PROT 6.7 g/dl (6.4-8.2)
[2022-10-21 10:08] LABS: CREATININE 5.5 mg/dL (0.55-1.3); PHOSPHOROUS 4.2 mg/dL (2.5-4.9)
[2022-10-21 10:10] LABS: BILIRUBIN,TOTAL 0.4 mg/dL (0.2-1)
[2022-10-21] MEDS ORDERED: ACETAMINOPHEN 325 MG TABLET (FP) PO PRN (15:36)
[2022-10-21 16:06] LABS: BASO % 0.3 % (0-2.0); EOS % 0.5 % (0-4.5); MCH 33.7 pg (25.7-33.7); MCHC 33.1 g/dl (32.0-35.9); MONO % 10.4 % (3.8-10.2); NEUT % 84.8 % (42.8-82.8); PLATELET COUNT 91 10^3/uL (134-434); RBC 1.96 M/mm3 (4.00-5.60); RDW 16.7 % (11.9-15.9); WHITE BLOOD COUNT 4.4 K/mm3 (4.0-10.0)
[2022-10-21 16:10] LABS: HEMOGLOBIN 6.6 GM/dL (11.7-16.9)
[2022-10-21 16:30] LABS: CALCIUM 7.6 mg/dL (8.5-10.1)
[2022-10-21 16:31] LABS: ALBUMIN 2.1 g/dl (3.4-5.0); BLOOD UREA NITROGEN 63.4 mg/dL (7-18)
[2022-10-21 16:34] LABS: CREATININE 5.1 mg/dL (0.55-1.3)
[2022-10-21 16:35] LABS: BILIRUBIN,TOTAL 0.2 mg/dL (0.2-1); TOT PROT 6.4 g/dl (6.4-8.2)
[2022-10-22] MEDS: SODIUM CHLORIDE 1,000 ML IV SCH (06:44)
[2022-10-22] MEDS: AMIODARONE HCL 200 MG TABLET PO SCH (06:45)
[2022-10-22] MEDS: TAMSULOSIN HCL 0.4 MG CAP PO SCH ×2 (09:46→17:41)
[2022-10-22] MEDS: FERROUS SO4 325 MG TABLET (FP) PO SCH (09:46)
[2022-10-22] MEDS: APIXABAN 2.5 MG TABLET PO SCH ×2 (09:46→22:34)
[2022-10-22] MEDS: FINASTERIDE 5 MG TABLET (FP) PO SCH (09:46)
[2022-10-22] MEDS: SODIUM ZIRCONIUM CYCLOSILICATE (LOKELMA) 5 GM PACKET PO SCH (09:46)
[2022-10-22] MEDS: CEFTRIAXONE 1 GM in DEXTROSE 5%-WATER - 50 ML IVPB SCH (09:47)
[2022-10-22 17:56] LABS: BLOOD UREA NITROGEN 61.6 mg/dL (7-18); CALCIUM 7.5 mg/dL (8.5-10.1); CREATININE 4.7 mg/dL (0.55-1.3)
[2022-10-23] MEDS: AMIODARONE HCL 200 MG TABLET PO SCH ×2 (07:04→22:19)
[2022-10-23] MEDS: TAMSULOSIN HCL 0.4 MG CAP PO SCH ×2 (09:34→18:58)
[2022-10-23] MEDS: APIXABAN 2.5 MG TABLET PO SCH ×2 (09:34→22:19)
[2022-10-23] MEDS: FINASTERIDE 5 MG TABLET (FP) PO SCH (09:34)
[2022-10-23] MEDS: CEFTRIAXONE 1 GM in DEXTROSE 5%-WATER - 50 ML IVPB SCH (09:34)
[2022-10-23] MEDS: FERROUS SO4 325 MG TABLET (FP) PO SCH (09:34)
[2022-10-23] MEDS: SODIUM ZIRCONIUM CYCLOSILICATE (LOKELMA) 5 GM PACKET PO SCH (09:35)
[2022-10-23 09:40] LABS: BASO % 0.4 % (0-2.0); EOS % 1.2 % (0-4.5); LYMPH % 6.9 % (8-40); MCH 33.7 pg (25.7-33.7); MCHC 33.3 g/dl (32.0-35.9); MEAN CELL VOLUME 101.1 fl (80-96); MEAN PLT VOLUME 8.7 fl (7.5-11.1); MONO % 15.3 % (3.8-10.2); NEUT % 76.2 % (42.8-82.8); PLATELET COUNT 83 10^3/uL (134-434); RBC 1.88 M/mm3 (4.00-5.60); RDW 16.7 % (11.9-15.9); WHITE BLOOD COUNT 4.6 K/mm3 (4.0-10.0)
[2022-10-23 09:53] LABS: HEMOGLOBIN 6.3 GM/dL (11.7-16.9)
[2022-10-23] MEDS ORDERED: CEFTRIAXONE 2 GM in DEXTROSE 5%-WATER 100 ML IVPB SCH (10:30)
[2022-10-23 10:35] LABS: ALBUMIN 2.1 g/dl (3.4-5.0); BLOOD UREA NITROGEN 61.2 mg/dL (7-18); CALCIUM 7.8 mg/dL (8.5-10.1)
[2022-10-23 10:38] LABS: CREATININE 4.5 mg/dL (0.55-1.3)
[2022-10-23 10:39] LABS: BILIRUBIN,TOTAL 0.2 mg/dL (0.2-1); TOT PROT 6.4 g/dl (6.4-8.2)
[2022-10-23] MEDS ORDERED: PIPERACILLIN/TAZOB 2.25 GM 2.25 GM in DEXTROSE 5%-WATER - 50 ML IVPB ONE (11:00)
[2022-10-23] MEDS ORDERED: CEFTRIAXONE 1 GM in DEXTROSE 5%-WATER - 50 ML IVPB ONE (11:03)
[2022-10-23 11:15] LABS: MAGNESIUM 1.7 mg/dL (1.8-2.4)
[2022-10-23] MEDS: dilTIAZem HCL 30 MG TABLET PO SCH ×2 (13:49→22:19)
[2022-10-23 17:28] LABS: EPI CELLS 4 /uL (0-25.1); HYALINE CASTS 1 /uL (0-3.1); URINE APPEARANCE CLOUDY; URINE BACTERIA 371 /uL (0-1359); URINE BILIRUBIN NEGATIVE (NEGATIVE); URINE COLOR YELLOW; URINE GLUCOSE (UA) NEGATIVE (NEGATIVE); URINE KETONE NEGATIVE (NEGATIVE); URINE LEUK ESTERASE 3+ (NEGATIVE); URINE NITRITE NEGATIVE (NEGATIVE); URINE PROTEIN 1+ (NEGATIVE); URINE RBC 10 /uL (0-23.9); URINE UROBILINOGEN 0.2 mg/dL (0.2-1.0); URINE WBC 1416 /uL (0-25.8)
[2022-10-23 22:33] LABS: YEAST NEGATIVE (NEGATIVE)
[2022-10-24] MEDS: dilTIAZem HCL 30 MG TABLET PO SCH ×3 (06:13→22:02)
[2022-10-24 08:20] LABS: BASO % 0.4 % (0-2.0); EOS % 1.6 % (0-4.5); HEMATOCRIT 24.7 % (35.4-49); HEMOGLOBIN 8.4 GM/dL (11.7-16.9); LYMPH % 9.9 % (8-40); MCH 32.5 pg (25.7-33.7); MCHC 34.1 g/dl (32.0-35.9); MEAN CELL VOLUME 95.3 fl (80-96); MEAN PLT VOLUME 8.6 fl (7.5-11.1); MONO % 21.8 % (3.8-10.2); NEUT % 66.3 % (42.8-82.8); PLATELET COUNT 81 10^3/uL (134-434); RBC 2.59 M/mm3 (4.00-5.60); RDW 21.1 % (11.9-15.9); WHITE BLOOD COUNT 3.9 K/mm3 (4.0-10.0)
[2022-10-24 08:22] LABS: ALBUMIN 2.2 g/dl (3.4-5.0); BLOOD UREA NITROGEN 53.6 mg/dL (7-18)
[2022-10-24 08:23] LABS: CALCIUM 8.2 mg/dL (8.5-10.1)
[2022-10-24 08:24] LABS: MAGNESIUM 1.7 mg/dL (1.8-2.4)
[2022-10-24 08:27] LABS: BILIRUBIN,TOTAL 0.3 mg/dL (0.2-1); TOT PROT 6.7 g/dl (6.4-8.2)
[2022-10-24 08:40] LABS: INR 1.55 (0.83-1.09); PROTHROMBIN TIME (PATIENT) 17.9 SEC (9.7-13.0)
[2022-10-24] MEDS ORDERED: CEFTRIAXONE 2 GM-D5W BAG 2 GM/50 ML BAG IVPB SCH (10:00)
[2022-10-24] MEDS: FINASTERIDE 5 MG TABLET (FP) PO SCH (10:11)
[2022-10-24] MEDS: AMIODARONE HCL 200 MG TABLET PO SCH ×2 (10:11→22:02)
[2022-10-24] MEDS: TAMSULOSIN HCL 0.4 MG CAP PO SCH ×2 (10:12→17:09)
[2022-10-24] MEDS: SODIUM ZIRCONIUM CYCLOSILICATE (LOKELMA) 5 GM PACKET PO SCH (10:12)
[2022-10-24] MEDS: APIXABAN 2.5 MG TABLET PO SCH ×2 (10:12→22:02)
[2022-10-24] MEDS: FERROUS SO4 325 MG TABLET (FP) PO SCH (10:12)
[2022-10-24] MEDS ORDERED: CEFTRIAXONE 2 GM in DEXTROSE 5%-WATER 100 ML IVPB SCH (10:30)
[2022-10-24 14:08] LABS: ANISOCYTOSIS 1+; MACROCYTOSIS 1+; OVALOCYTE 2+; TOXIC GRANULATION 2+
[2022-10-24] MEDS ORDERED: MAGNESIUM OXIDE 400 MG TABLET (FP) PO ONE (16:16)
[2022-10-24] MEDS: PIPERACILLIN/TAZOB 2.25 GM 2.25 GM in DEXTROSE 5%-WATER - 50 ML IVPB SCH (17:09)
[2022-10-25] MEDS: PIPERACILLIN/TAZOB 2.25 GM 2.25 GM in DEXTROSE 5%-WATER - 50 ML IVPB SCH ×3 (02:28→17:50)
[2022-10-25] MEDS: dilTIAZem HCL 30 MG TABLET PO SCH ×3 (06:12→21:07)
[2022-10-25 08:04] LABS: BASO % 0.9 % (0-2.0); EOS % 1.9 % (0-4.5); HEMATOCRIT 25.3 % (35.4-49); HEMOGLOBIN 8.6 GM/dL (11.7-16.9); LYMPH % 17.3 % (8-40); MCH 33.1 pg (25.7-33.7); MEAN CELL VOLUME 97.3 fl (80-96); MEAN PLT VOLUME 8.8 fl (7.5-11.1); NEUT % 59.9 % (42.8-82.8); PLATELET COUNT 105 10^3/uL (134-434); RDW 20.9 % (11.9-15.9); WHITE BLOOD COUNT 3.8 K/mm3 (4.0-10.0)
[2022-10-25 08:40] LABS: CALCIUM 7.7 mg/dL (8.5-10.1)
[2022-10-25 08:41] LABS: ALBUMIN 2.1 g/dl (3.4-5.0); BLOOD UREA NITROGEN 51.2 mg/dL (7-18); MAGNESIUM 1.7 mg/dL (1.8-2.4)
[2022-10-25 08:44] LABS: CREATININE 3.7 mg/dL (0.55-1.3)
[2022-10-25 08:46] LABS: BILIRUBIN,TOTAL 0.5 mg/dL (0.2-1); TOT PROT 6.9 g/dl (6.4-8.2)
[2022-10-25] MEDS: AMIODARONE HCL 200 MG TABLET PO SCH ×2 (10:22→21:07)
[2022-10-25] MEDS: FINASTERIDE 5 MG TABLET (FP) PO SCH (10:22)
[2022-10-25] MEDS: FERROUS SO4 325 MG TABLET (FP) PO SCH (10:23)
[2022-10-25] MEDS: SODIUM ZIRCONIUM CYCLOSILICATE (LOKELMA) 5 GM PACKET PO SCH (10:23)
[2022-10-25] MEDS: TAMSULOSIN HCL 0.4 MG CAP PO SCH ×2 (10:23→17:50)
[2022-10-25] MEDS: APIXABAN 2.5 MG TABLET PO SCH ×2 (10:23→21:09)
[2022-10-25] MEDS ORDERED: MAGNESIUM OXIDE 400 MG TABLET (FP) PO ONE (11:27)
[2022-10-25] MEDS ORDERED: ACETAMINOPHEN 325 MG TABLET (FP) PO PRN (15:38)
[2022-10-26] MEDS: PIPERACILLIN/TAZOB 2.25 GM 2.25 GM in DEXTROSE 5%-WATER - 50 ML IVPB SCH ×3 (02:53→17:00)
[2022-10-26] MEDS: dilTIAZem HCL 60 MG TABLET PO SCH ×3 (05:20→22:30)
[2022-10-26 07:32] LABS: BASO % 0.9 % (0-2.0); EOS % 1.3 % (0-4.5); HEMATOCRIT 24.1 % (35.4-49); HEMOGLOBIN 8.3 GM/dL (11.7-16.9); LYMPH % 11.9 % (8-40); MCH 33.6 pg (25.7-33.7); MCHC 34.5 g/dl (32.0-35.9); MEAN CELL VOLUME 97.4 fl (80-96); MEAN PLT VOLUME 8.6 fl (7.5-11.1); MONO % 14.6 % (3.8-10.2); NEUT % 71.3 % (42.8-82.8); PLATELET COUNT 110 10^3/uL (134-434); RBC 2.47 M/mm3 (4.00-5.60); WHITE BLOOD COUNT 4.6 K/mm3 (4.0-10.0)
[2022-10-26 07:52] LABS: CALCIUM 7.7 mg/dL (8.5-10.1)
[2022-10-26 07:53] LABS: ALBUMIN 2.2 g/dl (3.4-5.0); BLOOD UREA NITROGEN 47.6 mg/dL (7-18); MAGNESIUM 1.7 mg/dL (1.8-2.4)
[2022-10-26 07:56] LABS: CREATININE 3.3 mg/dL (0.55-1.3)
[2022-10-26 07:58] LABS: BILIRUBIN,TOTAL 0.5 mg/dL (0.2-1); TOT PROT 6.9 g/dl (6.4-8.2)
[2022-10-26] MEDS ORDERED: SODIUM ZIRCONIUM CYCLOSILICATE (LOKELMA) 5 GM PACKET PO SCH (10:00)
[2022-10-26] MEDS: FERROUS SO4 325 MG TABLET (FP) PO SCH (10:23)
[2022-10-26] MEDS: APIXABAN 2.5 MG TABLET PO SCH ×2 (10:23→22:30)
[2022-10-26] MEDS: AMIODARONE HCL 200 MG TABLET PO SCH ×2 (10:23→22:30)
[2022-10-26] MEDS: TAMSULOSIN HCL 0.4 MG CAP PO SCH ×2 (10:24→17:00)
[2022-10-26] MEDS: FINASTERIDE 5 MG TABLET (FP) PO SCH (10:24)
[2022-10-26] MEDS ORDERED: MAGNESIUM SULF 50% (8.12 MEQ/2 ML-1 GM VIAL) IVPB ONE (12:30)
[2022-10-27] MEDS: PIPERACILLIN/TAZOB 2.25 GM 2.25 GM in DEXTROSE 5%-WATER - 50 ML IVPB SCH ×3 (02:51→17:40)
[2022-10-27] MEDS: dilTIAZem HCL 60 MG TABLET PO SCH ×3 (06:22→21:58)
[2022-10-27 07:18] LABS: BASO % 1.1 % (0-2.0); EOS % 0.1 % (0-4.5); HEMATOCRIT 23.8 % (35.4-49); HEMOGLOBIN 8.1 GM/dL (11.7-16.9); LYMPH % 11.7 % (8-40); MCH 33.4 pg (25.7-33.7); MCHC 34.1 g/dl (32.0-35.9); MEAN CELL VOLUME 98.1 fl (80-96); MEAN PLT VOLUME 8.3 fl (7.5-11.1); MONO % 9.1 % (3.8-10.2); PLATELET COUNT 110 10^3/uL (134-434); RBC 2.43 M/mm3 (4.00-5.60); RDW 20.3 % (11.9-15.9); WHITE BLOOD COUNT 3.4 K/mm3 (4.0-10.0)
[2022-10-27 07:53] LABS: CALCIUM 7.8 mg/dL (8.5-10.1)
[2022-10-27 07:54] LABS: ALBUMIN 2.1 g/dl (3.4-5.0); BLOOD UREA NITROGEN 43.1 mg/dL (7-18)
[2022-10-27 07:57] LABS: CREATININE 3.2 mg/dL (0.55-1.3)
[2022-10-27 07:59] LABS: BILIRUBIN,TOTAL 0.4 mg/dL (0.2-1)
[2022-10-27] MEDS: LACTOBACILLUS ACIDOPHILUS 1 TABLET PO SCH (10:31)
[2022-10-27] MEDS: TAMSULOSIN HCL 0.4 MG CAP PO SCH ×2 (10:31→17:40)
[2022-10-27] MEDS: AMIODARONE HCL 200 MG TABLET PO SCH ×2 (10:31→21:58)
[2022-10-27] MEDS: FINASTERIDE 5 MG TABLET (FP) PO SCH (10:31)
[2022-10-27] MEDS: APIXABAN 2.5 MG TABLET PO SCH ×2 (10:31→21:58)
[2022-10-27] MEDS: FERROUS SO4 325 MG TABLET (FP) PO SCH (10:31)
[2022-10-28] VITALS: BMI 28.1
[2022-10-28] MEDS: PIPERACILLIN/TAZOB 2.25 GM 2.25 GM in DEXTROSE 5%-WATER - 50 ML IVPB SCH ×3 (02:39→17:54)
[2022-10-28] MEDS: dilTIAZem HCL 60 MG TABLET PO SCH ×3 (06:09→21:23)
[2022-10-28] MEDS: AMIODARONE HCL 200 MG TABLET PO SCH (09:44)
[2022-10-28] MEDS: TAMSULOSIN HCL 0.4 MG CAP PO SCH ×2 (09:44→17:54)
[2022-10-28] MEDS: LACTOBACILLUS ACIDOPHILUS 1 TABLET PO SCH (09:44)
[2022-10-28] MEDS: FERROUS SO4 325 MG TABLET (FP) PO SCH (09:44)
[2022-10-28] MEDS: APIXABAN 2.5 MG TABLET PO SCH ×2 (09:44→21:23)
[2022-10-28] MEDS: FINASTERIDE 5 MG TABLET (FP) PO SCH (09:45)
[2022-10-29] MEDS: PIPERACILLIN/TAZOB 2.25 GM 2.25 GM in DEXTROSE 5%-WATER - 50 ML IVPB SCH ×3 (01:29→17:21)
[2022-10-29] MEDS: dilTIAZem HCL 60 MG TABLET PO SCH ×3 (06:42→21:03)
[2022-10-29 08:15] LABS: BASO % 0.9 % (0-2.0); EOS % 1.9 % (0-4.5); HEMATOCRIT 23.7 % (35.4-49); LYMPH % 12.6 % (8-40); MCH 32.7 pg (25.7-33.7); MCHC 33.7 g/dl (32.0-35.9); MEAN CELL VOLUME 97.1 fl (80-96); MEAN PLT VOLUME 8.5 fl (7.5-11.1); MONO % 7.2 % (3.8-10.2); NEUT % 77.4 % (42.8-82.8); PLATELET COUNT 128 10^3/uL (134-434); RBC 2.44 M/mm3 (4.00-5.60); RDW 20.3 % (11.9-15.9)
[2022-10-29 08:38] LABS: CALCIUM 8.1 mg/dL (8.5-10.1)
[2022-10-29 08:39] LABS: ALBUMIN 2.2 g/dl (3.4-5.0); BLOOD UREA NITROGEN 37.6 mg/dL (7-18); MAGNESIUM 2.1 mg/dL (1.8-2.4)
[2022-10-29 08:42] LABS: CREATININE 3.1 mg/dL (0.55-1.3)
[2022-10-29 08:43] LABS: TOT PROT 7.3 g/dl (6.4-8.2)
[2022-10-29 08:44] LABS: BILIRUBIN,TOTAL 0.2 mg/dL (0.2-1)
[2022-10-29] MEDS: APIXABAN 2.5 MG TABLET PO SCH ×2 (09:15→21:32)
[2022-10-29] MEDS: TAMSULOSIN HCL 0.4 MG CAP PO SCH ×2 (09:15→17:21)
[2022-10-29] MEDS: FERROUS SO4 325 MG TABLET (FP) PO SCH (09:15)
[2022-10-29] MEDS: LACTOBACILLUS ACIDOPHILUS 1 TABLET PO SCH ×2 (09:15→21:32)
[2022-10-29] MEDS: FINASTERIDE 5 MG TABLET (FP) PO SCH (09:16)
[2022-10-29] MEDS: AMIODARONE HCL 200 MG TABLET PO SCH (09:17)
[2022-10-30] MEDS: PIPERACILLIN/TAZOB 2.25 GM 2.25 GM in DEXTROSE 5%-WATER - 50 ML IVPB SCH (02:00)
[2022-10-30] MEDS: dilTIAZem HCL 60 MG TABLET PO SCH ×3 (06:05→21:48)
[2022-10-30 07:04] LABS: BASO % 1.1 % (0-2.0); HEMATOCRIT 24.5 % (35.4-49); HEMOGLOBIN 8.2 GM/dL (11.7-16.9); LYMPH % 16.3 % (8-40); MCH 32.8 pg (25.7-33.7); MCHC 33.6 g/dl (32.0-35.9); MEAN CELL VOLUME 97.7 fl (80-96); MEAN PLT VOLUME 8.5 fl (7.5-11.1); MONO % 6.4 % (3.8-10.2); NEUT % 74.2 % (42.8-82.8); PLATELET COUNT 135 10^3/uL (134-434); RBC 2.51 M/mm3 (4.00-5.60); RDW 20.4 % (11.9-15.9); WHITE BLOOD COUNT 5.1 K/mm3 (4.0-10.0)
[2022-10-30 07:28] LABS: CALCIUM 8.1 mg/dL (8.5-10.1)
[2022-10-30 07:29] LABS: ALBUMIN 2.2 g/dl (3.4-5.0); BLOOD UREA NITROGEN 32.8 mg/dL (7-18)
[2022-10-30 07:32] LABS: CREATININE 2.9 mg/dL (0.55-1.3)
[2022-10-30 07:34] LABS: BILIRUBIN,TOTAL 0.3 mg/dL (0.2-1); TOT PROT 7.3 g/dl (6.4-8.2)
[2022-10-30] MEDS: TAMSULOSIN HCL 0.4 MG CAP PO SCH ×2 (08:45→17:55)
[2022-10-30] MEDS ORDERED: CEFAZOLIN SODIUM 2 GM VIAL IVPB SCH (09:15)
[2022-10-30] MEDS: FINASTERIDE 5 MG TABLET (FP) PO SCH (11:53)
[2022-10-30] MEDS: AMIODARONE HCL 200 MG TABLET PO SCH (11:53)
[2022-10-30] MEDS: FERROUS SO4 325 MG TABLET (FP) PO SCH (11:53)
[2022-10-30] MEDS: APIXABAN 2.5 MG TABLET PO SCH ×2 (11:55→21:48)
[2022-10-30] MEDS: LACTOBACILLUS ACIDOPHILUS 1 TABLET PO SCH ×2 (11:55→21:48)
[2022-10-30] MEDS: CEFAZOLIN SODIUM 2 GM in DEXTROSE 5%-WATER 100 ML IVPB SCH ×2 (11:56→17:55)
[2022-10-30 13:25] VITALS: RESP 18
[2022-10-31] MEDS: CEFAZOLIN SODIUM 2 GM in DEXTROSE 5%-WATER 100 ML IVPB SCH ×2 (03:00→09:12)
[2022-10-31] MEDS: dilTIAZem HCL 60 MG TABLET PO SCH (05:05)
[2022-10-31 08:05] LABS: BASO % 1.1 % (0-2.0); HEMATOCRIT 22.7 % (35.4-49); HEMOGLOBIN 7.9 GM/dL (11.7-16.9); LYMPH % 16.8 % (8-40); MCH 33.7 pg (25.7-33.7); MCHC 34.6 g/dl (32.0-35.9); MEAN CELL VOLUME 97.4 fl (80-96); MEAN PLT VOLUME 8.4 fl (7.5-11.1); MONO % 6.2 % (3.8-10.2); NEUT % 73.9 % (42.8-82.8); PLATELET COUNT 144 10^3/uL (134-434); RBC 2.34 M/mm3 (4.00-5.60)
[2022-10-31 08:08] LABS: ALBUMIN 2.2 g/dl (3.4-5.0); BLOOD UREA NITROGEN 29.8 mg/dL (7-18); CALCIUM 7.9 mg/dL (8.5-10.1)
[2022-10-31 08:09] LABS: MAGNESIUM 1.8 mg/dL (1.8-2.4)
[2022-10-31 08:10] LABS: CREATININE 2.9 mg/dL (0.55-1.3)
[2022-10-31 08:11] LABS: BILIRUBIN,TOTAL 0.2 mg/dL (0.2-1); TOT PROT 7.4 g/dl (6.4-8.2)
[2022-10-31 09:04] VITALS: BP 116/63; PULSE 70; TEMP 97.8
[2022-10-31] MEDS: APIXABAN 2.5 MG TABLET PO SCH (09:12)
[2022-10-31] MEDS: LACTOBACILLUS ACIDOPHILUS 1 TABLET PO SCH (09:13)
[2022-10-31] MEDS: AMIODARONE HCL 200 MG TABLET PO SCH (09:13)
[2022-10-31] MEDS: FINASTERIDE 5 MG TABLET (FP) PO SCH (09:13)
[2022-10-31] MEDS: FERROUS SO4 325 MG TABLET (FP) PO SCH (09:13)
[2022-10-31] MEDS: TAMSULOSIN HCL 0.4 MG CAP PO SCH (09:13)
== END 2022-10-31 13:14 | disposition home or self-care (01) | DRG 872 ==
LOC: JER 20:45 → JERBED 23:25 → J8W 10-21 04:40 → J4W 10-23 12:47
PROVIDERS: ADMIT Internal Medicine; ATTEND Nurse Practitioner Acute Care
PROC: 02HV33Z Insertion of Infusion Device into Superior Vena Cava, Percutaneous Approach (ICD-10-PCS; principal; 2022-10-30)
PROC: B548ZZA Ultrasonography of Superior Vena Cava, Guidance (ICD-10-PCS; 2022-10-30)
DX: R78.81 Bacteremia (principal); N39.0 Urinary tract infection, site not specified; N17.9 Acute kidney failure, unspecified; C90.00 Multiple myeloma not having achieved remission; I48.92 Unspecified atrial flutter; E87.1 Hypo-osmolality and hyponatremia; N40.1 Benign prostatic hyperplasia with lower urinary tract symptoms; R33.8 Other retention of urine; I11.9 Hypertensive heart disease without heart failure; I12.9 Hypertensive chronic kidney disease with stage 1 through stage 4 chronic kidney disease, or unspecified chronic kidney disease; N18.9 Chronic kidney disease, unspecified; D63.1 Anemia in chronic kidney disease; R79.89 Other specified abnormal findings of blood chemistry; D69.6 Thrombocytopenia, unspecified; R31.0 Gross hematuria; D63.0 Anemia in neoplastic disease; W18.30XA Fall on same level, unspecified, initial encounter; Y92.098 Other place in other non-institutional residence as the place of occurrence of the external cause
CPT/HCPCS: 0241U-QW; 36415; 36430; 36511; 36569; 36600; 70450-TC; 70486-TC; 71045-TC-FY; 72125-TC; 73562-TC-LT-FY; 73562-TC-RT-FY; 76775-TC; 77001-TC-FY; 80048; 80053; 80061; 81003; 82272; 82533; 82550; 82570; 82607; 82746; 82803; 82962; 83540; 83550; 83605; 83735; 83930; 83935; 84100; 84300; 84443; 84484; 85025; 85610; 85730; 86850; 86900; 86901; 86922; 87040; 87086; 87186; 93005; 93010; 93306-TC; 97116-GP; 97161-GP; 99285-25; C1751; P9038; P9058

== ENCOUNTER 2022-12-04 04:07 | Day surgery (SDC) | payer OTHER ==
[2022-12-01 09:29] VITALS: BMI 28.5
[2022-12-04] MEDS ORDERED: ceFAZolin SODIUM 1 GM VIAL IVPB ONE ×2 (12:40→13:22)
[2022-12-04] MEDS ORDERED: PROPOFOL 20 ML ONE (13:02)
[2022-12-04] MEDS ORDERED: MIDAZOLAM HCL 2 MG/2 ML SINGLE DOSE VIAL ONE (13:03)
[2022-12-04] MEDS ORDERED: ceFAZolin SODIUM 1 GM VIAL ONE (13:19)
[2022-12-04] MEDS ORDERED: DEXAMETHASONE SOD PHOSPHATE 4 MG/1 ML VIAL ONE (13:19)
[2022-12-04] MEDS ORDERED: ONDANSETRON 4 MG/2 ML VIAL ONE (13:19)
[2022-12-04] MEDS ORDERED: oxyCODONE HCL 5 MG TABLET PO PRN (13:59)
[2022-12-04] MEDS ORDERED: ONDANSETRON 4 MG/2 ML VIAL IVPUSH PRN (13:59)
[2022-12-04] MEDS ORDERED: LACTATED RINGERS SOLUTION 1,000 ML IV SCH (14:00)
[2022-12-04 16:08] VITALS: RESP 20; TEMP 97.7
[2022-12-04 17:42] VITALS: BP 140/78; PULSE 62
== END 2022-12-04 17:12 | disposition home or self-care (01) ==
LOC: JASU-SURG 04:07
PROVIDERS: ATTEND Urology
PROC: 0T7D8ZZ Dilation of Urethra, Via Natural or Artificial Opening Endoscopic (ICD-10-PCS; 2022-12-04)
PROC: 0VT08ZZ Resection of Prostate, Via Natural or Artificial Opening Endoscopic (ICD-10-PCS; principal; 2022-12-04 13:00)
DX: N40.1 Benign prostatic hyperplasia with lower urinary tract symptoms (principal); R33.8 Other retention of urine; N13.8 Other obstructive and reflux uropathy; N32.3 Diverticulum of bladder
CPT/HCPCS: 88305-TC; 94760

== ENCOUNTER 2022-12-05 21:02 | Inpatient (IN) | payer OTHER ==
[2022-12-05 21:16] VITALS: BMI 28.5
[2022-12-05 22:25] LABS: BASO % 0.5 % (0-2.0); EOS % 0.1 % (0-4.5); HEMATOCRIT 20.1 % (35.4-49); LYMPH % 5.8 % (8-40); MCH 35.2 pg (25.7-33.7); MEAN CELL VOLUME 103.5 fl (80-96); MEAN PLT VOLUME 8.3 fl (7.5-11.1); MONO % 5.8 % (3.8-10.2); NEUT % 87.8 % (42.8-82.8); PLATELET COUNT 113 10^3/uL (134-434); RBC 1.94 M/mm3 (4.00-5.60); RDW 18.3 % (11.9-15.9); WHITE BLOOD COUNT 10.6 K/mm3 (4.0-10.0)
[2022-12-05 22:26] LABS: EPI CELLS >36 /uL (0-25.1); HYALINE CASTS 16 /uL (0-3.1); PH,URINE 6.5 (5.0-8.0); URINE APPEARANCE TURBID; URINE BILIRUBIN 1+ (NEGATIVE); URINE COLOR RED; URINE GLUCOSE (UA) NEGATIVE (NEGATIVE); URINE KETONE NEGATIVE (NEGATIVE); URINE LEUK ESTERASE 3+ (NEGATIVE); URINE NITRITE POSITIVE (NEGATIVE); URINE PROTEIN 2+ (NEGATIVE); URINE UROBILINOGEN 0.2 mg/dL (0.2-1.0); URINE WBC 56 /uL (0-25.8)
[2022-12-05 22:34] LABS: HEMOGLOBIN 6.8 GM/dL (11.7-16.9)
[2022-12-05 22:38] LABS: INR 1.33 (0.83-1.09); PROTHROMBIN TIME (PATIENT) 15.4 SEC (9.7-13.0)
[2022-12-05 22:41] LABS: ACTIVATED PTT 24.8 SECONDS (25.2-36.5)
[2022-12-05 22:45] LABS: URINE RBC 7106 /uL (0-23.9)
[2022-12-05 22:46] LABS: URINE BACTERIA 42 /uL (0-1359)
[2022-12-05] MEDS ORDERED: ONDANSETRON *ODT* 4 MG TABLET SL ONE (23:41)
[2022-12-05] MEDS ORDERED: ONDANSETRON *ODT* 4 MG TABLET ONE (23:42)
[2022-12-05 23:43] LABS: ANISOCYTOSIS 3+; MACROCYTOSIS 1+; OVALOCYTE 1+; TARGET CELLS 2+
[2022-12-06 00:34] LABS: POTASSIUM 4.7 mmol/L (3.5-5.1)
[2022-12-06 00:37] LABS: ALBUMIN 2.9 g/dl (3.4-5.0); BLOOD UREA NITROGEN 52.9 mg/dL (7-18); CALCIUM 8.1 mg/dL (8.5-10.1)
[2022-12-06 00:40] LABS: CREATININE 3.6 mg/dL (0.55-1.3); PHOSPHOROUS 4.2 mg/dL (2.5-4.9)
[2022-12-06 00:42] LABS: BILIRUBIN,TOTAL 0.3 mg/dL (0.2-1); TOT PROT 9.1 g/dl (6.4-8.2)
[2022-12-06] MEDS ORDERED: CEFTRIAXONE 1,000 MG in DEXTROSE 5%-WATER - 50 ML IVPB ONE (01:04)
[2022-12-06] MEDS ORDERED: TRIMETHOBENZAMIDE HCL 200MG/2ML INJ IM ONE ×2 (01:04→01:25)
[2022-12-06] MEDS ORDERED: CEFTRIAXONE 1 GM/50 ML BAG ONE ×2 (01:25→10:09)
[2022-12-06] MEDS ORDERED: MELATONIN 5 MG TABLETS PO ONE (05:01)
[2022-12-06] MEDS ORDERED: LOPERAMIDE HCL 2 MG CAPSULE PO PRN (05:07)
[2022-12-06] MEDS ORDERED: diphenhydrAMINE HCL 25 MG CAPSULE (FP) PO PRN (05:07)
[2022-12-06] MEDS ORDERED: MELATONIN 5 MG TABLETS ONE (05:29)
[2022-12-06] MEDS ORDERED: dilTIAZem HCL 60 MG TABLET PO SCH (06:00)
[2022-12-06 06:42] LABS: HEMATOCRIT 25.5 % (35.4-49); MCH 35.1 pg (25.7-33.7); MCHC 35.2 g/dl (32.0-35.9); MEAN CELL VOLUME 99.8 fl (80-96); MEAN PLT VOLUME 8.1 fl (7.5-11.1); PLATELET COUNT 118 10^3/uL (134-434); RBC 2.55 M/mm3 (4.00-5.60); WHITE BLOOD COUNT 7.8 K/mm3 (4.0-10.0)
[2022-12-06 06:55] LABS: POTASSIUM 4.7 mmol/L (3.5-5.1)
[2022-12-06 06:59] LABS: ALBUMIN 2.7 g/dl (3.4-5.0); BLOOD UREA NITROGEN 55.1 mg/dL (7-18); MAGNESIUM 2.2 mg/dL (1.8-2.4)
[2022-12-06 07:02] LABS: CREATININE 3.6 mg/dL (0.55-1.3); PHOSPHOROUS 4.3 mg/dL (2.5-4.9)
[2022-12-06 07:03] LABS: BILIRUBIN,TOTAL 0.5 mg/dL (0.2-1)
[2022-12-06 07:04] LABS: TOT PROT 8.6 g/dl (6.4-8.2)
[2022-12-06] MEDS ORDERED: SODIUM CHLORIDE 1,000 ML IV SCH (07:30)
[2022-12-06] MEDS: MAGNESIUM OXIDE 400 MG TABLET (FP) PO SCH (09:30)
[2022-12-06] MEDS: FERROUS SO4 325 MG TABLET (FP) PO SCH (09:30)
[2022-12-06] MEDS: CEFTRIAXONE 1 GM in DEXTROSE 5%-WATER - 50 ML IVPB SCH (11:28)
[2022-12-06 16:29] LABS: POTASSIUM 4.5 mmol/L (3.5-5.1)
[2022-12-06 16:31] LABS: CALCIUM 8.2 mg/dL (8.5-10.1)
[2022-12-06 16:32] LABS: ALBUMIN 2.6 g/dl (3.4-5.0); BLOOD UREA NITROGEN 51.6 mg/dL (7-18)
[2022-12-06 16:35] LABS: CREATININE 3.5 mg/dL (0.55-1.3)
[2022-12-06 16:36] LABS: TOT PROT 8.2 g/dl (6.4-8.2)
[2022-12-06 16:37] LABS: BILIRUBIN,TOTAL 0.3 mg/dL (0.2-1)
[2022-12-06] MEDS: AMIODARONE HCL 200 MG TABLET PO SCH (21:57)
[2022-12-07 08:09] LABS: POTASSIUM 4.3 mmol/L (3.5-5.1)
[2022-12-07 08:19] LABS: HEMATOCRIT 23.4 % (35.4-49); HEMOGLOBIN 8.2 GM/dL (11.7-16.9); MCH 34.9 pg (25.7-33.7); MCHC 34.9 g/dl (32.0-35.9); MEAN CELL VOLUME 99.9 fl (80-96); MEAN PLT VOLUME 8.7 fl (7.5-11.1); PLATELET COUNT 113 10^3/uL (134-434); RBC 2.34 M/mm3 (4.00-5.60); RDW 18.2 % (11.9-15.9)
[2022-12-07 08:29] LABS: CALCIUM 8.2 mg/dL (8.5-10.1)
[2022-12-07 08:30] LABS: BLOOD UREA NITROGEN 53.7 mg/dL (7-18); MAGNESIUM 2.2 mg/dL (1.8-2.4)
[2022-12-07 08:32] LABS: ALBUMIN 2.4 g/dl (3.4-5.0); CREATININE 3.4 mg/dL (0.55-1.3); PHOSPHOROUS 3.4 mg/dL (2.5-4.9)
[2022-12-07 08:34] LABS: BILIRUBIN,TOTAL 0.8 mg/dL (0.2-1)
[2022-12-07] MEDS ORDERED: cefTRIAXone SODIUM 1 GM VIAL ONE (09:18)
[2022-12-07] MEDS: AMIODARONE HCL 200 MG TABLET PO SCH (09:53)
[2022-12-07] MEDS: FERROUS SO4 325 MG TABLET (FP) PO SCH (09:53)
[2022-12-07] MEDS: CEFTRIAXONE 1 GM in DEXTROSE 5%-WATER - 50 ML IVPB SCH (09:54)
[2022-12-07] MEDS: MAGNESIUM OXIDE 400 MG TABLET (FP) PO SCH (09:57)
[2022-12-07 15:56] VITALS: BP 144/83; PULSE 70; RESP 20; TEMP 98.5
== END 2022-12-07 18:12 | disposition home health service (06) | DRG 699 ==
LOC: JER 21:02 → JERBED 12-06 01:13 → J4W 12-06 12:06
PROVIDERS: ADMIT Student in an Organized Health Care Education/Training Program; ATTEND Internal Medicine
PROC: 30233N1 Transfusion of Nonautologous Red Blood Cells into Peripheral Vein, Percutaneous Approach (ICD-10-PCS; principal; 2022-12-05)
DX: N99.89 Other postprocedural complications and disorders of genitourinary system (principal); C90.00 Multiple myeloma not having achieved remission; E87.1 Hypo-osmolality and hyponatremia; J90 Pleural effusion, not elsewhere classified; N18.4 Chronic kidney disease, stage 4 (severe); I48.92 Unspecified atrial flutter; N13.8 Other obstructive and reflux uropathy; N39.0 Urinary tract infection, site not specified; R31.0 Gross hematuria; I48.0 Paroxysmal atrial fibrillation; E78.5 Hyperlipidemia, unspecified; I12.9 Hypertensive chronic kidney disease with stage 1 through stage 4 chronic kidney disease, or unspecified chronic kidney disease; D64.9 Anemia, unspecified; Y83.2 Surgical operation with anastomosis, bypass or graft as the cause of abnormal reaction of the patient, or of later complication, without mention of misadventure at the time of the procedure; R42 Dizziness and giddiness; N40.1 Benign prostatic hyperplasia with lower urinary tract symptoms; R91.1 Solitary pulmonary nodule
CPT/HCPCS: 0241U-QW; 36415; 36430; 71045-TC-FY; 71250-TC; 80048; 80053; 81003; 82550; 82570; 83735; 83930; 83935; 84100; 84156; 84484; 85025; 85027; 85610; 85730; 86850; 86900; 86901; 86922; 87086; 93005; 93010; 97116-GP; 97162-GP; 99285-25; P9058; Q0162

== ENCOUNTER 2022-12-12 04:08 | Emergency (ER) | payer OTHER ==
[2022-12-12 04:29] VITALS: BP 180/84; PULSE 74; RESP 18; TEMP 97.6; BMI 28.5
== END 2022-12-12 05:12 | disposition home or self-care (01) ==
LOC: JER 04:08
DX: I10 Essential (primary) hypertension (principal)
CPT/HCPCS: 93005; 93010; 99284-25

== ENCOUNTER 2022-12-13 09:45 | Day surgery (SDC) | payer OTHER ==
[2022-12-13] MEDS ORDERED: DEXAMETHASONE SODIUM PHOSPHATE 20 MG, ONDANSETRON INJECTION 8 MG in SODIUM CHLORIDE 100 ML IVPB ONE (10:00)
[2022-12-13] MEDS ORDERED: SODIUM CHLORIDE 350 ML IV ONE ×2 (10:00→11:30)
[2022-12-13 10:23] LABS: BASO % 0.9 % (0-2.0); HEMATOCRIT 28.1 % (35.4-49); HEMOGLOBIN 9.7 GM/dL (11.7-16.9); LYMPH % 14.9 % (8-40); MCH 35.1 pg (25.7-33.7); MCHC 34.6 g/dl (32.0-35.9); MEAN CELL VOLUME 101.4 fl (80-96); MONO % 7.9 % (3.8-10.2); NEUT % 73.3 % (42.8-82.8); PLATELET COUNT 152 10^3/uL (134-434); RBC 2.77 M/mm3 (4.00-5.60); RDW 17.4 % (11.9-15.9)
[2022-12-13] MEDS ORDERED: CARFILZOMIB IV ONE (10:30)
[2022-12-13] MEDS ORDERED: DEXTROSE 5% IV ONE (10:30)
[2022-12-13] MEDS ORDERED: WATER IV ONE (10:30)
[2022-12-13 10:44] LABS: POTASSIUM 4.1 mmol/L (3.5-5.1)
[2022-12-13 10:47] LABS: ALBUMIN 2.9 g/dl (3.4-5.0); BLOOD UREA NITROGEN 39.2 mg/dL (7-18); MAGNESIUM 2.3 mg/dL (1.8-2.4)
[2022-12-13 10:49] LABS: BILIRUBIN,DIRECT 0.1 mg/dL (0.0-0.2); CREATININE 3.1 mg/dL (0.55-1.3); URIC ACID 9.7 mg/dL (2.6-7.2)
[2022-12-13 10:52] LABS: BILIRUBIN,TOTAL 0.3 mg/dL (0.2-1); TOT PROT 9.4 g/dl (6.4-8.2)
[2022-12-13] MEDS ORDERED: SODIUM CHLORIDE IVPB ONE (11:00)
[2022-12-13] MEDS ORDERED: CYCLOPHOSPHAMIDE IVPB ONE (11:00)
[2022-12-13 14:02] LABS: EPI CELLS 2 /uL (0-25.1); HYALINE CASTS 0 /uL (0-3.1); PH,URINE 5.5 (5.0-8.0); URINE APPEARANCE CLOUDY; URINE BACTERIA 5 /uL (0-1359); URINE BILIRUBIN NEGATIVE (NEGATIVE); URINE COLOR ORANGE; URINE GLUCOSE (UA) NEGATIVE (NEGATIVE); URINE KETONE NEGATIVE (NEGATIVE); URINE LEUK ESTERASE 3+ (NEGATIVE); URINE NITRITE NEGATIVE (NEGATIVE); URINE PROTEIN 2+ (NEGATIVE); URINE UROBILINOGEN 0.2 mg/dL (0.2-1.0); URINE WBC 1174 /uL (0-25.8)
[2022-12-13 14:08] LABS: URINE RBC 2480.4 /uL (0-23.9)
[2022-12-13 14:09] LABS: YEAST PRSENT (NEGATIVE)
[2022-12-13 17:56] VITALS: TEMP 97.5
[2022-12-13 18:03] VITALS: BP 123/72; PULSE 60; RESP 18
[2022-12-13] MEDS ORDERED: PORTA CATH FLUSH 10 ML IVPUSH PRN (18:03)
[2022-12-14 17:07] LABS: FREE KAPPA,SERUM 4651.3 mg/L (3.3-19.4)
[2022-12-15 14:07] LABS: FREE KAP CHN UR 4317.33 mg/L (1.17-86.46); KAPPA LAMBDA RATIO URIN 361.28 (1.83-14.26)
== END 2022-12-13 15:50 | disposition home or self-care (01) ==
LOC: J7W 09:45 → JONCCHEMO 09:45
PROVIDERS: ATTEND Internal Medicine Hematology & Oncology
DX: Z51.11 Encounter for antineoplastic chemotherapy (principal); C90.00 Multiple myeloma not having achieved remission
CPT/HCPCS: 36415; 80048; 80076; 81003; 82232; 82784; 83615; 83735; 83883; 84155; 84165; 84550; 85025; 86334; 86335; 87086; 96375; 96413; 96417; J9047; J9070

== ENCOUNTER 2022-12-14 08:55 | Day surgery (SDC) | payer OTHER ==
[2022-12-14] MEDS ORDERED: SODIUM CHLORIDE 250 ML IV ONE ×2 (10:15→11:45)
[2022-12-14] MEDS ORDERED: DEXAMETHASONE SODIUM PHOSPHATE 20 MG, ONDANSETRON INJECTION 8 MG in SODIUM CHLORIDE 100 ML IVPB ONE (10:45)
[2022-12-14] MEDS ORDERED: WATER IV ONE (11:15)
[2022-12-14] MEDS ORDERED: CARFILZOMIB IV ONE (11:15)
[2022-12-14] MEDS ORDERED: DEXTROSE 5% IV ONE (11:15)
[2022-12-14] MEDS ORDERED: PORTA CATH FLUSH 10 ML IVPUSH PRN (15:38)
[2022-12-14 15:39] VITALS: BP 115/56; PULSE 61; RESP 20; TEMP 98.8
== END 2022-12-14 14:00 | disposition home or self-care (01) ==
LOC: JONCCHEMO 08:55 → J7W 08:55 → JONCCHEMO 14:00
PROVIDERS: ATTEND Internal Medicine Hematology & Oncology
DX: Z51.11 Encounter for antineoplastic chemotherapy (principal); C90.00 Multiple myeloma not having achieved remission
CPT/HCPCS: 96367; 96413; J2405; J9047

== ENCOUNTER 2022-12-20 09:26 | Day surgery (SDC) | payer OTHER ==
[2022-12-20] MEDS ORDERED: SODIUM CHLORIDE 350 ML IV ONE ×2 (09:30→11:30)
[2022-12-20 09:56] LABS: BASO % 0.3 % (0-2.0); EOS % 1.9 % (0-4.5); HEMATOCRIT 26.7 % (35.4-49); HEMOGLOBIN 9.1 GM/dL (11.7-16.9); MCH 34.8 pg (25.7-33.7); MCHC 33.9 g/dl (32.0-35.9); MEAN CELL VOLUME 102.6 fl (80-96); MONO % 5.6 % (3.8-10.2); NEUT % 82.2 % (42.8-82.8); PLATELET COUNT 118 10^3/uL (134-434); RDW 17.4 % (11.9-15.9); WHITE BLOOD COUNT 6.5 K/mm3 (4.0-10.0)
[2022-12-20] MEDS ORDERED: DEXAMETHASONE SODIUM PHOSPHATE 20 MG, ONDANSETRON INJECTION 8 MG in SODIUM CHLORIDE 100 ML IVPB ONE (10:00)
[2022-12-20 10:27] LABS: POTASSIUM 4.7 mmol/L (3.5-5.1)
[2022-12-20 10:30] LABS: ALBUMIN 2.8 g/dl (3.4-5.0); BLOOD UREA NITROGEN 47.6 mg/dL (7-18); CALCIUM 8.3 mg/dL (8.5-10.1); MAGNESIUM 2.5 mg/dL (1.8-2.4)
[2022-12-20] MEDS ORDERED: SODIUM CHLORIDE IVPB ONE (10:30)
[2022-12-20] MEDS ORDERED: CYCLOPHOSPHAMIDE IVPB ONE (10:30)
[2022-12-20 10:32] LABS: URIC ACID 7.6 mg/dL (2.6-7.2)
[2022-12-20 10:34] LABS: BILIRUBIN,DIRECT 0.1 mg/dL (0.0-0.2); BILIRUBIN,TOTAL 0.3 mg/dL (0.2-1)
[2022-12-20 10:35] LABS: TOT PROT 8.7 g/dl (6.4-8.2)
[2022-12-20] MEDS ORDERED: CARFILZOMIB IV ONE (11:00)
[2022-12-20] MEDS ORDERED: WATER IV ONE (11:00)
[2022-12-20] MEDS ORDERED: DEXTROSE 5% IV ONE (11:00)
[2022-12-20 17:36] VITALS: BP 136/76; PULSE 63; RESP 18; TEMP 97.7
[2022-12-20] MEDS ORDERED: PORTA CATH FLUSH 10 ML IVPUSH PRN (17:36)
== END 2022-12-20 16:20 | disposition home or self-care (01) ==
LOC: JONCCHEMO 09:26 → J7W 09:33 → JONCCHEMO 16:20
PROVIDERS: ATTEND Internal Medicine Hematology & Oncology
DX: Z51.11 Encounter for antineoplastic chemotherapy (principal); C90.00 Multiple myeloma not having achieved remission
CPT/HCPCS: 36415; 80048; 80076; 83615; 83735; 84550; 85025; 96367; 96413; 96417; J9047; J9070

== ENCOUNTER 2022-12-21 08:53 | Day surgery (SDC) | payer OTHER ==
[2022-12-21] MEDS ORDERED: SODIUM CHLORIDE 250 ML IV ONE ×2 (09:00→11:00)
[2022-12-21] MEDS ORDERED: DEXAMETHASONE SODIUM PHOSPHATE 20 MG in SODIUM CHLORIDE 50 ML IVPB ONE (09:30)
[2022-12-21] MEDS ORDERED: ONDANSETRON INJECTION 8 MG in SODIUM CHLORIDE 50 ML IVPB ONE (09:45)
[2022-12-21] MEDS ORDERED: DEXTROSE 5% IV ONE (10:00)
[2022-12-21] MEDS ORDERED: CARFILZOMIB IV ONE (10:00)
[2022-12-21] MEDS ORDERED: WATER IV ONE (10:00)
[2022-12-21 15:15] VITALS: BP 139/86; PULSE 75; RESP 20; TEMP 97.6
[2022-12-21] MEDS ORDERED: PORTA CATH FLUSH 10 ML IVPUSH PRN (15:15)
== END 2022-12-21 13:30 | disposition home or self-care (01) ==
LOC: JONCCHEMO 08:53 → J7W 10:21 → JONCCHEMO 13:00
PROVIDERS: ATTEND Internal Medicine Hematology & Oncology
DX: Z51.11 Encounter for antineoplastic chemotherapy (principal); C90.00 Multiple myeloma not having achieved remission
CPT/HCPCS: 96367; 96413; J9047

== ENCOUNTER 2022-12-22 10:25 | Inpatient (IN) | payer OTHER ==
[2022-12-22 10:46] VITALS: BMI 28.5
[2022-12-22 11:36] LABS: VENOUS O2 SATURATION 70.8 % (70-80); VENOUS PH 7.344 (7.310-7.410)
[2022-12-22 11:40] LABS: HEMATOCRIT 34.1 % (35.4-49); HEMOGLOBIN 11.6 GM/dL (11.7-16.9); MCH 34.7 pg (25.7-33.7); MEAN PLT VOLUME 9.4 fl (7.5-11.1); PLATELET COUNT 61 10^3/uL (134-434); RBC 3.35 M/mm3 (4.00-5.60); RDW 17.6 % (11.9-15.9); WHITE BLOOD COUNT 5.1 K/mm3 (4.0-10.0)
[2022-12-22 11:45] LABS: ACTIVATED PTT 58.8 SECONDS (25.2-36.5); INR 1.34 (0.83-1.09); PROTHROMBIN TIME (PATIENT) 15.5 SEC (9.7-13.0)
[2022-12-22 11:54] LABS: POTASSIUM 5.1 mmol/L (3.5-5.1)
[2022-12-22 11:56] LABS: CALCIUM 8.7 mg/dL (8.5-10.1)
[2022-12-22 11:57] LABS: ALBUMIN 2.5 g/dl (3.4-5.0); BLOOD UREA NITROGEN 65.7 mg/dL (7-18); MAGNESIUM 2.2 mg/dL (1.8-2.4)
[2022-12-22 12:00] LABS: ANISOCYTOSIS 1+; MACROCYTOSIS 1+
[2022-12-22 12:01] LABS: BILIRUBIN,TOTAL 0.3 mg/dL (0.2-1); CREATININE 2.9 mg/dL (0.55-1.3); PHOSPHOROUS 3.8 mg/dL (2.5-4.9); TOT PROT 8.1 g/dl (6.4-8.2)
[2022-12-22] MEDS ORDERED: VANCOMYCIN 1 GM in D5W (PRE-DOCKED) 1,000 MG/250 ML (RESTRICTED TO ID ONLY IVPB ONE (12:04)
[2022-12-22] MEDS ORDERED: PIPERACILLIN/TAZOB 3.375 GM 3.375 GM in DEXTROSE 5%-WATER - 50 ML IVPB ONE (12:04)
[2022-12-22] MEDS ORDERED: FUROSEMIDE 40 MG/4 ML INJECTABLE VIAL IVPUSH ONE (12:31)
[2022-12-22 12:36] LABS: ARTERIAL BLD GAS O2 SATURATION 96.9 % (95-98); ARTERIAL BLOOD GAS BASE EXCESS -5.3 mmol/L (-2-2); ARTERIAL BLOOD GAS pH 7.403 (7.350-7.450)
[2022-12-22 12:39] LABS: ALLENS TEST POSITIVE; VENT MODE S/T; VENT RATE 14
[2022-12-22] MEDS ORDERED: FUROSEMIDE 40 MG/4 ML INJECTABLE VIAL ONE (12:58)
[2022-12-22] MEDS ORDERED: VANCOMYCIN HCL 1,500 MG in DEXTROSE 5%-WATER - 500 ML IVPB SCH (15:15)
[2022-12-22] MEDS ORDERED: VANCOMYCIN PREMIX 1.5 GM 1,500 MG/300 ML BAG IVPB ONE (15:30)
[2022-12-22] MEDS ORDERED: VANCOMYCIN 500 MG in DEXTROSE 5%-WATER - 100 ML IVPB ONE (16:00)
[2022-12-22] MEDS: PIPERACILLIN/TAZOB 2.25 GM 2.25 GM in DEXTROSE 5%-WATER - 50 ML IVPB SCH ×2 (16:21→23:14)
[2022-12-22] MEDS ORDERED: METOPROLOL TARTRATE 50 MG TABLET (FP) PO ONE ×2 (17:15→18:30)
[2022-12-22] MEDS ORDERED: amLODIPine BESYLATE 5 MG TABLET (FP) PO ONE (17:15)
[2022-12-22 19:39] LABS: EPI CELLS 14 /uL (0-25.1); HYALINE CASTS 1 /uL (0-3.1); PH,URINE 5.5 (5.0-8.0); URINE APPEARANCE CLEAR; URINE BACTERIA 4 /uL (0-1359); URINE BILIRUBIN NEGATIVE (NEGATIVE); URINE COLOR YELLOW; URINE GLUCOSE (UA) NEGATIVE (NEGATIVE); URINE KETONE NEGATIVE (NEGATIVE); URINE LEUK ESTERASE 1+ (NEGATIVE); URINE NITRITE NEGATIVE (NEGATIVE); URINE PROTEIN 2+ (NEGATIVE); URINE RBC 91 /uL (0-23.9); URINE UROBILINOGEN 0.2 mg/dL (0.2-1.0); URINE WBC 91 /uL (0-25.8)
[2022-12-22] MEDS ORDERED: PIPERACILLIN/TAZOB 2.25 GM 2.25 GM in DEXTROSE 5%-WATER - 50 ML IVPB SCH (20:00)
[2022-12-22] MEDS: AMIODARONE HCL 200 MG TABLET PO SCH (21:26)
[2022-12-22] MEDS: APIXABAN 2.5 MG TABLET PO SCH (21:26)
[2022-12-23 07:27] LABS: BASO % 0.2 % (0-2.0); EOS % 0.1 % (0-4.5); HEMATOCRIT 24.7 % (35.4-49); HEMOGLOBIN 8.5 GM/dL (11.7-16.9); LYMPH % 11.5 % (8-40); MCH 34.7 pg (25.7-33.7); MCHC 34.3 g/dl (32.0-35.9); MEAN CELL VOLUME 101.2 fl (80-96); MEAN PLT VOLUME 9.1 fl (7.5-11.1); NEUT % 81.2 % (42.8-82.8); PLATELET COUNT 69 10^3/uL (134-434); RBC 2.44 M/mm3 (4.00-5.60); RDW 17.1 % (11.9-15.9); WHITE BLOOD COUNT 4.9 K/mm3 (4.0-10.0)
[2022-12-23] MEDS: PIPERACILLIN/TAZOB 2.25 GM 2.25 GM in DEXTROSE 5%-WATER - 50 ML IVPB SCH (07:35)
[2022-12-23 08:09] LABS: POTASSIUM 4.8 mmol/L (3.5-5.1)
[2022-12-23 08:11] LABS: CALCIUM 8.3 mg/dL (8.5-10.1)
[2022-12-23 08:12] LABS: ALBUMIN 2.4 g/dl (3.4-5.0); BLOOD UREA NITROGEN 75.7 mg/dL (7-18); MAGNESIUM 2.2 mg/dL (1.8-2.4)
[2022-12-23 08:14] LABS: PHOSPHOROUS 3.4 mg/dL (2.5-4.9)
[2022-12-23 08:15] LABS: CREATININE 3.1 mg/dL (0.55-1.3)
[2022-12-23 08:16] LABS: BILIRUBIN,TOTAL 0.4 mg/dL (0.2-1); TOT PROT 7.2 g/dl (6.4-8.2)
[2022-12-23] MEDS: amLODIPine BESYLATE 10 MG TABLET (FP) PO SCH (09:33)
[2022-12-23] MEDS: APIXABAN 2.5 MG TABLET PO SCH ×2 (09:33→21:45)
[2022-12-23] MEDS: FUROSEMIDE 40 MG/4 ML INJECTABLE VIAL IVPUSH SCH (09:33)
[2022-12-23] MEDS ORDERED: FUROSEMIDE 40 MG/4 ML INJECTABLE VIAL IVPUSH SCH (10:00)
[2022-12-23] MEDS ORDERED: VANCOMYCIN HCL 1,500 MG in DEXTROSE 5%-WATER - 500 ML IVPB SCH (15:15)
[2022-12-23] MEDS ORDERED: VANCOMYCIN PREMIX 1.5 GM 1,500 MG/300 ML BAG IVPB SCH (15:30)
[2022-12-23] MEDS: AMIODARONE HCL 200 MG TABLET PO SCH (21:45)
[2022-12-24 08:23] LABS: HEMATOCRIT 23.9 % (35.4-49); HEMOGLOBIN 7.9 GM/dL (11.7-16.9); MCH 33.4 pg (25.7-33.7); MCHC 32.9 g/dl (32.0-35.9); MEAN CELL VOLUME 101.5 fl (80-96); MEAN PLT VOLUME 9.3 fl (7.5-11.1); PLATELET COUNT 49 10^3/uL (134-434); RBC 2.35 M/mm3 (4.00-5.60); RDW 16.7 % (11.9-15.9); WHITE BLOOD COUNT 4.6 K/mm3 (4.0-10.0)
[2022-12-24 08:42] LABS: ALBUMIN 2.2 g/dl (3.4-5.0); BLOOD UREA NITROGEN 78.9 mg/dL (7-18); CALCIUM 8.1 mg/dL (8.5-10.1); MAGNESIUM 2.3 mg/dL (1.8-2.4)
[2022-12-24 08:45] LABS: PHOSPHOROUS 3.6 mg/dL (2.5-4.9)
[2022-12-24 08:46] LABS: CREATININE 3.2 mg/dL (0.55-1.3)
[2022-12-24 08:47] LABS: BILIRUBIN,TOTAL 0.5 mg/dL (0.2-1); TOT PROT 6.5 g/dl (6.4-8.2)
[2022-12-24] MEDS: amLODIPine BESYLATE 10 MG TABLET (FP) PO SCH (09:53)
[2022-12-24] MEDS: FUROSEMIDE 40 MG/4 ML INJECTABLE VIAL IVPUSH SCH (09:54)
[2022-12-24] MEDS: APIXABAN 2.5 MG TABLET PO SCH ×2 (09:54→21:27)
[2022-12-24] MEDS: PIPERACILLIN/TAZOB 2.25 GM 2.25 GM in DEXTROSE 5%-WATER - 50 ML IVPB SCH ×2 (20:25→20:26)
[2022-12-24] MEDS: AMIODARONE HCL 200 MG TABLET PO SCH (21:27)
[2022-12-24 23:56] LABS: HEMATOCRIT 25.6 % (35.4-49); HEMOGLOBIN 8.8 GM/dL (11.7-16.9); MCH 34.6 pg (25.7-33.7); MCHC 34.5 g/dl (32.0-35.9); MEAN CELL VOLUME 100.4 fl (80-96); MEAN PLT VOLUME 10.1 fl (7.5-11.1); PLATELET COUNT 61 10^3/uL (134-434); RBC 2.55 M/mm3 (4.00-5.60); RDW 16.4 % (11.9-15.9); WHITE BLOOD COUNT 5.9 K/mm3 (4.0-10.0)
[2022-12-25 08:41] LABS: BASO % 0.3 % (0-2.0); EOS % 1.9 % (0-4.5); HEMOGLOBIN 8.6 GM/dL (11.7-16.9); LYMPH % 8.1 % (8-40); MCH 33.5 pg (25.7-33.7); MCHC 33.3 g/dl (32.0-35.9); MEAN CELL VOLUME 100.8 fl (80-96); MEAN PLT VOLUME 9.6 fl (7.5-11.1); MONO % 3.8 % (3.8-10.2); NEUT % 85.9 % (42.8-82.8); PLATELET COUNT 65 10^3/uL (134-434); RBC 2.57 M/mm3 (4.00-5.60); RDW 16.5 % (11.9-15.9); WHITE BLOOD COUNT 6.2 K/mm3 (4.0-10.0)
[2022-12-25 08:44] LABS: ACTIVATED PTT 34.8 SECONDS (25.2-36.5)
[2022-12-25 08:46] LABS: INR 1.55 (0.83-1.09); POTASSIUM 4.5 mmol/L (3.5-5.1); PROTHROMBIN TIME (PATIENT) 17.9 SEC (9.7-13.0)
[2022-12-25 08:49] LABS: BLOOD UREA NITROGEN 66.4 mg/dL (7-18); CALCIUM 8.1 mg/dL (8.5-10.1)
[2022-12-25 08:50] LABS: ALBUMIN 2.4 g/dl (3.4-5.0); MAGNESIUM 2.1 mg/dL (1.8-2.4)
[2022-12-25 08:52] LABS: CREATININE 2.9 mg/dL (0.55-1.3); PHOSPHOROUS 3.8 mg/dL (2.5-4.9)
[2022-12-25 08:54] LABS: BILIRUBIN,TOTAL 0.5 mg/dL (0.2-1); TOT PROT 7.1 g/dl (6.4-8.2)
[2022-12-25 09:53] VITALS: RESP 17
[2022-12-25] MEDS: FUROSEMIDE 40 MG/4 ML INJECTABLE VIAL IVPUSH SCH (09:53)
[2022-12-25] MEDS: APIXABAN 2.5 MG TABLET PO SCH (09:53)
[2022-12-25] MEDS: amLODIPine BESYLATE 10 MG TABLET (FP) PO SCH (09:53)
[2022-12-25 15:16] VITALS: TEMP 98
[2022-12-25 18:15] VITALS: BP 142/89; PULSE 59
== END 2022-12-25 19:01 | disposition home or self-care (01) | DRG 291 ==
LOC: JER 10:25 → JERBED 12:27 → J4W 15:13
PROVIDERS: ADMIT Internal Medicine; ATTEND Internal Medicine
DX: I13.2 Hypertensive heart and chronic kidney disease with heart failure and with stage 5 chronic kidney disease, or end stage renal disease (principal); I50.33 Acute on chronic diastolic (congestive) heart failure; J96.01 Acute respiratory failure with hypoxia; I48.92 Unspecified atrial flutter; C90.00 Multiple myeloma not having achieved remission; N18.5 Chronic kidney disease, stage 5; E87.1 Hypo-osmolality and hyponatremia; E78.5 Hyperlipidemia, unspecified; D64.9 Anemia, unspecified; I48.0 Paroxysmal atrial fibrillation; Z86.16 Personal history of COVID-19; I45.10 Unspecified right bundle-branch block; Z79.01 Long term (current) use of anticoagulants; I16.0 Hypertensive urgency
CPT/HCPCS: 0241U-QW; 36415; 36600; 71045-TC-FY; 80053; 81003; 82272; 82803; 83605; 83735; 83880; 84100; 84443; 84484; 85025; 85027; 85610; 85730; 87040; 87081; 87086; 87899; 93005; 93010; 93306-TC; 94660; 99285-25

== ENCOUNTER 2022-12-27 09:17 | Day surgery (SDC) | payer OTHER ==
[2022-12-27] MEDS ORDERED: DEXAMETHASONE SODIUM PHOSPHATE 20 MG, ONDANSETRON INJECTION 8 MG in SODIUM CHLORIDE 100 ML IVPB ONE (10:00)
[2022-12-27] MEDS ORDERED: SODIUM CHLORIDE 150 ML IV ONE (10:00)
[2022-12-27] MEDS ORDERED: SODIUM CHLORIDE 350 ML IV ONE (10:00)
[2022-12-27] MEDS ORDERED: DEXTROSE 5% IV ONE (10:30)
[2022-12-27] MEDS ORDERED: CARFILZOMIB IV ONE (10:30)
[2022-12-27] MEDS ORDERED: WATER IV ONE (10:30)
[2022-12-27 10:31] LABS: HEMATOCRIT 29.9 % (35.4-49); HEMOGLOBIN 9.9 GM/dL (11.7-16.9); MCHC 33.3 g/dl (32.0-35.9); MEAN CELL VOLUME 102.2 fl (80-96); MEAN PLT VOLUME 8.7 fl (7.5-11.1); PLATELET COUNT 109 10^3/uL (134-434); RBC 2.92 M/mm3 (4.00-5.60); RDW 16.7 % (11.9-15.9); WHITE BLOOD COUNT 5.5 K/mm3 (4.0-10.0)
[2022-12-27 10:44] LABS: POTASSIUM 4.9 mmol/L (3.5-5.1)
[2022-12-27 10:46] LABS: BLOOD UREA NITROGEN 63.7 mg/dL (7-18); CALCIUM 8.5 mg/dL (8.5-10.1)
[2022-12-27 10:47] LABS: ALBUMIN 2.8 g/dl (3.4-5.0); MAGNESIUM 2.2 mg/dL (1.8-2.4)
[2022-12-27 10:49] LABS: BILIRUBIN,DIRECT 0.2 mg/dL (0.0-0.2)
[2022-12-27 10:51] LABS: BILIRUBIN,TOTAL 0.4 mg/dL (0.2-1); TOT PROT 7.9 g/dl (6.4-8.2)
[2022-12-27 10:58] LABS: URIC ACID 9.6 mg/dL (2.6-7.2)
[2022-12-27] MEDS ORDERED: CYCLOPHOSPHAMIDE IVPB ONE (11:00)
[2022-12-27] MEDS ORDERED: SODIUM CHLORIDE IVPB ONE (11:00)
[2022-12-27 11:23] LABS: ANISOCYTOSIS 0; HELMET CELLS 0; HOWELL-JOLLY BODIES 0; MACROCYTOSIS 0; OVALOCYTE 0; ROULEAU 0; SICKELED CELLS 0; TARGET CELLS 0; TEAR DROP CELLS 0; TOXIC GRANULATION 0
[2022-12-27] MEDS ORDERED: SODIUM CHLORIDE 250 ML IV ONE (11:30)
[2022-12-27 15:13] VITALS: BP 115/56; PULSE 60; RESP 18; TEMP 97.9
[2022-12-27] MEDS ORDERED: PORTA CATH FLUSH 10 ML IVPUSH PRN (15:13)
== END 2022-12-27 15:00 | disposition home or self-care (01) ==
LOC: JONCCHEMO 09:17 → J7W 09:25 → JONCCHEMO 15:00
PROVIDERS: ATTEND Internal Medicine Hematology & Oncology
DX: Z51.11 Encounter for antineoplastic chemotherapy (principal); C90.00 Multiple myeloma not having achieved remission
CPT/HCPCS: 36415; 80048; 80076; 83615; 83735; 84550; 85025; 96361; 96367; 96413; 96417; J9047; J9070

== ENCOUNTER 2022-12-28 10:50 | Day surgery (SDC) | payer OTHER ==
[~2022-12-28 10:50] MED LIST changes: -ACETAMINOPHEN 325 MG TABLET (FP) PO ONE; +CARFILZOMIB IV ONE; +DEXAMETHASONE SODIUM PHOSPHATE 20 MG, ONDANSETRON INJECTION 8 MG in SODIUM CHLORIDE 100 ML IVPB ONE; -DEXAMETHASONE SODIUM PHOSPHATE 8 MG, DIPHENHYDRAMINE 25 MG in SODIUM CHLORIDE 100 ML IVPB ONE; +DEXTROSE 5% IV ONE; -ELOTUZUMAB IV ONE; -FAMOTIDINE 20 MG/50 ML IVPB 20 MG/50 ML MG IVPB ONE; +PORTA CATH FLUSH 10 ML IVPUSH PRN; -SODIUM CHLORIDE IV ONE; +WATER IV ONE
[2022-12-28] MEDS ORDERED: SODIUM CHLORIDE 250 ML IV ONE (11:00)
[2022-12-28 14:57] VITALS: BP 135/75; PULSE 73; RESP 20; TEMP 97.7
[2022-12-28] MEDS ORDERED: PORTA CATH FLUSH 10 ML IVPUSH PRN (14:57)
== END 2022-12-28 12:45 | disposition home or self-care (01) ==
LOC: JONCCHEMO 10:50 → J7W 10:50 → JONCCHEMO 12:45
PROVIDERS: ATTEND Internal Medicine Hematology & Oncology
DX: Z51.11 Encounter for antineoplastic chemotherapy (principal); C90.00 Multiple myeloma not having achieved remission
CPT/HCPCS: 96367; 96413; J9047

== ENCOUNTER 2023-01-10 09:20 | Day surgery (SDC) | payer OTHER ==
[~2023-01-10 09:20] MED LIST changes: -CARFILZOMIB IV ONE; -DEXAMETHASONE SODIUM PHOSPHATE 20 MG, ONDANSETRON INJECTION 8 MG in SODIUM CHLORIDE 100 ML IVPB ONE; -DEXTROSE 5% IV ONE; -PORTA CATH FLUSH 10 ML IVPUSH PRN; +SODIUM CHLORIDE 150 ML IV ONE; -SODIUM CHLORIDE 250 ML IV ONE; -WATER IV ONE
[2023-01-10] MEDS ORDERED: DEXAMETHASONE SODIUM PHOSPHATE 20 MG, ONDANSETRON INJECTION 8 MG in SODIUM CHLORIDE 100 ML IVPB ONE (09:30)
[2023-01-10] MEDS ORDERED: SODIUM CHLORIDE IVPB ONE (10:00)
[2023-01-10] MEDS ORDERED: CYCLOPHOSPHAMIDE IVPB ONE (10:00)
[2023-01-10 10:17] LABS: HEMATOCRIT 27.2 % (35.4-49); HEMOGLOBIN 9.1 GM/dL (11.7-16.9); MCH 34.2 pg (25.7-33.7); MCHC 33.4 g/dl (32.0-35.9); MEAN CELL VOLUME 102.5 fl (80-96); MEAN PLT VOLUME 7.3 fl (7.5-11.1); PLATELET COUNT 164 10^3/uL (134-434); RBC 2.66 M/mm3 (4.00-5.60); RDW 15.8 % (11.9-15.9); WHITE BLOOD COUNT 4.7 K/mm3 (4.0-10.0)
[2023-01-10] MEDS ORDERED: DEXTROSE 5% IV ONE (10:30)
[2023-01-10] MEDS: PORTA CATH FLUSH 10 ML IVPUSH PRN ×2 (10:30→15:45)
[2023-01-10] MEDS ORDERED: CARFILZOMIB IV ONE (10:30)
[2023-01-10] MEDS ORDERED: WATER IV ONE (10:30)
[2023-01-10 10:36] LABS: POTASSIUM 4.8 mmol/L (3.5-5.1)
[2023-01-10 10:38] LABS: MAGNESIUM 2.2 mg/dL (1.8-2.4)
[2023-01-10 10:39] LABS: CALCIUM 8.4 mg/dL (8.5-10.1)
[2023-01-10 10:40] LABS: ALBUMIN 2.6 g/dl (3.4-5.0)
[2023-01-10 10:41] LABS: CREATININE 2.8 mg/dL (0.55-1.3); URIC ACID 7.8 mg/dL (2.6-7.2)
[2023-01-10 10:42] LABS: BILIRUBIN,DIRECT 0.1 mg/dL (0.0-0.2)
[2023-01-10 10:43] LABS: TOT PROT 6.9 g/dl (6.4-8.2)
[2023-01-10 10:45] LABS: BILIRUBIN,TOTAL 0.3 mg/dL (0.2-1)
[2023-01-10] MEDS ORDERED: SODIUM CHLORIDE 250 ML IV ONE (11:00)
[2023-01-10 11:55] LABS: ANISOCYTOSIS 1+; MACROCYTOSIS 0; OVALOCYTE 2+; TARGET CELLS 1+
[2023-01-10 13:51] LABS: EPI CELLS 2 /uL (0-25.1); HYALINE CASTS 2 /uL (0-3.1); PH,URINE 5.5 (5.0-8.0); URINE APPEARANCE CLOUDY; URINE BACTERIA 125 /uL (0-1359); URINE BILIRUBIN NEGATIVE (NEGATIVE); URINE COLOR YELLOW; URINE GLUCOSE (UA) NEGATIVE (NEGATIVE); URINE KETONE NEGATIVE (NEGATIVE); URINE LEUK ESTERASE 3+ (NEGATIVE); URINE NITRITE NEGATIVE (NEGATIVE); URINE PROTEIN 1+ (NEGATIVE); URINE RBC 42 /uL (0-23.9); URINE UROBILINOGEN 0.2 mg/dL (0.2-1.0); URINE WBC 3273 /uL (0-25.8)
[2023-01-10 15:29] LABS: YEAST POSITIVE (NEGATIVE)
[2023-01-10 17:20] VITALS: BP 96/49; PULSE 57; RESP 20; TEMP 98.1
[2023-01-12 06:06] LABS: FREE KAP CHN UR 1522.01 mg/L (1.17-86.46); KAPPA LAMBDA RATIO URIN 105.48 (1.83-14.26)
[2023-01-12 16:07] LABS: BETA-2-MICROGLOBULIN 10.9 mg/L (0.6-2.4)
[2023-01-12 17:07] LABS: FREE KAPPA,SERUM 1633.2 mg/L (3.3-19.4)
== END 2023-01-10 15:50 | disposition home or self-care (01) ==
LOC: JONCCHEMO 09:20 → J7W 09:30 → JONCCHEMO 15:50
PROVIDERS: ATTEND Internal Medicine Hematology & Oncology
DX: Z51.11 Encounter for antineoplastic chemotherapy (principal); C90.00 Multiple myeloma not having achieved remission
CPT/HCPCS: 36415; 80048; 80076; 81003; 82232; 82784; 83615; 83735; 83883; 84155; 84165; 84550; 85025; 86335; 87077; 87086; 96367; 96413; 96417; J9047; J9070

== ENCOUNTER 2023-01-11 09:27 | Day surgery (SDC) | payer OTHER ==
[2023-01-11] MEDS ORDERED: SODIUM CHLORIDE 250 ML IV ONE ×2 (10:00→11:00)
[2023-01-11] MEDS ORDERED: DEXAMETHASONE SODIUM PHOSPHATE 20 MG, ONDANSETRON INJECTION 8 MG in SODIUM CHLORIDE 100 ML IVPB ONE (10:00)
[2023-01-11] MEDS ORDERED: WATER IV ONE (10:30)
[2023-01-11] MEDS ORDERED: DEXTROSE 5% IV ONE (10:30)
[2023-01-11] MEDS ORDERED: CARFILZOMIB IV ONE (10:30)
[2023-01-11 16:07] VITALS: PULSE 71; RESP 20; TEMP 97.1
[2023-01-11 16:11] VITALS: BP 107/65
[2023-01-11] MEDS ORDERED: PORTA CATH FLUSH 10 ML IVPUSH PRN (16:11)
== END 2023-01-11 13:30 | disposition home or self-care (01) ==
LOC: JONCCHEMO 09:27 → J7W 09:29 → JONCCHEMO 13:30
PROVIDERS: ATTEND Internal Medicine Hematology & Oncology
DX: Z51.11 Encounter for antineoplastic chemotherapy (principal); C90.00 Multiple myeloma not having achieved remission
CPT/HCPCS: 96367; 96413; J9047

== ENCOUNTER 2023-01-17 08:47 | Day surgery (SDC) | payer OTHER ==
[2023-01-17 09:22] LABS: BASO % 0.4 % (0-2.0); EOS % 2.2 % (0-4.5); HEMATOCRIT 28.9 % (35.4-49); HEMOGLOBIN 9.4 GM/dL (11.7-16.9); LYMPH % 5.9 % (8-40); MCH 33.8 pg (25.7-33.7); MCHC 32.6 g/dl (32.0-35.9); MEAN CELL VOLUME 103.7 fl (80-96); MEAN PLT VOLUME 8.1 fl (7.5-11.1); MONO % 9.2 % (3.8-10.2); NEUT % 82.3 % (42.8-82.8); PLATELET COUNT 107 10^3/uL (134-434); RBC 2.79 M/mm3 (4.00-5.60); RDW 15.2 % (11.9-15.9); WHITE BLOOD COUNT 4.9 K/mm3 (4.0-10.0)
[2023-01-17 09:43] LABS: POTASSIUM 4.5 mmol/L (3.5-5.1)
[2023-01-17 09:46] LABS: MAGNESIUM 2.2 mg/dL (1.8-2.4)
[2023-01-17 09:48] LABS: ALBUMIN 2.9 g/dl (3.4-5.0); CALCIUM 8.5 mg/dL (8.5-10.1); CREATININE 3.3 mg/dL (0.55-1.3)
[2023-01-17 09:50] LABS: BILIRUBIN,DIRECT 0.1 mg/dL (0.0-0.2)
[2023-01-17 09:52] LABS: BILIRUBIN,TOTAL 0.4 mg/dL (0.2-1)
[2023-01-17] MEDS ORDERED: SODIUM CHLORIDE 150 ML IVPB ONE (10:00)
[2023-01-17] MEDS ORDERED: DEXAMETHASONE SODIUM PHOSPHATE 20 MG, ONDANSETRON INJECTION 8 MG in SODIUM CHLORIDE 100 ML IVPB ONE (10:00)
[2023-01-17] MEDS ORDERED: SODIUM CHLORIDE IVPB ONE (10:30)
[2023-01-17] MEDS ORDERED: CYCLOPHOSPHAMIDE IVPB ONE (10:30)
[2023-01-17] MEDS ORDERED: CARFILZOMIB IV ONE (11:00)
[2023-01-17] MEDS ORDERED: WATER IV ONE (11:00)
[2023-01-17] MEDS ORDERED: DEXTROSE 5% IV ONE (11:00)
[2023-01-17] MEDS ORDERED: SODIUM CHLORIDE 250 ML IV ONE (11:30)
[2023-01-17 15:27] VITALS: BP 114/64; PULSE 74; RESP 18; TEMP 97.9
[2023-01-17] MEDS ORDERED: PORTA CATH FLUSH 10 ML IVPUSH PRN (15:27)
== END 2023-01-17 15:00 | disposition home or self-care (01) ==
LOC: JONCCHEMO 08:47 → J7W 08:52 → JONCCHEMO 15:00
PROVIDERS: ATTEND Internal Medicine Hematology & Oncology
DX: Z51.11 Encounter for antineoplastic chemotherapy (principal); C90.00 Multiple myeloma not having achieved remission
CPT/HCPCS: 36415; 80048; 80076; 83615; 83735; 84550; 85025; 96367; 96413; 96417; J9047; J9070

== ENCOUNTER 2023-01-18 09:54 | Day surgery (SDC) | payer OTHER ==
[~2023-01-18 09:54] MED LIST changes: -SODIUM CHLORIDE 150 ML IV ONE; +SODIUM CHLORIDE 250 ML IV ONE
[2023-01-18] MEDS ORDERED: SODIUM CHLORIDE IVPB ONE (10:00)
[2023-01-18] MEDS ORDERED: ONDANSETRON IVPB ONE (10:00)
[2023-01-18] MEDS ORDERED: DEXAMETHASONE IVPB ONE (10:00)
[2023-01-18] MEDS ORDERED: WATER IV ONE (10:30)
[2023-01-18] MEDS ORDERED: CARFILZOMIB IV ONE (10:30)
[2023-01-18] MEDS ORDERED: DEXTROSE 5% IV ONE (10:30)
[2023-01-18] MEDS ORDERED: SODIUM CHLORIDE 250 ML IV ONE (11:00)
[2023-01-18 14:58] VITALS: BP 105/57; PULSE 76; RESP 18; TEMP 97.8
[2023-01-18] MEDS ORDERED: PORTA CATH FLUSH 10 ML IVPUSH PRN (14:58)
== END 2023-01-18 11:55 | disposition home or self-care (01) ==
LOC: JONCCHEMO 09:54
PROVIDERS: ATTEND Internal Medicine Hematology & Oncology
DX: Z51.11 Encounter for antineoplastic chemotherapy (principal); C90.00 Multiple myeloma not having achieved remission
CPT/HCPCS: 96367; 96413; J9047

== ENCOUNTER 2023-01-24 09:00 | Day surgery (SDC) | payer OTHER ==
[~2023-01-24 09:00] MED LIST changes: +SODIUM CHLORIDE 150 ML IVPB ONE; -SODIUM CHLORIDE 250 ML IV ONE
[2023-01-24 09:59] LABS: HEMATOCRIT 26.2 % (35.4-49); HEMOGLOBIN 8.7 GM/dL (11.7-16.9); MCH 33.8 pg (25.7-33.7); MCHC 33.1 g/dl (32.0-35.9); MEAN CELL VOLUME 102.3 fl (80-96); PLATELET COUNT 98 10^3/uL (134-434); RBC 2.56 M/mm3 (4.00-5.60); RDW 14.9 % (11.9-15.9); WHITE BLOOD COUNT 3.2 K/mm3 (4.0-10.0)
[2023-01-24] MEDS ORDERED: DEXAMETHASONE SODIUM PHOSPHATE 20 MG, ONDANSETRON INJECTION 8 MG in SODIUM CHLORIDE 100 ML IVPB ONE (10:00)
[2023-01-24 10:13] LABS: ALBUMIN 2.9 g/dl (3.4-5.0); BLOOD UREA NITROGEN 48.8 mg/dL (7-18); CALCIUM 8.6 mg/dL (8.5-10.1); MAGNESIUM 2.6 mg/dL (1.8-2.4)
[2023-01-24 10:14] LABS: CREATININE 2.9 mg/dL (0.55-1.3)
[2023-01-24 10:15] LABS: BILIRUBIN,DIRECT 0.1 mg/dL (0.0-0.2); TOT PROT 6.7 g/dl (6.4-8.2)
[2023-01-24 10:16] LABS: URIC ACID 9.1 mg/dL (2.6-7.2)
[2023-01-24 10:17] LABS: BILIRUBIN,TOTAL 0.3 mg/dL (0.2-1)
[2023-01-24] MEDS ORDERED: SODIUM CHLORIDE IVPB ONE (10:30)
[2023-01-24] MEDS ORDERED: CYCLOPHOSPHAMIDE IVPB ONE (10:30)
[2023-01-24] MEDS ORDERED: CARFILZOMIB IV ONE (11:00)
[2023-01-24] MEDS ORDERED: WATER IV ONE (11:00)
[2023-01-24] MEDS ORDERED: DEXTROSE 5% IV ONE (11:00)
[2023-01-24 11:29] LABS: ANISOCYTOSIS 1+; MACROCYTOSIS 1+; OVALOCYTE 0
[2023-01-24] MEDS ORDERED: SODIUM CHLORIDE 0.9% 500 ML INFUS.BAG IV ONE (13:50)
[2023-01-24 18:23] VITALS: BP 90/52; PULSE 61; RESP 20; TEMP 97.9
[2023-01-24] MEDS ORDERED: PORTA CATH FLUSH 10 ML IVPUSH PRN (18:23)
== END 2023-01-24 15:15 | disposition home or self-care (01) ==
LOC: JONCCHEMO 09:00 → J7W 09:29 → JONCCHEMO 15:15
PROVIDERS: ATTEND Internal Medicine Hematology & Oncology
DX: Z51.11 Encounter for antineoplastic chemotherapy (principal); C90.00 Multiple myeloma not having achieved remission
CPT/HCPCS: 36415; 80048; 80076; 83615; 83735; 84550; 85025; 96367; 96413; 96417; J9047; J9070

== ENCOUNTER 2023-01-25 10:44 | Day surgery (SDC) | payer OTHER ==
[~2023-01-25 10:44] MED LIST changes: +CARFILZOMIB IV ONE; +DEXAMETHASONE SODIUM PHOSPHATE IVPB ONE; +DEXTROSE 5% IV ONE; +GRANISETRON HCL IVPB ONE; -SODIUM CHLORIDE 150 ML IVPB ONE; +SODIUM CHLORIDE 250 ML IV ONE; +SODIUM CHLORIDE IVPB ONE; +WATER IV ONE
[2023-01-25 16:03] VITALS: BP 116/64; PULSE 85; RESP 18; TEMP 97.8
[2023-01-25] MEDS ORDERED: PORTA CATH FLUSH 10 ML IVPUSH PRN (16:03)
== END 2023-01-25 12:00 | disposition home or self-care (01) ==
LOC: JONCCHEMO 10:44 → J7W 10:45 → JONCCHEMO 12:00
PROVIDERS: ATTEND Internal Medicine Hematology & Oncology
DX: Z51.11 Encounter for antineoplastic chemotherapy (principal); C90.00 Multiple myeloma not having achieved remission
CPT/HCPCS: 96367; 96413; J9047

== ENCOUNTER 2023-02-07 09:11 | Day surgery (SDC) | payer OTHER ==
[~2023-02-07 09:11] MED LIST changes: -CARFILZOMIB IV ONE; -DEXAMETHASONE SODIUM PHOSPHATE IVPB ONE; -DEXTROSE 5% IV ONE; -GRANISETRON HCL IVPB ONE; +SODIUM CHLORIDE 150 ML IVPB ONE; -SODIUM CHLORIDE 250 ML IV ONE; -SODIUM CHLORIDE IVPB ONE; -WATER IV ONE
[2023-02-07 09:59] LABS: HEMATOCRIT 25.9 % (35.4-49); HEMOGLOBIN 8.7 GM/dL (11.7-16.9); MCH 34.9 pg (25.7-33.7); MCHC 33.7 g/dl (32.0-35.9); MEAN CELL VOLUME 103.5 fl (80-96); MEAN PLT VOLUME 7.1 fl (7.5-11.1); PLATELET COUNT 158 10^3/uL (134-434); RBC 2.51 M/mm3 (4.00-5.60); RDW 15.3 % (11.9-15.9); WHITE BLOOD COUNT 4.3 K/mm3 (4.0-10.0)
[2023-02-07] MEDS ORDERED: SODIUM CHLORIDE IVPB ONE ×2 (10:00→10:30)
[2023-02-07] MEDS ORDERED: GRANISETRON HCL IVPB ONE (10:00)
[2023-02-07] MEDS ORDERED: DEXAMETHASONE SODIUM PHOSPHATE IVPB ONE (10:00)
[2023-02-07 10:06] LABS: CHLORIDE 104 mmol/L (98-107); POTASSIUM 3.8 mmol/L (3.5-5.1); SODIUM 137 mmol/L (136-145)
[2023-02-07 10:07] LABS: ALBUMIN 3.4 g/dl (3.4-5.0); ANION GAP 10 MMOL/L (8-16); CALCIUM 8.7 mg/dL (8.5-10.1); CO2 23 mmol/L (21-32); GLUCOSE,RANDOM 104 mg/dL (74-106); MAGNESIUM 2.8 mg/dL (1.8-2.4)
[2023-02-07 10:11] LABS: CREATININE 4.4 mg/dL (0.55-1.3); SGOT/AST 16 U/L (15-37); SGPT/ALT 27 U/L (13-61)
[2023-02-07 10:12] LABS: BILIRUBIN,TOTAL 0.8 mg/dL (0.2-1); TOT PROT 7.3 g/dl (6.4-8.2)
[2023-02-07 10:14] LABS: ALK PHOS 95 U/L (45-117)
[2023-02-07 10:23] LABS: LDH 187 U/L (87-246); URIC ACID 13.9 mg/dL (2.6-7.2)
[2023-02-07] MEDS ORDERED: CYCLOPHOSPHAMIDE IVPB ONE (10:30)
[2023-02-07] MEDS ORDERED: WATER IV ONE (11:00)
[2023-02-07] MEDS ORDERED: CARFILZOMIB IV ONE (11:00)
[2023-02-07] MEDS ORDERED: DEXTROSE 5% IV ONE (11:00)
[2023-02-07] MEDS ORDERED: FEBUXOSTAT 40 MG TAB PO SCH (11:15)
[2023-02-07] MEDS ORDERED: SODIUM CHLORIDE 0.45% 250 ML IV SCH (11:15)
[2023-02-07] MEDS ORDERED: SODIUM CHLORIDE 0.45% 150 ML IV SCH (11:15)
[2023-02-07] MEDS ORDERED: SODIUM CHLORIDE 250 ML IV ONE (11:30)
[2023-02-07 11:43] LABS: ANISOCYTOSIS 0; MACROCYTOSIS 1+
[2023-02-07 17:39] VITALS: BP 88/44; PULSE 58; RESP 18; TEMP 97.9
[2023-02-07] MEDS ORDERED: PORTA CATH FLUSH 10 ML IVPUSH PRN (17:39)
[2023-02-09 05:07] LABS: FREE KAP CHN UR 715.27 mg/L (1.17-86.46); KAPPA LAMBDA RATIO URIN 120.62 (1.83-14.26)
== END 2023-02-07 16:00 | disposition home or self-care (01) ==
LOC: JONCCHEMO 09:11
PROVIDERS: ATTEND Internal Medicine Hematology & Oncology
DX: Z51.11 Encounter for antineoplastic chemotherapy (principal); C90.00 Multiple myeloma not having achieved remission
CPT/HCPCS: 36415; 80053; 82232; 82784; 83615; 83735; 83883; 84155; 84165; 84550; 85025; 86335; 96367; 96413; 96417; J9047; J9070

== ENCOUNTER 2023-02-08 08:54 | Day surgery (SDC) | payer OTHER ==
[2023-02-08] MEDS ORDERED: SODIUM CHLORIDE 0.45% 250 ML IVPB ONE (09:00)
[2023-02-08] MEDS ORDERED: GRANISETRON HCL IVPB ONE (10:00)
[2023-02-08] MEDS ORDERED: FEBUXOSTAT 40 MG TAB PO SCH (10:00)
[2023-02-08] MEDS ORDERED: DEXAMETHASONE SODIUM PHOSPHATE IVPB ONE (10:00)
[2023-02-08] MEDS ORDERED: SODIUM CHLORIDE IVPB ONE (10:00)
[2023-02-08] MEDS ORDERED: WATER IV ONE (10:30)
[2023-02-08] MEDS ORDERED: DEXTROSE 5% IV ONE (10:30)
[2023-02-08] MEDS ORDERED: CARFILZOMIB IV ONE (10:30)
[2023-02-08 16:08] VITALS: TEMP 97.5
[2023-02-08 16:13] VITALS: BP 112/74; PULSE 68; RESP 20
[2023-02-08] MEDS ORDERED: PORTA CATH FLUSH 10 ML IVPUSH PRN (16:13)
== END 2023-02-08 12:30 | disposition home or self-care (01) ==
LOC: J7W 08:54 → JONCCHEMO 08:54
PROVIDERS: ATTEND Internal Medicine Hematology & Oncology
DX: Z51.11 Encounter for antineoplastic chemotherapy (principal); C90.00 Multiple myeloma not having achieved remission
CPT/HCPCS: 96367; 96413; J9047

== ENCOUNTER 2023-02-14 08:49 | Day surgery (SDC) | payer OTHER ==
[2023-02-14] MEDS ORDERED: SODIUM CHLORIDE 0.45% 150 ML IV ONE (09:00)
[2023-02-14] MEDS ORDERED: SODIUM CHLORIDE 0.45% 250 ML IV ONE ×2 (09:00→11:00)
[2023-02-14] MEDS ORDERED: GRANISETRON HCL IVPB ONE (09:30)
[2023-02-14] MEDS ORDERED: DEXAMETHASONE SODIUM PHOSPHATE IVPB ONE (09:30)
[2023-02-14] MEDS ORDERED: SODIUM CHLORIDE IVPB ONE ×2 (09:30→10:00)
[2023-02-14] MEDS ORDERED: CYCLOPHOSPHAMIDE IVPB ONE (10:00)
[2023-02-14 10:08] LABS: HEMATOCRIT 24.3 % (35.4-49); MCH 34.7 pg (25.7-33.7); MCHC 32.9 g/dl (32.0-35.9); MEAN CELL VOLUME 105.4 fl (80-96); MEAN PLT VOLUME 8.9 fl (7.5-11.1); PLATELET COUNT 94 10^3/uL (134-434); RDW 14.2 % (11.9-15.9); WHITE BLOOD COUNT 5.4 K/mm3 (4.0-10.0)
[2023-02-14] MEDS ORDERED: WATER IV ONE (10:30)
[2023-02-14] MEDS ORDERED: CARFILZOMIB IV ONE (10:30)
[2023-02-14] MEDS ORDERED: DEXTROSE 5% IV ONE (10:30)
[2023-02-14 10:35] LABS: POTASSIUM 4.1 mmol/L (3.5-5.1)
[2023-02-14 10:36] LABS: CALCIUM 8.6 mg/dL (8.5-10.1)
[2023-02-14 10:37] LABS: BLOOD UREA NITROGEN 76.5 mg/dL (7-18); MAGNESIUM 2.8 mg/dL (1.8-2.4)
[2023-02-14 10:39] LABS: URIC ACID 8.4 mg/dL (2.6-7.2)
[2023-02-14 10:40] LABS: CREATININE 3.7 mg/dL (0.55-1.3)
[2023-02-14 11:04] LABS: ANISOCYTOSIS 2+; MACROCYTOSIS 2+
[2023-02-14 16:25] VITALS: BP 105/47; PULSE 59; RESP 18; TEMP 97.4
[2023-02-14] MEDS ORDERED: PORTA CATH FLUSH 10 ML IVPUSH PRN (16:25)
[2023-02-15 17:08] LABS: FREE KAPPA,SERUM 1100.8 mg/L (3.3-19.4)
[2023-02-16 06:09] LABS: FREE KAP CHN UR 455.33 mg/L (1.17-86.46); KAPPA LAMBDA RATIO URIN 179.97 (1.83-14.26)
== END 2023-02-14 15:00 | disposition home or self-care (01) ==
LOC: JONCCHEMO 08:49 → J7W 08:50 → JONCCHEMO 15:00
PROVIDERS: ATTEND Internal Medicine Hematology & Oncology
DX: Z51.11 Encounter for antineoplastic chemotherapy (principal); C90.00 Multiple myeloma not having achieved remission
CPT/HCPCS: 36415; 80048; 82784; 83615; 83735; 83883; 84155; 84165; 84550; 85025; 86335; 96367; 96413; 96417; J9047; J9070

== ENCOUNTER 2023-02-15 09:01 | Day surgery (SDC) | payer OTHER ==
[~2023-02-15 09:01] MED LIST changes: +SODIUM CHLORIDE 0.45% 250 ML IVPB ONE; -SODIUM CHLORIDE 150 ML IVPB ONE
[2023-02-15] MEDS ORDERED: DEXAMETHASONE SODIUM PHOSPHATE IVPB ONE (09:30)
[2023-02-15] MEDS ORDERED: SODIUM CHLORIDE IVPB ONE (09:30)
[2023-02-15] MEDS ORDERED: GRANISETRON HCL IVPB ONE (09:30)
[2023-02-15] MEDS ORDERED: DEXTROSE 5% IV ONE (10:00)
[2023-02-15] MEDS ORDERED: WATER IV ONE (10:00)
[2023-02-15] MEDS ORDERED: CARFILZOMIB IV ONE (10:00)
[2023-02-15] MEDS ORDERED: PORTA CATH FLUSH 10 ML IVPUSH PRN (14:52)
[2023-02-15 14:53] VITALS: BP 117/67; PULSE 66; RESP 18; TEMP 97.4
== END 2023-02-15 11:55 | disposition home or self-care (01) ==
LOC: JONCCHEMO 09:01 → J7W 09:02 → JONCCHEMO 11:55
PROVIDERS: ATTEND Internal Medicine Hematology & Oncology
DX: Z51.11 Encounter for antineoplastic chemotherapy (principal); C90.00 Multiple myeloma not having achieved remission
CPT/HCPCS: 96367; 96413; J9047

== ENCOUNTER 2023-02-21 09:06 | Day surgery (SDC) | payer OTHER ==
[~2023-02-21 09:06] MED LIST changes: +SODIUM CHLORIDE 0.45% 150 ML IV ONE; -SODIUM CHLORIDE 0.45% 250 ML IVPB ONE
[2023-02-21] MEDS ORDERED: GRANISETRON HCL IVPB ONE (09:30)
[2023-02-21] MEDS ORDERED: SODIUM CHLORIDE IVPB ONE ×2 (09:30→10:00)
[2023-02-21] MEDS ORDERED: DEXAMETHASONE SODIUM PHOSPHATE IVPB ONE (09:30)
[2023-02-21] MEDS ORDERED: CYCLOPHOSPHAMIDE IVPB ONE (10:00)
[2023-02-21 10:13] LABS: HEMATOCRIT 20.7 % (35.4-49); MCH 35.3 pg (25.7-33.7); MCHC 33.4 g/dl (32.0-35.9); MEAN CELL VOLUME 105.6 fl (80-96); PLATELET COUNT 99 10^3/uL (134-434); RBC 1.96 M/mm3 (4.00-5.60); WHITE BLOOD COUNT 4.4 K/mm3 (4.0-10.0)
[2023-02-21 10:15] LABS: HEMOGLOBIN 6.9 GM/dL (11.7-16.9)
[2023-02-21] MEDS ORDERED: CARFILZOMIB IV ONE (10:30)
[2023-02-21] MEDS ORDERED: WATER IV ONE (10:30)
[2023-02-21] MEDS ORDERED: DEXTROSE 5% IV ONE (10:30)
[2023-02-21 10:37] LABS: POTASSIUM 3.7 mmol/L (3.5-5.1)
[2023-02-21 10:39] LABS: CALCIUM 8.4 mg/dL (8.5-10.1)
[2023-02-21 10:40] LABS: ALBUMIN 2.9 g/dl (3.4-5.0); BLOOD UREA NITROGEN 65.7 mg/dL (7-18); MAGNESIUM 2.4 mg/dL (1.8-2.4)
[2023-02-21 10:42] LABS: URIC ACID 8.6 mg/dL (2.6-7.2)
[2023-02-21 10:43] LABS: CREATININE 3.5 mg/dL (0.55-1.3)
[2023-02-21 10:44] LABS: BILIRUBIN,TOTAL 0.7 mg/dL (0.2-1); TOT PROT 6.4 g/dl (6.4-8.2)
[2023-02-21] MEDS ORDERED: SODIUM CHLORIDE 0.45% 250 ML IV ONE (11:00)
[2023-02-21 11:27] LABS: ANISOCYTOSIS 0; MACROCYTOSIS 1+
[2023-02-21 16:24] VITALS: RESP 20
[2023-02-21] MEDS ORDERED: PORTA CATH FLUSH 10 ML IVPUSH PRN (16:26)
[2023-02-21 16:36] VITALS: BP 107/63; PULSE 69; TEMP 98.2
== END 2023-02-21 16:45 | disposition home or self-care (01) ==
LOC: JONCCHEMO 09:06 → J7W 09:09 → JONCCHEMO 16:45
PROVIDERS: ATTEND Internal Medicine Hematology & Oncology
PROC: 30233H1 Transfusion of Nonautologous Whole Blood into Peripheral Vein, Percutaneous Approach (ICD-10-PCS; principal; 2023-02-21)
DX: C90.00 Multiple myeloma not having achieved remission (principal)
CPT/HCPCS: 36415; 36430; 80053; 83615; 83735; 84550; 85025; 86850; 86900; 86901; 86922; P9058

== ENCOUNTER 2023-02-22 09:33 | Day surgery (SDC) | payer OTHER ==
[2023-02-22 14:35] LABS: HEMATOCRIT 22.9 % (35.4-49); HEMOGLOBIN 7.7 GM/dL (11.7-16.9); MCH 32.9 pg (25.7-33.7); MCHC 33.5 g/dl (32.0-35.9); MEAN CELL VOLUME 98.3 fl (80-96); MEAN PLT VOLUME 7.8 fl (7.5-11.1); PLATELET COUNT 90 10^3/uL (134-434); RBC 2.33 M/mm3 (4.00-5.60); RDW 20.4 % (11.9-15.9); WHITE BLOOD COUNT 3.1 K/mm3 (4.0-10.0)
[2023-02-22 14:57] LABS: ANISOCYTOSIS 1+; MACROCYTOSIS 1+
[2023-02-22 16:56] VITALS: BP 84/47; PULSE 70; RESP 20; TEMP 97.8
[2023-02-22] MEDS ORDERED: PORTA CATH FLUSH 10 ML IVPUSH PRN (16:56)
== END 2023-02-22 14:30 | disposition home or self-care (01) ==
LOC: JONCCHEMO 09:33 → J7W 09:37 → JONCCHEMO 14:30
PROVIDERS: ATTEND Internal Medicine Hematology & Oncology
PROC: 30233N1 Transfusion of Nonautologous Red Blood Cells into Peripheral Vein, Percutaneous Approach (ICD-10-PCS; principal; 2023-02-22)
DX: C90.00 Multiple myeloma not having achieved remission (principal)
CPT/HCPCS: 36415; 36430; 85025

== ENCOUNTER 2023-03-07 09:08 | Day surgery (SDC) | payer OTHER ==
[2023-03-07] MEDS ORDERED: SODIUM CHLORIDE IVPB ONE ×2 (09:30→10:30)
[2023-03-07] MEDS ORDERED: GRANISETRON HCL IVPB ONE (09:30)
[2023-03-07] MEDS ORDERED: DEXAMETHASONE SODIUM PHOSPHATE IVPB ONE (09:30)
[2023-03-07 09:52] LABS: HEMATOCRIT 32.5 % (35.4-49); HEMOGLOBIN 10.5 GM/dL (11.7-16.9); MCH 31.7 pg (25.7-33.7); MCHC 32.3 g/dl (32.0-35.9); MEAN CELL VOLUME 98.4 fl (80-96); MEAN PLT VOLUME 7.1 fl (7.5-11.1); PLATELET COUNT 146 10^3/uL (134-434); RBC 3.31 M/mm3 (4.00-5.60); RDW 19.8 % (11.9-15.9); WHITE BLOOD COUNT 5.1 K/mm3 (4.0-10.0)
[2023-03-07] MEDS ORDERED: WATER IV ONE (10:00)
[2023-03-07] MEDS ORDERED: DEXTROSE 5% IV ONE (10:00)
[2023-03-07] MEDS ORDERED: CARFILZOMIB IV ONE (10:00)
[2023-03-07 10:20] LABS: POTASSIUM 4.5 mmol/L (3.5-5.1)
[2023-03-07 10:22] LABS: ALBUMIN 2.9 g/dl (3.4-5.0); BLOOD UREA NITROGEN 37.1 mg/dL (7-18); CALCIUM 8.2 mg/dL (8.5-10.1); MAGNESIUM 2.5 mg/dL (1.8-2.4)
[2023-03-07 10:25] LABS: CREATININE 2.6 mg/dL (0.55-1.3); URIC ACID 5.6 mg/dL (2.6-7.2)
[2023-03-07 10:26] LABS: ANISOCYTOSIS 1+; MACROCYTOSIS 1+
[2023-03-07 10:27] LABS: BILIRUBIN,TOTAL 0.3 mg/dL (0.2-1); TOT PROT 6.7 g/dl (6.4-8.2)
[2023-03-07] MEDS ORDERED: CYCLOPHOSPHAMIDE IVPB ONE (10:30)
[2023-03-07] MEDS ORDERED: SODIUM CHLORIDE 0.45% 250 ML IV ONE (11:00)
[2023-03-07 15:46] VITALS: BP 93/64; PULSE 65; RESP 18; TEMP 98.2
[2023-03-07] MEDS ORDERED: PORTA CATH FLUSH 10 ML IVPUSH PRN (15:46)
[2023-03-08 17:07] LABS: FREE KAPPA,SERUM 1001.9 mg/L (3.3-19.4)
[2023-03-09 15:14] LABS: BETA-2-MICROGLOBULIN 10.6 mg/L (0.6-2.4)
[2023-03-10 07:12] LABS: FREE KAP CHN UR 903.13 mg/L (1.17-86.46); KAPPA LAMBDA RATIO URIN 93.59 (1.83-14.26)
== END 2023-03-07 13:50 | disposition home or self-care (01) ==
LOC: JONCCHEMO 09:08 → J7W 09:18 → JONCCHEMO 13:50
PROVIDERS: ATTEND Internal Medicine Hematology & Oncology
DX: Z51.11 Encounter for antineoplastic chemotherapy (principal); C90.00 Multiple myeloma not having achieved remission; D64.81 Anemia due to antineoplastic chemotherapy
CPT/HCPCS: 36415; 80053; 82232; 82784; 83615; 83735; 83883; 84155; 84165; 84550; 85025; 86335; 96361; 96367; 96413; 96417; J9047; J9070

== ENCOUNTER 2023-03-08 08:57 | Day surgery (SDC) | payer OTHER ==
[~2023-03-08 08:57] MED LIST changes: +DEXAMETHASONE SODIUM PHOSPHATE IVPB ONE; +GRANISETRON HCL IVPB ONE; -SODIUM CHLORIDE 0.45% 150 ML IV ONE; +SODIUM CHLORIDE IVPB ONE
[2023-03-08] MEDS ORDERED: SODIUM CHLORIDE 0.45% 250 ML IVPB ONE (09:00)
[2023-03-08] MEDS ORDERED: DEXAMETHASONE SODIUM PHOSPHATE IVPB ONE (09:30)
[2023-03-08] MEDS ORDERED: GRANISETRON HCL IVPB ONE (09:30)
[2023-03-08] MEDS ORDERED: SODIUM CHLORIDE IVPB ONE (09:30)
[2023-03-08] MEDS ORDERED: CARFILZOMIB IV ONE (10:00)
[2023-03-08] MEDS ORDERED: DEXTROSE 5% IV ONE (10:00)
[2023-03-08] MEDS ORDERED: WATER IV ONE (10:00)
[2023-03-08] MEDS ORDERED: PORTA CATH FLUSH 10 ML IVPUSH PRN (14:56)
[2023-03-08 14:57] VITALS: BP 107/59; PULSE 72; RESP 20; TEMP 98.9
== END 2023-03-08 11:40 | disposition home or self-care (01) ==
LOC: J7W 08:57 → JONCCHEMO 08:57
PROVIDERS: ATTEND Internal Medicine Hematology & Oncology
DX: Z51.11 Encounter for antineoplastic chemotherapy (principal); C90.00 Multiple myeloma not having achieved remission
CPT/HCPCS: 96367; 96413; J9047

== ENCOUNTER 2023-03-14 09:10 | Day surgery (SDC) | payer OTHER ==
[~2023-03-14 09:10] MED LIST changes: -DEXAMETHASONE SODIUM PHOSPHATE IVPB ONE; -GRANISETRON HCL IVPB ONE; +SODIUM CHLORIDE 0.45% 150 ML IV ONE; -SODIUM CHLORIDE IVPB ONE
[2023-03-14 09:58] LABS: HEMATOCRIT 29.7 % (35.4-49); HEMOGLOBIN 9.7 GM/dL (11.7-16.9); MCH 32.3 pg (25.7-33.7); MCHC 32.7 g/dl (32.0-35.9); MEAN CELL VOLUME 98.7 fl (80-96); MEAN PLT VOLUME 7.6 fl (7.5-11.1); PLATELET COUNT 85 10^3/uL (134-434); RBC 3.01 M/mm3 (4.00-5.60); RDW 19.5 % (11.9-15.9); WHITE BLOOD COUNT 4.8 K/mm3 (4.0-10.0)
[2023-03-14] MEDS ORDERED: GRANISETRON HCL IVPB ONE (10:00)
[2023-03-14] MEDS ORDERED: DEXAMETHASONE SODIUM PHOSPHATE IVPB ONE (10:00)
[2023-03-14] MEDS ORDERED: SODIUM CHLORIDE IVPB ONE ×2 (10:00→11:00)
[2023-03-14] MEDS ORDERED: CARFILZOMIB IV ONE (10:30)
[2023-03-14] MEDS ORDERED: WATER IV ONE (10:30)
[2023-03-14] MEDS ORDERED: DEXTROSE 5% IV ONE (10:30)
[2023-03-14 10:32] LABS: POTASSIUM 4.7 mmol/L (3.5-5.1)
[2023-03-14 10:35] LABS: ALBUMIN 2.8 g/dl (3.4-5.0); BLOOD UREA NITROGEN 31.8 mg/dL (7-18); CALCIUM 8.2 mg/dL (8.5-10.1)
[2023-03-14 10:36] LABS: ANISOCYTOSIS 1+; MACROCYTOSIS 1+; MAGNESIUM 2.2 mg/dL (1.8-2.4)
[2023-03-14 10:38] LABS: CREATININE 2.2 mg/dL (0.55-1.3); URIC ACID 5.4 mg/dL (2.6-7.2)
[2023-03-14 10:39] LABS: BILIRUBIN,TOTAL 0.4 mg/dL (0.2-1); TOT PROT 6.4 g/dl (6.4-8.2)
[2023-03-14] MEDS ORDERED: CYCLOPHOSPHAMIDE IVPB ONE (11:00)
[2023-03-14] MEDS ORDERED: SODIUM CHLORIDE 0.45% 250 ML IV ONE (11:00)
[2023-03-14 15:12] VITALS: RESP 18; TEMP 98.7
[2023-03-14 15:20] VITALS: BP 113/67; PULSE 64
[2023-03-14] MEDS ORDERED: PORTA CATH FLUSH 10 ML IVPUSH PRN (15:23)
== END 2023-03-14 14:00 | disposition home or self-care (01) ==
LOC: JONCCHEMO 09:10 → J7W 09:28 → JONCCHEMO 14:00
PROVIDERS: ATTEND Internal Medicine Hematology & Oncology
DX: Z51.11 Encounter for antineoplastic chemotherapy (principal); C90.00 Multiple myeloma not having achieved remission
CPT/HCPCS: 36415; 80053; 83615; 83735; 84550; 85025; 96361; 96367; 96413; 96417; J9047; J9070

== ENCOUNTER 2023-03-15 09:22 | Day surgery (SDC) | payer OTHER ==
[~2023-03-15 09:22] MED LIST changes: -SODIUM CHLORIDE 0.45% 150 ML IV ONE; +SODIUM CHLORIDE 0.45% 250 ML IVPB ONE
[2023-03-15] MEDS ORDERED: SODIUM CHLORIDE IVPB ONE (10:00)
[2023-03-15] MEDS ORDERED: DEXAMETHASONE SODIUM PHOSPHATE IVPB ONE (10:00)
[2023-03-15] MEDS ORDERED: GRANISETRON HCL IVPB ONE (10:00)
[2023-03-15] MEDS ORDERED: WATER IV ONE (10:30)
[2023-03-15] MEDS ORDERED: DEXTROSE 5% IV ONE (10:30)
[2023-03-15] MEDS ORDERED: CARFILZOMIB IV ONE (10:30)
[2023-03-15 15:31] VITALS: BP 126/75; PULSE 83; RESP 20; TEMP 97.6
[2023-03-15] MEDS ORDERED: PORTA CATH FLUSH 10 ML IVPUSH PRN (15:31)
== END 2023-03-15 12:00 | disposition home or self-care (01) ==
LOC: J7W 09:22 → JONCCHEMO 09:22
PROVIDERS: ATTEND Internal Medicine Hematology & Oncology
DX: Z51.11 Encounter for antineoplastic chemotherapy (principal); C90.00 Multiple myeloma not having achieved remission
CPT/HCPCS: 96367; 96413; J9047

== ENCOUNTER 2023-03-21 10:08 | Day surgery (SDC) | payer OTHER ==
[~2023-03-21 10:08] MED LIST changes: +DEXAMETHASONE SODIUM PHOSPHATE IVPB ONE; +GRANISETRON HCL IVPB ONE; +SODIUM CHLORIDE 0.45% 150 ML IV ONE; -SODIUM CHLORIDE 0.45% 250 ML IVPB ONE; +SODIUM CHLORIDE IVPB ONE
[2023-03-21 10:25] LABS: HEMATOCRIT 27.1 % (35.4-49); HEMOGLOBIN 8.8 GM/dL (11.7-16.9); MCH 31.5 pg (25.7-33.7); MCHC 32.3 g/dl (32.0-35.9); MEAN CELL VOLUME 97.4 fl (80-96); MEAN PLT VOLUME 7.7 fl (7.5-11.1); PLATELET COUNT 77 10^3/uL (134-434); RBC 2.78 M/mm3 (4.00-5.60); RDW 19.7 % (11.9-15.9); WHITE BLOOD COUNT 2.9 K/mm3 (4.0-10.0)
[2023-03-21] MEDS ORDERED: WATER IV ONE (10:30)
[2023-03-21] MEDS ORDERED: CARFILZOMIB IV ONE (10:30)
[2023-03-21] MEDS ORDERED: DEXTROSE 5% IV ONE (10:30)
[2023-03-21 10:39] LABS: POTASSIUM 4.4 mmol/L (3.5-5.1)
[2023-03-21 10:42] LABS: CALCIUM 8.5 mg/dL (8.5-10.1)
[2023-03-21 10:43] LABS: ALBUMIN 2.8 g/dl (3.4-5.0); MAGNESIUM 2.4 mg/dL (1.8-2.4)
[2023-03-21 10:46] LABS: CREATININE 2.1 mg/dL (0.55-1.3); URIC ACID 6.1 mg/dL (2.6-7.2)
[2023-03-21 10:47] LABS: ANISOCYTOSIS 1+; BILIRUBIN,TOTAL 0.3 mg/dL (0.2-1); MACROCYTOSIS 1+
[2023-03-21 10:48] LABS: TOT PROT 6.1 g/dl (6.4-8.2)
[2023-03-21] MEDS ORDERED: SODIUM CHLORIDE IVPB ONE (11:00)
[2023-03-21] MEDS ORDERED: CYCLOPHOSPHAMIDE IVPB ONE (11:00)
[2023-03-21] MEDS ORDERED: SODIUM CHLORIDE 0.45% 250 ML IV ONE (11:30)
[2023-03-21 17:27] VITALS: BP 90/44; PULSE 58; RESP 16; TEMP 98.5
[2023-03-21] MEDS ORDERED: PORTA CATH FLUSH 10 ML IVPUSH PRN (17:27)
== END 2023-03-21 13:40 | disposition home or self-care (01) ==
LOC: J7W 10:08 → JONCCHEMO 10:08
PROVIDERS: ATTEND Internal Medicine Hematology & Oncology
DX: Z51.11 Encounter for antineoplastic chemotherapy (principal); C90.00 Multiple myeloma not having achieved remission
CPT/HCPCS: 36415; 80053; 83615; 83735; 84550; 85025; 96361; 96367; 96413; 96417; J9047; J9070

== ENCOUNTER 2023-03-22 09:06 | Day surgery (SDC) | payer OTHER ==
[~2023-03-22 09:06] MED LIST changes: -DEXAMETHASONE SODIUM PHOSPHATE IVPB ONE; -GRANISETRON HCL IVPB ONE; -SODIUM CHLORIDE 0.45% 150 ML IV ONE; +SODIUM CHLORIDE 0.45% 250 ML IVPB ONE; -SODIUM CHLORIDE IVPB ONE
[2023-03-22] MEDS ORDERED: DEXAMETHASONE SODIUM PHOSPHATE IVPB ONE (10:00)
[2023-03-22] MEDS ORDERED: GRANISETRON HCL IVPB ONE (10:00)
[2023-03-22] MEDS ORDERED: SODIUM CHLORIDE IVPB ONE (10:00)
[2023-03-22 10:13] VITALS: RESP 20; TEMP 97.8
[2023-03-22] MEDS ORDERED: WATER IV ONE (10:30)
[2023-03-22] MEDS ORDERED: DEXTROSE 5% IV ONE (10:30)
[2023-03-22] MEDS ORDERED: CARFILZOMIB IV ONE (10:30)
[2023-03-22 15:28] VITALS: BP 100/76; PULSE 74
[2023-03-22] MEDS ORDERED: PORTA CATH FLUSH 10 ML IVPUSH PRN (15:28)
== END 2023-03-22 11:30 | disposition home or self-care (01) ==
LOC: JONCCHEMO 09:06 → J7W 09:07 → JONCCHEMO 11:30
PROVIDERS: ATTEND Internal Medicine Hematology & Oncology
DX: Z51.11 Encounter for antineoplastic chemotherapy (principal); C90.00 Multiple myeloma not having achieved remission
CPT/HCPCS: 96367; 96413; J9047

== ENCOUNTER 2023-04-11 10:17 | Day surgery (SDC) | payer OTHER ==
[~2023-04-11 10:17] MED LIST changes: +CYCLOPHOSPHAMIDE IVPB ONE; +DEXAMETHASONE SODIUM PHOSPHATE IVPB ONE; +GRANISETRON HCL IVPB ONE; +SODIUM CHLORIDE 0.45% 150 ML IV ONE; -SODIUM CHLORIDE 0.45% 250 ML IVPB ONE; +SODIUM CHLORIDE IVPB ONE
[2023-04-11] MEDS ORDERED: WATER IV ONE (10:30)
[2023-04-11] MEDS ORDERED: DEXTROSE 5% IV ONE (10:30)
[2023-04-11] MEDS ORDERED: CARFILZOMIB IV ONE (10:30)
[2023-04-11 11:09] LABS: HEMATOCRIT 25.5 % (35.4-49); HEMOGLOBIN 8.2 GM/dL (11.7-16.9); MCH 33.3 pg (25.7-33.7); MCHC 32.2 g/dl (32.0-35.9); MEAN CELL VOLUME 103.4 fl (80-96); MEAN PLT VOLUME 7.4 fl (7.5-11.1); PLATELET COUNT 111 10^3/uL (134-434); RBC 2.47 M/mm3 (4.00-5.60); RDW 21.3 % (11.9-15.9); WHITE BLOOD COUNT 4.1 K/mm3 (4.0-10.0)
[2023-04-11 11:24] LABS: POTASSIUM 4.7 mmol/L (3.5-5.1)
[2023-04-11 11:26] LABS: CALCIUM 8.2 mg/dL (8.5-10.1)
[2023-04-11 11:27] LABS: ALBUMIN 2.9 g/dl (3.4-5.0); BLOOD UREA NITROGEN 23.1 mg/dL (7-18); MAGNESIUM 2.1 mg/dL (1.8-2.4)
[2023-04-11 11:29] LABS: URIC ACID 4.9 mg/dL (2.6-7.2)
[2023-04-11 11:30] LABS: CREATININE 2.2 mg/dL (0.55-1.3)
[2023-04-11 11:31] LABS: BILIRUBIN,TOTAL 0.5 mg/dL (0.2-1); TOT PROT 6.2 g/dl (6.4-8.2)
[2023-04-11 11:34] LABS: ANISOCYTOSIS 2+; MACROCYTOSIS 2+
[2023-04-11] MEDS ORDERED: SODIUM CHLORIDE 0.45% 250 ML IV ONE (12:00)
[2023-04-11 18:44] VITALS: RESP 20; TEMP 98
[2023-04-11 18:56] VITALS: BP 114/66; PULSE 59
[2023-04-11] MEDS ORDERED: PORTA CATH FLUSH 10 ML IVPUSH PRN (18:56)
[2023-04-12 18:10] LABS: FREE KAPPA,SERUM 835.1 mg/L (3.3-19.4)
[2023-04-13 08:07] LABS: BETA-2-MICROGLOBULIN 9.4 mg/L (0.6-2.4)
[2023-04-14 07:07] LABS: FREE KAP CHN UR 807.01 mg/L (1.17-86.46); KAPPA LAMBDA RATIO URIN 91.6 (1.83-14.26)
== END 2023-04-11 15:50 | disposition home or self-care (01) ==
LOC: JONCCHEMO 10:17 → J7W 11:47 → JONCCHEMO 15:50
PROVIDERS: ATTEND Internal Medicine Hematology & Oncology
DX: Z51.11 Encounter for antineoplastic chemotherapy (principal); C90.00 Multiple myeloma not having achieved remission
CPT/HCPCS: 36415; 80053; 82232; 82784; 83615; 83735; 83883; 84155; 84165; 84550; 85025; 86335; 96361; 96367; 96413; 96417; J9047; J9070

== ENCOUNTER 2023-04-12 08:19 | Day surgery (SDC) | payer OTHER ==
[~2023-04-12 08:19] MED LIST changes: -CYCLOPHOSPHAMIDE IVPB ONE; -DEXAMETHASONE SODIUM PHOSPHATE IVPB ONE; +FUROSEMIDE 40 MG/4 ML INJECTABLE VIAL IVPUSH SCH; -GRANISETRON HCL IVPB ONE; -SODIUM CHLORIDE 0.45% 150 ML IV ONE; +SODIUM CHLORIDE 0.45% 250 ML IVPB ONE; -SODIUM CHLORIDE IVPB ONE
[2023-04-12] MEDS ORDERED: SODIUM CHLORIDE IVPB ONE (08:30)
[2023-04-12] MEDS ORDERED: GRANISETRON HCL IVPB ONE (08:30)
[2023-04-12] MEDS ORDERED: DEXAMETHASONE SODIUM PHOSPHATE IVPB ONE (08:30)
[2023-04-12] MEDS ORDERED: DEXTROSE 5% IV ONE (09:00)
[2023-04-12] MEDS ORDERED: CARFILZOMIB IV ONE (09:00)
[2023-04-12] MEDS ORDERED: WATER IV ONE (09:00)
[2023-04-12 14:27] VITALS: RESP 18
[2023-04-12] MEDS ORDERED: PORTA CATH FLUSH 10 ML IVPUSH PRN (15:01)
[2023-04-12 16:32] VITALS: BP 99/58; PULSE 62
[2023-04-12 16:37] VITALS: TEMP 97.9
[2023-04-12 16:37] LABS: HEMATOCRIT 25.4 % (35.4-49); HEMOGLOBIN 8.6 GM/dL (11.7-16.9); MCH 33.7 pg (25.7-33.7); MCHC 34.1 g/dl (32.0-35.9); MEAN CELL VOLUME 98.7 fl (80-96); MEAN PLT VOLUME 7.2 fl (7.5-11.1); PLATELET COUNT 85 10^3/uL (134-434); RBC 2.57 M/mm3 (4.00-5.60); RDW 20.1 % (11.9-15.9); WHITE BLOOD COUNT 10.4 K/mm3 (4.0-10.0)
[2023-04-12 17:45] LABS: ANISOCYTOSIS 2+; MACROCYTOSIS 1+
[2023-04-12 17:46] LABS: PLATELET ESTIMATE DECREASED
== END 2023-04-12 16:15 | disposition home or self-care (01) ==
LOC: J7W 08:19 → JONCCHEMO 08:19
PROVIDERS: ATTEND Internal Medicine Hematology & Oncology
PROC: 3E04305 Introduction of Other Antineoplastic into Central Vein, Percutaneous Approach (ICD-10-PCS; principal; 2023-04-12)
PROC: 30233N1 Transfusion of Nonautologous Red Blood Cells into Peripheral Vein, Percutaneous Approach (ICD-10-PCS; 2023-04-12)
DX: Z51.11 Encounter for antineoplastic chemotherapy (principal); C90.00 Multiple myeloma not having achieved remission
CPT/HCPCS: 36415; 36430; 82668; 85025; 86850; 86900; 86901; 86922; 93306-TC; 96367; 96413; J9047; P9058

== ENCOUNTER 2023-04-18 09:11 | Day surgery (SDC) | payer OTHER ==
[~2023-04-18 09:11] MED LIST changes: -FUROSEMIDE 40 MG/4 ML INJECTABLE VIAL IVPUSH SCH; +SODIUM CHLORIDE 0.45% 150 ML IV ONE; -SODIUM CHLORIDE 0.45% 250 ML IVPB ONE
[2023-04-18] MEDS ORDERED: GRANISETRON HCL IVPB ONE (09:30)
[2023-04-18] MEDS ORDERED: SODIUM CHLORIDE IVPB ONE ×2 (09:30→10:00)
[2023-04-18] MEDS ORDERED: DEXAMETHASONE SODIUM PHOSPHATE IVPB ONE (09:30)
[2023-04-18 09:46] LABS: BASO % 0.3 % (0-2.0); EOS % 5.5 % (0-4.5); HEMATOCRIT 26.6 % (35.4-49); HEMOGLOBIN 8.9 GM/dL (11.7-16.9); LYMPH % 3.3 % (8-40); MCH 33.3 pg (25.7-33.7); MCHC 33.4 g/dl (32.0-35.9); MEAN CELL VOLUME 99.7 fl (80-96); MEAN PLT VOLUME 8.1 fl (7.5-11.1); MONO % 9.6 % (3.8-10.2); NEUT % 81.3 % (42.8-82.8); PLATELET COUNT 77 10^3/uL (134-434); RBC 2.67 M/mm3 (4.00-5.60); RDW 19.3 % (11.9-15.9); WHITE BLOOD COUNT 5.2 K/mm3 (4.0-10.0)
[2023-04-18] MEDS ORDERED: CYCLOPHOSPHAMIDE IVPB ONE (10:00)
[2023-04-18 10:10] LABS: POTASSIUM 4.6 mmol/L (3.5-5.1)
[2023-04-18 10:13] LABS: BLOOD UREA NITROGEN 31.8 mg/dL (7-18); CALCIUM 8.2 mg/dL (8.5-10.1); MAGNESIUM 2.4 mg/dL (1.8-2.4)
[2023-04-18 10:15] LABS: URIC ACID 6.2 mg/dL (2.6-7.2)
[2023-04-18 10:16] LABS: CREATININE 2.5 mg/dL (0.55-1.3)
[2023-04-18 10:17] LABS: BILIRUBIN,TOTAL 0.4 mg/dL (0.2-1); TOT PROT 6.3 g/dl (6.4-8.2)
[2023-04-18] MEDS ORDERED: CARFILZOMIB IV ONE (10:30)
[2023-04-18] MEDS ORDERED: DEXTROSE 5% IV ONE (10:30)
[2023-04-18] MEDS ORDERED: WATER IV ONE (10:30)
[2023-04-18] MEDS ORDERED: SODIUM CHLORIDE 0.45% 250 ML IV ONE (11:00)
[2023-04-18 14:57] VITALS: TEMP 97.5
[2023-04-18] MEDS ORDERED: PORTA CATH FLUSH 10 ML IVPUSH PRN (14:58)
[2023-04-18 15:51] VITALS: BP 96/56; PULSE 64; RESP 18
== END 2023-04-18 14:00 | disposition home or self-care (01) ==
LOC: JONCCHEMO 09:11 → J7W 09:17 → JONCCHEMO 14:00
PROVIDERS: ATTEND Internal Medicine Hematology & Oncology
DX: Z51.11 Encounter for antineoplastic chemotherapy (principal); C90.00 Multiple myeloma not having achieved remission
CPT/HCPCS: 36415; 80053; 83615; 83735; 84550; 85025; 96367; 96413; 96417; J9047; J9070

== ENCOUNTER 2023-04-19 08:51 | Day surgery (SDC) | payer OTHER ==
[2023-04-19] MEDS ORDERED: SODIUM CHLORIDE 0.45% 250 ML IVPB ONE (09:00)
[2023-04-19] MEDS ORDERED: GRANISETRON HCL IVPB ONE (09:30)
[2023-04-19] MEDS ORDERED: SODIUM CHLORIDE IVPB ONE (09:30)
[2023-04-19] MEDS ORDERED: DEXAMETHASONE SODIUM PHOSPHATE IVPB ONE (09:30)
[2023-04-19] MEDS ORDERED: WATER IV ONE (10:00)
[2023-04-19] MEDS ORDERED: CARFILZOMIB IV ONE (10:00)
[2023-04-19] MEDS ORDERED: DEXTROSE 5% IV ONE (10:00)
[2023-04-19] MEDS ORDERED: EPOETIN ALFA-EPBX 20,000 UNIT/ML VIAL SQ ONE (10:30)
[2023-04-19 12:25] VITALS: BP 106/63; PULSE 76; RESP 18; TEMP 97.6
[2023-04-19] MEDS ORDERED: PORTA CATH FLUSH 10 ML IVPUSH PRN (12:25)
== END 2023-04-19 11:15 | disposition home or self-care (01) ==
LOC: JONCCHEMO 08:51 → J7W 08:52 → JONCCHEMO 11:15
PROVIDERS: ATTEND Internal Medicine Hematology & Oncology
PROC: 3E04305 Introduction of Other Antineoplastic into Central Vein, Percutaneous Approach (ICD-10-PCS; principal; 2023-04-19)
PROC: 3E013GC Introduction of Other Therapeutic Substance into Subcutaneous Tissue, Percutaneous Approach (ICD-10-PCS; 2023-04-19)
DX: Z51.11 Encounter for antineoplastic chemotherapy (principal); C90.00 Multiple myeloma not having achieved remission; D61.1 Drug-induced aplastic anemia; D64.81 Anemia due to antineoplastic chemotherapy; T50.905A Adverse effect of unspecified drugs, medicaments and biological substances, initial encounter; Y92.9 Unspecified place or not applicable
CPT/HCPCS: 96367; 96372; 96413; J9047

== ENCOUNTER 2023-04-25 08:50 | Day surgery (SDC) | payer OTHER ==
[2023-04-25] MEDS ORDERED: SODIUM CHLORIDE 0.45% 150 ML IV ONE (09:00)
[2023-04-25] MEDS ORDERED: DEXAMETHASONE SODIUM PHOSPHATE IVPB ONE (09:30)
[2023-04-25] MEDS ORDERED: SODIUM CHLORIDE IVPB ONE ×2 (09:30→10:00)
[2023-04-25] MEDS ORDERED: GRANISETRON HCL IVPB ONE (09:30)
[2023-04-25 09:37] LABS: BASO % 0.6 % (0-2.0); EOS % 2.1 % (0-4.5); HEMATOCRIT 29.5 % (35.4-49); HEMOGLOBIN 9.8 GM/dL (11.7-16.9); MCH 33.5 pg (25.7-33.7); MCHC 33.1 g/dl (32.0-35.9); MEAN CELL VOLUME 101.1 fl (80-96); MEAN PLT VOLUME 8.6 fl (7.5-11.1); MONO % 11.1 % (3.8-10.2); NEUT % 82.2 % (42.8-82.8); PLATELET COUNT 77 10^3/uL (134-434); RBC 2.92 M/mm3 (4.00-5.60); RDW 19.6 % (11.9-15.9); WHITE BLOOD COUNT 4.4 K/mm3 (4.0-10.0)
[2023-04-25] MEDS ORDERED: CYCLOPHOSPHAMIDE IVPB ONE (10:00)
[2023-04-25] MEDS ORDERED: WATER IV ONE (10:30)
[2023-04-25] MEDS ORDERED: CARFILZOMIB IV ONE (10:30)
[2023-04-25] MEDS ORDERED: DEXTROSE 5% IV ONE (10:30)
[2023-04-25 10:42] LABS: POTASSIUM 4.3 mmol/L (3.5-5.1)
[2023-04-25 10:45] LABS: ALBUMIN 3.2 g/dl (3.4-5.0); BLOOD UREA NITROGEN 29.9 mg/dL (7-18); CALCIUM 8.2 mg/dL (8.5-10.1); MAGNESIUM 2.4 mg/dL (1.8-2.4)
[2023-04-25 10:47] LABS: URIC ACID 7.6 mg/dL (2.6-7.2)
[2023-04-25 10:48] LABS: CREATININE 2.4 mg/dL (0.55-1.3)
[2023-04-25 10:50] LABS: BILIRUBIN,TOTAL 0.6 mg/dL (0.2-1); TOT PROT 6.4 g/dl (6.4-8.2)
[2023-04-25] MEDS ORDERED: SODIUM CHLORIDE 0.45% 250 ML IV ONE (11:00)
[2023-04-25 11:19] LABS: EPI CELLS 2 /uL (0-25.1); HYALINE CASTS 1 /uL (0-3.1); URINE APPEARANCE CLEAR; URINE BACTERIA 22 /uL (0-1359); URINE BILIRUBIN NEGATIVE (NEGATIVE); URINE COLOR YELLOW; URINE GLUCOSE (UA) NEGATIVE (NEGATIVE); URINE KETONE NEGATIVE (NEGATIVE); URINE LEUK ESTERASE 3+ (NEGATIVE); URINE NITRITE NEGATIVE (NEGATIVE); URINE PROTEIN 1+ (NEGATIVE); URINE RBC 26 /uL (0-23.9); URINE UROBILINOGEN 0.2 mg/dL (0.2-1.0); URINE WBC 1126 /uL (0-25.8)
[2023-04-25 15:05] VITALS: BP 95/57; PULSE 70; RESP 18; TEMP 98.3
[2023-04-25] MEDS ORDERED: PORTA CATH FLUSH 10 ML IVPUSH PRN (15:05)
== END 2023-04-25 14:30 | disposition home or self-care (01) ==
LOC: JONCCHEMO 08:50 → J7W 08:56 → JONCCHEMO 14:30
PROVIDERS: ATTEND Internal Medicine Hematology & Oncology
DX: Z51.11 Encounter for antineoplastic chemotherapy (principal); C90.00 Multiple myeloma not having achieved remission
CPT/HCPCS: 36415; 80053; 81003; 83615; 83735; 84550; 85025; 87086; 96361; 96367; 96413; 96417; J9047; J9070

== ENCOUNTER 2023-04-26 09:43 | Day surgery (SDC) | payer OTHER ==
[~2023-04-26 09:43] MED LIST changes: +DEXAMETHASONE SODIUM PHOSPHATE IVPB ONE; +GRANISETRON HCL IVPB ONE; -SODIUM CHLORIDE 0.45% 150 ML IV ONE; +SODIUM CHLORIDE 0.45% 250 ML IVPB ONE; +SODIUM CHLORIDE IVPB ONE
[2023-04-26] MEDS ORDERED: DEXTROSE 5% IV ONE (10:00)
[2023-04-26] MEDS ORDERED: EPOETIN ALFA-EPBX 20,000 UNIT/ML VIAL SQ ONE (10:00)
[2023-04-26] MEDS ORDERED: CARFILZOMIB IV ONE (10:00)
[2023-04-26] MEDS ORDERED: WATER IV ONE (10:00)
[2023-04-26 13:54] VITALS: RESP 20; TEMP 97.7
[2023-04-26] MEDS ORDERED: PORTA CATH FLUSH 10 ML IVPUSH PRN (14:08)
[2023-04-26 14:09] VITALS: BP 100/62; PULSE 66
== END 2023-04-26 12:30 | disposition home or self-care (01) ==
LOC: J7W 09:43 → JONCCHEMO 09:43
PROVIDERS: ATTEND Internal Medicine Hematology & Oncology
PROC: 3E04305 Introduction of Other Antineoplastic into Central Vein, Percutaneous Approach (ICD-10-PCS; principal; 2023-04-26)
PROC: 3E013GC Introduction of Other Therapeutic Substance into Subcutaneous Tissue, Percutaneous Approach (ICD-10-PCS; 2023-04-26)
DX: Z51.11 Encounter for antineoplastic chemotherapy (principal); C90.00 Multiple myeloma not having achieved remission
CPT/HCPCS: 96361; 96367; 96372; 96413; J9047

== ENCOUNTER 2023-05-23 09:03 | Day surgery (SDC) | payer OTHER ==
[2023-05-23] MEDS ORDERED: SODIUM CHLORIDE 0.45% 150 ML IVPB ONE (09:30)
[2023-05-23] MEDS ORDERED: DEXAMETHASONE SODIUM PHOSPHATE 20 MG in DEXTROSE 5%-WATER - 50 ML IVPB ONE (10:00)
[2023-05-23] MEDS ORDERED: GRANISETRON HCL/PF 1 MG in SODIUM CHLORIDE 50 ML IVPB ONE (10:00)
[2023-05-23 10:06] LABS: HEMATOCRIT 26.1 % (35.4-49); HEMOGLOBIN 8.5 GM/dL (11.7-16.9); MCHC 32.6 g/dl (32.0-35.9); MEAN CELL VOLUME 107.4 fl (80-96); MEAN PLT VOLUME 7.5 fl (7.5-11.1); PLATELET COUNT 133 10^3/uL (134-434); RBC 2.43 M/mm3 (4.00-5.60); RDW 16.2 % (11.9-15.9); WHITE BLOOD COUNT 3.4 K/mm3 (4.0-10.0)
[2023-05-23 10:27] LABS: POTASSIUM 4.2 mmol/L (3.5-5.1)
[2023-05-23 10:29] LABS: CALCIUM 8.1 mg/dL (8.5-10.1)
[2023-05-23 10:30] LABS: BLOOD UREA NITROGEN 33.3 mg/dL (7-18); MAGNESIUM 2.5 mg/dL (1.8-2.4)
[2023-05-23] MEDS ORDERED: DEXTROSE 5% IV ONE (10:30)
[2023-05-23] MEDS ORDERED: WATER IV ONE (10:30)
[2023-05-23] MEDS ORDERED: CARFILZOMIB IV ONE (10:30)
[2023-05-23 10:32] LABS: URIC ACID 8.4 mg/dL (2.6-7.2)
[2023-05-23 10:33] LABS: CREATININE 2.4 mg/dL (0.55-1.3)
[2023-05-23 10:34] LABS: ANISOCYTOSIS 0; BILIRUBIN,TOTAL 0.3 mg/dL (0.2-1); MACROCYTOSIS 2+; TOT PROT 6.1 g/dl (6.4-8.2)
[2023-05-23] MEDS ORDERED: SODIUM CHLORIDE IVPB ONE (11:00)
[2023-05-23] MEDS ORDERED: CYCLOPHOSPHAMIDE IVPB ONE (11:00)
[2023-05-23] MEDS ORDERED: SODIUM CHLORIDE 0.45% 250 ML IVPB ONE (11:30)
[2023-05-23 15:16] LABS: EPI CELLS 2 /uL (0-25.1); HYALINE CASTS 1 /uL (0-3.1); PH,URINE 6.5 (5.0-8.0); URINE APPEARANCE CLOUDY; URINE BACTERIA 51 /uL (0-1359); URINE BILIRUBIN NEGATIVE (NEGATIVE); URINE COLOR YELLOW; URINE GLUCOSE (UA) NEGATIVE (NEGATIVE); URINE KETONE NEGATIVE (NEGATIVE); URINE LEUK ESTERASE 3+ (NEGATIVE); URINE NITRITE NEGATIVE (NEGATIVE); URINE PROTEIN 1+ (NEGATIVE); URINE RBC 12 /uL (0-23.9); URINE UROBILINOGEN 0.2 mg/dL (0.2-1.0); URINE WBC 1134 /uL (0-25.8)
[2023-05-23 17:23] VITALS: BP 94/55; PULSE 70; RESP 20; TEMP 97.8
[2023-05-23] MEDS ORDERED: PORTA CATH FLUSH 10 ML IVPUSH PRN (17:23)
== END 2023-05-23 15:00 | disposition home or self-care (01) ==
LOC: JONCCHEMO 09:03 → J7W 09:05 → JONCCHEMO 15:00
PROVIDERS: ATTEND Internal Medicine Hematology & Oncology
DX: Z51.11 Encounter for antineoplastic chemotherapy (principal); C90.00 Multiple myeloma not having achieved remission
CPT/HCPCS: 36415; 80053; 81003; 83615; 83735; 84550; 85025; 93970-TC; 96367; 96375; 96413; 96417; J9047; J9070

== ENCOUNTER 2023-05-24 09:20 | Day surgery (SDC) | payer OTHER ==
[~2023-05-24 09:20] MED LIST changes: -DEXAMETHASONE SODIUM PHOSPHATE IVPB ONE; -GRANISETRON HCL IVPB ONE; -SODIUM CHLORIDE IVPB ONE
[2023-05-24] MEDS ORDERED: DEXAMETHASONE SODIUM PHOSPHATE IVPB ONE (09:30)
[2023-05-24] MEDS ORDERED: GRANISETRON HCL IVPB ONE (09:30)
[2023-05-24] MEDS ORDERED: SODIUM CHLORIDE IVPB ONE (09:30)
[2023-05-24] MEDS ORDERED: DEXTROSE 5% IV ONE (10:00)
[2023-05-24] MEDS ORDERED: CARFILZOMIB IV ONE (10:00)
[2023-05-24] MEDS ORDERED: WATER IV ONE (10:00)
[2023-05-24] MEDS ORDERED: EPOETIN ALFA-EPBX 20,000 UNIT/ML VIAL SQ ONE (11:00)
[2023-05-24 17:00] VITALS: TEMP 97.8
[2023-05-24 17:05] VITALS: BP 109/64; PULSE 69; RESP 18
[2023-05-24] MEDS ORDERED: PORTA CATH FLUSH 10 ML IVPUSH PRN (17:05)
== END 2023-05-24 12:00 | disposition home or self-care (01) ==
LOC: JONCCHEMO 09:20
PROVIDERS: ATTEND Internal Medicine Hematology & Oncology
DX: Z51.11 Encounter for antineoplastic chemotherapy (principal); C90.00 Multiple myeloma not having achieved remission
CPT/HCPCS: 96372; 96413; J9047

== ENCOUNTER 2023-05-30 09:19 | Day surgery (SDC) | payer OTHER ==
[2023-05-30] MEDS ORDERED: GRANISETRON HCL/PF 1 MG in SODIUM CHLORIDE 50 ML IVPB ONE (10:00)
[2023-05-30] MEDS ORDERED: DEXAMETHASONE SODIUM PHOSPHATE 20 MG in DEXTROSE 5%-WATER - 50 ML IVPB ONE (10:00)
[2023-05-30] MEDS ORDERED: DEXTROSE 5% IV ONE (10:30)
[2023-05-30] MEDS ORDERED: CARFILZOMIB IV ONE (10:30)
[2023-05-30] MEDS ORDERED: WATER IV ONE (10:30)
[2023-05-30 10:54] LABS: BASO % 0.6 % (0-2.0); EOS % 3.3 % (0-4.5); HEMATOCRIT 27.8 % (35.4-49); LYMPH % 16.8 % (8-40); MCH 35.2 pg (25.7-33.7); MCHC 32.4 g/dl (32.0-35.9); MEAN CELL VOLUME 108.8 fl (80-96); MEAN PLT VOLUME 8.1 fl (7.5-11.1); NEUT % 69.3 % (42.8-82.8); PLATELET COUNT 95 10^3/uL (134-434); RBC 2.56 M/mm3 (4.00-5.60); RDW 16.3 % (11.9-15.9); WHITE BLOOD COUNT 4.4 K/mm3 (4.0-10.0)
[2023-05-30] MEDS ORDERED: CYCLOPHOSPHAMIDE IVPB ONE (11:00)
[2023-05-30] MEDS ORDERED: SODIUM CHLORIDE IVPB ONE (11:00)
[2023-05-30 11:06] LABS: POTASSIUM 4.3 mmol/L (3.5-5.1)
[2023-05-30 11:10] LABS: BLOOD UREA NITROGEN 28.7 mg/dL (7-18); MAGNESIUM 2.6 mg/dL (1.8-2.4)
[2023-05-30 11:12] LABS: URIC ACID 8.8 mg/dL (2.6-7.2)
[2023-05-30 11:13] LABS: CREATININE 2.2 mg/dL (0.55-1.3)
[2023-05-30 11:14] LABS: BILIRUBIN,TOTAL 0.4 mg/dL (0.2-1)
[2023-05-30] MEDS ORDERED: SODIUM CHLORIDE 0.45% 150 ML IVPB ONE (11:30)
[2023-05-30 13:11] LABS: ANISOCYTOSIS 1+; MACROCYTOSIS 0
[2023-05-30 17:01] VITALS: BP 117/54; PULSE 71; RESP 18; TEMP 97.6
[2023-05-30] MEDS ORDERED: PORTA CATH FLUSH 10 ML IVPUSH PRN (17:01)
== END 2023-05-30 15:35 | disposition home or self-care (01) ==
LOC: JONCCHEMO 09:19 → J7W 09:21 → JONCCHEMO 15:35
PROVIDERS: ATTEND Internal Medicine Hematology & Oncology
DX: Z51.11 Encounter for antineoplastic chemotherapy (principal); C90.00 Multiple myeloma not having achieved remission
CPT/HCPCS: 36415; 80053; 83615; 83735; 84550; 85025; 96367; 96375; 96413; 96417; J9047; J9070

== ENCOUNTER 2023-05-31 09:05 | Day surgery (SDC) | payer OTHER ==
[2023-05-31] MEDS ORDERED: SODIUM CHLORIDE 0.45% 250 ML IVPB ONE (10:00)
[2023-05-31] MEDS ORDERED: GRANISETRON HCL/PF 1 MG in SODIUM CHLORIDE 50 ML IVPB ONE (10:00)
[2023-05-31] MEDS ORDERED: DEXAMETHASONE SODIUM PHOSPHATE 20 MG in DEXTROSE 5%-WATER - 50 ML IVPB ONE (10:00)
[2023-05-31] MEDS ORDERED: CARFILZOMIB IV ONE (10:30)
[2023-05-31] MEDS ORDERED: WATER IV ONE (10:30)
[2023-05-31] MEDS ORDERED: DEXTROSE 5% IV ONE (10:30)
[2023-05-31] MEDS ORDERED: EPOETIN ALFA-EPBX 10,000 UNIT/ML VIAL SQ ONE (11:00)
[2023-05-31 15:30] VITALS: BP 124/72; PULSE 68; RESP 18; TEMP 97.8
[2023-05-31] MEDS ORDERED: PORTA CATH FLUSH 10 ML IVPUSH PRN (15:30)
== END 2023-05-31 12:00 | disposition home or self-care (01) ==
LOC: J7W 09:05 → JONCCHEMO 09:05
PROVIDERS: ATTEND Internal Medicine Hematology & Oncology
DX: Z51.11 Encounter for antineoplastic chemotherapy (principal); C90.00 Multiple myeloma not having achieved remission
CPT/HCPCS: 96367; 96375; 96413; J9047; Q5106

== ENCOUNTER 2023-06-20 08:47 | Day surgery (SDC) | payer OTHER ==
[2023-06-20] MEDS ORDERED: SODIUM CHLORIDE 0.45% 250 ML IVPB ONE (09:00)
[2023-06-20] MEDS ORDERED: DEXAMETHASONE SODIUM PHOSPHATE 20 MG in DEXTROSE 5%-WATER - 50 ML IVPB ONE (09:30)
[2023-06-20] MEDS ORDERED: GRANISETRON HCL/PF 1 MG in SODIUM CHLORIDE 50 ML IVPB ONE (09:30)
[2023-06-20 09:39] LABS: HEMATOCRIT 28.3 % (35.4-49); HEMOGLOBIN 8.9 GM/dL (11.7-16.9); MCH 34.9 pg (25.7-33.7); MCHC 31.5 g/dl (32.0-35.9); MEAN CELL VOLUME 110.9 fl (80-96); MEAN PLT VOLUME 8.6 fl (7.5-11.1); PLATELET COUNT 84 10^3/uL (134-434); RBC 2.55 M/mm3 (4.00-5.60); RDW 17.6 % (11.9-15.9); WHITE BLOOD COUNT 4.4 K/mm3 (4.0-10.0)
[2023-06-20] MEDS ORDERED: DEXAMETHASONE SODIUM PHOSPHATE 20 MG in SODIUM CHLORIDE 50 ML IVPB ONE (10:00)
[2023-06-20] MEDS ORDERED: SODIUM CHLORIDE IVPB ONE (10:00)
[2023-06-20] MEDS ORDERED: CYCLOPHOSPHAMIDE IVPB ONE (10:00)
[2023-06-20 10:06] LABS: POTASSIUM 4.9 mmol/L (3.5-5.1)
[2023-06-20 10:07] LABS: CALCIUM 8.3 mg/dL (8.5-10.1)
[2023-06-20 10:08] LABS: ALBUMIN 3.2 g/dl (3.4-5.0); BLOOD UREA NITROGEN 30.7 mg/dL (7-18); MAGNESIUM 2.4 mg/dL (1.8-2.4)
[2023-06-20 10:11] LABS: URIC ACID 8.1 mg/dL (2.6-7.2)
[2023-06-20 10:13] LABS: BILIRUBIN,TOTAL 0.4 mg/dL (0.2-1); TOT PROT 5.9 g/dl (6.4-8.2)
[2023-06-20 10:27] LABS: ANISOCYTOSIS 1+; CREATININE 2.4 mg/dL (0.55-1.3); MACROCYTOSIS 1+
[2023-06-20] MEDS ORDERED: CARFILZOMIB IV ONE ×2 (10:30→11:00)
[2023-06-20] MEDS ORDERED: WATER IV ONE ×2 (10:30→11:00)
[2023-06-20] MEDS ORDERED: DEXTROSE 5% IV ONE ×2 (10:30→11:00)
[2023-06-20] MEDS ORDERED: SODIUM CHLORIDE 0.45% 150 ML IVPB ONE (11:00)
[2023-06-20 15:18] VITALS: BP 90/43; PULSE 61; RESP 18; TEMP 98.1
[2023-06-20] MEDS ORDERED: PORTA CATH FLUSH 10 ML IVPUSH PRN (15:18)
== END 2023-06-20 15:00 | disposition home or self-care (01) ==
LOC: JONCCHEMO 08:47 → J7W 08:51 → JONCCHEMO 15:00
PROVIDERS: ATTEND Internal Medicine Hematology & Oncology
DX: Z51.11 Encounter for antineoplastic chemotherapy (principal); C90.00 Multiple myeloma not having achieved remission
CPT/HCPCS: 36415; 80053; 83615; 83735; 84550; 85025; 96375; 96413; 96417; J9047; J9070

== ENCOUNTER 2023-06-21 08:57 | Day surgery (SDC) | payer OTHER ==
[2023-06-21] MEDS ORDERED: DEXAMETHASONE SODIUM PHOSPHATE 20 MG in SODIUM CHLORIDE 50 ML IVPB ONE (09:30)
[2023-06-21] MEDS ORDERED: GRANISETRON HCL/PF 1 MG in SODIUM CHLORIDE 50 ML IVPB ONE (09:30)
[2023-06-21] MEDS ORDERED: SODIUM CHLORIDE 0.45% 250 ML IVPB ONE (09:30)
[2023-06-21] MEDS ORDERED: DEXTROSE 5% IV ONE (10:00)
[2023-06-21] MEDS ORDERED: WATER IV ONE (10:00)
[2023-06-21] MEDS ORDERED: CARFILZOMIB IV ONE (10:00)
[2023-06-21] MEDS ORDERED: EPOETIN ALFA-EPBX 20,000 UNIT/ML VIAL SQ ONE (10:30)
[2023-06-21 13:11] VITALS: BP 113/53; PULSE 75; RESP 18; TEMP 97.5
[2023-06-21] MEDS ORDERED: PORTA CATH FLUSH 10 ML IVPUSH PRN (13:11)
== END 2023-06-21 11:40 | disposition home or self-care (01) ==
LOC: JONCCHEMO 08:57 → J7W 09:07 → JONCCHEMO 11:40
PROVIDERS: ATTEND Internal Medicine Hematology & Oncology
PROC: 3E04305 Introduction of Other Antineoplastic into Central Vein, Percutaneous Approach (ICD-10-PCS; principal; 2023-06-21)
PROC: 3E013GC Introduction of Other Therapeutic Substance into Subcutaneous Tissue, Percutaneous Approach (ICD-10-PCS; 2023-06-21)
DX: Z51.11 Encounter for antineoplastic chemotherapy (principal); C90.00 Multiple myeloma not having achieved remission
CPT/HCPCS: 96372; 96375; 96413; J9047

== ENCOUNTER 2023-06-27 08:56 | Day surgery (SDC) | payer OTHER ==
[2023-06-27] MEDS ORDERED: SODIUM CHLORIDE 0.45% 150 ML IVPB ONE (09:00)
[2023-06-27] MEDS ORDERED: DEXAMETHASONE SODIUM PHOSPHATE 20 MG in SODIUM CHLORIDE 50 ML IVPB ONE (09:30)
[2023-06-27] MEDS ORDERED: GRANISETRON HCL/PF 1 MG in SODIUM CHLORIDE 50 ML IVPB ONE (09:30)
[2023-06-27 09:56] LABS: BASO % 0.3 % (0-2.0); EOS % 2.5 % (0-4.5); HEMATOCRIT 27.6 % (35.4-49); HEMOGLOBIN 8.7 GM/dL (11.7-16.9); LYMPH % 1.9 % (8-40); MCH 35.4 pg (25.7-33.7); MCHC 31.7 g/dl (32.0-35.9); MEAN CELL VOLUME 111.6 fl (80-96); MEAN PLT VOLUME 9.2 fl (7.5-11.1); MONO % 9.4 % (3.8-10.2); NEUT % 85.9 % (42.8-82.8); PLATELET COUNT 62 10^3/uL (134-434); RBC 2.47 M/mm3 (4.00-5.60); WHITE BLOOD COUNT 3.7 K/mm3 (4.0-10.0)
[2023-06-27] MEDS ORDERED: CYCLOPHOSPHAMIDE IVPB ONE (10:00)
[2023-06-27] MEDS ORDERED: SODIUM CHLORIDE IVPB ONE (10:00)
[2023-06-27 10:10] LABS: POTASSIUM 4.4 mmol/L (3.5-5.1)
[2023-06-27 10:13] LABS: CALCIUM 8.2 mg/dL (8.5-10.1)
[2023-06-27 10:14] LABS: ALBUMIN 3.1 g/dl (3.4-5.0); BLOOD UREA NITROGEN 44.5 mg/dL (7-18); MAGNESIUM 2.4 mg/dL (1.8-2.4)
[2023-06-27 10:17] LABS: CREATININE 2.3 mg/dL (0.55-1.3); URIC ACID 9.2 mg/dL (2.6-7.2)
[2023-06-27 10:18] LABS: TOT PROT 5.7 g/dl (6.4-8.2)
[2023-06-27 10:19] LABS: BILIRUBIN,TOTAL 0.6 mg/dL (0.2-1)
[2023-06-27] MEDS ORDERED: WATER IV ONE (10:30)
[2023-06-27] MEDS ORDERED: DEXTROSE 5% IV ONE (10:30)
[2023-06-27] MEDS ORDERED: CARFILZOMIB IV ONE (10:30)
[2023-06-27] MEDS ORDERED: SODIUM CHLORIDE 0.45% 250 ML IVPB ONE (11:00)
[2023-06-27 11:10] LABS: ANISOCYTOSIS 1+; MACROCYTOSIS 3+; OVALOCYTE 1+
[2023-06-27 15:20] VITALS: BP 84/48; PULSE 67; RESP 18; TEMP 97.9
[2023-06-27] MEDS ORDERED: PORTA CATH FLUSH 10 ML IVPUSH PRN (15:20)
== END 2023-06-27 14:40 | disposition home or self-care (01) ==
LOC: JONCCHEMO 08:56 → J7W 08:57 → JONCCHEMO 14:40
PROVIDERS: ATTEND Internal Medicine Hematology & Oncology
DX: Z51.11 Encounter for antineoplastic chemotherapy (principal); C90.00 Multiple myeloma not having achieved remission
CPT/HCPCS: 36415; 80053; 83615; 83735; 84550; 85025; 96375; 96413; 96417; J9047; J9070

== ENCOUNTER 2023-06-28 08:47 | Day surgery (SDC) | payer OTHER ==
[2023-06-28] MEDS ORDERED: SODIUM CHLORIDE 0.45% 250 ML IVPB ONE (09:00)
[2023-06-28] MEDS ORDERED: DEXAMETHASONE SODIUM PHOSPHATE 20 MG in SODIUM CHLORIDE 50 ML IVPB ONE (09:30)
[2023-06-28] MEDS ORDERED: GRANISETRON HCL/PF 1 MG in SODIUM CHLORIDE 50 ML IVPB ONE (09:30)
[2023-06-28] MEDS ORDERED: DEXTROSE 5% IV ONE (10:00)
[2023-06-28] MEDS ORDERED: WATER IV ONE (10:00)
[2023-06-28] MEDS ORDERED: CARFILZOMIB IV ONE (10:00)
[2023-06-28] MEDS ORDERED: EPOETIN ALFA-EPBX 20,000 UNIT/ML VIAL SQ ONE (10:30)
[2023-06-28 15:32] VITALS: RESP 18; TEMP 97.5
[2023-06-28 15:48] VITALS: BP 120/58; PULSE 81
[2023-06-28] MEDS ORDERED: PORTA CATH FLUSH 10 ML IVPUSH PRN (15:48)
== END 2023-06-28 12:00 | disposition home or self-care (01) ==
LOC: JONCCHEMO 08:47 → J7W 08:48 → JONCCHEMO 12:00
PROVIDERS: ATTEND Internal Medicine Hematology & Oncology
DX: Z51.11 Encounter for antineoplastic chemotherapy (principal); C90.00 Multiple myeloma not having achieved remission
CPT/HCPCS: 96375; 96413; J9047

== ENCOUNTER 2023-07-11 09:25 | Day surgery (SDC) | payer OTHER ==
[~2023-07-11 09:25] MED LIST changes: +SODIUM CHLORIDE 0.45% 150 ML IVPB ONE; -SODIUM CHLORIDE 0.45% 250 ML IVPB ONE
[2023-07-11] MEDS ORDERED: DEXAMETHASONE SODIUM PHOSPHATE 20 MG in SODIUM CHLORIDE 50 ML IVPB ONE (09:30)
[2023-07-11] MEDS ORDERED: GRANISETRON HCL/PF 1 MG in SODIUM CHLORIDE 50 ML IVPB ONE (09:30)
[2023-07-11] MEDS ORDERED: SODIUM CHLORIDE IVPB ONE (10:00)
[2023-07-11] MEDS ORDERED: CYCLOPHOSPHAMIDE IVPB ONE (10:00)
[2023-07-11 10:15] LABS: HEMATOCRIT 30.8 % (35.4-49); HEMOGLOBIN 9.7 GM/dL (11.7-16.9); MCH 35.2 pg (25.7-33.7); MCHC 31.6 g/dl (32.0-35.9); MEAN CELL VOLUME 111.4 fl (80-96); MEAN PLT VOLUME 7.6 fl (7.5-11.1); PLATELET COUNT 133 10^3/uL (134-434); RBC 2.77 M/mm3 (4.00-5.60); RDW 19.2 % (11.9-15.9); WHITE BLOOD COUNT 3.6 K/mm3 (4.0-10.0)
[2023-07-11] MEDS ORDERED: CARFILZOMIB IV ONE (10:30)
[2023-07-11] MEDS ORDERED: DEXTROSE 5% IV ONE (10:30)
[2023-07-11] MEDS ORDERED: WATER IV ONE (10:30)
[2023-07-11 10:31] LABS: POTASSIUM 4.8 mmol/L (3.5-5.1)
[2023-07-11 10:34] LABS: ALBUMIN 3.4 g/dl (3.4-5.0); CALCIUM 8.3 mg/dL (8.5-10.1); MAGNESIUM 2.5 mg/dL (1.8-2.4)
[2023-07-11 10:36] LABS: URIC ACID 8.5 mg/dL (2.6-7.2)
[2023-07-11 10:37] LABS: CREATININE 2.4 mg/dL (0.55-1.3)
[2023-07-11 10:39] LABS: BILIRUBIN,TOTAL 0.4 mg/dL (0.2-1); TOT PROT 6.2 g/dl (6.4-8.2)
[2023-07-11] MEDS ORDERED: SODIUM CHLORIDE 0.45% 250 ML IVPB ONE (11:00)
[2023-07-11 11:03] LABS: ANISOCYTOSIS 2+; MACROCYTOSIS 1+; OVALOCYTE 2+; TEAR DROP CELLS 2+
[2023-07-11 15:34] VITALS: BP 140/47; PULSE 65; RESP 18; TEMP 97.9
[2023-07-11] MEDS ORDERED: PORTA CATH FLUSH 10 ML IVPUSH PRN (15:34)
[2023-07-13 16:08] LABS: FREE KAPPA,SERUM 283.7 mg/L (3.3-19.4)
[2023-07-14 05:15] LABS: FREE KAP CHN UR 193.83 mg/L (1.17-86.46); KAPPA LAMBDA RATIO URIN 78.47 (1.83-14.26)
== END 2023-07-11 15:15 | disposition home or self-care (01) ==
LOC: JONCCHEMO 09:25 → J7W 09:54 → JONCCHEMO 15:15
PROVIDERS: ATTEND Internal Medicine Hematology & Oncology
PROC: 3E04305 Introduction of Other Antineoplastic into Central Vein, Percutaneous Approach (ICD-10-PCS; principal; 2023-07-11)
PROC: 3E033GC Introduction of Other Therapeutic Substance into Peripheral Vein, Percutaneous Approach (ICD-10-PCS; 2023-07-11)
PROC: 3E0337Z Introduction of Electrolytic and Water Balance Substance into Peripheral Vein, Percutaneous Approach (ICD-10-PCS; 2023-07-11)
DX: Z51.11 Encounter for antineoplastic chemotherapy (principal); C90.00 Multiple myeloma not having achieved remission
CPT/HCPCS: 36415; 80053; 82232; 82784; 83615; 83735; 83883; 84155; 84165; 84550; 85025; 86335; 96361; 96375; 96413; 96417; J9047; J9070

== ENCOUNTER 2023-07-12 10:31 | Day surgery (SDC) | payer OTHER ==
[~2023-07-12 10:31] MED LIST changes: +CARFILZOMIB IV ONE; +DEXAMETHASONE SODIUM PHOSPHATE 20 MG in SODIUM CHLORIDE 50 ML IVPB ONE; +DEXTROSE 5% IV ONE; +EPOETIN ALFA-EPBX 20,000 UNIT/ML VIAL SQ ONE; +GRANISETRON HCL/PF 1 MG in SODIUM CHLORIDE 50 ML IVPB ONE; -SODIUM CHLORIDE 0.45% 150 ML IVPB ONE; +SODIUM CHLORIDE 0.45% 250 ML IVPB ONE; +WATER IV ONE
[2023-07-12 15:40] VITALS: BP 99/52; PULSE 63; RESP 18; TEMP 97.6
[2023-07-12] MEDS ORDERED: PORTA CATH FLUSH 10 ML IVPUSH PRN (15:40)
== END 2023-07-12 12:00 | disposition home or self-care (01) ==
LOC: JONCCHEMO 10:31 → J7W 10:32 → JONCCHEMO 12:00
PROVIDERS: ATTEND Internal Medicine Hematology & Oncology
PROC: 3E04305 Introduction of Other Antineoplastic into Central Vein, Percutaneous Approach (ICD-10-PCS; principal; 2023-07-12)
PROC: 3E033GC Introduction of Other Therapeutic Substance into Peripheral Vein, Percutaneous Approach (ICD-10-PCS; 2023-07-12)
PROC: 3E0337Z Introduction of Electrolytic and Water Balance Substance into Peripheral Vein, Percutaneous Approach (ICD-10-PCS; 2023-07-12)
PROC: 3E013GC Introduction of Other Therapeutic Substance into Subcutaneous Tissue, Percutaneous Approach (ICD-10-PCS; 2023-07-12)
DX: Z51.11 Encounter for antineoplastic chemotherapy (principal); C90.00 Multiple myeloma not having achieved remission
CPT/HCPCS: 96361; 96367; 96372; 96375; 96413; J9047

== ENCOUNTER 2023-07-18 08:59 | Day surgery (SDC) | payer OTHER ==
[2023-07-18 09:51] LABS: HEMATOCRIT 31.3 % (35.4-49); HEMOGLOBIN 10.1 GM/dL (11.7-16.9); MCH 35.5 pg (25.7-33.7); MCHC 32.4 g/dl (32.0-35.9); MEAN CELL VOLUME 109.7 fl (80-96); PLATELET COUNT 63 10^3/uL (134-434); RBC 2.85 M/mm3 (4.00-5.60); RDW 18.6 % (11.9-15.9); WHITE BLOOD COUNT 4.8 K/mm3 (4.0-10.0)
[2023-07-18] MEDS ORDERED: DEXAMETHASONE SODIUM PHOSPHATE 20 MG in SODIUM CHLORIDE 50 ML IVPB ONE (10:00)
[2023-07-18] MEDS ORDERED: SODIUM CHLORIDE 0.45% 150 ML IVPB ONE (10:00)
[2023-07-18] MEDS ORDERED: GRANISETRON HCL/PF 1 MG in SODIUM CHLORIDE 50 ML IVPB ONE (10:00)
[2023-07-18 10:03] LABS: POTASSIUM 4.8 mmol/L (3.5-5.1)
[2023-07-18 10:05] LABS: ALBUMIN 3.4 g/dl (3.4-5.0); CALCIUM 8.4 mg/dL (8.5-10.1)
[2023-07-18 10:06] LABS: BLOOD UREA NITROGEN 39.2 mg/dL (7-18); MAGNESIUM 2.4 mg/dL (1.8-2.4)
[2023-07-18 10:08] LABS: URIC ACID 5.6 mg/dL (2.6-7.2)
[2023-07-18 10:09] LABS: CREATININE 2.9 mg/dL (0.55-1.3)
[2023-07-18 10:10] LABS: BILIRUBIN,TOTAL 0.4 mg/dL (0.2-1)
[2023-07-18 10:19] LABS: ANISOCYTOSIS 1+; MACROCYTOSIS 2+
[2023-07-18] MEDS ORDERED: CYCLOPHOSPHAMIDE IVPB ONE (10:30)
[2023-07-18] MEDS ORDERED: SODIUM CHLORIDE IVPB ONE (10:30)
[2023-07-18] MEDS ORDERED: WATER IV ONE (11:00)
[2023-07-18] MEDS ORDERED: CARFILZOMIB IV ONE (11:00)
[2023-07-18] MEDS ORDERED: DEXTROSE 5% IV ONE (11:00)
[2023-07-18] MEDS ORDERED: SODIUM CHLORIDE 0.45% 250 ML IVPB ONE (11:30)
[2023-07-18 15:50] VITALS: BP 94/45; PULSE 75; RESP 18; TEMP 97.7
[2023-07-18] MEDS ORDERED: PORTA CATH FLUSH 10 ML IVPUSH PRN (15:50)
[2023-07-20 16:07] LABS: FREE KAPPA,SERUM 255.3 mg/L (3.3-19.4)
[2023-07-20 17:08] LABS: BETA-2-MICROGLOBULIN 7.8 mg/L (0.6-2.4)
[2023-07-23 12:07] LABS: FREE KAP CHN UR 111.69 mg/L (1.17-86.46); KAPPA LAMBDA RATIO URIN 49.86 (1.83-14.26)
== END 2023-07-18 15:00 | disposition home or self-care (01) ==
LOC: JONCCHEMO 08:59 → J7W 09:09 → JONCCHEMO 15:00
PROVIDERS: ATTEND Internal Medicine Hematology & Oncology
DX: Z51.11 Encounter for antineoplastic chemotherapy (principal); C90.00 Multiple myeloma not having achieved remission
CPT/HCPCS: 36415; 80053; 82232; 82784; 83615; 83735; 83883; 84155; 84165; 84550; 85025; 86335; 96367; 96375; 96413; 96417; J9047; J9070

== ENCOUNTER 2023-07-19 08:49 | Day surgery (SDC) | payer OTHER ==
[2023-07-19] MEDS ORDERED: SODIUM CHLORIDE 0.45% 250 ML IVPB ONE (09:00)
[2023-07-19] MEDS ORDERED: GRANISETRON HCL/PF 1 MG in SODIUM CHLORIDE 50 ML IVPB ONE (10:00)
[2023-07-19] MEDS ORDERED: DEXAMETHASONE SODIUM PHOSPHATE 20 MG in DEXTROSE 5%-WATER - 50 ML IVPB ONE (10:00)
[2023-07-19] MEDS ORDERED: WATER IV ONE (10:30)
[2023-07-19] MEDS ORDERED: CARFILZOMIB IV ONE (10:30)
[2023-07-19] MEDS ORDERED: DEXTROSE 5% IV ONE (10:30)
[2023-07-19] MEDS ORDERED: EPOETIN ALFA-EPBX 10,000 UNIT, EPOETIN ALFA-EPBX 2,000 UNIT, EPOETIN ALFA-EPBX 3,000 UNIT SQ ONE (11:30)
[2023-07-19 13:28] VITALS: BP 113/54; PULSE 68; RESP 18; TEMP 97.6
[2023-07-19] MEDS ORDERED: PORTA CATH FLUSH 10 ML IVPUSH PRN (13:28)
== END 2023-07-19 11:45 | disposition home or self-care (01) ==
LOC: JONCCHEMO 08:49 → J7W 08:50 → JONCCHEMO 11:45
PROVIDERS: ATTEND Internal Medicine Hematology & Oncology
DX: Z51.11 Encounter for antineoplastic chemotherapy (principal); C90.00 Multiple myeloma not having achieved remission
CPT/HCPCS: 96372; 96375; 96413; J9047; Q5106

== ENCOUNTER 2023-07-25 09:41 | Day surgery (SDC) | payer OTHER ==
[~2023-07-25 09:41] MED LIST changes: -CARFILZOMIB IV ONE; -DEXAMETHASONE SODIUM PHOSPHATE 20 MG in SODIUM CHLORIDE 50 ML IVPB ONE; -DEXTROSE 5% IV ONE; -EPOETIN ALFA-EPBX 20,000 UNIT/ML VIAL SQ ONE; +FUROSEMIDE 40 MG/4 ML INJECTABLE VIAL IVPUSH ONE; -GRANISETRON HCL/PF 1 MG in SODIUM CHLORIDE 50 ML IVPB ONE; +SODIUM CHLORIDE 0.45% 150 ML IVPB ONE; -SODIUM CHLORIDE 0.45% 250 ML IVPB ONE; -WATER IV ONE
[2023-07-25] MEDS ORDERED: GRANISETRON HCL/PF 1 MG in SODIUM CHLORIDE 50 ML IVPB ONE (10:00)
[2023-07-25] MEDS ORDERED: DEXAMETHASONE SODIUM PHOSPHATE 20 MG in DEXTROSE 5%-WATER - 50 ML IVPB ONE (10:00)
[2023-07-25] MEDS ORDERED: CYCLOPHOSPHAMIDE IVPB ONE (10:30)
[2023-07-25] MEDS ORDERED: SODIUM CHLORIDE IVPB ONE (10:30)
[2023-07-25] MEDS ORDERED: BACITRACIN ZINC 15 GM TUBE TOPICAL OINTMENT TP ONE (10:36)
[2023-07-25 10:39] LABS: HEMATOCRIT 29.6 % (35.4-49); HEMOGLOBIN 9.5 GM/dL (11.7-16.9); MCH 35.6 pg (25.7-33.7); MCHC 32.2 g/dl (32.0-35.9); MEAN CELL VOLUME 110.5 fl (80-96); MEAN PLT VOLUME 9.4 fl (7.5-11.1); PLATELET COUNT 61 10^3/uL (134-434); RBC 2.68 M/mm3 (4.00-5.60); RDW 19.6 % (11.9-15.9); WHITE BLOOD COUNT 4.5 K/mm3 (4.0-10.0)
[2023-07-25 10:56] LABS: POTASSIUM 5.7 mmol/L (3.5-5.1)
[2023-07-25] MEDS ORDERED: CARFILZOMIB IV ONE (11:00)
[2023-07-25] MEDS ORDERED: DEXTROSE 5% IV ONE (11:00)
[2023-07-25] MEDS ORDERED: WATER IV ONE (11:00)
[2023-07-25 11:11] LABS: ALBUMIN 3.3 g/dl (3.4-5.0); BLOOD UREA NITROGEN 33.6 mg/dL (7-18); CALCIUM 8.1 mg/dL (8.5-10.1); MAGNESIUM 2.6 mg/dL (1.8-2.4)
[2023-07-25 11:14] LABS: CREATININE 2.3 mg/dL (0.55-1.3); URIC ACID 5.5 mg/dL (2.6-7.2)
[2023-07-25 11:16] LABS: BILIRUBIN,TOTAL 0.9 mg/dL (0.2-1); TOT PROT 5.8 g/dl (6.4-8.2)
[2023-07-25] MEDS ORDERED: SODIUM POLYSTYRENE SULFONATE 15 GM/60 ML BOTTLE PO ONE (11:32)
[2023-07-25 12:11] LABS: ANISOCYTOSIS 1+; MACROCYTOSIS 1+; OVALOCYTE 1+
[2023-07-25 12:44] LABS: EPI CELLS 1 /uL (0-25.1); HYALINE CASTS 0 /uL (0-3.1); PH,URINE 6.5 (5.0-8.0); URINE APPEARANCE CLOUDY; URINE BACTERIA 25 /uL (0-1359); URINE BILIRUBIN NEGATIVE (NEGATIVE); URINE COLOR YELLOW; URINE GLUCOSE (UA) NEGATIVE (NEGATIVE); URINE KETONE NEGATIVE (NEGATIVE); URINE LEUK ESTERASE 3+ (NEGATIVE); URINE NITRITE NEGATIVE (NEGATIVE); URINE PROTEIN NEGATIVE (NEGATIVE); URINE RBC 30 /uL (0-23.9); URINE UROBILINOGEN 0.2 mg/dL (0.2-1.0); URINE WBC 1359 /uL (0-25.8)
[2023-07-25] MEDS ORDERED: SODIUM CHLORIDE 0.45% 250 ML IVPB ONE (13:00)
[2023-07-25 13:03] LABS: YEAST NEGATIVE (NEGATIVE)
[2023-07-25 16:21] VITALS: BP 113/49; PULSE 68; RESP 18; TEMP 97.4
[2023-07-25] MEDS ORDERED: PORTA CATH FLUSH 10 ML IVPUSH PRN (16:21)
== END 2023-07-25 15:45 | disposition home or self-care (01) ==
LOC: JONCCHEMO 09:41 → J7W 09:49 → JONCCHEMO 15:45
PROVIDERS: ATTEND Internal Medicine Hematology & Oncology
DX: Z51.11 Encounter for antineoplastic chemotherapy (principal); C90.00 Multiple myeloma not having achieved remission
CPT/HCPCS: 36415; 80053; 81003; 83615; 83735; 84550; 85025; 87086; 96375; 96413; 96417; J9047; J9070

== ENCOUNTER 2023-07-26 08:56 | Day surgery (SDC) | payer OTHER ==
[2023-07-26] MEDS ORDERED: SODIUM CHLORIDE 0.45% 250 ML IVPB ONE (09:00)
[2023-07-26 09:50] LABS: POTASSIUM 4.6 mmol/L (3.5-5.1)
[2023-07-26 09:55] LABS: CREATININE 2.4 mg/dL (0.55-1.3)
[2023-07-26] MEDS ORDERED: DEXAMETHASONE SODIUM PHOSPHATE 20 MG in DEXTROSE 5%-WATER - 50 ML IVPB ONE (10:00)
[2023-07-26] MEDS ORDERED: FUROSEMIDE 40 MG/4 ML INJECTABLE VIAL IVPUSH ONE (10:00)
[2023-07-26] MEDS ORDERED: GRANISETRON HCL/PF 1 MG in SODIUM CHLORIDE 50 ML IVPB ONE (10:00)
[2023-07-26] MEDS ORDERED: INSULIN (NOVOLOG) ASPART 100 UNITS/ML 10ML VIAL SQ ONE (10:12)
[2023-07-26] MEDS ORDERED: DEXTROSE 5% IV ONE (10:30)
[2023-07-26] MEDS ORDERED: CARFILZOMIB IV ONE (10:30)
[2023-07-26] MEDS ORDERED: WATER IV ONE (10:30)
[2023-07-26] MEDS ORDERED: EPOETIN ALFA-EPBX 10,000 UNIT, EPOETIN ALFA-EPBX 2,000 UNIT, EPOETIN ALFA-EPBX 3,000 UNIT SQ ONE (11:00)
[2023-07-26 13:26] VITALS: RESP 20; TEMP 97.9
[2023-07-26 16:11] VITALS: BP 109/59; PULSE 74
[2023-07-26] MEDS ORDERED: PORTA CATH FLUSH 10 ML IVPUSH PRN (16:11)
== END 2023-07-26 13:10 | disposition home or self-care (01) ==
LOC: J7W 08:56 → JONCCHEMO 08:56
PROVIDERS: ATTEND Internal Medicine Hematology & Oncology
PROC: 3E04305 Introduction of Other Antineoplastic into Central Vein, Percutaneous Approach (ICD-10-PCS; principal; 2023-07-26)
PROC: 3E013GC Introduction of Other Therapeutic Substance into Subcutaneous Tissue, Percutaneous Approach (ICD-10-PCS; 2023-07-26)
DX: Z51.11 Encounter for antineoplastic chemotherapy (principal); C90.00 Multiple myeloma not having achieved remission
CPT/HCPCS: 36415; 80048; 96372; 96375; 96413; J9047; Q5106

== ENCOUNTER 2023-08-15 09:09 | Day surgery (SDC) | payer OTHER ==
[~2023-08-15 09:09] MED LIST changes: -FUROSEMIDE 40 MG/4 ML INJECTABLE VIAL IVPUSH ONE
[2023-08-15] MEDS ORDERED: DEXAMETHASONE SODIUM PHOSPHATE 20 MG in SODIUM CHLORIDE 50 ML IVPB ONE (09:30)
[2023-08-15] MEDS ORDERED: GRANISETRON HCL/PF 1 MG in SODIUM CHLORIDE 50 ML IVPB ONE (09:30)
[2023-08-15] MEDS ORDERED: SODIUM CHLORIDE IVPB ONE (10:00)
[2023-08-15] MEDS ORDERED: CYCLOPHOSPHAMIDE IVPB ONE (10:00)
[2023-08-15] MEDS ORDERED: DEXTROSE 5% IV ONE (10:30)
[2023-08-15] MEDS ORDERED: CARFILZOMIB IV ONE (10:30)
[2023-08-15] MEDS ORDERED: WATER IV ONE (10:30)
[2023-08-15 10:48] LABS: BASO % 0.7 % (0-2.0); EOS % 1.3 % (0-4.5); HEMATOCRIT 26.5 % (35.4-49); HEMOGLOBIN 8.6 GM/dL (11.7-16.9); LYMPH % 5.9 % (8-40); MCH 35.8 pg (25.7-33.7); MCHC 32.4 g/dl (32.0-35.9); MEAN CELL VOLUME 110.6 fl (80-96); MEAN PLT VOLUME 7.6 fl (7.5-11.1); MONO % 10.7 % (3.8-10.2); NEUT % 81.4 % (42.8-82.8); PLATELET COUNT 121 10^3/uL (134-434); RDW 17.1 % (11.9-15.9); WHITE BLOOD COUNT 3.7 K/mm3 (4.0-10.0)
[2023-08-15] MEDS ORDERED: SODIUM CHLORIDE 0.45% 250 ML IVPB ONE (11:00)
[2023-08-15 11:12] LABS: CALCIUM 8.7 mg/dL (8.5-10.1)
[2023-08-15 11:13] LABS: ALBUMIN 3.3 g/dl (3.4-5.0); MAGNESIUM 2.4 mg/dL (1.8-2.4)
[2023-08-15 11:16] LABS: CREATININE 2.5 mg/dL (0.55-1.3); URIC ACID 7.9 mg/dL (2.6-7.2)
[2023-08-15 11:17] LABS: BILIRUBIN,TOTAL 0.4 mg/dL (0.2-1); TOT PROT 5.6 g/dl (6.4-8.2)
[2023-08-15 11:45] LABS: ANISOCYTOSIS 0; MACROCYTOSIS 2+
[2023-08-15 13:45] LABS: EPI CELLS 1 /uL (0-25.1); HYALINE CASTS 1 /uL (0-3.1); PH,URINE 5.5 (5.0-8.0); URINE APPEARANCE CLOUDY; URINE BACTERIA 7 /uL (0-1359); URINE BILIRUBIN NEGATIVE (NEGATIVE); URINE COLOR YELLOW; URINE GLUCOSE (UA) NEGATIVE (NEGATIVE); URINE KETONE NEGATIVE (NEGATIVE); URINE LEUK ESTERASE 3+ (NEGATIVE); URINE NITRITE NEGATIVE (NEGATIVE); URINE PROTEIN TRACE (NEGATIVE); URINE RBC 17 /uL (0-23.9); URINE UROBILINOGEN 0.2 mg/dL (0.2-1.0); URINE WBC 1104 /uL (0-25.8)
[2023-08-15 16:41] VITALS: BP 107/53; PULSE 63; RESP 18; TEMP 97.6
[2023-08-15] MEDS ORDERED: PORTA CATH FLUSH 10 ML IVPUSH PRN (16:41)
[2023-08-18 05:20] LABS: FREE KAP CHN UR 129.49 mg/L (1.17-86.46); KAPPA LAMBDA RATIO URIN 33.29 (1.83-14.26)
[2023-08-18 13:01] LABS: BETA-2-MICROGLOBULIN 8.2 mg/L (0.6-2.4)
[2023-08-18 17:15] LABS: FREE KAPPA,SERUM 272.8 mg/L (3.3-19.4)
== END 2023-08-15 14:10 | disposition home or self-care (01) ==
LOC: JONCCHEMO 09:09 → J7W 09:13 → JONCCHEMO 14:10
PROVIDERS: ATTEND Internal Medicine Hematology & Oncology
DX: Z51.11 Encounter for antineoplastic chemotherapy (principal); C90.00 Multiple myeloma not having achieved remission
CPT/HCPCS: 36415; 80053; 81003; 82232; 82784; 83615; 83735; 83883; 84155; 84165; 84550; 85025; 86335; 87086; 96367; 96413; 96417; J9047; J9070

== ENCOUNTER 2023-08-16 10:00 | Day surgery (SDC) | payer OTHER ==
[2023-08-16 09:25] VITALS: RESP 20; TEMP 97.7
[~2023-08-16 10:00] MED LIST changes: +CARFILZOMIB IV ONE; +DEXAMETHASONE SODIUM PHOSPHATE 20 MG in SODIUM CHLORIDE 50 ML IVPB ONE; +DEXTROSE 5% IV ONE; +EPOETIN ALFA-EPBX 20,000 UNIT/ML VIAL SQ ONE; +GRANISETRON HCL/PF 1 MG in SODIUM CHLORIDE 50 ML IVPB ONE; -SODIUM CHLORIDE 0.45% 150 ML IVPB ONE; +SODIUM CHLORIDE 0.45% 250 ML IVPB ONE; +WATER IV ONE
[2023-08-16 12:19] VITALS: BP 98/53; PULSE 60
[2023-08-16] MEDS ORDERED: PORTA CATH FLUSH 10 ML IVPUSH PRN (12:19)
== END 2023-08-16 12:59 | disposition home or self-care (01) ==
LOC: J7W 10:00 → JONCCHEMO 10:00
PROVIDERS: ATTEND Internal Medicine Hematology & Oncology
PROC: 3E04305 Introduction of Other Antineoplastic into Central Vein, Percutaneous Approach (ICD-10-PCS; principal; 2023-08-16)
PROC: 3E013GC Introduction of Other Therapeutic Substance into Subcutaneous Tissue, Percutaneous Approach (ICD-10-PCS; 2023-08-16)
DX: Z51.11 Encounter for antineoplastic chemotherapy (principal); C90.00 Multiple myeloma not having achieved remission
CPT/HCPCS: 96372; 96375; 96413; J9047

== ENCOUNTER 2023-08-22 09:22 | Day surgery (SDC) | payer OTHER ==
[~2023-08-22 09:22] MED LIST changes: -CARFILZOMIB IV ONE; -DEXAMETHASONE SODIUM PHOSPHATE 20 MG in SODIUM CHLORIDE 50 ML IVPB ONE; -DEXTROSE 5% IV ONE; -EPOETIN ALFA-EPBX 20,000 UNIT/ML VIAL SQ ONE; +FUROSEMIDE 40 MG/4 ML INJECTABLE VIAL IVPUSH ONE; -GRANISETRON HCL/PF 1 MG in SODIUM CHLORIDE 50 ML IVPB ONE; +SODIUM CHLORIDE 0.45% 150 ML IVPB ONE; -SODIUM CHLORIDE 0.45% 250 ML IVPB ONE; -WATER IV ONE
[2023-08-22] MEDS ORDERED: DEXAMETHASONE SODIUM PHOSPHATE 20 MG in SODIUM CHLORIDE 50 ML IVPB ONE (09:30)
[2023-08-22] MEDS ORDERED: GRANISETRON HCL/PF 1 MG in SODIUM CHLORIDE 50 ML IVPB ONE (09:30)
[2023-08-22 10:11] LABS: HEMATOCRIT 27.2 % (35.4-49); HEMOGLOBIN 8.6 GM/dL (11.7-16.9); MCH 35.7 pg (25.7-33.7); MCHC 31.6 g/dl (32.0-35.9); MEAN CELL VOLUME 112.8 fl (80-96); PLATELET COUNT 69 10^3/uL (134-434); RBC 2.41 M/mm3 (4.00-5.60); RDW 17.4 % (11.9-15.9); WHITE BLOOD COUNT 4.2 K/mm3 (4.0-10.0)
[2023-08-22] MEDS ORDERED: SODIUM CHLORIDE IVPB ONE ×2 (10:30→11:30)
[2023-08-22] MEDS ORDERED: WATER IV ONE ×3 (10:30→12:00)
[2023-08-22] MEDS ORDERED: CYCLOPHOSPHAMIDE IVPB ONE ×2 (10:30→11:30)
[2023-08-22] MEDS ORDERED: CARFILZOMIB IV ONE ×3 (10:30→12:00)
[2023-08-22] MEDS ORDERED: DEXTROSE 5% IV ONE ×3 (10:30→12:00)
[2023-08-22 10:44] LABS: ANISOCYTOSIS 0; MACROCYTOSIS 2+; PLATELET ESTIMATE DECREASED
[2023-08-22 10:59] LABS: POTASSIUM 5.4 mmol/L (3.5-5.1)
[2023-08-22] MEDS ORDERED: SODIUM CHLORIDE 0.45% 250 ML IVPB ONE (11:00)
[2023-08-22 11:01] LABS: CALCIUM 8.4 mg/dL (8.5-10.1)
[2023-08-22 11:02] LABS: ALBUMIN 3.3 g/dl (3.4-5.0); BLOOD UREA NITROGEN 33.2 mg/dL (7-18); MAGNESIUM 2.1 mg/dL (1.8-2.4)
[2023-08-22 11:04] LABS: URIC ACID 5.8 mg/dL (2.6-7.2)
[2023-08-22 11:05] LABS: CREATININE 2.2 mg/dL (0.55-1.3)
[2023-08-22 11:06] LABS: BILIRUBIN,TOTAL 0.5 mg/dL (0.2-1); TOT PROT 5.9 g/dl (6.4-8.2)
[2023-08-22] MEDS ORDERED: FUROSEMIDE 40 MG/4 ML INJECTABLE VIAL ONE (14:05)
[2023-08-22 15:58] VITALS: BP 96/53; PULSE 54; RESP 18; TEMP 97.7
[2023-08-22] MEDS ORDERED: PORTA CATH FLUSH 10 ML IVPUSH PRN (16:13)
== END 2023-08-22 15:30 | disposition home or self-care (01) ==
LOC: JONCCHEMO 09:22 → J7W 09:25 → JONCCHEMO 15:30
PROVIDERS: ATTEND Internal Medicine Hematology & Oncology
DX: Z51.11 Encounter for antineoplastic chemotherapy (principal); C90.00 Multiple myeloma not having achieved remission
CPT/HCPCS: 36415; 80053; 83615; 83735; 84550; 85025; 96375; 96413; 96417; J9047; J9070

== ENCOUNTER 2023-08-23 08:56 | Day surgery (SDC) | payer OTHER ==
[2023-08-23] MEDS ORDERED: SODIUM CHLORIDE 0.45% 250 ML IVPB ONE (09:00)
[2023-08-23] MEDS ORDERED: FUROSEMIDE 40 MG/4 ML INJECTABLE VIAL IVPUSH ONE (09:04)
[2023-08-23] MEDS ORDERED: DEXAMETHASONE SODIUM PHOSPHATE 20 MG in SODIUM CHLORIDE 50 ML IVPB ONE (09:30)
[2023-08-23] MEDS ORDERED: GRANISETRON HCL/PF 1 MG in SODIUM CHLORIDE 50 ML IVPB ONE (09:30)
[2023-08-23] MEDS ORDERED: CARFILZOMIB IV ONE (10:00)
[2023-08-23] MEDS ORDERED: WATER IV ONE (10:00)
[2023-08-23] MEDS ORDERED: DEXTROSE 5% IV ONE (10:00)
[2023-08-23] MEDS ORDERED: EPOETIN ALFA-EPBX 20,000 UNIT/ML VIAL SQ ONE (10:30)
[2023-08-23 12:04] VITALS: RESP 20; TEMP 97.3
[2023-08-23 12:19] VITALS: BP 112/53; PULSE 58
[2023-08-23] MEDS ORDERED: PORTA CATH FLUSH 10 ML IVPUSH PRN (12:19)
== END 2023-08-23 11:45 | disposition home or self-care (01) ==
LOC: JONCCHEMO 08:56 → J7W 08:56 → JONCCHEMO 11:45
PROVIDERS: ATTEND Internal Medicine Hematology & Oncology
PROC: 3E04305 Introduction of Other Antineoplastic into Central Vein, Percutaneous Approach (ICD-10-PCS; principal; 2023-08-23)
PROC: 3E013GC Introduction of Other Therapeutic Substance into Subcutaneous Tissue, Percutaneous Approach (ICD-10-PCS; 2023-08-23)
DX: Z51.11 Encounter for antineoplastic chemotherapy (principal); C90.00 Multiple myeloma not having achieved remission
CPT/HCPCS: 96372; 96375; 96413; J9047

== ENCOUNTER 2023-08-29 09:08 | Day surgery (SDC) | payer OTHER ==
[~2023-08-29 09:08] MED LIST changes: -FUROSEMIDE 40 MG/4 ML INJECTABLE VIAL IVPUSH ONE
[2023-08-29] MEDS ORDERED: GRANISETRON HCL/PF 1 MG in SODIUM CHLORIDE 50 ML IVPB ONE (09:30)
[2023-08-29] MEDS ORDERED: DEXAMETHASONE SODIUM PHOSPHATE 20 MG in SODIUM CHLORIDE 50 ML IVPB ONE (09:30)
[2023-08-29 09:53] LABS: BASO % 0.7 % (0-2.0); EOS % 3.6 % (0-4.5); HEMATOCRIT 25.5 % (35.4-49); HEMOGLOBIN 8.3 GM/dL (11.7-16.9); LYMPH % 3.6 % (8-40); MCH 36.2 pg (25.7-33.7); MCHC 32.5 g/dl (32.0-35.9); MEAN CELL VOLUME 111.4 fl (80-96); MEAN PLT VOLUME 9.6 fl (7.5-11.1); MONO % 12.3 % (3.8-10.2); NEUT % 79.8 % (42.8-82.8); PLATELET COUNT 61 10^3/uL (134-434); POTASSIUM 3.7 mmol/L (3.5-5.1); RBC 2.29 M/mm3 (4.00-5.60); RDW 17.1 % (11.9-15.9)
[2023-08-29 09:55] LABS: CALCIUM 7.9 mg/dL (8.5-10.1)
[2023-08-29 09:56] LABS: BLOOD UREA NITROGEN 45.9 mg/dL (7-18); MAGNESIUM 2.5 mg/dL (1.8-2.4)
[2023-08-29 09:58] LABS: URIC ACID 7.6 mg/dL (2.6-7.2)
[2023-08-29 09:59] LABS: CREATININE 2.8 mg/dL (0.55-1.3)
[2023-08-29 10:00] LABS: TOT PROT 5.8 g/dl (6.4-8.2)
[2023-08-29] MEDS ORDERED: SODIUM CHLORIDE IVPB ONE ×3 (10:00→10:30)
[2023-08-29] MEDS ORDERED: CYCLOPHOSPHAMIDE IVPB ONE ×3 (10:00→10:30)
[2023-08-29 10:02] LABS: BILIRUBIN,TOTAL 0.5 mg/dL (0.2-1)
[2023-08-29] MEDS ORDERED: DEXTROSE 5% IV ONE ×2 (10:30→11:00)
[2023-08-29] MEDS ORDERED: CARFILZOMIB IV ONE ×2 (10:30→11:00)
[2023-08-29] MEDS ORDERED: WATER IV ONE ×2 (10:30→11:00)
[2023-08-29] MEDS ORDERED: PORTA CATH FLUSH 10 ML IVPUSH PRN (10:31)
[2023-08-29] MEDS ORDERED: SODIUM CHLORIDE 0.45% 250 ML IVPB ONE (11:00)
[2023-08-29 11:16] LABS: ANISOCYTOSIS 1+; MACROCYTOSIS 0; OVALOCYTE 1+
[2023-08-29 11:44] VITALS: RESP 18; TEMP 97.8
[2023-08-29] MEDS ORDERED: SODIUM CHLORIDE 0.45% 150 ML IV SCH (12:30)
[2023-08-29 14:35] VITALS: BP 91/51; PULSE 68
== END 2023-08-29 14:05 | disposition home or self-care (01) ==
LOC: JONCCHEMO 09:08 → J7W 09:09 → JONCCHEMO 14:05
PROVIDERS: ATTEND Internal Medicine Hematology & Oncology
DX: Z51.11 Encounter for antineoplastic chemotherapy (principal); C90.00 Multiple myeloma not having achieved remission
CPT/HCPCS: 36415; 80053; 83615; 83735; 84550; 85025; 96375; 96413; 96417; J9047; J9070

== ENCOUNTER 2023-08-30 09:15 | Day surgery (SDC) | payer OTHER ==
[~2023-08-30 09:15] MED LIST changes: -SODIUM CHLORIDE 0.45% 150 ML IVPB ONE; +SODIUM CHLORIDE 0.45% 250 ML IVPB ONE
[2023-08-30] MEDS ORDERED: DEXAMETHASONE SODIUM PHOSPHATE 20 MG in SODIUM CHLORIDE 50 ML IVPB ONE (09:30)
[2023-08-30] MEDS ORDERED: GRANISETRON HCL/PF 1 MG in SODIUM CHLORIDE 50 ML IVPB ONE (09:30)
[2023-08-30] MEDS ORDERED: CARFILZOMIB IV ONE (10:00)
[2023-08-30] MEDS ORDERED: WATER IV ONE (10:00)
[2023-08-30] MEDS ORDERED: DEXTROSE 5% IV ONE (10:00)
[2023-08-30] MEDS ORDERED: EPOETIN ALFA-EPBX 20,000 UNIT/ML VIAL SQ ONE (10:30)
[2023-08-30 12:22] VITALS: TEMP 97.7
[2023-08-30 12:34] VITALS: BP 103/57; PULSE 65; RESP 20
[2023-08-30] MEDS ORDERED: PORTA CATH FLUSH 10 ML IVPUSH PRN (12:35)
== END 2023-08-30 12:00 | disposition home or self-care (01) ==
LOC: J7W 09:15 → JONCCHEMO 09:15
PROVIDERS: ATTEND Internal Medicine Hematology & Oncology
PROC: 3E04305 Introduction of Other Antineoplastic into Central Vein, Percutaneous Approach (ICD-10-PCS; principal; 2023-08-30)
PROC: 3E013GC Introduction of Other Therapeutic Substance into Subcutaneous Tissue, Percutaneous Approach (ICD-10-PCS; 2023-08-30)
DX: Z51.11 Encounter for antineoplastic chemotherapy (principal); C90.00 Multiple myeloma not having achieved remission
CPT/HCPCS: 96372; 96375; 96413; J9047

== ENCOUNTER 2023-09-05 14:43 | Inpatient (IN) | payer OTHER ==
[2023-09-05 15:02] VITALS: RESP 18
[2023-09-05 19:24] LABS: CALCIUM 8.4 mg/dL (8.5-10.1)
[2023-09-05 19:25] LABS: BLOOD UREA NITROGEN 48.9 mg/dL (7-18)
[2023-09-05 19:28] LABS: CREATININE 2.8 mg/dL (0.55-1.3)
[2023-09-05 19:29] LABS: BILIRUBIN,TOTAL 0.6 mg/dL (0.2-1); TOT PROT 5.7 g/dl (6.4-8.2)
[2023-09-05 20:40] LABS: BASO % 0.4 % (0-2.0); EOS % 1.3 % (0-4.5); HEMATOCRIT 18.5 % (35.4-49); LYMPH % 8.1 % (8-40); MCH 35.6 pg (25.7-33.7); MCHC 32.2 g/dl (32.0-35.9); MEAN CELL VOLUME 110.5 fl (80-96); MEAN PLT VOLUME 10.3 fl (7.5-11.1); MONO % 9.7 % (3.8-10.2); NEUT % 80.5 % (42.8-82.8); PLATELET COUNT 59 10^3/uL (134-434); RBC 1.68 M/mm3 (4.00-5.60); RDW 16.7 % (11.9-15.9); WHITE BLOOD COUNT 2.8 K/mm3 (4.0-10.0)
[2023-09-06 03:30] VITALS: BMI 25.8
[2023-09-06] MEDS: FUROSEMIDE 40 MG TABLET (FP) PO SCH ×2 (06:52→13:37)
[2023-09-06] MEDS: AMIODARONE HCL 200 MG TABLET PO SCH (09:24)
[2023-09-06] MEDS: amLODIPine BESYLATE 10 MG TABLET (FP) PO SCH (09:24)
[2023-09-06] MEDS ORDERED: APIXABAN 2.5 MG TABLET PO SCH (10:00)
[2023-09-06 11:57] LABS: BASO % 0.8 % (0-2.0); EOS % 2.6 % (0-4.5); HEMATOCRIT 24.5 % (35.4-49); HEMOGLOBIN 8.3 GM/dL (11.7-16.9); MCH 33.7 pg (25.7-33.7); MEAN CELL VOLUME 99.2 fl (80-96); MEAN PLT VOLUME 8.2 fl (7.5-11.1); MONO % 11.1 % (3.8-10.2); NEUT % 79.5 % (42.8-82.8); PLATELET COUNT 61 10^3/uL (134-434); RBC 2.47 M/mm3 (4.00-5.60); RDW 22.5 % (11.9-15.9); RETICULOCYTES 0.62 % (0.5-1.5); WHITE BLOOD COUNT 2.6 K/mm3 (4.0-10.0)
[2023-09-06 12:25] LABS: INR 1.26 (0.83-1.09); PROTHROMBIN TIME (PATIENT) 14.6 SEC (9.7-13.0)
[2023-09-06 13:06] LABS: ANISOCYTOSIS 1+; MACROCYTOSIS 1+; OVALOCYTE 1+
[2023-09-06 13:10] LABS: ALBUMIN 2.8 g/dl (3.4-5.0); BILIRUBIN,TOTAL 0.6 mg/dL (0.2-1); CALCIUM 8.1 mg/dL (8.5-10.1); CREATININE 2.6 mg/dL (0.55-1.3); MAGNESIUM 2.4 mg/dL (1.8-2.4); PHOSPHOROUS 3.1 mg/dL (2.5-4.9); TOT PROT 5.3 g/dl (6.4-8.2)
[2023-09-06] MEDS ORDERED: ATORVASTATIN CA 10 MG TABLET (FP) PO SCH (22:00)
[2023-09-07] MEDS: FUROSEMIDE 40 MG TABLET (FP) PO SCH ×2 (05:16→13:17)
[2023-09-07 05:23] VITALS: TEMP 98.4
[2023-09-07 08:57] VITALS: BP 109/63; PULSE 63
[2023-09-07] MEDS ORDERED: PROPOFOL 20 ML ONE (09:18)
[2023-09-07] MEDS ORDERED: MIDAZOLAM HCL 2 MG/2 ML SINGLE DOSE VIAL ONE (09:19)
[2023-09-07] MEDS: amLODIPine BESYLATE 10 MG TABLET (FP) PO SCH (09:22)
[2023-09-07] MEDS: AMIODARONE HCL 200 MG TABLET PO SCH (09:22)
[2023-09-07] MEDS ORDERED: ceFAZolin SODIUM 1 GM VIAL ONE (09:26)
[2023-09-07 10:01] LABS: BASO % 0.8 % (0-2.0); EOS % 2.8 % (0-4.5); HEMOGLOBIN 8.3 GM/dL (11.7-16.9); LYMPH % 6.9 % (8-40); MCH 33.4 pg (25.7-33.7); MCHC 33.2 g/dl (32.0-35.9); MEAN CELL VOLUME 100.6 fl (80-96); MEAN PLT VOLUME 9.2 fl (7.5-11.1); MONO % 10.1 % (3.8-10.2); NEUT % 79.4 % (42.8-82.8); PLATELET COUNT 75 10^3/uL (134-434); RBC 2.49 M/mm3 (4.00-5.60); RDW 22.1 % (11.9-15.9)
[2023-09-07 10:28] LABS: POTASSIUM 3.8 mmol/L (3.5-5.1)
[2023-09-07 10:33] LABS: CALCIUM 8.1 mg/dL (8.5-10.1)
[2023-09-07 10:34] LABS: ALBUMIN 2.9 g/dl (3.4-5.0); BLOOD UREA NITROGEN 35.6 mg/dL (7-18)
[2023-09-07 10:37] LABS: CREATININE 2.6 mg/dL (0.55-1.3)
[2023-09-07 10:38] LABS: BILIRUBIN,TOTAL 0.7 mg/dL (0.2-1)
[2023-09-07 10:39] LABS: TOT PROT 5.3 g/dl (6.4-8.2)
== END 2023-09-07 14:10 | disposition home or self-care (01) | DRG 840 ==
LOC: JER 14:43 → JERBED 21:30 → OBSVTOIN 22:04 → J6S 09-06 00:36
PROVIDERS: ADMIT Internal Medicine; ATTEND Internal Medicine
PROC: 30233N1 Transfusion of Nonautologous Red Blood Cells into Peripheral Vein, Percutaneous Approach (ICD-10-PCS; principal; 2023-09-05)
DX: C90.00 Multiple myeloma not having achieved remission (principal); D61.810 Antineoplastic chemotherapy induced pancytopenia; I48.92 Unspecified atrial flutter; N18.4 Chronic kidney disease, stage 4 (severe); E78.5 Hyperlipidemia, unspecified; I12.9 Hypertensive chronic kidney disease with stage 1 through stage 4 chronic kidney disease, or unspecified chronic kidney disease; I48.0 Paroxysmal atrial fibrillation; N40.0 Benign prostatic hyperplasia without lower urinary tract symptoms; D63.8 Anemia in other chronic diseases classified elsewhere; T45.1X5A Adverse effect of antineoplastic and immunosuppressive drugs, initial encounter
CPT/HCPCS: 36415; 36430; 80053; 82272; 82607; 82728; 82746; 83540; 83550; 83735; 84100; 84443; 85025; 85045; 85610; 86850; 86900; 86901; 86922; 93005; 93010; 99285-25; G0378; P9058

== ENCOUNTER 2023-09-12 09:54 | Day surgery (SDC) | payer OTHER ==
[2023-09-12] MEDS ORDERED: GRANISETRON HCL/PF 1 MG in SODIUM CHLORIDE 50 ML IVPB ONE (10:00)
[2023-09-12] MEDS ORDERED: DEXAMETHASONE SODIUM PHOSPHATE 20 MG in DEXTROSE 5%-WATER - 50 ML IVPB ONE (10:00)
[2023-09-12] MEDS ORDERED: WATER IV ONE (10:30)
[2023-09-12] MEDS ORDERED: CARFILZOMIB IV ONE (10:30)
[2023-09-12] MEDS ORDERED: DEXTROSE 5% IV ONE (10:30)
[2023-09-12 11:17] LABS: POTASSIUM 4.2 mmol/L (3.5-5.1)
[2023-09-12 11:23] LABS: CALCIUM 8.7 mg/dL (8.5-10.1)
[2023-09-12 11:24] LABS: BLOOD UREA NITROGEN 52.6 mg/dL (7-18)
[2023-09-12 11:25] LABS: MAGNESIUM 2.3 mg/dL (1.8-2.4)
[2023-09-12 11:26] LABS: CREATININE 3.4 mg/dL (0.55-1.3); URIC ACID 7.8 mg/dL (2.6-7.2)
[2023-09-12 11:28] LABS: BILIRUBIN,TOTAL 0.4 mg/dL (0.2-1); TOT PROT 6.3 g/dl (6.4-8.2)
[2023-09-12 11:32] LABS: ALBUMIN 3.6 g/dl (3.4-5.0)
[2023-09-12 11:40] LABS: BASO % 0.2 % (0-2.0); EOS % 1.5 % (0-4.5); HEMATOCRIT 28.6 % (35.4-49); HEMOGLOBIN 9.5 GM/dL (11.7-16.9); LYMPH % 4.9 % (8-40); MCH 34.1 pg (25.7-33.7); MCHC 33.2 g/dl (32.0-35.9); MEAN CELL VOLUME 102.8 fl (80-96); MEAN PLT VOLUME 8.1 fl (7.5-11.1); MONO % 8.7 % (3.8-10.2); NEUT % 84.7 % (42.8-82.8); PLATELET COUNT 113 10^3/uL (134-434); RBC 2.78 M/mm3 (4.00-5.60); RDW 21.4 % (11.9-15.9); WHITE BLOOD COUNT 4.9 K/mm3 (4.0-10.0)
[2023-09-12] MEDS ORDERED: FUROSEMIDE 40 MG/4 ML INJECTABLE VIAL IVPUSH ONE ×2 (12:22→14:11)
[2023-09-12 12:44] LABS: EPI CELLS 1 /uL (0-25.1); HYALINE CASTS 2 /uL (0-3.1); PH,URINE 5.5 (5.0-8.0); URINE APPEARANCE CLOUDY; URINE BACTERIA 51 /uL (0-1359); URINE BILIRUBIN NEGATIVE (NEGATIVE); URINE COLOR YELLOW; URINE GLUCOSE (UA) NEGATIVE (NEGATIVE); URINE KETONE NEGATIVE (NEGATIVE); URINE LEUK ESTERASE 3+ (NEGATIVE); URINE NITRITE NEGATIVE (NEGATIVE); URINE PROTEIN TRACE (NEGATIVE); URINE RBC 21 /uL (0-23.9); URINE UROBILINOGEN 0.2 mg/dL (0.2-1.0); URINE WBC 728 /uL (0-25.8)
[2023-09-12 17:01] VITALS: TEMP 97.9
[2023-09-12 17:07] VITALS: BP 96/54; PULSE 61; RESP 18
[2023-09-12] MEDS ORDERED: PORTA CATH FLUSH 10 ML IVPUSH PRN (17:07)
[2023-09-14 07:11] LABS: BETA-2-MICROGLOBULIN 8.7 mg/L (0.6-2.4)
[2023-09-14 16:08] LABS: FREE KAPPA,SERUM 195.3 mg/L (3.3-19.4)
[2023-09-15 07:09] LABS: FREE KAP CHN UR 133.36 mg/L (1.17-86.46); KAPPA LAMBDA RATIO URIN 16.2 (1.83-14.26)
== END 2023-09-12 14:40 | disposition home or self-care (01) ==
LOC: JONCCHEMO 09:54 → J7W 10:01 → JONCCHEMO 14:40
PROVIDERS: ATTEND Internal Medicine Hematology & Oncology
DX: Z51.11 Encounter for antineoplastic chemotherapy (principal); C90.00 Multiple myeloma not having achieved remission
CPT/HCPCS: 36415; 80053; 81003; 82232; 82784; 83615; 83735; 83883; 84155; 84165; 84550; 85025; 86335; 87086; 96375; 96413; J9047

== ENCOUNTER 2023-09-13 09:08 | Day surgery (SDC) | payer OTHER ==
[2023-09-13] MEDS ORDERED: DEXAMETHASONE SODIUM PHOSPHATE 20 MG in DEXTROSE 5%-WATER - 50 ML IVPB ONE (10:00)
[2023-09-13] MEDS ORDERED: GRANISETRON HCL/PF 1 MG in SODIUM CHLORIDE 50 ML IVPB ONE (10:00)
[2023-09-13] MEDS ORDERED: WATER IV ONE (10:30)
[2023-09-13] MEDS ORDERED: DEXTROSE 5% IV ONE (10:30)
[2023-09-13] MEDS ORDERED: CARFILZOMIB IV ONE (10:30)
[2023-09-13] MEDS ORDERED: EPOETIN ALFA-EPBX 20,000 UNIT/2 ML MDV SQ ONE (11:00)
[2023-09-13 14:25] VITALS: RESP 20; TEMP 98.1
[2023-09-13 14:36] VITALS: BP 101/55; PULSE 66
[2023-09-13] MEDS ORDERED: PORTA CATH FLUSH 10 ML IVPUSH PRN (14:36)
== END 2023-09-13 11:40 | disposition home or self-care (01) ==
LOC: J7W 09:08 → JONCCHEMO 09:08
PROVIDERS: ATTEND Internal Medicine Hematology & Oncology
DX: Z51.11 Encounter for antineoplastic chemotherapy (principal)
CPT/HCPCS: 96372; 96375; 96413; J9047; Q5106

== ENCOUNTER 2023-09-26 09:04 | Day surgery (SDC) | payer OTHER ==
[2023-09-26 09:41] LABS: BASO % 0.5 % (0-2.0); EOS % 2.8 % (0-4.5); HEMATOCRIT 28.7 % (35.4-49); HEMOGLOBIN 9.5 GM/dL (11.7-16.9); LYMPH % 4.5 % (8-40); MCH 34.8 pg (25.7-33.7); MEAN CELL VOLUME 105.6 fl (80-96); MEAN PLT VOLUME 7.3 fl (7.5-11.1); MONO % 6.9 % (3.8-10.2); NEUT % 85.3 % (42.8-82.8); PLATELET COUNT 93 10^3/uL (134-434); RBC 2.72 M/mm3 (4.00-5.60); RDW 21.5 % (11.9-15.9); WHITE BLOOD COUNT 5.9 K/mm3 (4.0-10.0)
[2023-09-26] MEDS: SODIUM CHLORIDE 0.45% 250 ML IVPB ONE (10:02)
[2023-09-26 10:07] LABS: POTASSIUM 4.4 mmol/L (3.5-5.1)
[2023-09-26 10:13] LABS: CALCIUM 8.1 mg/dL (8.5-10.1)
[2023-09-26 10:14] LABS: ALBUMIN 3.4 g/dl (3.4-5.0); BLOOD UREA NITROGEN 37.2 mg/dL (7-18)
[2023-09-26 10:16] LABS: URIC ACID 7.1 mg/dL (2.6-7.2)
[2023-09-26 10:18] LABS: BILIRUBIN,TOTAL 0.5 mg/dL (0.2-1); CREATININE 2.6 mg/dL (0.55-1.3)
[2023-09-26 10:19] LABS: TOT PROT 5.9 g/dl (6.4-8.2)
[2023-09-26 10:20] LABS: MAGNESIUM 2.3 mg/dL (1.8-2.4)
[2023-09-26 10:27] LABS: ANISOCYTOSIS 2+; MACROCYTOSIS 2+
[2023-09-26] MEDS: GRANISETRON HCL/PF 1 MG in SODIUM CHLORIDE 50 ML IVPB ONE (11:17)
[2023-09-26] MEDS: DEXAMETHASONE SODIUM PHOSPHATE 20 MG in DEXTROSE 5%-WATER - 50 ML IVPB ONE (11:33)
[2023-09-26] MEDS: DEXTROSE 5% IV ONE (11:55)
[2023-09-26] MEDS: CARFILZOMIB IV ONE (11:55)
[2023-09-26] MEDS: WATER IV ONE (11:55)
[2023-09-26] MEDS: PORTA CATH FLUSH 10 ML IVPUSH PRN (12:30)
[2023-09-26 16:52] VITALS: RESP 20; TEMP 98
[2023-09-26 17:01] VITALS: BP 109/48; PULSE 60
== END 2023-09-26 12:40 | disposition home or self-care (01) ==
LOC: JONCCHEMO 09:04 → J7W 09:14 → JONCCHEMO 12:40
PROVIDERS: ATTEND Internal Medicine Hematology & Oncology
DX: Z51.11 Encounter for antineoplastic chemotherapy (principal); C90.00 Multiple myeloma not having achieved remission
CPT/HCPCS: 36415; 80053; 83615; 83735; 84550; 85025; 96375; 96413; J9047

== ENCOUNTER 2023-09-27 09:58 | Day surgery (SDC) | payer OTHER ==
[2023-09-27] MEDS: SODIUM CHLORIDE 0.45% 250 ML IVPB ONE (10:18)
[2023-09-27] MEDS: DEXAMETHASONE SODIUM PHOSPHATE 20 MG in SODIUM CHLORIDE 50 ML IVPB ONE (11:01)
[2023-09-27] MEDS: GRANISETRON HCL/PF 1 MG in SODIUM CHLORIDE 50 ML IVPB ONE (11:34)
[2023-09-27] MEDS: WATER IV ONE (11:54)
[2023-09-27] MEDS: DEXTROSE 5% IV ONE (11:54)
[2023-09-27] MEDS: CARFILZOMIB IV ONE (11:54)
[2023-09-27] MEDS: PORTA CATH FLUSH 10 ML IVPUSH PRN (12:35)
[2023-09-27] MEDS: EPOETIN ALFA-EPBX 20,000 UNIT/2 ML MDV SQ ONE (12:42)
[2023-09-27 17:11] VITALS: RESP 20; TEMP 97.7
[2023-09-27 17:22] VITALS: BP 133/73; PULSE 63
== END 2023-09-27 13:00 | disposition home or self-care (01) ==
LOC: J7W 09:58 → JONCCHEMO 09:58
PROVIDERS: ATTEND Internal Medicine Hematology & Oncology
PROC: 3E04305 Introduction of Other Antineoplastic into Central Vein, Percutaneous Approach (ICD-10-PCS; principal; 2023-09-27)
PROC: 3E013GC Introduction of Other Therapeutic Substance into Subcutaneous Tissue, Percutaneous Approach (ICD-10-PCS; 2023-09-27)
DX: Z51.11 Encounter for antineoplastic chemotherapy (principal); C90.00 Multiple myeloma not having achieved remission
CPT/HCPCS: 96372; 96375; 96413; J9047; Q5106

== ENCOUNTER 2023-10-24 09:10 | Day surgery (SDC) | payer OTHER ==
[2023-10-24 09:32] LABS: HEMATOCRIT 27.9 % (35.4-49); HEMOGLOBIN 9.3 GM/dL (11.7-16.9); MCHC 33.2 g/dl (32.0-35.9); MEAN CELL VOLUME 105.5 fl (80-96); PLATELET COUNT 122 10^3/uL (134-434); RBC 2.65 M/mm3 (4.00-5.60)
[2023-10-24] MEDS: SODIUM CHLORIDE 0.45% 250 ML IVPB ONE (09:40)
[2023-10-24 10:00] LABS: POTASSIUM 3.9 mmol/L (3.5-5.1)
[2023-10-24 10:02] LABS: ALBUMIN 3.2 g/dl (3.4-5.0); BLOOD UREA NITROGEN 51.4 mg/dL (7-18); CALCIUM 8.9 mg/dL (8.5-10.1)
[2023-10-24 10:05] LABS: MAGNESIUM 2.6 mg/dL (1.8-2.4); URIC ACID 6.2 mg/dL (2.6-7.2)
[2023-10-24 10:07] LABS: BILIRUBIN,TOTAL 0.4 mg/dL (0.2-1); TOT PROT 5.8 g/dl (6.4-8.2)
[2023-10-24 10:19] LABS: ANISOCYTOSIS 2+; MACROCYTOSIS 0
[2023-10-24 10:34] VITALS: PULSE 59; RESP 18; TEMP 98.1
[2023-10-24] MEDS: DEXAMETHASONE SODIUM PHOSPHATE 20 MG in DEXTROSE 5%-WATER - 50 ML IVPB ONE (10:51)
[2023-10-24] MEDS: GRANISETRON HCL/PF 1 MG in SODIUM CHLORIDE 50 ML IVPB ONE (11:13)
[2023-10-24] MEDS: WATER IV ONE (11:39)
[2023-10-24] MEDS: DEXTROSE 5% IV ONE (11:39)
[2023-10-24] MEDS: CARFILZOMIB IV ONE (11:39)
[2023-10-24] MEDS: PORTA CATH FLUSH 10 ML IVPUSH PRN (12:13)
[2023-10-24 12:55] VITALS: BP 103/58
== END 2023-10-24 12:50 | disposition home or self-care (01) ==
LOC: JONCCHEMO 09:10 → J7W 09:10 → JONCCHEMO 12:50
PROVIDERS: ATTEND Internal Medicine Hematology & Oncology
DX: Z51.11 Encounter for antineoplastic chemotherapy (principal); C90.00 Multiple myeloma not having achieved remission
CPT/HCPCS: 36415; 80053; 83615; 83735; 84550; 85025; 96375; 96413; J9047

== ENCOUNTER 2023-10-25 09:55 | Day surgery (SDC) | payer OTHER ==
[2023-10-25] MEDS: DEXAMETHASONE SODIUM PHOSPHATE 20 MG in DEXTROSE 5%-WATER - 50 ML IVPB ONE (10:44)
[2023-10-25] MEDS: SODIUM CHLORIDE 0.45% 250 ML IVPB ONE (10:50)
[2023-10-25] MEDS: GRANISETRON HCL/PF 1 MG in SODIUM CHLORIDE 50 ML IVPB ONE (11:32)
[2023-10-25] MEDS: WATER IV ONE (12:02)
[2023-10-25] MEDS: DEXTROSE 5% IV ONE (12:02)
[2023-10-25] MEDS: CARFILZOMIB IV ONE (12:02)
[2023-10-25] MEDS: PORTA CATH FLUSH 10 ML IVPUSH PRN (12:35)
[2023-10-25] MEDS: EPOETIN ALFA-EPBX 10,000 UNIT, EPOETIN ALFA-EPBX 2,000 UNIT, EPOETIN ALFA-EPBX 3,000 UNIT SQ ONE (12:49)
[2023-10-25 16:25] VITALS: RESP 18; TEMP 97.8
[2023-10-25 16:29] VITALS: BP 122/65; PULSE 69
== END 2023-10-25 13:00 | disposition home or self-care (01) ==
LOC: JONCCHEMO 09:55 → J7W 09:56 → JONCCHEMO 13:00
PROVIDERS: ATTEND Internal Medicine Hematology & Oncology
DX: Z51.11 Encounter for antineoplastic chemotherapy (principal); C90.00 Multiple myeloma not having achieved remission
CPT/HCPCS: 96361; 96375; 96413; J9047; Q5106

== ENCOUNTER 2023-11-07 09:35 | Day surgery (SDC) | payer OTHER ==
[2023-11-07] MEDS: SODIUM CHLORIDE 0.45% 250 ML IVPB ONE (10:29)
[2023-11-07 10:35] LABS: BASO % 0.4 % (0-2.0); EOS % 1.7 % (0-4.5); HEMATOCRIT 26.6 % (35.4-49); HEMOGLOBIN 8.6 GM/dL (11.7-16.9); LYMPH % 4.7 % (8-40); MCH 35.6 pg (25.7-33.7); MCHC 32.5 g/dl (32.0-35.9); MEAN CELL VOLUME 109.7 fl (80-96); MEAN PLT VOLUME 7.9 fl (7.5-11.1); MONO % 6.6 % (3.8-10.2); NEUT % 86.6 % (42.8-82.8); PLATELET COUNT 92 10^3/uL (134-434); RBC 2.42 M/mm3 (4.00-5.60); WHITE BLOOD COUNT 4.8 K/mm3 (4.0-10.0)
[2023-11-07 11:05] LABS: ANISOCYTOSIS 0; MACROCYTOSIS 2+
[2023-11-07 11:06] VITALS: RESP 20; TEMP 97.8
[2023-11-07 11:06] LABS: POTASSIUM 4.5 mmol/L (3.5-5.1)
[2023-11-07 11:08] LABS: CALCIUM 8.5 mg/dL (8.5-10.1)
[2023-11-07 11:09] LABS: ALBUMIN 3.1 g/dl (3.4-5.0); BLOOD UREA NITROGEN 34.9 mg/dL (7-18); MAGNESIUM 2.4 mg/dL (1.8-2.4)
[2023-11-07 11:12] LABS: CREATININE 2.3 mg/dL (0.55-1.3)
[2023-11-07 11:13] LABS: BILIRUBIN,TOTAL 0.4 mg/dL (0.2-1); TOT PROT 5.6 g/dl (6.4-8.2); URIC ACID 5.5 mg/dL (2.6-7.2)
[2023-11-07] MEDS: GRANISETRON HCL/PF 1 MG in SODIUM CHLORIDE 50 ML IVPB ONE (12:23)
[2023-11-07] MEDS: DEXAMETHASONE SODIUM PHOSPHATE 20 MG in DEXTROSE 5%-WATER - 50 ML IVPB ONE (12:36)
[2023-11-07] MEDS: WATER IV ONE (13:31)
[2023-11-07] MEDS: DEXTROSE 5% IV ONE (13:31)
[2023-11-07] MEDS: CARFILZOMIB IV ONE (13:31)
[2023-11-07] MEDS: PORTA CATH FLUSH 10 ML IVPUSH PRN (14:05)
[2023-11-07 15:39] VITALS: BP 114/54; PULSE 58
[2023-11-09 07:07] LABS: BETA-2-MICROGLOBULIN 5.9 mg/L (0.6-2.4); FREE KAP CHN UR 94.87 mg/L (1.17-86.46); KAPPA LAMBDA RATIO URIN 16.53 (1.83-14.26)
[2023-11-09 16:08] LABS: IG A QN SERUM. <5 mg/dL (61-437)
[2023-11-09 17:09] LABS: FREE KAPPA,SERUM 129.2 mg/L (3.3-19.4)
== END 2023-11-07 14:20 | disposition home or self-care (01) ==
LOC: JONCCHEMO 09:35 → J7W 09:36 → JONCCHEMO 14:20
PROVIDERS: ATTEND Internal Medicine Hematology & Oncology
PROC: 3E04305 Introduction of Other Antineoplastic into Central Vein, Percutaneous Approach (ICD-10-PCS; principal; 2023-11-07)
PROC: 3E033GC Introduction of Other Therapeutic Substance into Peripheral Vein, Percutaneous Approach (ICD-10-PCS; 2023-11-07)
DX: Z51.11 Encounter for antineoplastic chemotherapy (principal); C90.00 Multiple myeloma not having achieved remission
CPT/HCPCS: 36415; 80053; 82232; 82784; 83615; 83735; 83883; 84155; 84165; 84550; 85025; 86335; 96372; 96375; 96413; J9047

== ENCOUNTER 2023-11-08 09:28 | Day surgery (SDC) | payer OTHER ==
[2023-11-08] MEDS: SODIUM CHLORIDE 0.45% 250 ML IVPB ONE (09:44)
[2023-11-08] MEDS: DEXAMETHASONE SODIUM PHOSPHATE 20 MG in DEXTROSE 5%-WATER - 50 ML IVPB ONE (10:46)
[2023-11-08] MEDS ORDERED: EPOETIN ALFA-EPBX 10,000 UNIT, EPOETIN ALFA-EPBX 2,000 UNIT, EPOETIN ALFA-EPBX 3,000 UNIT SQ ONE (11:00)
[2023-11-08] MEDS: GRANISETRON HCL/PF 1 MG in SODIUM CHLORIDE 50 ML IVPB ONE (11:12)
[2023-11-08] MEDS: CARFILZOMIB IV ONE (11:29)
[2023-11-08] MEDS: DEXTROSE 5% IV ONE (11:29)
[2023-11-08] MEDS: WATER IV ONE (11:29)
[2023-11-08] MEDS: PORTA CATH FLUSH 10 ML IVPUSH PRN (12:28)
[2023-11-08] MEDS: EPOETIN ALFA-EPBX 10,000 UNIT/ML VIAL SQ ONE (12:29)
[2023-11-08 14:47] VITALS: BP 131/78; PULSE 84; RESP 20; TEMP 98
== END 2023-11-08 12:45 | disposition home or self-care (01) ==
LOC: JONCCHEMO 09:28 → J7W 09:28 → JONCCHEMO 12:45
PROVIDERS: ATTEND Internal Medicine Hematology & Oncology
DX: Z51.11 Encounter for antineoplastic chemotherapy (principal); C90.00 Multiple myeloma not having achieved remission
CPT/HCPCS: 96372; 96375; 96413; J9047; Q5106

== ENCOUNTER 2023-11-21 08:48 | Day surgery (SDC) | payer OTHER ==
[2023-11-21 09:25] LABS: BASO % 0.5 % (0-2.0); EOS % 1.3 % (0-4.5); HEMATOCRIT 27.2 % (35.4-49); HEMOGLOBIN 8.8 GM/dL (11.7-16.9); LYMPH % 8.9 % (8-40); MCH 35.9 pg (25.7-33.7); MCHC 32.3 g/dl (32.0-35.9); MEAN PLT VOLUME 7.3 fl (7.5-11.1); NEUT % 81.3 % (42.8-82.8); PLATELET COUNT 96 10^3/uL (134-434); RBC 2.45 M/mm3 (4.00-5.60); RDW 15.6 % (11.9-15.9); WHITE BLOOD COUNT 3.9 K/mm3 (4.0-10.0)
[2023-11-21] MEDS: SODIUM CHLORIDE 0.45% 250 ML IVPB ONE (09:30)
[2023-11-21 09:40] LABS: POTASSIUM 4.2 mmol/L (3.5-5.1)
[2023-11-21 09:44] LABS: CALCIUM 8.2 mg/dL (8.5-10.1)
[2023-11-21 09:45] LABS: ALBUMIN 3.2 g/dl (3.4-5.0); MAGNESIUM 2.3 mg/dL (1.8-2.4)
[2023-11-21 09:47] LABS: URIC ACID 6.6 mg/dL (2.6-7.2)
[2023-11-21 09:49] LABS: BILIRUBIN,TOTAL 0.5 mg/dL (0.2-1); TOT PROT 5.8 g/dl (6.4-8.2)
[2023-11-21 10:01] LABS: ANISOCYTOSIS 1+; MACROCYTOSIS 3+
[2023-11-21] MEDS: GRANISETRON HCL/PF 1 MG in SODIUM CHLORIDE 50 ML IVPB ONE (10:26)
[2023-11-21] MEDS: DEXAMETHASONE SODIUM PHOSPHATE 20 MG in SODIUM CHLORIDE 50 ML IVPB ONE (10:50)
[2023-11-21] MEDS: WATER IV ONE (11:07)
[2023-11-21] MEDS: CARFILZOMIB IV ONE (11:07)
[2023-11-21] MEDS: DEXTROSE 5% IV ONE (11:07)
[2023-11-21] MEDS: PORTA CATH FLUSH 10 ML IVPUSH PRN (12:00)
[2023-11-21 12:48] VITALS: PULSE 59; RESP 18; TEMP 98.2
[2023-11-21 12:52] VITALS: BP 105/59
== END 2023-11-21 12:00 | disposition home or self-care (01) ==
LOC: JONCCHEMO 08:48 → J7W 09:37 → JONCCHEMO 12:00
PROVIDERS: ATTEND Internal Medicine Hematology & Oncology
DX: Z51.11 Encounter for antineoplastic chemotherapy (principal); C90.00 Multiple myeloma not having achieved remission
CPT/HCPCS: 36415; 80053; 83615; 83735; 84550; 85025; 96375; 96413; J9047

== ENCOUNTER 2023-11-22 09:52 | Day surgery (SDC) | payer OTHER ==
[2023-11-22] MEDS: SODIUM CHLORIDE 0.45% 250 ML IVPB ONE (10:30)
[2023-11-22] MEDS: GRANISETRON HCL/PF 1 MG in SODIUM CHLORIDE 50 ML IVPB ONE (11:34)
[2023-11-22] MEDS: DEXAMETHASONE SODIUM PHOSPHATE 20 MG in SODIUM CHLORIDE 50 ML IVPB ONE (11:53)
[2023-11-22] MEDS: WATER IV ONE (12:14)
[2023-11-22] MEDS: EPOETIN ALFA-EPBX 20,000 UNIT/ML VIAL SQ ONE (12:14)
[2023-11-22] MEDS: DEXTROSE 5% IV ONE (12:14)
[2023-11-22] MEDS: CARFILZOMIB IV ONE (12:14)
[2023-11-22] MEDS ORDERED: PORTA CATH FLUSH 10 ML IVPUSH PRN (15:24)
[2023-11-22 15:25] VITALS: BP 116/47; PULSE 67; RESP 20; TEMP 97.5
== END 2023-11-22 13:15 | disposition home or self-care (01) ==
LOC: JONCCHEMO 09:52 → J7W 10:11 → JONCCHEMO 13:15
PROVIDERS: ATTEND Internal Medicine Hematology & Oncology
PROC: 3E04305 Introduction of Other Antineoplastic into Central Vein, Percutaneous Approach (ICD-10-PCS; principal; 2023-11-22)
PROC: 3E013GC Introduction of Other Therapeutic Substance into Subcutaneous Tissue, Percutaneous Approach (ICD-10-PCS; 2023-11-22)
DX: Z51.11 Encounter for antineoplastic chemotherapy (principal); C90.00 Multiple myeloma not having achieved remission
CPT/HCPCS: 96367; 96372; 96413; J9047

== ENCOUNTER 2023-12-05 09:33 | Day surgery (SDC) | payer OTHER ==
[2023-12-05 09:51] LABS: EOS % 0.7 % (0-4.5); HEMATOCRIT 29.7 % (35.4-49); HEMOGLOBIN 9.7 GM/dL (11.7-16.9); LYMPH % 3.6 % (8-40); MCH 35.5 pg (25.7-33.7); MCHC 32.8 g/dl (32.0-35.9); MEAN CELL VOLUME 108.4 fl (80-96); MEAN PLT VOLUME 7.3 fl (7.5-11.1); MONO % 5.9 % (3.8-10.2); NEUT % 89.6 % (42.8-82.8); PLATELET COUNT 133 10^3/uL (134-434); RBC 2.74 M/mm3 (4.00-5.60); RDW 15.5 % (11.9-15.9); WHITE BLOOD COUNT 6.7 K/mm3 (4.0-10.0)
[2023-12-05 09:52] LABS: BASO % 0.2 % (0-2.0)
[2023-12-05] MEDS: SODIUM CHLORIDE 0.45% 250 ML IVPB ONE (09:57)
[2023-12-05 10:29] LABS: POTASSIUM 4.8 mmol/L (3.5-5.1)
[2023-12-05 10:32] LABS: BLOOD UREA NITROGEN 27.2 mg/dL (7-18); CALCIUM 8.9 mg/dL (8.5-10.1); MAGNESIUM 2.7 mg/dL (1.8-2.4)
[2023-12-05 10:33] LABS: ALBUMIN 3.3 g/dl (3.4-5.0)
[2023-12-05 10:35] LABS: CREATININE 2.8 mg/dL (0.55-1.3)
[2023-12-05 10:37] LABS: BILIRUBIN,TOTAL 0.6 mg/dL (0.2-1); TOT PROT 6.1 g/dl (6.4-8.2)
[2023-12-05 10:39] LABS: URIC ACID 5.4 mg/dL (2.6-7.2)
[2023-12-05 10:52] VITALS: RESP 20; TEMP 98.3
[2023-12-05] MEDS: GRANISETRON HCL/PF 1 MG in SODIUM CHLORIDE 50 ML IVPB ONE (10:53)
[2023-12-05] MEDS: DEXAMETHASONE SODIUM PHOSPHATE 20 MG in SODIUM CHLORIDE 50 ML IVPB ONE (11:13)
[2023-12-05] MEDS: CARFILZOMIB IV ONE (11:34)
[2023-12-05] MEDS: DEXTROSE 5% IV ONE (11:34)
[2023-12-05] MEDS: WATER IV ONE (11:34)
[2023-12-05] MEDS: PORTA CATH FLUSH 10 ML IVPUSH PRN (12:15)
[2023-12-05 12:19] VITALS: BP 107/56; PULSE 55
[2023-12-06 17:11] LABS: FREE KAPPA,SERUM 195.9 mg/L (3.3-19.4)
[2023-12-07 05:11] LABS: IG A QN SERUM. <5 mg/dL (61-437)
[2023-12-07 06:09] LABS: FREE KAP CHN UR 137.18 mg/L (1.17-86.46); KAPPA LAMBDA RATIO URIN 24.32 (1.83-14.26)
[2023-12-07 16:11] LABS: BETA-2-MICROGLOBULIN 10.9 mg/L (0.6-2.4)
== END 2023-12-05 12:20 | disposition home or self-care (01) ==
LOC: J7W 09:33 → JONCCHEMO 09:33
PROVIDERS: ATTEND Internal Medicine Hematology & Oncology
DX: Z51.11 Encounter for antineoplastic chemotherapy (principal); C90.00 Multiple myeloma not having achieved remission
CPT/HCPCS: 36415; 80053; 82232; 82784; 83615; 83735; 83883; 84155; 84165; 84550; 85025; 86335; 96375; 96413; J9047

== ENCOUNTER 2023-12-06 10:01 | Day surgery (SDC) | payer OTHER ==
[2023-12-06] MEDS: SODIUM CHLORIDE 0.45% 250 ML IVPB ONE (10:33)
[2023-12-06] MEDS: DEXAMETHASONE SODIUM PHOSPHATE 20 MG in SODIUM CHLORIDE 50 ML IVPB ONE (11:36)
[2023-12-06] MEDS: GRANISETRON HCL/PF 1 MG in SODIUM CHLORIDE 50 ML IVPB ONE (11:52)
[2023-12-06] MEDS: CARFILZOMIB IV ONE (12:18)
[2023-12-06] MEDS: DEXTROSE 5% IV ONE (12:18)
[2023-12-06] MEDS: WATER IV ONE (12:18)
[2023-12-06] MEDS: EPOETIN ALFA-EPBX 20,000 UNIT/ML VIAL SQ ONE (12:19)
[2023-12-06] MEDS: PORTA CATH FLUSH 10 ML IVPUSH PRN (13:30)
[2023-12-06 14:15] VITALS: BP 142/73; PULSE 72; RESP 18; TEMP 97.8
== END 2023-12-06 13:35 | disposition home or self-care (01) ==
LOC: JONCCHEMO 10:01 → J7W 10:02 → JONCCHEMO 13:35
PROVIDERS: ATTEND Internal Medicine Hematology & Oncology
PROC: 3E04305 Introduction of Other Antineoplastic into Central Vein, Percutaneous Approach (ICD-10-PCS; principal; 2023-12-06)
PROC: 3E013GC Introduction of Other Therapeutic Substance into Subcutaneous Tissue, Percutaneous Approach (ICD-10-PCS; 2023-12-06)
DX: Z51.11 Encounter for antineoplastic chemotherapy (principal); C90.00 Multiple myeloma not having achieved remission
CPT/HCPCS: 96367; 96372; 96375; 96413; J9047

== ENCOUNTER 2023-12-19 09:32 | Day surgery (SDC) | payer OTHER ==
[2023-12-19 10:03] LABS: BASO % 0.6 % (0-2.0); EOS % 1.4 % (0-4.5); HEMATOCRIT 27.6 % (35.4-49); HEMOGLOBIN 9.4 GM/dL (11.7-16.9); LYMPH % 4.2 % (8-40); MCH 36.1 pg (25.7-33.7); MCHC 34.1 g/dl (32.0-35.9); MEAN PLT VOLUME 7.2 fl (7.5-11.1); MONO % 8.9 % (3.8-10.2); NEUT % 84.9 % (42.8-82.8); PLATELET COUNT 106 10^3/uL (134-434); RBC 2.61 M/mm3 (4.00-5.60); RDW 16.2 % (11.9-15.9)
[2023-12-19] MEDS: SODIUM CHLORIDE 0.45% 250 ML IVPB ONE (10:12)
[2023-12-19 10:30] LABS: POTASSIUM 4.4 mmol/L (3.5-5.1)
[2023-12-19 10:32] LABS: ALBUMIN 3.1 g/dl (3.4-5.0); CALCIUM 8.2 mg/dL (8.5-10.1); MAGNESIUM 2.2 mg/dL (1.8-2.4)
[2023-12-19 10:35] LABS: CREATININE 2.3 mg/dL (0.55-1.3)
[2023-12-19 10:36] LABS: BILIRUBIN,TOTAL 0.4 mg/dL (0.2-1); TOT PROT 5.8 g/dl (6.4-8.2)
[2023-12-19 10:39] LABS: URIC ACID 4.5 mg/dL (2.6-7.2)
[2023-12-19 10:53] LABS: ANISOCYTOSIS 2+; MACROCYTOSIS 2+
[2023-12-19] MEDS: GRANISETRON HCL/PF 1 MG in SODIUM CHLORIDE 50 ML IVPB ONE (11:00)
[2023-12-19] MEDS: DEXAMETHASONE SODIUM PHOSPHATE 20 MG in DEXTROSE 5%-WATER - 50 ML IVPB ONE (11:26)
[2023-12-19 12:04] LABS: EPI CELLS 18 /uL (0-25.1); HYALINE CASTS 0 /uL (0-3.1); URINE APPEARANCE CLEAR; URINE BACTERIA 10 /uL (0-1359); URINE BILIRUBIN NEGATIVE (NEGATIVE); URINE COLOR YELLOW; URINE GLUCOSE (UA) NEGATIVE (NEGATIVE); URINE KETONE NEGATIVE (NEGATIVE); URINE LEUK ESTERASE 2+ (NEGATIVE); URINE NITRITE NEGATIVE (NEGATIVE); URINE PROTEIN NEGATIVE (NEGATIVE); URINE RBC 8 /uL (0-23.9); URINE UROBILINOGEN 0.2 mg/dL (0.2-1.0); URINE WBC 139 /uL (0-25.8)
[2023-12-19] MEDS: DEXTROSE 5% IV ONE (12:04)
[2023-12-19] MEDS: CARFILZOMIB IV ONE (12:04)
[2023-12-19] MEDS: WATER IV ONE (12:04)
[2023-12-19] MEDS: PORTA CATH FLUSH 10 ML IVPUSH PRN (12:35)
[2023-12-19 17:06] VITALS: BP 113/37; PULSE 51; RESP 20; TEMP 98.4
== END 2023-12-19 13:00 | disposition home or self-care (01) ==
LOC: JONCCHEMO 09:32 → J7W 09:36 → JONCCHEMO 13:00
PROVIDERS: ATTEND Internal Medicine Hematology & Oncology
DX: Z51.11 Encounter for antineoplastic chemotherapy (principal); C90.00 Multiple myeloma not having achieved remission
CPT/HCPCS: 36415; 80053; 81003; 83615; 83735; 84550; 85025; 87086; 96367; 96413; J9047

== ENCOUNTER 2023-12-20 10:29 | Day surgery (SDC) | payer OTHER ==
[2023-12-20] MEDS: SODIUM CHLORIDE 0.45% 250 ML IVPB ONE (10:51)
[2023-12-20] MEDS: GRANISETRON HCL/PF 1 MG in SODIUM CHLORIDE 50 ML IVPB ONE (10:51)
[2023-12-20] MEDS: DEXAMETHASONE SODIUM PHOSPHATE 20 MG in DEXTROSE 5%-WATER - 50 ML IVPB ONE (11:36)
[2023-12-20] MEDS: WATER IV ONE (12:00)
[2023-12-20] MEDS: CARFILZOMIB IV ONE (12:00)
[2023-12-20] MEDS: DEXTROSE 5% IV ONE (12:00)
[2023-12-20] MEDS: PORTA CATH FLUSH 10 ML IVPUSH PRN (12:35)
[2023-12-20] MEDS: EPOETIN ALFA-EPBX 10,000 UNIT/ML VIAL SQ ONE (13:08)
[2023-12-20 15:53] VITALS: BP 127/61; PULSE 60; RESP 20; TEMP 98.2
== END 2023-12-20 13:00 | disposition home or self-care (01) ==
LOC: JONCCHEMO 10:29 → J7W 10:29 → JONCCHEMO 13:00
PROVIDERS: ATTEND Internal Medicine Hematology & Oncology
PROC: 3E04305 Introduction of Other Antineoplastic into Central Vein, Percutaneous Approach (ICD-10-PCS; principal; 2023-12-20)
PROC: 3E013GC Introduction of Other Therapeutic Substance into Subcutaneous Tissue, Percutaneous Approach (ICD-10-PCS; 2023-12-20)
DX: Z51.11 Encounter for antineoplastic chemotherapy (principal); C90.00 Multiple myeloma not having achieved remission
CPT/HCPCS: 96372; 96375; 96413; J9047; Q5106

== ENCOUNTER 2024-01-16 09:07 | Day surgery (SDC) | payer OTHER ==
[2024-01-16] MEDS: SODIUM CHLORIDE 0.45% 250 ML IV ONE (09:27)
[2024-01-16 09:32] LABS: BASO % 0.5 % (0-2.0); EOS % 0.9 % (0-4.5); HEMATOCRIT 28.2 % (35.4-49); HEMOGLOBIN 9.4 GM/dL (11.7-16.9); LYMPH % 4.5 % (8-40); MCH 36.8 pg (25.7-33.7); MCHC 33.2 g/dl (32.0-35.9); MEAN CELL VOLUME 110.8 fl (80-96); MEAN PLT VOLUME 7.8 fl (7.5-11.1); MONO % 8.4 % (3.8-10.2); NEUT % 85.7 % (42.8-82.8); PLATELET COUNT 124 10^3/uL (134-434); RBC 2.55 M/mm3 (4.00-5.60); RDW 18.4 % (11.9-15.9)
[2024-01-16 09:50] LABS: POTASSIUM 4.6 mmol/L (3.5-5.1)
[2024-01-16 09:52] LABS: CALCIUM 8.2 mg/dL (8.5-10.1)
[2024-01-16 09:53] LABS: BLOOD UREA NITROGEN 38.4 mg/dL (7-18); MAGNESIUM 2.5 mg/dL (1.8-2.4)
[2024-01-16 09:54] LABS: ALBUMIN 3.4 g/dl (3.4-5.0)
[2024-01-16 09:55] LABS: CREATININE 2.6 mg/dL (0.55-1.3)
[2024-01-16 09:58] LABS: BILIRUBIN,TOTAL 0.5 mg/dL (0.2-1)
[2024-01-16 10:02] LABS: URIC ACID 5.6 mg/dL (2.6-7.2)
[2024-01-16 10:15] LABS: ANISOCYTOSIS 1+; MACROCYTOSIS 2+; OVALOCYTE 1+
[2024-01-16] MEDS: GRANISETRON HCL/PF 1 MG in SODIUM CHLORIDE 50 ML IVPB ONE (10:19)
[2024-01-16] MEDS: DEXAMETHASONE SODIUM PHOSPHATE 20 MG in SODIUM CHLORIDE 50 ML IVPB ONE (10:36)
[2024-01-16 10:38] VITALS: RESP 20; TEMP 98.1
[2024-01-16] MEDS: WATER IV ONE (11:15)
[2024-01-16] MEDS: CARFILZOMIB IV ONE (11:15)
[2024-01-16] MEDS: DEXTROSE 5% IV ONE (11:15)
[2024-01-16] MEDS: PORTA CATH FLUSH 10 ML IVPUSH PRN (12:01)
[2024-01-16 12:26] VITALS: BP 131/40; PULSE 62
== END 2024-01-16 12:45 | disposition home or self-care (01) ==
LOC: JONCCHEMO 09:07 → J7W 09:24 → JONCCHEMO 12:45
PROVIDERS: ATTEND Internal Medicine Hematology & Oncology
PROC: 3E04305 Introduction of Other Antineoplastic into Central Vein, Percutaneous Approach (ICD-10-PCS; principal; 2024-01-16)
PROC: 3E043GC Introduction of Other Therapeutic Substance into Central Vein, Percutaneous Approach (ICD-10-PCS; 2024-01-16)
PROC: 3E0437Z Introduction of Electrolytic and Water Balance Substance into Central Vein, Percutaneous Approach (ICD-10-PCS; 2024-01-16)
DX: Z51.11 Encounter for antineoplastic chemotherapy (principal); C90.00 Multiple myeloma not having achieved remission
CPT/HCPCS: 36415; 80053; 83615; 83735; 84550; 85025; 96361; 96375; 96413; J9047

== ENCOUNTER 2024-01-17 10:15 | Day surgery (SDC) | payer OTHER ==
[2024-01-17] MEDS: PORTA CATH FLUSH 10 ML IVPUSH PRN (10:20)
[2024-01-17] MEDS: SODIUM CHLORIDE 0.45% 250 ML IV ONE (10:24)
[2024-01-17] MEDS ORDERED: EPOETIN ALFA-EPBX 20,000 UNIT/2 ML MDV SQ ONE (10:30)
[2024-01-17] MEDS: DEXAMETHASONE SODIUM PHOSPHATE 20 MG in SODIUM CHLORIDE 50 ML IVPB ONE (11:20)
[2024-01-17] MEDS: GRANISETRON HCL/PF 1 MG in SODIUM CHLORIDE 50 ML IVPB ONE (11:41)
[2024-01-17] MEDS: WATER IV ONE (12:16)
[2024-01-17] MEDS: DEXTROSE 5% IV ONE (12:16)
[2024-01-17] MEDS: CARFILZOMIB IV ONE (12:16)
[2024-01-17] MEDS: EPOETIN ALFA-EPBX 20,000 UNIT/ML VIAL SQ ONE (13:05)
[2024-01-17 16:05] VITALS: BP 109/55; PULSE 67; RESP 20; TEMP 98.3
== END 2024-01-17 13:15 | disposition home or self-care (01) ==
LOC: J7W 10:15 → JONCCHEMO 10:15
PROVIDERS: ATTEND Internal Medicine Hematology & Oncology
PROC: 3E04305 Introduction of Other Antineoplastic into Central Vein, Percutaneous Approach (ICD-10-PCS; principal; 2024-01-17)
PROC: 3E033GC Introduction of Other Therapeutic Substance into Peripheral Vein, Percutaneous Approach (ICD-10-PCS; 2024-01-17)
PROC: 3E0337Z Introduction of Electrolytic and Water Balance Substance into Peripheral Vein, Percutaneous Approach (ICD-10-PCS; 2024-01-17)
DX: Z51.11 Encounter for antineoplastic chemotherapy (principal); C90.00 Multiple myeloma not having achieved remission
CPT/HCPCS: 96361; 96367; 96375; 96413; J9047

== ENCOUNTER 2024-02-06 09:17 | Day surgery (SDC) | payer OTHER ==
[2024-02-06] MEDS: SODIUM CHLORIDE 0.45% 250 ML IV ONE (09:56)
[2024-02-06 09:59] LABS: BASO % 0.5 % (0-2.0); EOS % 1.9 % (0-4.5); HEMATOCRIT 27.7 % (35.4-49); HEMOGLOBIN 9.1 GM/dL (11.7-16.9); LYMPH % 9.2 % (8-40); MCH 35.3 pg (25.7-33.7); MCHC 32.8 g/dl (32.0-35.9); MEAN CELL VOLUME 107.9 fl (80-96); MONO % 8.4 % (3.8-10.2); PLATELET COUNT 128 10^3/uL (134-434); RBC 2.57 M/mm3 (4.00-5.60); RDW 16.7 % (11.9-15.9); WHITE BLOOD COUNT 4.3 K/mm3 (4.0-10.0)
[2024-02-06 10:25] VITALS: RESP 20; TEMP 97.7
[2024-02-06 10:25] LABS: POTASSIUM 4.5 mmol/L (3.5-5.1)
[2024-02-06 10:27] LABS: ALBUMIN 3.3 g/dl (3.4-5.0); ANISOCYTOSIS 2+; BLOOD UREA NITROGEN 31.8 mg/dL (7-18); CALCIUM 8.5 mg/dL (8.5-10.1); MACROCYTOSIS 1+
[2024-02-06 10:28] LABS: MAGNESIUM 2.3 mg/dL (1.8-2.4)
[2024-02-06 10:30] LABS: CREATININE 2.7 mg/dL (0.55-1.3)
[2024-02-06 10:32] LABS: BILIRUBIN,TOTAL 0.4 mg/dL (0.2-1)
[2024-02-06 10:36] LABS: URIC ACID 4.8 mg/dL (2.6-7.2)
[2024-02-06 11:12] LABS: EPI CELLS 2 /uL (0-25.1); HYALINE CASTS 0 /uL (0-3.1); PH,URINE 6.5 (5.0-8.0); URINE APPEARANCE CLEAR; URINE BACTERIA 11 /uL (0-1359); URINE BILIRUBIN NEGATIVE (NEGATIVE); URINE COLOR YELLOW; URINE GLUCOSE (UA) NEGATIVE (NEGATIVE); URINE KETONE NEGATIVE (NEGATIVE); URINE LEUK ESTERASE 1+ (NEGATIVE); URINE NITRITE NEGATIVE (NEGATIVE); URINE PROTEIN NEGATIVE (NEGATIVE); URINE RBC 6 /uL (0-23.9); URINE UROBILINOGEN 0.2 mg/dL (0.2-1.0); URINE WBC 51 /uL (0-25.8)
[2024-02-06] MEDS: GRANISETRON HCL/PF 1 MG in SODIUM CHLORIDE 50 ML IVPB ONE (11:45)
[2024-02-06] MEDS: DEXAMETHASONE SODIUM PHOSPHATE 20 MG in SODIUM CHLORIDE 50 ML IVPB ONE (12:03)
[2024-02-06] MEDS: WATER IV ONE (12:31)
[2024-02-06] MEDS: CARFILZOMIB IV ONE (12:31)
[2024-02-06] MEDS: DEXTROSE 5% IV ONE (12:31)
[2024-02-06] MEDS: PORTA CATH FLUSH 10 ML IVPUSH PRN (13:05)
[2024-02-06 14:11] VITALS: BP 111/47; PULSE 57
[2024-02-07 17:09] LABS: FREE KAPPA,SERUM 265.5 mg/L (3.3-19.4)
[2024-02-08 06:08] LABS: FREE KAP CHN UR 130.64 mg/L (1.17-86.46); KAPPA LAMBDA RATIO URIN 18.45 (1.83-14.26)
[2024-02-08 16:13] LABS: BETA-2-MICROGLOBULIN 6.8 mg/L (0.6-2.4)
== END 2024-02-06 13:35 | disposition home or self-care (01) ==
LOC: JONCCHEMO 09:17 → J7W 09:18 → JONCCHEMO 13:35
PROVIDERS: ATTEND Internal Medicine Hematology & Oncology
DX: Z51.11 Encounter for antineoplastic chemotherapy (principal); C90.00 Multiple myeloma not having achieved remission
CPT/HCPCS: 36415; 80053; 81003; 82232; 82784; 83615; 83735; 83883; 84155; 84165; 84550; 85025; 86335; 96375; 96413; J9047

== ENCOUNTER 2024-02-07 09:58 | Day surgery (SDC) | payer OTHER ==
[2024-02-07] MEDS: SODIUM CHLORIDE 0.45% 250 ML IV ONE (10:10)
[2024-02-07] MEDS: GRANISETRON HCL/PF 1 MG in SODIUM CHLORIDE 50 ML IVPB ONE (10:12)
[2024-02-07 10:47] VITALS: TEMP 97.5
[2024-02-07] MEDS: DEXAMETHASONE SODIUM PHOSPHATE 20 MG in SODIUM CHLORIDE 50 ML IVPB ONE (11:07)
[2024-02-07] MEDS: DEXTROSE 5% IV ONE (11:37)
[2024-02-07] MEDS: WATER IV ONE (11:37)
[2024-02-07] MEDS: CARFILZOMIB IV ONE (11:37)
[2024-02-07] MEDS: EPOETIN ALFA-EPBX 20,000 UNIT/ML VIAL SQ ONE (12:11)
[2024-02-07] MEDS: PORTA CATH FLUSH 10 ML IVPUSH PRN (12:11)
[2024-02-07 13:59] VITALS: BP 131/65; PULSE 57; RESP 20
== END 2024-02-07 12:30 | disposition home or self-care (01) ==
LOC: JONCCHEMO 09:58 → J7W 10:00 → JONCCHEMO 12:30
PROVIDERS: ATTEND Internal Medicine Hematology & Oncology
DX: Z51.11 Encounter for antineoplastic chemotherapy (principal); C90.00 Multiple myeloma not having achieved remission
CPT/HCPCS: 87086; 96375; 96413; J9047

== ENCOUNTER 2024-02-20 09:29 | Day surgery (SDC) | payer OTHER ==
[2024-02-20] MEDS: SODIUM CHLORIDE 0.45% 250 ML IV ONE (09:57)
[2024-02-20 10:05] LABS: BASO % 0.6 % (0-2.0); EOS % 1.5 % (0-4.5); HEMOGLOBIN 9.3 GM/dL (11.7-16.9); LYMPH % 5.6 % (8-40); MCH 35.8 pg (25.7-33.7); MCHC 32.1 g/dl (32.0-35.9); MEAN CELL VOLUME 111.5 fl (80-96); MEAN PLT VOLUME 8.1 fl (7.5-11.1); MONO % 6.6 % (3.8-10.2); NEUT % 85.7 % (42.8-82.8); PLATELET COUNT 107 10^3/uL (134-434); RDW 16.3 % (11.9-15.9); WHITE BLOOD COUNT 6.1 K/mm3 (4.0-10.0)
[2024-02-20 10:29] LABS: POTASSIUM 4.2 mmol/L (3.5-5.1)
[2024-02-20 10:31] LABS: CALCIUM 8.4 mg/dL (8.5-10.1)
[2024-02-20 10:32] LABS: ALBUMIN 3.4 g/dl (3.4-5.0); BLOOD UREA NITROGEN 33.6 mg/dL (7-18); MAGNESIUM 2.9 mg/dL (1.8-2.4)
[2024-02-20 10:34] LABS: URIC ACID 6.2 mg/dL (2.6-7.2)
[2024-02-20 10:36] LABS: BILIRUBIN,TOTAL 0.4 mg/dL (0.2-1); CREATININE 2.7 mg/dL (0.55-1.3); TOT PROT 6.2 g/dl (6.4-8.2)
[2024-02-20] MEDS: GRANISETRON HCL/PF 1 MG in SODIUM CHLORIDE 50 ML IVPB ONE (10:49)
[2024-02-20] MEDS: DEXAMETHASONE SODIUM PHOSPHATE 20 MG in DEXTROSE 5%-WATER - 50 ML IVPB ONE (11:07)
[2024-02-20 11:12] VITALS: TEMP 97.8
[2024-02-20] MEDS: CARFILZOMIB IV ONE (11:24)
[2024-02-20] MEDS: DEXTROSE 5% IV ONE (11:24)
[2024-02-20] MEDS: WATER IV ONE (11:24)
[2024-02-20] MEDS: PORTA CATH FLUSH 10 ML IVPUSH PRN (12:24)
[2024-02-20 12:32] VITALS: BP 108/39; PULSE 52; RESP 20
== END 2024-02-20 13:00 | disposition home or self-care (01) ==
LOC: JONCCHEMO 09:29 → J7W 09:29 → JONCCHEMO 13:00
PROVIDERS: ATTEND Internal Medicine Hematology & Oncology
DX: Z51.11 Encounter for antineoplastic chemotherapy (principal); C90.00 Multiple myeloma not having achieved remission
CPT/HCPCS: 36415; 80053; 83615; 83735; 84550; 85025; 96375; 96413; J9047

== ENCOUNTER 2024-02-21 08:52 | Day surgery (SDC) | payer OTHER ==
[2024-02-21] MEDS: SODIUM CHLORIDE 0.45% 250 ML IV ONE (09:10)
[2024-02-21] MEDS: DEXAMETHASONE SODIUM PHOSPHATE 20 MG in DEXTROSE 5%-WATER - 50 ML IVPB ONE (10:05)
[2024-02-21] MEDS: GRANISETRON HCL 1 MG in SODIUM CHLORIDE 50 ML IVPB ONE (10:22)
[2024-02-21] MEDS: DEXTROSE 5% IV ONE (11:00)
[2024-02-21] MEDS: WATER IV ONE (11:00)
[2024-02-21] MEDS: CARFILZOMIB IV ONE (11:00)
[2024-02-21] MEDS: EPOETIN ALFA-EPBX 10,000 UNIT/ML VIAL SQ ONE (11:52)
[2024-02-21 16:43] VITALS: BP 120/52; PULSE 63; RESP 16; TEMP 97.8
[2024-02-21] MEDS ORDERED: PORTA CATH FLUSH 10 ML IVPUSH PRN (16:43)
== END 2024-02-21 12:45 | disposition home or self-care (01) ==
LOC: JONCCHEMO 08:52 → J7W 08:53 → JONCCHEMO 12:45
PROVIDERS: ATTEND Internal Medicine Hematology & Oncology
PROC: 3E04305 Introduction of Other Antineoplastic into Central Vein, Percutaneous Approach (ICD-10-PCS; principal; 2024-02-21)
PROC: 3E013GC Introduction of Other Therapeutic Substance into Subcutaneous Tissue, Percutaneous Approach (ICD-10-PCS; 2024-02-21)
DX: Z51.11 Encounter for antineoplastic chemotherapy (principal); C90.00 Multiple myeloma not having achieved remission
CPT/HCPCS: 96367; 96372; 96375; 96413; J9047; Q5106

== ENCOUNTER 2024-03-05 09:10 | Day surgery (SDC) | payer OTHER ==
[2024-03-05] MEDS: SODIUM CHLORIDE 0.45% 250 ML IV ONE (09:42)
[2024-03-05 10:05] VITALS: RESP 20; TEMP 97.8
[2024-03-05 10:15] LABS: BASO % 0.5 % (0-2.0); EOS % 2.6 % (0-4.5); HEMOGLOBIN 8.5 GM/dL (11.7-16.9); LYMPH % 5.1 % (8-40); MCH 36.1 pg (25.7-33.7); MCHC 32.5 g/dl (32.0-35.9); MEAN CELL VOLUME 111.1 fl (80-96); MEAN PLT VOLUME 7.8 fl (7.5-11.1); MONO % 7.5 % (3.8-10.2); NEUT % 84.3 % (42.8-82.8); PLATELET COUNT 130 10^3/uL (134-434); RBC 2.34 M/mm3 (4.00-5.60); RDW 16.3 % (11.9-15.9)
[2024-03-05 10:32] LABS: POTASSIUM 4.3 mmol/L (3.5-5.1)
[2024-03-05 10:34] LABS: ALBUMIN 3.4 g/dl (3.4-5.0); CALCIUM 8.1 mg/dL (8.5-10.1); MAGNESIUM 2.7 mg/dL (1.8-2.4)
[2024-03-05 10:37] LABS: CREATININE 3.2 mg/dL (0.55-1.3); URIC ACID 5.3 mg/dL (2.6-7.2)
[2024-03-05 10:38] LABS: BILIRUBIN,TOTAL 0.4 mg/dL (0.2-1); TOT PROT 6.1 g/dl (6.4-8.2)
[2024-03-05 11:16] LABS: ANISOCYTOSIS 2+; MACROCYTOSIS 0
[2024-03-05 11:18] LABS: PLATELET ESTIMATE SLT DECREASE
[2024-03-05] MEDS: GRANISETRON HCL/PF 1 MG in SODIUM CHLORIDE 50 ML IVPB ONE (11:19)
[2024-03-05] MEDS: DEXAMETHASONE SODIUM PHOSPHATE 20 MG in DEXTROSE 5%-WATER - 50 ML IVPB ONE (11:34)
[2024-03-05] MEDS: DEXTROSE 5% IV ONE (11:54)
[2024-03-05] MEDS: CARFILZOMIB IV ONE (11:54)
[2024-03-05] MEDS: WATER IV ONE (11:54)
[2024-03-05] MEDS: PORTA CATH FLUSH 10 ML IVPUSH PRN (12:36)
[2024-03-05 14:16] VITALS: BP 116/47; PULSE 54
[2024-03-06 17:08] LABS: FREE KAPPA,SERUM 198.1 mg/L (3.3-19.4)
[2024-03-07 01:07] LABS: IG A QN SERUM. <5 mg/dL (61-437)
[2024-03-07 16:12] LABS: BETA-2-MICROGLOBULIN 7.9 mg/L (0.6-2.4)
[2024-03-10 15:08] LABS: FREE KAP CHN UR 112.11 mg/L (1.17-86.46)
== END 2024-03-05 13:00 | disposition home or self-care (01) ==
LOC: JONCCHEMO 09:10 → J7W 09:11 → JONCCHEMO 13:00
PROVIDERS: ATTEND Internal Medicine Hematology & Oncology
DX: Z51.11 Encounter for antineoplastic chemotherapy (principal); C90.00 Multiple myeloma not having achieved remission
CPT/HCPCS: 36415; 80053; 82232; 82784; 83615; 83735; 83883; 84155; 84165; 84550; 85025; 86335; 96375; 96413; J9047

== ENCOUNTER 2024-03-06 09:00 | Day surgery (SDC) | payer OTHER ==
[2024-03-06] MEDS: SODIUM CHLORIDE 0.45% 250 ML IV ONE (09:19)
[2024-03-06] MEDS: GRANISETRON HCL 1 MG in SODIUM CHLORIDE 50 ML IVPB ONE (10:13)
[2024-03-06] MEDS: DEXAMETHASONE SODIUM PHOSPHATE 20 MG in SODIUM CHLORIDE 50 ML IVPB ONE (10:37)
[2024-03-06] MEDS: CARFILZOMIB IV ONE (11:15)
[2024-03-06] MEDS: DEXTROSE 5% IV ONE (11:15)
[2024-03-06] MEDS: WATER IV ONE (11:15)
[2024-03-06] MEDS: EPOETIN ALFA-EPBX 20,000 UNIT/ML VIAL SQ ONE (11:52)
[2024-03-06] MEDS: PORTA CATH FLUSH 10 ML IVPUSH PRN (12:00)
[2024-03-06 16:17] VITALS: BP 130/64; PULSE 63; RESP 20; TEMP 97.8
== END 2024-03-06 12:05 | disposition home or self-care (01) ==
LOC: J7W 09:00 → JONCCHEMO 09:00
PROVIDERS: ATTEND Internal Medicine Hematology & Oncology
DX: Z51.11 Encounter for antineoplastic chemotherapy (principal)
CPT/HCPCS: 96367; 96375; 96413; J9047

== ENCOUNTER 2024-03-19 09:30 | Day surgery (SDC) | payer OTHER ==
[2024-03-19] MEDS: SODIUM CHLORIDE 0.45% 250 ML IV ONE (10:50)
[2024-03-19 11:33] LABS: BASO % 0.6 % (0-2.0); HEMATOCRIT 28.6 % (35.4-49); HEMOGLOBIN 9.5 GM/dL (11.7-16.9); LYMPH % 5.9 % (8-40); MCH 36.4 pg (25.7-33.7); MCHC 33.1 g/dl (32.0-35.9); MEAN CELL VOLUME 110.2 fl (80-96); MEAN PLT VOLUME 8.2 fl (7.5-11.1); NEUT % 80.5 % (42.8-82.8); PLATELET COUNT 127 10^3/uL (134-434); RDW 16.2 % (11.9-15.9); WHITE BLOOD COUNT 5.2 K/mm3 (4.0-10.0)
[2024-03-19 11:56] LABS: POTASSIUM 4.8 mmol/L (3.5-5.1)
[2024-03-19 11:59] LABS: ALBUMIN 3.7 g/dl (3.4-5.0); BLOOD UREA NITROGEN 28.6 mg/dL (7-18); CALCIUM 8.5 mg/dL (8.5-10.1); MAGNESIUM 2.8 mg/dL (1.8-2.4)
[2024-03-19 12:03] LABS: BILIRUBIN,TOTAL 0.5 mg/dL (0.2-1)
[2024-03-19 12:04] LABS: TOT PROT 6.4 g/dl (6.4-8.2)
[2024-03-19 12:08] LABS: URIC ACID 6.6 mg/dL (2.6-7.2)
[2024-03-19] MEDS: GRANISETRON HCL/PF 1 MG in SODIUM CHLORIDE 50 ML IVPB ONE (12:25)
[2024-03-19] MEDS: DEXAMETHASONE SODIUM PHOSPHATE 20 MG in SODIUM CHLORIDE 50 ML IVPB ONE (12:44)
[2024-03-19 13:02] LABS: ANISOCYTOSIS 1+; MACROCYTOSIS 0; OVALOCYTE 1+
[2024-03-19] MEDS: CARFILZOMIB IV ONE (13:25)
[2024-03-19] MEDS: DEXTROSE 5% IV ONE (13:25)
[2024-03-19] MEDS: WATER IV ONE (13:25)
[2024-03-19] MEDS: PORTA CATH FLUSH 10 ML IVPUSH PRN (14:10)
[2024-03-19 15:54] VITALS: BP 104/51; PULSE 46; RESP 18; TEMP 98.3
== END 2024-03-19 14:30 | disposition home or self-care (01) ==
LOC: JONCCHEMO 09:30 → J7W 09:30 → JONCCHEMO 14:30
PROVIDERS: ATTEND Internal Medicine Hematology & Oncology
DX: Z51.11 Encounter for antineoplastic chemotherapy (principal); C90.00 Multiple myeloma not having achieved remission
CPT/HCPCS: 36415; 80053; 83615; 83735; 84550; 85025; 96367; 96375; 96413; J9047

== ENCOUNTER 2024-03-20 09:01 | Day surgery (SDC) | payer OTHER ==
[2024-03-20] MEDS: SODIUM CHLORIDE 0.45% 250 ML IV ONE (09:26)
[2024-03-20 09:39] VITALS: RESP 20; TEMP 97.8
[2024-03-20] MEDS: GRANISETRON HCL 1 MG in SODIUM CHLORIDE 50 ML IVPB ONE (10:28)
[2024-03-20] MEDS: DEXAMETHASONE SODIUM PHOSPHATE 20 MG in SODIUM CHLORIDE 50 ML IVPB ONE (10:45)
[2024-03-20] MEDS: WATER IV ONE (11:12)
[2024-03-20] MEDS: CARFILZOMIB IV ONE (11:12)
[2024-03-20] MEDS: DEXTROSE 5% IV ONE (11:12)
[2024-03-20] MEDS: EPOETIN ALFA-EPBX 20,000 UNIT/ML VIAL SQ ONE (11:42)
[2024-03-20] MEDS: PORTA CATH FLUSH 10 ML IVPUSH PRN (11:51)
[2024-03-20 12:09] VITALS: BP 119/67; PULSE 55
== END 2024-03-20 12:05 | disposition home or self-care (01) ==
LOC: JONCCHEMO 09:01 → J7W 09:07 → JONCCHEMO 12:05
PROVIDERS: ATTEND Internal Medicine Hematology & Oncology
PROC: 3E04305 Introduction of Other Antineoplastic into Central Vein, Percutaneous Approach (ICD-10-PCS; principal; 2024-03-20)
PROC: 3E013GC Introduction of Other Therapeutic Substance into Subcutaneous Tissue, Percutaneous Approach (ICD-10-PCS; 2024-03-20)
DX: Z51.11 Encounter for antineoplastic chemotherapy (principal); C90.00 Multiple myeloma not having achieved remission
CPT/HCPCS: 96372; 96375; 96413; J9047

== ENCOUNTER 2024-04-02 09:25 | Day surgery (SDC) | payer OTHER ==
[2024-04-02] MEDS: SODIUM CHLORIDE 0.45% 250 ML IV ONE (09:54)
[2024-04-02 10:00] LABS: BASO % 0.6 % (0-2.0); EOS % 1.4 % (0-4.5); HEMATOCRIT 30.7 % (35.4-49); HEMOGLOBIN 10.1 GM/dL (11.7-16.9); LYMPH % 3.9 % (8-40); MCH 36.3 pg (25.7-33.7); MEAN CELL VOLUME 110.1 fl (80-96); MEAN PLT VOLUME 6.9 fl (7.5-11.1); MONO % 7.6 % (3.8-10.2); NEUT % 86.5 % (42.8-82.8); PLATELET COUNT 130 10^3/uL (134-434); RBC 2.78 M/mm3 (4.00-5.60); RDW 15.6 % (11.9-15.9); WHITE BLOOD COUNT 6.7 K/mm3 (4.0-10.0)
[2024-04-02 10:22] LABS: CHLORIDE 104 mmol/L (98-107); POTASSIUM 3.8 mmol/L (3.5-5.1); SODIUM 137 mmol/L (136-145)
[2024-04-02 10:24] LABS: ALBUMIN 3.6 g/dl (3.4-5.0); CALCIUM 8.3 mg/dL (8.5-10.1)
[2024-04-02 10:25] LABS: BLOOD UREA NITROGEN 34.8 mg/dL (7-18); GLUCOSE,RANDOM 69 mg/dL (74-106)
[2024-04-02 10:26] LABS: ANION GAP 8 mmol/L (4-13); CO2 25 mmol/L (21-32); MAGNESIUM 2.4 mg/dL (1.8-2.4)
[2024-04-02 10:26] LABS: ANISOCYTOSIS 2+; MACROCYTOSIS 2+
[2024-04-02 10:27] LABS: URIC ACID 5.5 mg/dL (2.6-7.2)
[2024-04-02 10:28] LABS: CREATININE 2.8 mg/dL (0.55-1.3); SGOT/AST 17 U/L (15-37); SGPT/ALT 23 U/L (13-61)
[2024-04-02 10:29] LABS: BILIRUBIN,TOTAL 0.5 mg/dL (0.2-1); TOT PROT 6.5 g/dl (6.4-8.2)
[2024-04-02 10:31] LABS: LDH 199 U/L (87-246)
[2024-04-02 10:32] LABS: PLATELET ESTIMATE SLT DECREASE
[2024-04-02 10:36] LABS: ALK PHOS 91 U/L (45-117)
[2024-04-02] MEDS: DEXAMETHASONE SODIUM PHOSPHATE 20 MG in SODIUM CHLORIDE 50 ML IVPB ONE (11:28)
[2024-04-02] MEDS: GRANISETRON HCL/PF 1 MG in SODIUM CHLORIDE 50 ML IVPB ONE (11:43)
[2024-04-02] MEDS: DEXTROSE 5% IV ONE (12:07)
[2024-04-02] MEDS: WATER IV ONE (12:07)
[2024-04-02] MEDS: CARFILZOMIB IV ONE (12:07)
[2024-04-02] MEDS: PORTA CATH FLUSH 10 ML IVPUSH PRN (12:40)
[2024-04-02 15:41] VITALS: RESP 18; TEMP 97.7
[2024-04-02 15:56] VITALS: BP 122/44; PULSE 59
[2024-04-03 18:07] LABS: FREE KAPPA,SERUM 175.8 mg/L (3.3-19.4)
[2024-04-03 19:06] LABS: IG A QN SERUM. <5 mg/dL (61-437)
[2024-04-04 07:08] LABS: FREE KAP CHN UR 101.93 mg/L (1.17-86.46); KAPPA LAMBDA RATIO URIN 13.96 (1.83-14.26)
[2024-04-04 08:11] LABS: BETA-2-MICROGLOBULIN 7.1 mg/L (0.6-2.4)
== END 2024-04-02 12:50 | disposition home or self-care (01) ==
LOC: JONCCHEMO 09:25 → J7W 09:32 → JONCCHEMO 12:50
PROVIDERS: ATTEND Internal Medicine Hematology & Oncology
DX: Z51.11 Encounter for antineoplastic chemotherapy (principal); C90.00 Multiple myeloma not having achieved remission
CPT/HCPCS: 36415; 80053; 82232; 82784; 83615; 83735; 83883; 84155; 84165; 84550; 85025; 86335; 96375; 96413; J9047

== ENCOUNTER 2024-04-03 08:50 | Day surgery (SDC) | payer OTHER ==
[2024-04-03] MEDS: SODIUM CHLORIDE 0.45% 250 ML IV ONE (09:24)
[2024-04-03] MEDS: DEXAMETHASONE SODIUM PHOSPHATE 20 MG in SODIUM CHLORIDE 50 ML IVPB ONE (09:26)
[2024-04-03] MEDS: GRANISETRON HCL 1 MG in SODIUM CHLORIDE 50 ML IVPB ONE (09:42)
[2024-04-03] MEDS: DEXTROSE 5% IV ONE (10:55)
[2024-04-03] MEDS: CARFILZOMIB IV ONE (10:55)
[2024-04-03] MEDS: WATER IV ONE (10:55)
[2024-04-03] MEDS: EPOETIN ALFA-EPBX 20,000 UNIT/ML VIAL SQ ONE (10:58)
[2024-04-03] MEDS: PORTA CATH FLUSH 10 ML IVPUSH PRN (11:30)
[2024-04-03 16:04] VITALS: RESP 16; TEMP 97.9
[2024-04-03 16:12] VITALS: BP 126/72; PULSE 60
== END 2024-04-03 12:00 | disposition home or self-care (01) ==
LOC: J7W 08:50 → JONCCHEMO 08:50
PROVIDERS: ATTEND Internal Medicine Hematology & Oncology
DX: Z51.11 Encounter for antineoplastic chemotherapy (principal); C90.00 Multiple myeloma not having achieved remission; D63.0 Anemia in neoplastic disease
CPT/HCPCS: 96372; 96375; 96413; J9047

== ENCOUNTER 2024-04-16 09:45 | Day surgery (SDC) | payer OTHER ==
[2024-04-16 10:26] LABS: BASO % 0.7 % (0-2.0); EOS % 1.6 % (0-4.5); HEMOGLOBIN 9.5 GM/dL (11.7-16.9); LYMPH % 4.9 % (8-40); MCHC 32.7 g/dl (32.0-35.9); MEAN CELL VOLUME 110.1 fl (80-96); MEAN PLT VOLUME 7.3 fl (7.5-11.1); MONO % 8.2 % (3.8-10.2); NEUT % 84.6 % (42.8-82.8); PLATELET COUNT 138 10^3/uL (134-434); RBC 2.63 M/mm3 (4.00-5.60); RDW 15.6 % (11.9-15.9); WHITE BLOOD COUNT 6.1 K/mm3 (4.0-10.0)
[2024-04-16] MEDS: SODIUM CHLORIDE 0.45% 250 ML IV ONE (10:41)
[2024-04-16 10:52] LABS: ANISOCYTOSIS 0; MACROCYTOSIS 2+; OVALOCYTE 1+
[2024-04-16 10:54] LABS: CHLORIDE 113 mmol/L (98-107); POTASSIUM 4.8 mmol/L (3.5-5.1); SODIUM 142 mmol/L (136-145)
[2024-04-16 10:56] LABS: CALCIUM 8.7 mg/dL (8.5-10.1)
[2024-04-16 10:57] LABS: ALBUMIN 3.5 g/dl (3.4-5.0); ANION GAP 7 mmol/L (4-13); BLOOD UREA NITROGEN 43.7 mg/dL (7-18); CO2 22 mmol/L (21-32); GLUCOSE,RANDOM 101 mg/dL (74-106); MAGNESIUM 2.7 mg/dL (1.8-2.4)
[2024-04-16 10:59] LABS: SGOT/AST 23 U/L (15-37); SGPT/ALT 27 U/L (13-61); URIC ACID 6.7 mg/dL (2.6-7.2)
[2024-04-16 11:00] LABS: CREATININE 3.2 mg/dL (0.55-1.3)
[2024-04-16 11:01] LABS: BILIRUBIN,TOTAL 0.5 mg/dL (0.2-1); LDH 222 U/L (87-246); TOT PROT 6.3 g/dl (6.4-8.2)
[2024-04-16 11:02] LABS: ALK PHOS 115 U/L (45-117)
[2024-04-16] MEDS: DEXAMETHASONE SODIUM PHOSPHATE 20 MG in SODIUM CHLORIDE 50 ML IVPB ONE (11:44)
[2024-04-16] MEDS: GRANISETRON HCL/PF 1 MG in SODIUM CHLORIDE 50 ML IVPB ONE (12:01)
[2024-04-16] MEDS: WATER IV ONE (12:44)
[2024-04-16] MEDS: DEXTROSE 5% IV ONE (12:44)
[2024-04-16] MEDS: CARFILZOMIB IV ONE (12:44)
[2024-04-16 15:32] VITALS: BP 100/38; PULSE 57; RESP 18; TEMP 97.6
[2024-04-16] MEDS ORDERED: PORTA CATH FLUSH 10 ML IVPUSH PRN (15:32)
== END 2024-04-16 13:50 | disposition home or self-care (01) ==
LOC: JONCCHEMO 09:45 → J7W 09:49 → JONCCHEMO 13:50
PROVIDERS: ATTEND Internal Medicine Hematology & Oncology
PROC: 3E04305 Introduction of Other Antineoplastic into Central Vein, Percutaneous Approach (ICD-10-PCS; principal; 2024-04-16)
PROC: 3E043GC Introduction of Other Therapeutic Substance into Central Vein, Percutaneous Approach (ICD-10-PCS; 2024-04-16)
PROC: 3E0437Z Introduction of Electrolytic and Water Balance Substance into Central Vein, Percutaneous Approach (ICD-10-PCS; 2024-04-16)
DX: Z51.11 Encounter for antineoplastic chemotherapy (principal); C90.00 Multiple myeloma not having achieved remission; D63.0 Anemia in neoplastic disease
CPT/HCPCS: 36415; 80053; 83615; 83735; 84550; 85025; 93005; 93010; 96361; 96367; 96375; 96413; J9047

== ENCOUNTER 2024-04-17 08:30 | Day surgery (SDC) | payer OTHER ==
[2024-04-17] MEDS: SODIUM CHLORIDE 0.45% 250 ML IV ONE (09:12)
[2024-04-17] MEDS: DEXAMETHASONE SODIUM PHOSPHATE 20 MG in SODIUM CHLORIDE 50 ML IVPB ONE (09:54)
[2024-04-17] MEDS: GRANISETRON HCL/PF 1 MG in SODIUM CHLORIDE 50 ML IVPB ONE (10:22)
[2024-04-17] MEDS: DEXTROSE 5% IV ONE (10:47)
[2024-04-17] MEDS: WATER IV ONE (10:47)
[2024-04-17] MEDS: CARFILZOMIB IV ONE (10:47)
[2024-04-17] MEDS: PORTA CATH FLUSH 10 ML IVPUSH PRN (11:25)
[2024-04-17] MEDS: EPOETIN ALFA-EPBX 20,000 UNIT/ML VIAL SQ ONE (11:28)
[2024-04-17 11:38] VITALS: TEMP 97.6
[2024-04-17 12:05] VITALS: BP 134/68; PULSE 55; RESP 18
== END 2024-04-17 11:40 | disposition home or self-care (01) ==
LOC: J7W 08:30 → JONCCHEMO 08:30
PROVIDERS: ATTEND Internal Medicine Hematology & Oncology
DX: Z51.11 Encounter for antineoplastic chemotherapy (principal); C90.00 Multiple myeloma not having achieved remission; D63.0 Anemia in neoplastic disease
CPT/HCPCS: 96375; 96413; J9047

== ENCOUNTER 2024-04-30 09:06 | Day surgery (SDC) | payer OTHER ==
[2024-04-30 11:16] LABS: BASO % 0.5 % (0-2.0); EOS % 1.1 % (0-4.5); HEMATOCRIT 27.1 % (35.4-49); HEMOGLOBIN 8.7 GM/dL (11.7-16.9); LYMPH % 4.3 % (8-40); MCH 35.1 pg (25.7-33.7); MCHC 32.2 g/dl (32.0-35.9); MEAN CELL VOLUME 108.9 fl (80-96); MONO % 6.5 % (3.8-10.2); NEUT % 87.6 % (42.8-82.8); PLATELET COUNT 150 10^3/uL (134-434); RBC 2.49 M/mm3 (4.00-5.60); RDW 15.6 % (11.9-15.9); WHITE BLOOD COUNT 6.3 K/mm3 (4.0-10.0)
[2024-04-30 11:35] LABS: POTASSIUM 4.3 mmol/L (3.5-5.1)
[2024-04-30] MEDS: SODIUM CHLORIDE 0.45% 250 ML IV ONE (11:35)
[2024-04-30 11:38] LABS: ALBUMIN 3.2 g/dl (3.4-5.0); BLOOD UREA NITROGEN 30.5 mg/dL (7-18); CALCIUM 8.4 mg/dL (8.5-10.1)
[2024-04-30 11:39] LABS: MAGNESIUM 2.3 mg/dL (1.8-2.4)
[2024-04-30 11:41] LABS: CREATININE 2.5 mg/dL (0.55-1.3); URIC ACID 4.2 mg/dL (2.6-7.2)
[2024-04-30 11:43] LABS: TOT PROT 6.3 g/dl (6.4-8.2)
[2024-04-30 11:53] LABS: BILIRUBIN,TOTAL 0.4 mg/dL (0.2-1)
[2024-04-30] MEDS: GRANISETRON HCL/PF 1 MG in SODIUM CHLORIDE 50 ML IVPB ONE (12:17)
[2024-04-30 12:19] LABS: ANISOCYTOSIS 2+; MACROCYTOSIS 0; OVALOCYTE 1+
[2024-04-30 12:20] LABS: PLATELET ESTIMATE ADEQUATE
[2024-04-30] MEDS: DEXAMETHASONE SODIUM PHOSPHATE 20 MG in SODIUM CHLORIDE 50 ML IVPB ONE (12:40)
[2024-04-30] MEDS: CARFILZOMIB IV ONE (13:01)
[2024-04-30] MEDS: DEXTROSE 5% IV ONE (13:01)
[2024-04-30] MEDS: WATER IV ONE (13:01)
[2024-04-30] MEDS: PORTA CATH FLUSH 10 ML IVPUSH PRN (13:35)
[2024-04-30 16:42] VITALS: BP 136/74; PULSE 53; RESP 20; TEMP 98.3
[2024-05-01 17:08] LABS: FREE KAPPA,SERUM 324.1 mg/L (3.3-19.4); IG A QN SERUM. <5 mg/dL (61-437)
[2024-05-02 07:09] LABS: BETA-2-MICROGLOBULIN 7.4 mg/L (0.6-2.4); FREE KAP CHN UR 145.65 mg/L (1.17-86.46); KAPPA LAMBDA RATIO URIN 47.44 (1.83-14.26)
== END 2024-04-30 14:00 | disposition home or self-care (01) ==
LOC: JONCCHEMO 09:06 → J7W 09:07 → JONCCHEMO 14:00
PROVIDERS: ATTEND Internal Medicine Hematology & Oncology
PROC: 3E04305 Introduction of Other Antineoplastic into Central Vein, Percutaneous Approach (ICD-10-PCS; principal; 2024-04-30)
PROC: 3E0437Z Introduction of Electrolytic and Water Balance Substance into Central Vein, Percutaneous Approach (ICD-10-PCS; 2024-04-30)
DX: Z51.11 Encounter for antineoplastic chemotherapy (principal); C90.00 Multiple myeloma not having achieved remission; D63.0 Anemia in neoplastic disease
CPT/HCPCS: 36415; 71046-TC-FY; 80053; 82232; 82607; 82784; 83615; 83735; 83883; 84155; 84165; 84550; 85025; 86335; 96361; 96367; 96413; J9047

== ENCOUNTER 2024-05-01 08:55 | Day surgery (SDC) | payer OTHER ==
[2024-05-01] MEDS: SODIUM CHLORIDE 0.45% 250 ML IV ONE (09:30)
[2024-05-01] MEDS: GRANISETRON HCL IVPB ONE (10:19)
[2024-05-01] MEDS: DEXTROSE 5% IVPB ONE (10:19)
[2024-05-01] MEDS: WATER IVPB ONE (10:19)
[2024-05-01] MEDS: DEXAMETHASONE SODIUM PHOSPHATE 20 MG in SODIUM CHLORIDE 50 ML IVPB ONE (10:43)
[2024-05-01] MEDS: DEXTROSE 5% IV ONE (11:05)
[2024-05-01] MEDS: CARFILZOMIB IV ONE (11:05)
[2024-05-01] MEDS: WATER IV ONE (11:05)
[2024-05-01] MEDS: PORTA CATH FLUSH 10 ML IVPUSH PRN (11:45)
[2024-05-01] MEDS: EPOETIN ALFA-EPBX 10,000 UNIT/ML VIAL SQ ONE (11:45)
[2024-05-01 16:46] VITALS: BP 123/76; PULSE 55; RESP 20; TEMP 97.6
== END 2024-05-01 13:00 | disposition home or self-care (01) ==
LOC: JONCCHEMO 08:55 → J7W 09:02 → JONCCHEMO 13:00
PROVIDERS: ATTEND Internal Medicine Hematology & Oncology
PROC: 3E04305 Introduction of Other Antineoplastic into Central Vein, Percutaneous Approach (ICD-10-PCS; principal; 2024-05-01)
PROC: 3E0437Z Introduction of Electrolytic and Water Balance Substance into Central Vein, Percutaneous Approach (ICD-10-PCS; 2024-05-01)
PROC: 3E013GC Introduction of Other Therapeutic Substance into Subcutaneous Tissue, Percutaneous Approach (ICD-10-PCS; 2024-05-01)
DX: Z51.11 Encounter for antineoplastic chemotherapy (principal); C90.00 Multiple myeloma not having achieved remission; D63.0 Anemia in neoplastic disease
CPT/HCPCS: 96367; 96372; 96413; J9047; Q5106

== ENCOUNTER 2024-05-14 09:26 | Day surgery (SDC) | payer OTHER ==
[2024-05-14 10:40] LABS: BASO % 0.9 % (0-2.0); EOS % 1.8 % (0-4.5); HEMATOCRIT 28.9 % (35.4-49); HEMOGLOBIN 9.3 GM/dL (11.7-16.9); LYMPH % 5.3 % (8-40); MCH 35.3 pg (25.7-33.7); MCHC 32.2 g/dl (32.0-35.9); MEAN CELL VOLUME 109.6 fl (80-96); MEAN PLT VOLUME 7.1 fl (7.5-11.1); MONO % 8.4 % (3.8-10.2); NEUT % 83.6 % (42.8-82.8); PLATELET COUNT 117 10^3/uL (134-434); RBC 2.63 M/mm3 (4.00-5.60); RDW 16.6 % (11.9-15.9); WHITE BLOOD COUNT 5.1 K/mm3 (4.0-10.0)
[2024-05-14 10:55] LABS: CHLORIDE 104 mmol/L (98-107); POTASSIUM 4.2 mmol/L (3.5-5.1); SODIUM 136 mmol/L (136-145)
[2024-05-14 11:00] LABS: ALBUMIN 3.2 g/dl (3.4-5.0); ANION GAP 7 mmol/L (4-13); BLOOD UREA NITROGEN 31.4 mg/dL (7-18); CO2 26 mmol/L (21-32); GLUCOSE,RANDOM 111 mg/dL (74-106); MAGNESIUM 2.4 mg/dL (1.8-2.4)
[2024-05-14 11:03] LABS: CREATININE 2.8 mg/dL (0.55-1.3); SGOT/AST 18 U/L (15-37); SGPT/ALT 21 U/L (13-61); URIC ACID 4.3 mg/dL (2.6-7.2)
[2024-05-14 11:04] LABS: BILIRUBIN,TOTAL 0.5 mg/dL (0.2-1); LDH 208 U/L (87-246); TOT PROT 6.1 g/dl (6.4-8.2)
[2024-05-14 11:06] LABS: ALK PHOS 114 U/L (45-117)
[2024-05-14 11:46] LABS: ANISOCYTOSIS 0; MACROCYTOSIS 2+
[2024-05-14] MEDS: SODIUM CHLORIDE 0.45% 250 ML IV ONE (12:00)
[2024-05-14] MEDS: DEXAMETHASONE SODIUM PHOSPHATE 20 MG in SODIUM CHLORIDE 50 ML IVPB ONE (12:38)
[2024-05-14] MEDS: GRANISETRON HCL/PF 1 MG in SODIUM CHLORIDE 50 ML IVPB ONE (12:57)
[2024-05-14] MEDS: WATER IV ONE (13:39)
[2024-05-14] MEDS: CARFILZOMIB IV ONE (13:39)
[2024-05-14] MEDS: DEXTROSE 5% IV ONE (13:39)
[2024-05-14] MEDS: PORTA CATH FLUSH 10 ML IVPUSH PRN (14:20)
[2024-05-14 18:35] VITALS: BP 133/46; PULSE 49; RESP 18; TEMP 97.5
== END 2024-05-14 14:30 | disposition home or self-care (01) ==
LOC: JONCCHEMO 09:26 → J7W 10:01 → JONCCHEMO 14:30
PROVIDERS: ATTEND Internal Medicine Hematology & Oncology
PROC: 3E06305 Introduction of Other Antineoplastic into Central Artery, Percutaneous Approach (ICD-10-PCS; principal; 2024-05-14)
PROC: 3E043GC Introduction of Other Therapeutic Substance into Central Vein, Percutaneous Approach (ICD-10-PCS; 2024-05-14)
DX: Z51.11 Encounter for antineoplastic chemotherapy (principal); C90.00 Multiple myeloma not having achieved remission
CPT/HCPCS: 36415; 80053; 83615; 83735; 84550; 85025; 93306-TC; 96374; 96375; 96413; J9047

== ENCOUNTER 2024-05-15 09:01 | Day surgery (SDC) | payer OTHER ==
[2024-05-15] MEDS: SODIUM CHLORIDE 0.45% 250 ML IV ONE (10:00)
[2024-05-15] MEDS: DEXAMETHASONE SODIUM PHOSPHATE 20 MG in SODIUM CHLORIDE 50 ML IVPB ONE (10:25)
[2024-05-15] MEDS: GRANISETRON HCL/PF 1 MG in SODIUM CHLORIDE 50 ML IVPB ONE (10:45)
[2024-05-15] MEDS: DEXTROSE 5% IV ONE (11:15)
[2024-05-15] MEDS: CARFILZOMIB IV ONE (11:15)
[2024-05-15] MEDS: WATER IV ONE (11:15)
[2024-05-15] MEDS: EPOETIN ALFA-EPBX 20,000 UNIT/ML VIAL SQ ONE (12:36)
[2024-05-15] MEDS: PORTA CATH FLUSH 10 ML IVPUSH PRN (13:00)
[2024-05-15 17:35] VITALS: PULSE 55; RESP 20; TEMP 98
[2024-05-15 17:43] VITALS: BP 132/54
== END 2024-05-15 13:50 | disposition home or self-care (01) ==
LOC: JONCCHEMO 09:01 → J7W 09:04 → JONCCHEMO 13:50
PROVIDERS: ATTEND Internal Medicine Hematology & Oncology
DX: Z51.11 Encounter for antineoplastic chemotherapy (principal); C90.00 Multiple myeloma not having achieved remission
CPT/HCPCS: 96367; 96372; 96413; J9047

== ENCOUNTER 2024-05-28 09:06 | Day surgery (SDC) | payer OTHER ==
[2024-05-28] MEDS: SODIUM CHLORIDE 0.45% 250 ML IV ONE (09:45)
[2024-05-28 10:26] LABS: CHLORIDE 110 mmol/L (98-107); POTASSIUM 4.9 mmol/L (3.5-5.1); SODIUM 141 mmol/L (136-145)
[2024-05-28 10:28] LABS: ALBUMIN 3.3 g/dl (3.4-5.0); BLOOD UREA NITROGEN 37.4 mg/dL (7-18); GLUCOSE,RANDOM 95 mg/dL (74-106); MAGNESIUM 2.4 mg/dL (1.8-2.4)
[2024-05-28 10:29] LABS: CALCIUM 8.9 mg/dL (8.5-10.1)
[2024-05-28 10:30] LABS: CREATININE 3.2 mg/dL (0.55-1.3); URIC ACID 4.4 mg/dL (2.6-7.2)
[2024-05-28 10:31] LABS: SGOT/AST 24 U/L (15-37); SGPT/ALT 27 U/L (13-61)
[2024-05-28 10:33] LABS: ALK PHOS 117 U/L (45-117); BASO % 0.9 % (0-2.0); BILIRUBIN,TOTAL 0.6 mg/dL (0.2-1); EOS % 2.1 % (0-4.5); HEMATOCRIT 28.1 % (35.4-49); HEMOGLOBIN 9.2 GM/dL (11.7-16.9); LDH 223 U/L (87-246); LYMPH % 5.4 % (8-40); MCHC 32.7 g/dl (32.0-35.9); MEAN PLT VOLUME 7.2 fl (7.5-11.1); MONO % 6.5 % (3.8-10.2); NEUT % 85.1 % (42.8-82.8); PLATELET COUNT 123 10^3/uL (134-434); RBC 2.55 M/mm3 (4.00-5.60); RDW 16.3 % (11.9-15.9); TOT PROT 6.2 g/dl (6.4-8.2); WHITE BLOOD COUNT 4.5 K/mm3 (4.0-10.0)
[2024-05-28 10:35] LABS: ANION GAP 5 mmol/L (4-13); CO2 26 mmol/L (21-32)
[2024-05-28] MEDS: GRANISETRON HCL/PF 1 MG in SODIUM CHLORIDE 50 ML IVPB ONE (10:54)
[2024-05-28 11:09] LABS: ANISOCYTOSIS 2+; MACROCYTOSIS 2+; OVALOCYTE 1+; TEAR DROP CELLS 1+
[2024-05-28] MEDS: DEXAMETHASONE SODIUM PHOSPHATE 20 MG in SODIUM CHLORIDE 50 ML IVPB ONE (11:27)
[2024-05-28] MEDS: CARFILZOMIB IV ONE (11:58)
[2024-05-28] MEDS: DEXTROSE 5% IV ONE (11:58)
[2024-05-28] MEDS: WATER IV ONE (11:58)
[2024-05-28] MEDS: PORTA CATH FLUSH 10 ML IVPUSH PRN (12:30)
[2024-05-28 16:44] VITALS: BP 129/53; PULSE 49; RESP 20; TEMP 97.6
[2024-05-29 17:08] LABS: FREE KAPPA,SERUM 385.5 mg/L (3.3-19.4); IG A QN SERUM. <5 mg/dL (61-437)
[2024-05-30 06:09] LABS: BETA-2-MICROGLOBULIN 8.9 mg/L (0.6-2.4)
[2024-05-30 07:09] LABS: FREE KAP CHN UR 293.42 mg/L (1.17-86.46); KAPPA LAMBDA RATIO URIN 46.14 (1.83-14.26)
== END 2024-05-28 13:15 | disposition home or self-care (01) ==
LOC: JONCCHEMO 09:06 → J7W 09:11 → JONCCHEMO 13:15
PROVIDERS: ATTEND Internal Medicine Hematology & Oncology
DX: Z51.11 Encounter for antineoplastic chemotherapy (principal); C90.00 Multiple myeloma not having achieved remission
CPT/HCPCS: 36415; 80053; 82232; 82784; 83615; 83735; 83883; 84155; 84165; 84550; 85025; 86335; 96368; 96413; J9047

== ENCOUNTER 2024-05-29 09:04 | Day surgery (SDC) | payer OTHER ==
[2024-05-29] MEDS: SODIUM CHLORIDE 0.45% 250 ML IV ONE (09:18)
[2024-05-29 09:42] VITALS: RESP 20; TEMP 97.3
[2024-05-29] MEDS: GRANISETRON HCL/PF 1 MG in SODIUM CHLORIDE 50 ML IVPB ONE (10:25)
[2024-05-29] MEDS: DEXAMETHASONE SODIUM PHOSPHATE 20 MG in DEXTROSE 5%-WATER - 50 ML IVPB ONE (10:54)
[2024-05-29] MEDS: CARFILZOMIB IV ONE (11:25)
[2024-05-29] MEDS: WATER IV ONE (11:25)
[2024-05-29] MEDS: DEXTROSE 5% IV ONE (11:25)
[2024-05-29] MEDS: EPOETIN ALFA-EPBX 10,000 UNIT/ML VIAL SQ ONE (12:17)
[2024-05-29] MEDS: PORTA CATH FLUSH 10 ML IVPUSH PRN (12:26)
[2024-05-29 13:06] VITALS: BP 121/51; PULSE 53
== END 2024-05-29 12:55 | disposition home or self-care (01) ==
LOC: JONCCHEMO 09:04 → J7W 09:04 → JONCCHEMO 12:55
PROVIDERS: ATTEND Internal Medicine Hematology & Oncology
DX: Z51.11 Encounter for antineoplastic chemotherapy (principal); C90.00 Multiple myeloma not having achieved remission
CPT/HCPCS: 96372; 96375; 96413; J9047; Q5106

== ENCOUNTER 2024-06-10 09:42 | Day surgery (SDC) | payer OTHER ==
[2024-06-10 10:07] VITALS: RESP 20; TEMP 98.3
[2024-06-10] MEDS: SODIUM CHLORIDE 0.45% 250 ML IV ONE (10:15)
[2024-06-10 10:50] LABS: BASO % 0.3 % (0-2.0); EOS % 2.1 % (0-4.5); HEMATOCRIT 28.3 % (35.4-49); HEMOGLOBIN 9.1 GM/dL (11.7-16.9); MCH 35.9 pg (25.7-33.7); MCHC 32.2 g/dl (32.0-35.9); MEAN CELL VOLUME 111.5 fl (80-96); MEAN PLT VOLUME 7.7 fl (7.5-11.1); NEUT % 83.6 % (42.8-82.8); PLATELET COUNT 125 10^3/uL (134-434); RBC 2.54 M/mm3 (4.00-5.60); RDW 17.2 % (11.9-15.9); WHITE BLOOD COUNT 4.6 K/mm3 (4.0-10.0)
[2024-06-10 11:23] LABS: POTASSIUM 4.7 mmol/L (3.5-5.1)
[2024-06-10 11:26] LABS: ALBUMIN 3.6 g/dl (3.4-5.0); BLOOD UREA NITROGEN 39.7 mg/dL (7-18); CALCIUM 8.3 mg/dL (8.5-10.1); MAGNESIUM 2.5 mg/dL (1.8-2.4)
[2024-06-10 11:30] LABS: CREATININE 2.5 mg/dL (0.55-1.3)
[2024-06-10 11:31] LABS: BILIRUBIN,TOTAL 0.6 mg/dL (0.2-1); TOT PROT 6.2 g/dl (6.4-8.2)
[2024-06-10] MEDS: GRANISETRON HCL/PF 1 MG in SODIUM CHLORIDE 50 ML IVPB ONE (11:40)
[2024-06-10 11:44] LABS: ANISOCYTOSIS 2+; MACROCYTOSIS 2+
[2024-06-10] MEDS: DEXAMETHASONE SODIUM PHOSPHATE 20 MG in DEXTROSE 5%-WATER - 50 ML IVPB ONE (11:59)
[2024-06-10] MEDS: WATER IV ONE (12:22)
[2024-06-10] MEDS: CARFILZOMIB IV ONE (12:22)
[2024-06-10] MEDS: DEXTROSE 5% IV ONE (12:22)
[2024-06-10] MEDS: PORTA CATH FLUSH 10 ML IVPUSH PRN (13:09)
[2024-06-10 13:25] VITALS: BP 117/49; PULSE 51
== END 2024-06-10 13:15 | disposition home or self-care (01) ==
LOC: JONCCHEMO 09:42
PROVIDERS: ATTEND Internal Medicine Hematology & Oncology
DX: Z51.11 Encounter for antineoplastic chemotherapy (principal); C90.00 Multiple myeloma not having achieved remission
CPT/HCPCS: 36415; 80053; 83615; 83735; 84550; 85025; 96375; 96413; J9047

== ENCOUNTER 2024-06-11 09:10 | Day surgery (SDC) | payer OTHER ==
[2024-06-11] MEDS: SODIUM CHLORIDE 0.45% 250 ML IV ONE (09:07)
[2024-06-11 09:24] VITALS: RESP 20; TEMP 97.7
[2024-06-11] MEDS: WATER IVPB ONE (10:03)
[2024-06-11] MEDS: GRANISETRON HCL IVPB ONE (10:03)
[2024-06-11] MEDS: DEXTROSE 5% IVPB ONE (10:03)
[2024-06-11] MEDS: DEXAMETHASONE SODIUM PHOSPHATE 20 MG in DEXTROSE 5%-WATER - 50 ML IVPB ONE (10:20)
[2024-06-11] MEDS: CARFILZOMIB IV ONE (11:02)
[2024-06-11] MEDS: DEXTROSE 5% IV ONE (11:02)
[2024-06-11] MEDS: WATER IV ONE (11:02)
[2024-06-11] MEDS: EPOETIN ALFA-EPBX 10,000 UNIT/ML VIAL SQ ONE (11:38)
[2024-06-11] MEDS: PORTA CATH FLUSH 10 ML IVPUSH PRN (11:43)
[2024-06-11 11:47] VITALS: BP 120/60; PULSE 49
== END 2024-06-11 11:55 | disposition home or self-care (01) ==
LOC: JONCCHEMO 09:10 → J7W 09:11 → JONCCHEMO 11:55
PROVIDERS: ATTEND Internal Medicine Hematology & Oncology
DX: Z51.11 Encounter for antineoplastic chemotherapy (principal); C90.00 Multiple myeloma not having achieved remission
CPT/HCPCS: 96372; 96375; 96413; J9047; Q5106

== ENCOUNTER 2024-06-25 09:52 | Day surgery (SDC) | payer OTHER ==
[2024-06-25] MEDS: SODIUM CHLORIDE 0.45% 250 ML IV ONE (10:46)
[2024-06-25 11:05] LABS: BASO % 0.4 % (0-2.0); EOS % 1.7 % (0-4.5); HEMATOCRIT 29.3 % (35.4-49); HEMOGLOBIN 9.5 GM/dL (11.7-16.9); LYMPH % 4.7 % (8-40); MCH 36.8 pg (25.7-33.7); MCHC 32.5 g/dl (32.0-35.9); MEAN CELL VOLUME 113.2 fl (80-96); MEAN PLT VOLUME 7.8 fl (7.5-11.1); MONO % 5.4 % (3.8-10.2); NEUT % 87.8 % (42.8-82.8); PLATELET COUNT 116 10^3/uL (134-434); RBC 2.59 M/mm3 (4.00-5.60); RDW 16.6 % (11.9-15.9); WHITE BLOOD COUNT 5.1 K/mm3 (4.0-10.0)
[2024-06-25 11:21] LABS: POTASSIUM 3.8 mmol/L (3.5-5.1)
[2024-06-25] MEDS: GRANISETRON HCL/PF 1 MG in SODIUM CHLORIDE 50 ML IVPB ONE (11:40)
[2024-06-25 11:48] LABS: ALBUMIN 3.3 g/dl (3.4-5.0); BLOOD UREA NITROGEN 46.3 mg/dL (7-18); CALCIUM 8.4 mg/dL (8.5-10.1); MAGNESIUM 2.2 mg/dL (1.8-2.4)
[2024-06-25 11:50] LABS: URIC ACID 6.2 mg/dL (2.6-7.2)
[2024-06-25 11:51] LABS: CREATININE 3.3 mg/dL (0.55-1.3)
[2024-06-25 11:53] LABS: BILIRUBIN,TOTAL 0.5 mg/dL (0.2-1); TOT PROT 6.5 g/dl (6.4-8.2)
[2024-06-25 11:56] LABS: ANISOCYTOSIS 1+; MACROCYTOSIS 1+; TEAR DROP CELLS 0
[2024-06-25] MEDS: DEXAMETHASONE SODIUM PHOSPHATE 20 MG in DEXTROSE 5%-WATER - 50 ML IVPB ONE (12:17)
[2024-06-25] MEDS: DEXTROSE 5% IV ONE (12:53)
[2024-06-25] MEDS: WATER IV ONE (12:53)
[2024-06-25] MEDS: CARFILZOMIB IV ONE (12:53)
[2024-06-25] MEDS: PORTA CATH FLUSH 10 ML IVPUSH PRN (13:40)
[2024-06-25 14:05] VITALS: RESP 18; TEMP 97.9
[2024-06-25 14:16] VITALS: PULSE 53
[2024-06-25 14:26] VITALS: BP 114/57
[2024-06-26 17:09] LABS: FREE KAPPA,SERUM 322.2 mg/L (3.3-19.4)
[2024-06-26 18:08] LABS: IG A QN SERUM. <5 mg/dL (61-437)
[2024-06-27 06:09] LABS: FREE KAP CHN UR 173.97 mg/L (1.17-86.46); KAPPA LAMBDA RATIO URIN 67.69 (1.83-14.26)
[2024-06-27 07:08] LABS: BETA-2-MICROGLOBULIN 7.3 mg/L (0.6-2.4)
== END 2024-06-25 14:00 | disposition home or self-care (01) ==
LOC: JONCCHEMO 09:52 → J7W 10:18 → JONCCHEMO 14:00
PROVIDERS: ATTEND Internal Medicine Hematology & Oncology
DX: Z51.11 Encounter for antineoplastic chemotherapy (principal); C90.00 Multiple myeloma not having achieved remission
CPT/HCPCS: 36415; 80053; 82232; 82784; 83615; 83735; 83883; 84155; 84165; 84550; 85025; 86335; 96367; 96413; J9047

== ENCOUNTER 2024-06-26 08:39 | Day surgery (SDC) | payer OTHER ==
[2024-06-26] MEDS: SODIUM CHLORIDE 0.45% 250 ML IV ONE (08:56)
[2024-06-26 09:22] VITALS: RESP 18; TEMP 97.8
[2024-06-26] MEDS: WATER IVPB ONE (09:51)
[2024-06-26] MEDS: DEXTROSE 5% IVPB ONE (09:51)
[2024-06-26] MEDS: GRANISETRON HCL IVPB ONE (09:51)
[2024-06-26] MEDS: DEXAMETHASONE SODIUM PHOSPHATE 20 MG in DEXTROSE 5%-WATER - 50 ML IVPB ONE (10:09)
[2024-06-26] MEDS: CARFILZOMIB IV ONE (10:39)
[2024-06-26] MEDS: DEXTROSE 5% IV ONE (10:39)
[2024-06-26] MEDS: WATER IV ONE (10:39)
[2024-06-26] MEDS: EPOETIN ALFA-EPBX 10,000 UNIT/ML VIAL SQ ONE (11:17)
[2024-06-26] MEDS: PORTA CATH FLUSH 10 ML IVPUSH PRN (11:26)
[2024-06-26 12:10] VITALS: BP 121/58; PULSE 62
== END 2024-06-26 11:40 | disposition home or self-care (01) ==
LOC: JONCCHEMO 08:39 → J7W 08:39 → JONCCHEMO 11:40
PROVIDERS: ATTEND Internal Medicine Hematology & Oncology
PROC: 3E04305 Introduction of Other Antineoplastic into Central Vein, Percutaneous Approach (ICD-10-PCS; principal; 2024-06-26)
PROC: 3E013GC Introduction of Other Therapeutic Substance into Subcutaneous Tissue, Percutaneous Approach (ICD-10-PCS; 2024-06-26)
DX: Z51.11 Encounter for antineoplastic chemotherapy (principal); C90.00 Multiple myeloma not having achieved remission
CPT/HCPCS: 96372; 96375; 96413; J9047; Q5106

== ENCOUNTER 2024-07-08 09:13 | Day surgery (SDC) | payer OTHER ==
[2024-07-08] MEDS ORDERED: WATER IV ONE (10:00)
[2024-07-08] MEDS ORDERED: CARFILZOMIB IV ONE (10:00)
[2024-07-08] MEDS ORDERED: DEXTROSE 5% IV ONE (10:00)
[2024-07-08 10:13] LABS: BASO % 0.5 % (0-2.0); EOS % 1.4 % (0-4.5); HEMATOCRIT 28.1 % (35.4-49); HEMOGLOBIN 8.8 GM/dL (11.7-16.9); MCH 35.9 pg (25.7-33.7); MCHC 31.3 g/dl (32.0-35.9); MEAN PLT VOLUME 7.9 fl (7.5-11.1); MONO % 7.1 % (3.8-10.2); PLATELET COUNT 124 10^3/uL (134-434); RBC 2.45 M/mm3 (4.00-5.60); RDW 16.4 % (11.9-15.9); WHITE BLOOD COUNT 4.7 K/mm3 (4.0-10.0)
[2024-07-08 10:31] LABS: POTASSIUM 3.7 mmol/L (3.5-5.1)
[2024-07-08 10:33] LABS: CALCIUM 8.2 mg/dL (8.5-10.1)
[2024-07-08 10:34] LABS: ALBUMIN 3.2 g/dl (3.4-5.0); BLOOD UREA NITROGEN 44.6 mg/dL (7-18); MAGNESIUM 2.1 mg/dL (1.8-2.4)
[2024-07-08 10:36] LABS: URIC ACID 5.6 mg/dL (2.6-7.2)
[2024-07-08 10:37] LABS: CREATININE 2.7 mg/dL (0.55-1.3)
[2024-07-08 10:39] LABS: BILIRUBIN,TOTAL 0.5 mg/dL (0.2-1); TOT PROT 6.1 g/dl (6.4-8.2)
[2024-07-08] MEDS: SODIUM CHLORIDE 0.45% 250 ML IV ONE (10:52)
[2024-07-08 11:15] LABS: ANISOCYTOSIS 1+; MACROCYTOSIS 2+
[2024-07-08] MEDS: GRANISETRON HCL/PF 1 MG in SODIUM CHLORIDE 50 ML IVPB ONE (11:32)
[2024-07-08] MEDS: DEXAMETHASONE SODIUM PHOSPHATE 20 MG in SODIUM CHLORIDE 50 ML IVPB ONE (12:20)
[2024-07-08] MEDS: DEXTROSE 5% IV ONE (12:44)
[2024-07-08] MEDS: WATER IV ONE (12:44)
[2024-07-08] MEDS: CARFILZOMIB IV ONE (12:44)
[2024-07-08] MEDS: PORTA CATH FLUSH 10 ML IVPUSH PRN (13:25)
[2024-07-08 15:59] VITALS: RESP 18; TEMP 98
[2024-07-08 16:06] VITALS: BP 111/39; PULSE 57
[2024-07-10 02:07] LABS: RISTOCETIN CO-FACTOR 430 % (50-200); VON WILLEBRAND ANTIGEN 267 % (50-200)
== END 2024-07-08 13:30 | disposition home or self-care (01) ==
LOC: JONCCHEMO 09:13 → J7W 09:25 → JONCCHEMO 13:30
PROVIDERS: ATTEND Internal Medicine Hematology & Oncology
PROC: 3E04305 Introduction of Other Antineoplastic into Central Vein, Percutaneous Approach (ICD-10-PCS; principal; 2024-07-08)
PROC: 3E043GC Introduction of Other Therapeutic Substance into Central Vein, Percutaneous Approach (ICD-10-PCS; 2024-07-08)
DX: Z51.11 Encounter for antineoplastic chemotherapy (principal); C90.00 Multiple myeloma not having achieved remission
CPT/HCPCS: 36415; 80053; 83615; 83735; 84550; 85025; 85240; 85246; 85247; 96366; 96413; J9047

== ENCOUNTER 2024-07-09 08:05 | Day surgery (SDC) | payer OTHER ==
[2024-07-09] MEDS: SODIUM CHLORIDE 0.45% 250 ML IV ONE (08:26)
[2024-07-09] MEDS: DEXAMETHASONE SODIUM PHOSPHATE 20 MG in SODIUM CHLORIDE 50 ML IVPB ONE (09:33)
[2024-07-09] MEDS: GRANISETRON HCL/PF 1 MG in SODIUM CHLORIDE 50 ML IVPB ONE (10:02)
[2024-07-09] MEDS: WATER IV ONE (10:21)
[2024-07-09] MEDS: CARFILZOMIB IV ONE (10:21)
[2024-07-09] MEDS: DEXTROSE 5% IV ONE (10:21)
[2024-07-09] MEDS: EPOETIN ALFA-EPBX 20,000 UNIT/ML VIAL SQ ONE (10:52)
[2024-07-09] MEDS: PORTA CATH FLUSH 10 ML IVPUSH PRN (11:15)
[2024-07-09 16:31] VITALS: TEMP 98.4
[2024-07-09 16:36] VITALS: BP 126/71; PULSE 69; RESP 18
== END 2024-07-09 11:15 | disposition home or self-care (01) ==
LOC: J7W 08:05 → JONCCHEMO 08:05
PROVIDERS: ATTEND Internal Medicine Hematology & Oncology
PROC: 3E04305 Introduction of Other Antineoplastic into Central Vein, Percutaneous Approach (ICD-10-PCS; principal; 2024-07-09)
PROC: 3E043GC Introduction of Other Therapeutic Substance into Central Vein, Percutaneous Approach (ICD-10-PCS; 2024-07-09)
PROC: 3E0437Z Introduction of Electrolytic and Water Balance Substance into Central Vein, Percutaneous Approach (ICD-10-PCS; 2024-07-09)
DX: Z51.11 Encounter for antineoplastic chemotherapy (principal); C90.00 Multiple myeloma not having achieved remission
CPT/HCPCS: 96361; 96372; 96375; 96413; J9047